=== PATIENT | female | born 1980 | race Caucasian/White ===

== ENCOUNTER 2022-05-24 11:38 | Outpatient (CLI) | payer MEDICARE, MEDICAID, SELFPAY ==
--- NOTE | 2022-05-12 09:36 | PC.NURSE ---
Attempted to contact patient to verify patient had a COVID test and was planning to come in for EGD today at noon. Was unable to reach patient with numbers provided [phone] and . Left message through the [facility] service connected with phone to confirm patient was coming and to ask about COVID test.
--- NOTE | 2022-05-24 12:36 | W.ANESCHARGE ---
Anesthesia Charges Start Date/Time Anesthesia Start Date: 05/24/22 Anesthesia Start Time: 12:16 Stop Date/Time Anesthesia Stop Date: 05/24/22 Anesthesia Stop Time: 12:37 Summary Emergency: No
--- NOTE | 2022-05-24 13:06 | W.ANESCHARGE ---
Anesthesia Charges Start Date/Time Anesthesia Start Date: 05/24/22 Anesthesia Start Time: 12:16 Stop Date/Time Anesthesia Stop Date: 05/24/22 Anesthesia Stop Time: 12:37 Summary Emergency: No
--- OUTSIDE RECORDS SUMMARY | 2022-05-31 21:50 | XMS_ITS | Clinical Summary ---
:1980 Author Organization [facility] Address [address] [place] [address] Care Team Providers Name Role Phone No Ref-Primary, Physician Primary Care Provider [phone] Allergies Active Allergy Reactions Severity Noted Date Comments Fentanyl Hives 05/04/2022 Penicillins 05/04/2022 Medications Medication Sig Dispensed Refills Start Date End Date Status magnesium oxide Take 1 tablet 10 tablet 0 05/04/2022 2 (MAG-OX) 400 MG (400 mg) by tablet mouth 2 times daily for 5 days Encounters Date Type Specialty Care Team Description 05/04/2022 Emergency EMERGENCY MEDICINE Hai Cantu PA- C Dehydration; Hypomagnesemia 05/04/2022 Travel from Last 3 Months Social History Tobacco Use Types Packs/Day Years Used Date Never Assessed Sex Assigned at Date Recorded Not on file COVID-19 Exposure Response Date Recorded In the last 10 days, have you been in contact with No / Unsu re 05/04/2022 4:17 PM CDT someone who was confirmed or suspected to have Coronavirus/COVID-19? Last Filed Vital Signs Vital Sign Reading Time Taken Comments Blood Pressure 103/72 05/04/2022 6:30 PM CDT Pulse 105 05/04/2022 4:22 PM CDT Temperature 36.8 ??C (98.2 ??F) 05/04/2022 4:22 PM CDT Respiratory Rate 14 05/04/2022 4:22 PM CDT Oxygen Saturation 100% 05/04/2022 6:30 PM CDT Inhaled Oxygen Concentration - - Weight 47.6 kg (105 lb) 05/04/2022 4:22 PM CDT Height 165.1 cm (5' 5) 05/04/2022 4:22 PM CDT Body Mass Index 17.47 05/04/2022 4:22 PM CDT Plan of Treatment Health Maintenance Due Date Last Done Comments ADVANCE CARE PLANNING 1980 ANNUAL REVIEW OF HM ORDERS 1982 COVID-19 Vaccine (#1) 1982 HIV SCREENING 1997 HEPATITIS C SCREENING 2000 MEDICARE ANNUAL WELLNESS VISIT 2000 PAP 2003 DTAP/TDAP/TD IMMUNIZATION (1 - 2007 Tdap) PHQ-2 (once per calendar year) 2021 INFLUENZA VACCINE (#1) 2022 HEPATITIS B IMMUNIZATION Aged Out No long er eligible based on patient's age to complete this topic IPV IMMUNIZATION Aged Out No longer eligi ble based on patient's age to complete this topic MENINGITIS IMMUNIZATION Aged Out No longe r eligible based on patient's age to complete this topic Pneumococcal Vaccine: Pediatrics Aged Out No longer eligible based on (0 to 5 Years) and At-Risk patie nt's age to complete this Patients (6 to 64 Years) topic Procedures Procedure Name Priority Date/Time Associated Comments Diagnosis ROUTINE UA WITH STAT 05/04/2022 6:39 PM Result s for this MICROSCOPIC REFLEX TO CDT proced ure are in CULTURE the results section. CT ABDOMEN PELVIS W STAT 05/04/2022 5:41 PM Re sults for this CONTRAST CDT procedure are i n the results section. BLOOD CULTURE STAT 05/04/2022 5:13 PM Results for this CDT procedure are i n the results section. EKG 12-LEAD, TRACING STAT 05/04/2022 5:11 PM R esults for this ONLY CDT procedure are i n the results section. CBC WITH PLATELETS & STAT 05/04/2022 5:03 PM R esults for this DIFFERENTIAL CDT procedure are i n the results section. BLOOD CULTURE STAT 05/04/2022 5:03 PM Results for this CDT procedure are i n the results section. T4 FREE STAT 05/04/2022 5:03 PM Results f or this CDT procedure are i n the results section. CBC WITH PLATELETS AND STAT 05/04/2022 5:03 PM Results for this DIFFERENTIAL CDT procedure are i n the results section. CRP INFLAMMATION STAT 05/04/2022 5:03 PM Resul ts for this CDT procedure are i n the results section. NT PROBNP INPATIENT STAT 05/04/2022 5:03 PM Re sults for this CDT procedure are i n the results section. TSH WITH FREE T4 STAT 05/04/2022 5:03 PM Resul ts for this REFLEX CDT procedure are i n the results section. MAGNESIUM STAT 05/04/2022 5:03 PM Results f or this CDT procedure are i n the results section. TROPONIN I STAT 05/04/2022 5:03 PM Results f or this CDT procedure are i n the results section. LACTIC ACID WHOLE STAT 05/04/2022 5:03 PM Resu lts for this BLOOD CDT procedure are i n the results section. COMPREHENSIVE STAT 05/04/2022 5:03 PM Results for this METABOLIC PANEL CDT procedure ar e in the results section. INR STAT 05/04/2022 5:03 PM Results f or this CDT procedure are i n the results section. D DIMER QUANTITATIVE STAT 05/04/2022 5:03 PM R esults for this CDT procedure are i n the results section. from Last 3 Months Results (ABNORMAL) UA with Microscopic reflex to Culture (05/04/2022 6:39 PM CDT) [facility] gist Method Time Signature Color Urine Yellow Colorless, 05/04/2022 LABORATORY Straw, 6:54 PM CDT Light Yellow, Yellow Appearance Urine Clear Clear 05/04/2022 LABORATOR Y 6:54 PM CDT Glucose Urine Negative Negative 05/04/2022 LABORATORY mg/dL 6:54 PM CDT Bilirubin Urine Negative Negative 05/04/2022 LABORATORY 6:54 PM CDT Ketones Urine Negative Negative 05/04/2022 LABORATORY mg/dL 6:54 PM CDT Specific [place] >1.050 (H) 1.003 - JULES 05/04/2022 LABORATO RY Urine 1.035 6:54 PM CDT Blood Urine Negative Negative 05/04/2022 LABORATORY 6:54 PM CDT pH Urine 7.5 5.0 - 9.0 05/04/2022 LABORATORY 6:54 PM CDT Protein Albumin 20 (A) Negative 05/04/2022 LABORATORY Urine mg/dL 6:54 PM CDT Urobilinogen Normal Normal, 2.0 05/04/2022 LABORATORY Urine mg/dL 6:54 PM CDT Nitrite Urine Negative Negative 05/04/2022 LABORATORY 6:54 PM CDT Leukocyte Negative Negative 05/04/2022 LABORATORY Esterase Urine 6:54 PM CDT Bacteria Urine Few (A) None Seen 05/04/2022 [facility] /HPF 6:54 PM CDT Mucus Urine Present (A) None Seen 05/04/2022 LABORATORY /LPF 6:54 PM CDT RBC Urine 4 (H) <=2 /HPF 05/04/2022 LABORATORY 6:54 PM CDT WBC Urine 2 <=5 /HPF 05/04/2022 [facility] 6:54 PM CDT Squamous 8 (H) <=1 /HPF 05/04/2022 LABORATORY Epithelials 6:54 PM CDT Urine Specimen Anatomical Collection Method Collection Time Receive d Time (Source) Location / / Volume Laterality Urine URINE SPECIMEN Non-blood 05/04/2022 6:39 PM 022 6:42 OBTAINED BY CLEAN Collection / CDT PM CDT CATCH PROCEDURE / Unknown Unknown Narrative LABORATORY - 05/04/2022 6:54 PM CDT Urine Culture not indicated Hai Cantu PA-C LAB - URINE ORDERABLES Performing Organization Address City/State/ZIP Code Phon e Number LABORATORY [facility] [place] [address] [facility] Laboratory [address] Abdomen Pelvis w Contrast (05/04/2022 5:41 PM CDT) Anatomical Region Laterality Modality Abdomen/Pelvis, SUBRAD CT BODY, UMP CT ABDOMEN PELVIS, Computed Tomography RAD CT Specimen (Source) Anatomical Location Collection Method / Collectio n Time Received Time / Laterality Volume Impressions 05/04/2022 5:51 PM CDT IMPRESSION: No acute findings in the abdomen or pelv is. There is a 4 mm nonobstructing calculus in the lower pole of the left kidney and there is a punctate nonobstru cting calculus in the lower pole of the right kidney. KENAN TAPIA MD SYSTEM ID: ??[id number] Narrative 05/04/2022 5:51 PM CDT Exam: CT ABDOMEN PELVIS W CONTRAST Exam reason: nausea and decreased appeti te x 5 days Technique: Using helical CT technique, a xial images of the abdomen and pelvis were obtained with IV contrast. ? ?Coronal and sagittal reconstructions also performed. Meds/Contrast: Isovue 370 55 mL Comparison: None. FINDINGS: ABDOMEN: Liver: No mass or any significant abnorm ality. Gallbladder: No calcified gallstones. Bile Ducts: No biliary ductal dilation. Spleen: ??No splenomegaly or focal lesio n. Pancreas: No mass, ductal dilatation, or inflammatory changes. Kidneys: No solid mass or hydronephrosis . There is a 4 mm nonobstructing calculus in the lower eloina e of the left kidney and a punctate nonobstructing calculus in the lower pole of the right kidney. Adrenals: ??No nodules. Lymph Nodes: No adenopathy. Vascular: No aortic aneurysm. Abdominal Wall: No acute findings. PELVIS: No mass or adenopathy. Bowel/Mesentery/Peritoneum: -No bowel obstruction. -Normal appendix. -No acute inflammatory findings. -No ascites. Visualized portions of the Chest: No ple ural effusion or significant findings. Musculoskeletal: No acute osseous abnorm alities. Procedure Note Kenan Tapia MD - 05/04/2022Formatti ng of this note might be different from the original. Exam: CT ABDOMEN PELVIS W CONTRAST Exam reason: nausea and decreased appeti te x 5 days Technique: Using helical CT technique, a xial images of the abdomen and pelvis were obtained with IV contrast. C oronal and sagittal reconstructions also performed. Meds/Contrast: Isovue 370 55 mL Comparison: None. FINDINGS: ABDOMEN: Liver: No mass or any significant abnorm ality. Gallbladder: No calcified gallstones. Bile Ducts: No biliary ductal dilation. Spleen: No splenomegaly or focal lesion. Pancreas: No mass, ductal dilatation, or inflammatory changes. Kidneys: No solid mass or hydronephrosis . There is a 4 mm nonobstructing calculus in the lower eloina e of the left kidney and a punctate nonobstructing calculus in the lower pole of the right kidney. Adrenals: No nodules. Lymph Nodes: No adenopathy. Vascular: No aortic aneurysm. Abdominal Wall: No acute findings. PELVIS: No mass or adenopathy. Bowel/Mesentery/Peritoneum: -No bowel obstruction. -Normal appendix. -No acute inflammatory findings. -No ascites. Visualized portions of the Chest: No ple ural effusion or significant findings. Musculoskeletal: No acute osseous abnorm alities. IMPRESSION: No acute findings in the abdomen or pelv is. There is a 4 mm nonobstructing calculus in the lower pole of the left kidney and there is a punctate nonobstru cting calculus in the lower pole of the right kidney. KENAN TAPIA MD SYSTEM ID: [id number] Hai A [employer] PA-C IMG CT ORDERABLES Blood Culture Hand, Left (05/04/2022 5:13 PM CDT)Only the most recent of2 resultswithin the time period is included. athologist Signature Culture No Growth 05/09/2022 LABORATORY 5:33 PM CDT Specimen Anatomical Collection Method / Collection Time Recei deon Time (Source) Location / Volume Laterality Blood STRUCTURE OF LEFT Venipuncture / 05/04/2022 5:13 05/04 5:19 HAND / Unknown Unknown PM CDT PM CDT Hai A [employer] PA-C LAB - MICRO GENERAL ORDERABL ES Performing Organization Address City/[facility]/ZIP Code [place] [address] Hospital Laboratory [address] Laboratory EKG 12-lead, tracing only (05/04/2022 5:11 PM CDT) [facility] gist Method Time Signature Systolic Blood mmHg RADIOLOGY Pressure RESULTS Diastolic Blood mmHg RADIOLOGY Pressure RESULTS Ventricular Rate 85 BPM RADIOLOGY RESULTS Atrial Rate 85 BPM RADIOLOGY RESULTS IL Interval 144 ms RADIOLOGY RESULTS QRS Duration 94 ms RADIOLOGY RESULTS QT 344 ms RADIOLOGY RESULTS QTc 409 ms RADIOLOGY RESULTS P [place] 81 degrees RADIOLOGY RESULTS R AXIS 89 degrees RADIOLOGY RESULTS T [place] 81 degrees RADIOLOGY RESULTS Interpretation Sinus rhythm RADIOLOGY ECG Normal ECG RESULTS No previous ECGs available Confirmed by MD JERMAINE, [facility] ([id number]) on 05/05/2022 1:53:24 PM Specimen Anatomical Collection Method Collection Time Receive d Time (Source) Location / / Volume Laterality 05/04/2022 5:11 PM 1:53 CDT PM CDT Hai A [employer] PA-C ECG ORDERABLES Performing Organization Address City/State/ZIP Code Phon e Number RADIOLOGY RESULTS CBC with platelets and differential (05/04/2022 5:03 PM CDT) Analysis Performed At Patho logist Time Signature WBC Count 7.3 4.0 - 11.0 05/04/2022 [facility] LABORATORY 10e3/uL 5:19 PM CDT RBC Count 4.34 3.80 - 05/04/2022 [facility] LAB[facility]ATORY 5.20 5:19 PM CDT 10e6/uL Hemoglobin 13.6 11.7 - 05/04/2022 [facility] 15.7 g/dL 5:19 PM CDT Hematocrit 39.7 35.0 - 05/04/2022 [facility] 47.0 % 5:19 PM CDT MCV 92 78 - 100 05/04/2022 [facility] fL 5:19 PM CDT MCH 31.3 26.5 - 05/04/2022 LABORATORY 33.0 pg 5:19 PM CDT MCHC 34.3 31.5 - 05/04/2022 [facility] 36.5 g/dL 5:19 PM CDT RDW 13.7 10.0 - 05/04/2022 LABORATORY 15.0 % 5:19 PM CDT Platelet Count 164 150 - 450 05/04/2022 [facility] 10e3/uL 5:19 PM CDT % Neutrophils 66 % 05/04/2022 [facility] 5:19 PM CDT % Lymphocytes 28 % 05/04/2022 LABORATORY 5:19 PM CDT % Monocytes 6 % 05/04/2022 LABORATORY 5:19 PM CDT % Eosinophils 0 % 05/04/2022 LABORATORY 5:19 PM CDT % Basophils 0 % 05/04/2022 LABORATORY 5:19 PM CDT % Immature 0 % 05/04/2022 [facility] Granulocytes 5:19 PM CDT NRBCs per 100 WBC 0 <1 /100 05/04/2022 [facility] LABORATO RY 5:19 PM CDT Absolute 4.8 1.6 - 8.3 05/04/2022 [facility]AT[facility] Neutrophils 10e3/uL 5:19 PM CDT Absolute 2.0 0.8 - 5.3 05/04/2022 [facility] LABORATORY Lymphocytes 10e3/uL 5:19 PM CDT Absolute 0.5 0.0 - 1.3 05/04/2022 [facility] LABORATORY Monocytes 10e3/uL 5:19 PM CDT Absolute 0.0 0.0 - 0.7 05/04/2022 [facility] LAB[facility]ATORY Eosinophils 10e3/uL 5:19 PM CDT Absolute 0.0 0.0 - 0.2 05/04/2022 [facility] LABORATORY Basophils 10e3/uL 5:19 PM CDT Absolute Immature 0.0 <=0.4 05/04/2022 [facility] LABORATO RY Granulocytes 10e3/uL 5:19 PM CDT Absolute NRBCs 0.0 10e3/uL 05/04/2022 [facility] LABORATORY 5:19 PM CDT Specimen Anatomical Collection Method / Collection Time Recei deon Time (Source) Location / Volume Laterality Blood STRUCTURE OF LEFT Venipuncture / 05/04/2022 5:03 05/04 5:16 UPPER LIMB / Unknown PM CDT PM CDT Unknown Hai Cantu PA-C LAB - BLOOD ORDERABLES Performing Organization Address City/[facility]/ZIP Code [place] [address] Hospital Laboratory [address] Laboratory (ABNORMAL) TSH Reflex [facility] (05/04/2022 5:03 PM CDT) athologist Signature TSH 0.31 (L) 0.40 - 4.00 05/04/2022 LABORATORY mU/L 6:37 PM CDT Specimen Anatomical Collection Method / Collection Time Recei deon Time (Source) Location / Volume Laterality Blood STRUCTURE OF LEFT Venipuncture / 05/04/2022 5:03 05/04 5:16 UPPER LIMB / Unknown PM CDT PM CDT Unknown Hai Cantu PA-C LAB - BLOOD ORDERABLES Performing Organization Address City/State/ZIP Code [place] [address] Hospital Laboratory [address] Laboratory Troponin I (05/04/2022 5:03 PM CDT) athologist Signature Troponin I <2.4 0.0 - 34.0 05/04/2022 LABORATORY pg/mL 5:48 PM CDT Specimen Anatomical Collection Method / Collection Time Recei deon Time (Source) Location / Volume Laterality Blood STRUCTURE OF LEFT Venipuncture / 05/04/2022 5:03 05/04 5:15 UPPER LIMB / Unknown PM CDT PM CDT Unknown Hai Tova Pepe [place] LAB - BLOOD ORDERABLES Performing Organization Address City/[facility]/ZIP Code [place] [address] Hospital Laboratory [address] Laboratory T4 free (05/04/2022 5:03 PM CDT) athologist Signature Free T4 0.78 0.60 - 1.60 05/04/2022 LABORATORY ng/dL 7:04 PM CDT Specimen Anatomical Collection Method / Collection Time Recei deon Time (Source) Location / Volume Laterality Blood STRUCTURE OF LEFT Venipuncture / 05/04/2022 5:03 05/04 5:16 UPPER LIMB / Unknown PM CDT PM CDT Unknown Hai Tova Pepe [place] LAB - BLOOD ORDERABLES Performing Organization Address City/[facility]/ZIP Code [place] [address] Hospital Laboratory [address] Laboratory INR (05/04/2022 5:03 PM CDT) athologist Signature INR 0.95 0.85 - 1.15 05/04/2022 LABORATORY 5:35 PM CDT Specimen Anatomical Collection Method / Collection Time Recei deon Time (Source) Location / Volume Laterality Blood STRUCTURE OF LEFT Venipuncture / 05/04/2022 5:03 05/04 5:16 UPPER LIMB / Unknown PM CDT PM CDT Unknown Hai Tova Pepe [place] LAB - BLOOD ORDERABLES Performing Organization Address City/[facility]/ZIP Code [place] [address] Hospital Laboratory [address] Laboratory Nt probnp inpatient (BNP) (05/04/2022 5:03 PM CDT) athologist Signature N terminal Pro 11 0 - 100 05/04/2022 LABORATORY BNP Inpatient pg/mL 5:47 PM CDT Comment: Reference range shown and results flagge d as abnormal are suggested inpatient cut points for confirming diagnosis if CHF in an acute setting. Establishing a baseline value for each individual patient is useful for follow-up. An inpatient or e mergency department NT-proPBNP <300 pg/mL effectively rules out acute CHF, with 99% negative predictive value. The outpatient non-acute reference range for ruling out CHF is: 0-125 pg/mL (age 18 to less than 75) 0-450 pg/mL (age 75 yrs and older) Specimen Anatomical Collection Method / Collection Time Recei deon Time (Source) Location / Volume Laterality Blood STRUCTURE OF LEFT Venipuncture / 05/04/2022 5:03 05/04 5:16 UPPER LIMB / Unknown PM CDT PM CDT Unknown Hai Cantu PA-C LAB - BLOOD ORDERABLES Performing Organization Address [facility]/ZIP [facility] [place] [address] [facility] Laboratory [address] Laboratory Magnesium (05/04/2022 5:03 PM CDT) P athologist Signature Magnesium 1.9 1.9 - 2.7 05/04/2022 LABORATORY mg/dL 5:39 PM CDT Specimen Anatomical Collection Method / Collection Time Recei deon Time (Source) Location / Volume Laterality Blood STRUCTURE OF LEFT Venipuncture / 05/04/2022 5:03 05/04 5:16 UPPER LIMB / Unknown PM CDT PM CDT Unknown Hai Cantu PA-C LAB - BLOOD ORDERABLES Performing Organization Address City/[facility]/ZIP [facility] Phon e Number LABORATORY [facility] [place] [address] [facility] Laboratory [address] Laboratory Lactic acid whole blood (05/04/2022 5:03 PM CDT) P athologist Signature Lactic Acid 0.7 0.7 - 2.0 05/04/2022 LABORATORY mmol/L 5:19 PM CDT Specimen Anatomical Collection Method / Collection Time Recei deon Time (Source) Location / Volume Laterality Blood STRUCTURE OF LEFT Venipuncture / 05/04/2022 5:03 05/04 5:16 UPPER LIMB / Unknown PM CDT PM CDT Unknown Hai Cantu PA-C LAB - BLOOD ORDERABLES Performing Organization Address [facility] [place] [address] Hospital Laboratory [facility] [address] Laboratory D dimer quantitative (05/04/2022 5:03 PM CDT) Analysis Performed At Patho logist Time Signature D-Dimer 0.38 0.00 - 05/04/2022 LABORATORY Quantitative 0.50 ug/mL 5:37 PM CDT FEU Specimen Anatomical Collection Method / Collection Time Recei deon Time (Source) Location / Volume Laterality Blood STRUCTURE OF LEFT Venipuncture / 05/04/2022 5:03 05/04 5:16 UPPER LIMB / Unknown PM CDT PM CDT Unknown Narrative LABORATORY - 05/04/2022 5:37 PM CDT This D-dimer assay is intended for use i n conjunction with a clinical pretest probability assessment model to exclude pulmonary embolism (PE) and deep venous thrombosis (DVT) in outpatients suspecte d of PE or DVT. The cut-off value is 0.50 ug/mL FEU. Hai Cantu PA-C LAB - BLOOD ORDERABLES Performing Organization Address [facility] [place] [address] Hospital Laboratory [facility] [address] [facility] [address] Laboratory CRP inflammation (05/04/2022 5:03 PM CDT) Analysis Performed At Patho logist Time Signature CRP Inflammation <1.0 <10.0 mg/L 05/04/2022 LABORATO RY 5:39 PM CDT Specimen Anatomical Collection Method / Collection Time Recei deon Time (Source) Location / Volume Laterality Blood STRUCTURE OF LEFT Venipuncture / 05/04/2022 5:03 05/04 5:16 UPPER LIMB / Unknown PM CDT PM CDT Unknown Hai WEBERC LAB - BLOOD ORDERABLES Performing Organization Address City/[facility]/ZIP Code Phon e Number LABORATORY [facility] [place] [address] Hospital Laboratory [address] Laboratory (ABNORMAL) Comprehensive metabolic panel (05/04/2022 5:03 PM CDT) [facility] Method Time Signature Sodium 139 134 - 144 05/04/2022 LABORATORY mmol/L 5:39 PM CDT Potassium 3.7 3.5 - 5.1 05/04/2022 LABORATORY mmol/L 5:39 PM CDT Chloride 104 98 - 107 05/04/2022 LABORATORY mmol/L 5:39 PM CDT Carbon Dioxide 29 21 - 31 05/04/2022 LABORATORY (CO2) mmol/L 5:39 PM CDT Anion Gap 6 3 - 14 05/04/2022 LABORATORY mmol/L 5:39 PM CDT Urea Nitrogen 15 7 - 25 05/04/2022 LABORATORY mg/dL 5:39 PM CDT Creatinine 0.81 0.60 - 05/04/2022 LABORATORY 1.20 mg/dL 5:39 PM CDT Calcium 9.5 8.6 - 10.3 05/04/2022 LABORATORY mg/dL 5:39 PM CDT Glucose 107 (H) 70 - 105 05/04/2022 LABORATORY mg/dL 5:39 PM CDT Alkaline 64 34 - 104 05/04/2022 LABORATORY Phosphatase U/L 5:39 PM CDT AST 11 (L) 13 - 39 05/04/2022 LABORATORY U/L 5:39 PM CDT ALT 5 (L) 7 - 52 U/L 05/04/2022 LABORATORY 5:39 PM CDT Protein Total 6.4 6.4 - 8.9 05/04/2022 LABORATORY g/dL 5:39 PM CDT Albumin 4.2 3.5 - 5.7 05/04/2022 LABORATORY g/dL 5:39 PM CDT Bilirubin Total 0.4 0.3 - 1.0 05/04/2022 LABORATORY mg/dL 5:39 PM CDT GFR Estimate >90 >60 05/04/2022 LABORATORY mL/min/1.7 5:39 PM CDT 3m2 Comment: Effective October 12, 2021 eGF Rcr in adults is calculated using the 2020 CKD-EPI creatinine equation which includ es age and gender (Lopez et al., NEJM, DOI: 10.1056/OFKQhu2875323) Specimen Anatomical Collection Method / Collection Time Recei deon Time (Source) Location / Volume Laterality Blood STRUCTURE OF LEFT Venipuncture / 05/04/2022 5:03 05/04 5:16 UPPER LIMB / Unknown PM CDT PM CDT Unknown Hai Cantu PA-C LAB - BLOOD ORDERABLES Performing Organization Address City/State/ZIP Code Phon e Number [facility] LABORATORY [facility] [place] [address] Hospital Laboratory [address] Laboratory from Last 3 Months Insurance Payer Benefit Plan / Subscriber ID Effective Dates Phone Addre ss Type Group MEDICARE MEDICARE [id number] 2003-Presen [phone] ATTN CL [employer]IM[employer] Medicare t 0 [address] [facility] [place] [address] [facility] PMAP [id number] 2021-Presen [phone] [address] [place]MO t 0 [place] [address] Care Teams Wedger Machine Relationship Specialty Start Date End Date No Ref-Primary, Physician PCP - General 05/04/22
--- OUTSIDE RECORDS SUMMARY | 2022-05-31 21:50 | XMS_ITS | Encounter Summary ---
:1980 Author Organization [facility] Address [address] [place] [address] Care Team Providers Name Role Phone No Ref-Primary, Physician Primary Care Provider [phone] Encounter Details Date Type Department Care Team Description 05/04/2022 Travel Social History Tobacco Use Types Packs/Day Years Used Date Never Assessed Sex Assigned at Date Recorded Not on file COVID-19 Exposure Response Date Recorded In the last 10 days, have you been in contact with No / Unsu re 05/04/2022 4:17 PM CDT someone who was confirmed or suspected to have Coronavirus/COVID-19? documented as of this encounter Plan of Treatment Not on filedocumented as of this encounter Visit Diagnoses Not on filedocumented in this encounter Care Teams Lease Out Man Relationship Specialty Start Date End Date No Ref-Primary, Physician PCP - General 05/04/22 documented as of this encounter
--- OUTSIDE RECORDS SUMMARY | 2022-05-31 21:51 | XMS_ITS | Encounter Summary ---
:1980 Author Organization [facility] Address [address] [place] [id number] Care Team Providers Name Role Phone Betsy Mcarthur M.D. Primary Care Provider Reason for Referral Outpatient (Routine) - Closed Specialty Diagnoses / Procedures Referred By Contact Refer red To Contact Neurology Cecille Chauhan M.D. [facility] [address] [place] [phone] Referral ID Status Reason Start Date Expiration Date Visits Requ ested Visits Authorized [id number] Closed 04/19/2022 04/19/2023 1 1 Scheduling Instructions Patient needs to see either TIE CARRIER or fellow to get interval history so that Botox can be re-started and re-authorized if needed. Encounter Details Date Type Department Care Team Description 04/18/2022 Clinical Communication Department of Xochitl Rosenthal M.D. [place], [place] [address] [place] [address] [place] [phone] Social History Tobacco Use Types Packs/Day Years Used Date Smoking Tobacco: Every Day Cigarettes 1 0 Smokeless Tobacco: Never Alcohol Use Standard Drinks/Week Comments Yes 6 (1 standard drink = 0.6 oz pure alcoho l) Alcohol Habits Answer Date Recorded How often do you have a drink containing alcohol? Never 05/02/2022 How many drinks containing alcohol do you have on a typical 1 or 2 06/07/2019 day when you are drinking? How often do you have six or more drinks on one occasion? Ne vandana 02/21/2020 Comment: Not asked Social Isolation Answer Date Recorded In a typical week, how many times do you More than three satya es a week 05/02/2022 talk on the phone with family, friends, or neighbors? How often do you get together with friends Once a week 05/02/2022 or relatives? How often do you attend gnosticist or 1 to 4 times per year 04/22 rastafari services? Do you belong to any clubs or No 05/02/2022 organizations such as gnosticist groups, unions, fraternal or athletic groups, or school groups? How often do you attend meetings of the Never 05/02/2022 clubs or organizations you belong to? Are you now , , , 05/02/2022 , never or living with a partner? Physical Activity Answer Date Recorded On average, how many days per week do you engage in moderate to 5 days 05/02/2022 strenuous exercise (like walking fast, running, jogging, dancing, swimming, biking, or other activities that cause a light or heavy sweat)? On average, how many minutes do you engage in exercise at th is 60 min 05/02/2022 level? Stress Answer Date Recorded Do you feel stress - tense, restless, nervous, or anxious, o r Very much 05/02/2022 unable to sleep at night because your mind is troubled all the time - these days? Financial Resource Strain Answer Date Recorded How hard is it for you to pay for the very basics like food, Very hard 05/02/2022 housing, medical care, and heating? Intimate Partner Violence Answer Date Recorded Within the last year, have you been afraid of your partner o r No 05/02/2022 ex-partner? Within the last year, have you been humiliated or emotionall y No 05/02/2022 abused in other ways by your partner or ex-partner? Within the last year, have you been kicked, hit, slapped, or No 05/02/2022 otherwise physically hurt by your partner or ex-partner? Within the last year, have you been raped or forced to have any No 05/02/2022 kind of sexual activity by your partner or ex-partner? Food Insecurity Answer Date Recorded Within the past 12 months, you worried that your food Often true 05/02/2022 would run out before you got money to buy more. Within the past 12 months, the food you bought just Sometime s true 05/02/2022 didn't last and you didn't have money to get more. Transportation Needs Answer Date Recorded In the past 12 months, has lack of transportation kept you f rom Yes 05/02/2022 medical appointments or from getting medications? In the past 12 months, has lack of transportation kept you f rom Yes 05/02/2022 meetings, work, or getting things needed for daily living? Housing Stability Answer Date Recorded In the last 12 months, was there a time when you were not ab le Yes 05/02/2022 to pay the mortgage or rent on time? In the last 12 months, how many places have you lived? 1 05/02/2022 In the last 12 months, was there a time when you did not hav e a Yes 05/02/[address] sleep or slept in a prison (including now)? Education Answer Date Recorded What is the highest level of school you have completed or 12 th grade 05/08/2020 the highest degree you have received? Sex Assigned at Date Recorded Female 02/05/2018 10:11 AM CDT documented as of this encounter Miscellaneous Notes Telephone Encounter - Xochitl Rosenthal M.D. - 04/19/2022 11:26 AM CDT I am not adverse to placing an order, but it since I do not know the patient, I wonder if this should technically be ordered by Dr. Chauhan, who last saw the patient? Could you forward this to her and let her decide? Thank you. documented in this encounter Plan of Treatment Upcoming Encounters Date Type Specialty Care Team Description 08/01/2022 Appointment Neurology Mili Toscano M .D. [address] [place] [address] [phone] (Wo rk) Scheduled Referrals Name Type Priority Associated Diagnoses Order [facility] Neurology office Outpatient Referral Routine Expe cted: visit (clinic) 04/19/2022 (Approximate), Expires: 07/20/2023 documented as of this encounter Visit Diagnoses Not on filedocumented in this encounter Additional Health Concerns Assessment Noted Time PHQ-9 Depression Total Score: 8 05/08/2020 7:30 AM CDT documented as of this encounter Care Teams Welder Apprentice Relationship Specialty Start Date End Date Betsy Mcarthur M.D. PCP - General 12/03/[address] [place] [phone] documented as of this encounter
--- OUTSIDE RECORDS SUMMARY | 2022-05-31 21:51 | XMS_ITS | Encounter Summary ---
:1980 Author Organization [facility] Address [address] [place] [address] Care Team Providers Name Role Phone No Ref-Primary, Physician Primary Care Provider [phone] Reason for Visit Reason Comments Extremity Weakness Encounter Details Date Type Department Care Team Description 05/04/2022 Emergency [facility] and Hai Cantu , Dehydration; Hospital PA-C Hypomagnesemia [address] [place], [place] [address] [place], [place] [phone] (Wo rk) Social History Tobacco Use Types Packs/Day Years Used Date Never Assessed Sex Assigned at Date Recorded Not on file COVID-19 Exposure Response Date Recorded In the last 10 days, have you been in contact with No / Unsu re 05/04/2022 4:17 PM CDT someone who was confirmed or suspected to have Coronavirus/COVID-19? documented as of this encounter Last Filed Vital Signs Vital Sign Reading [...] Mass Index 17.47 05/04/2022 4:22 PM CDT documented in this encounter Discharge Instructions AttachmentsThe following attachments cannot be sent through Care Everywhere. Hypomagnesemia, Discharge Instructions (Maldivian)documented in this encounter Medications at Time of Discharge Medication Sig Dispensed Refills Start Date End Date magnesium oxide (MAG-OX) Take 1 tablet (400 10 tablet 0 05/09/2022 400 MG tablet mg) by mouth 2 times daily for 5 days documented as of this encounter Progress Notes Carline Brush RN - 05/04/2022 6:45 PM CDT Patient declined COVID/Influenza swab at this time. Carline Brush RN on 05/04/2022 at 6:45 PM documented in this encounter ED Notes Carline Brush RN - 05/04/2022 6:28 PM CDT Pt is resting comfortably at this time. Denies any pain. Alana Cline - 05/04/2022 5:24 PM CDT IV Contrast- Discharge Instructions After Your CT Scan The IV contrast you received today will be filtered from your bloodstream by your kidneys during thenext 24 hours and pass from the body in urine. You will not be aware of this process and your urine will not change in color. To help this process you should drink at least 4 additional glasses of water or juice today. This reduces stress on your kidneys. Most contrast reactions are immediate. Should you develop symptoms of concern after discharge, contact the department at the number below. After hours you should contact your personal physician. If youdevelop breathing distress or wheezing, call 911. 1. Has the patient had a previous reaction to IV contrast? no 2. Does the patient have kidney disease? no 3. Is the patient on dialysis? no If YES to any of these questions, exam will be reviewed with a Radiologist before administering contrast. Shadia Fields RN - 05/04/2022 4:26 PM CDT Pt complaining of generalized weakness and abdominal pain for last 5 days. Denies fever. Had COVID in March. Triage Assessment Row Name 05/04/22 1626 Triage Assessment (Adult) Airway WDL WDL Respiratory WDL Respiratory WDL WDL Skin Circulation/Temperature WDL Skin Circulation/Temperature WDL WDL Cardiac WDL Cardiac WDL WDL Peripheral/Neurovascular WDL Peripheral Neurovascular WDL WDL Cognitive/Neuro/Behavioral WDL Cognitive/Neuro/Behavioral WDL WDL Hai Cantu PA-C - 05/04/2022 4:17 PM CDT History Chief Complaint Patient presents with ??? Extremity Weakness HPI Katherine Tiwari is a 42 year old female who is up here on vacation from the [facility]. The patient is hard of hearing but declines the need for an certified court interpreter and states to RN that she can read lips. She has had 5 days of generalized abdominal pain muscle aches and generalized weakness. She reports she had COVID in March. She has had decreased appetite with some nausea. Denies any other issues other than feeling weak and dehydrated. She feels she would benefit from IV fluids. No chest pain or shortness of breath. No lightheadedness or dizziness. No nausea or vomiting. No diarrhea or constipation. Allergies: Allergies Allergen Reactions ??? Fentanyl Hives ??? Penicillins Problem List: There are no problems to display for this patient. Past Medical History: No past medical history on file. Past Surgical History: No past surgical history on file. Family History: No family history on file. Social History: Marital Status: Medications: No current outpatient medications on file. Review of Systems Constitutional: Negative for fever. HENT: Negative for facial swelling and sore throat. Eyes: Negative for pain. Respiratory: Negative for stridor. Cardiovascular: Negative for chest pain. Gastrointestinal: Negative for abdominal pain, nausea and vomiting. Genitourinary: Negative for flank pain. Musculoskeletal: Negative for back pain and neck pain. Skin: Negative for pallor. Neurological: Negative for tremors and seizures. Psychiatric/Behavioral: Negative for agitation. All other systems reviewed and are negative. Physical Exam BP: 116/75 Pulse: 105 Temp: 98.2 ??F (36.8 ??C) Resp: 14 Height: 165.1 cm (5' 5) Weight: 47.6 kg (105 lb) SpO2: 95 % Physical Exam Vitals and nursing note reviewed. Constitutional: General: She is not in acute distress. Appearance: Normal appearance. She is not ill-appearing or toxic-appearing. HENT: Head: Normocephalic. No raccoon eyes, right periorbital erythema or left periorbital erythema. Right Ear: No drainage or tenderness. Left Ear: No drainage or tenderness. Nose: Nose normal. Eyes: General: Lids are normal. Gaze aligned appropriately. No scleral icterus. Extraocular Movements: Extraocular movements intact. Neck: Trachea: No tracheal deviation. Cardiovascular: Rate and Rhythm: Normal rate. Pulmonary: Effort: Pulmonary effort is normal. No respiratory distress. Breath sounds: No stridor. No wheezing. Comments: Lung sounds are clear but decreased throughout. SaO2 is 95% on room air. She does not appear to be in any respiratory distress. No tachypnea. Abdominal: Tenderness: There is no abdominal tenderness. Musculoskeletal: General: No deformity or signs of injury. Normal range of motion. Cervical back: Normal range of motion. No signs of trauma. Skin: General: Skin is warm and dry. Coloration: Skin is not jaundiced or pale. Neurological: General: No focal deficit present. Mental Status: She is alert and oriented to person, place, and time. GCS: GCS eye subscore is 4. GCS verbal subscore is 5. GCS motor subscore is 6. Motor: No tremor or seizure activity. Psychiatric: Attention and Perception: Attention normal. Mood and Affect: Mood normal. ED Course EKG shows normal sinus rhythm with heart rate 85. Results for orders placed or performed during the hospital encounter of 05/04/22 (from the past 24 hour(s)) CBC with platelets differential Narrative The following orders were created for panel order CBC with platelets differential. Procedure Abnormality Status --------- ------ CBC with platelets and d...[[id number]] Final result Please view results for these tests on the individual orders. D dimer quantitative Result Value Ref Range D-Dimer Quantitative 0.38 0.00 - 0.50 ug/mL FEU Narrative This D-dimer assay is intended for use in conjunction with a clinical pretest probability assessment model to exclude pulmonary embolism (PE) and deep venous thrombosis (DVT) in outpatients suspected of PE or DVT. The cut-off value is 0.50 ug/mL FEU. INR Result Value Ref Range INR 0.95 0.85 - 1.15 Comprehensive metabolic panel Result Value Ref Range Sodium 139 134 - 144 mmol/L Potassium 3.7 3.5 - 5.1 mmol/L Chloride 104 98 - 107 mmol/L Carbon Dioxide (CO2) 29 21 - 31 mmol/L Anion Gap 6 3 - 14 mmol/L Urea Nitrogen 15 7 - 25 mg/dL Creatinine 0.81 0.60 - 1.20 mg/dL Calcium 9.5 8.6 - 10.3 mg/dL Glucose 107 (H) 70 - 105 mg/dL Alkaline Phosphatase 64 34 - 104 U/L AST 11 (L) 13 - 39 U/L ALT 5 (L) 7 - 52 U/L Protein Total 6.4 6.4 - 8.9 g/dL Albumin 4.2 3.5 - 5.7 g/dL Bilirubin Total 0.4 0.3 - 1.0 mg/dL GFR Estimate >90 >60 mL/min/1.73m2 Lactic acid whole blood Result Value Ref Range Lactic Acid 0.7 0.7 - 2.0 mmol/L Troponin I Result Value Ref Range Troponin I <2.4 0.0 - 34.0 pg/mL Magnesium Result Value Ref Range Magnesium 1.9 1.9 - 2.7 mg/dL TSH Reflex GH Result Value Ref Range TSH 0.31 (L) 0.40 - 4.00 mU/L Nt probnp inpatient (BNP) Result Value Ref Range N terminal Pro BNP Inpatient 11 0 - 100 pg/mL CRP inflammation Result Value Ref Range CRP Inflammation <1.0 <10.0 mg/L CBC with platelets and differential Result Value Ref Range WBC Count 7.3 4.0 - 11.0 10e3/uL RBC Count 4.34 3.80 - 5.20 10e6/uL Hemoglobin 13.6 11.7 - 15.7 g/dL Hematocrit 39.7 35.0 - 47.0 % MCV 92 78 - 100 fL MCH 31.3 26.5 - 33.0 pg MCHC 34.3 31.5 - 36.5 g/dL RDW 13.7 10.0 - 15.0 % Platelet Count 164 150 - 450 10e3/uL % Neutrophils 66 % % Lymphocytes 28 % % Monocytes 6 % % Eosinophils 0 % % Basophils 0 % % Immature Granulocytes 0 % NRBCs per 100 WBC 0 <1 /100 Absolute Neutrophils 4.8 1.6 - 8.3 10e3/uL Absolute Lymphocytes 2.0 0.8 - 5.3 10e3/uL Absolute Monocytes 0.5 0.0 - 1.3 10e3/uL Absolute Eosinophils 0.0 0.0 - 0.7 10e3/uL Absolute Basophils 0.0 0.0 - 0.2 10e3/uL Absolute Immature Granulocytes 0.0 <=0.4 10e3/uL Absolute NRBCs 0.0 10e3/uL T4 free Result Value Ref Range Free T4 0.78 0.60 - 1.60 ng/dL CT Abdomen Pelvis w Contrast Narrative Exam: CT ABDOMEN PELVIS W CONTRAST Exam reason: nausea and decreased appetite x 5 days Technique: Using helical CT technique, axial images of the abdomen and pelvis were obtained with IV contrast. Coronal and sagittal reconstructions also performed. Meds/Contrast: Isovue 370 55 mL Comparison: None. FINDINGS: ABDOMEN: Liver: No mass or any significant abnormality. Gallbladder: No calcified gallstones. Bile Ducts: No biliary ductal dilation. Spleen: No splenomegaly or focal lesion. Pancreas: No mass, ductal dilatation, or inflammatory changes. Kidneys: No solid mass or hydronephrosis. There is a 4 mm nonobstructing calculus in the lower pole of the left kidney and a punctate nonobstructing calculus in the lower pole of the right kidney. Adrenals: No nodules. Lymph Nodes: No adenopathy. Vascular: No aortic aneurysm. Abdominal Wall: No acute findings. PELVIS: No mass or adenopathy. Bowel/Mesentery/Peritoneum: -No bowel obstruction. -Normal appendix. -No acute inflammatory findings. -No ascites. Visualized portions of the Chest: No pleural effusion or significant findings. Musculoskeletal: No acute osseous abnormalities. Impression IMPRESSION: No acute findings in the abdomen or pelvis. There is a 4 mm nonobstructing calculus in the lower pole of the left kidney and there is a punctate nonobstructing calculus in the lower pole of the right kidney. FOREIGN TAPIA MD SYSTEM ID: [id number] UA with Microscopic reflex to Culture Specimen: Urine, Clean Catch Result Value Ref Range Color Urine Yellow Colorless, Straw, Light Yellow, Yellow Appearance Urine Clear Clear Glucose Urine Negative Negative mg/dL Bilirubin Urine Negative Negative Ketones Urine Negative Negative mg/dL Specific Nikolai Urine >1.050 (H) 1.003 - 1.035 Blood Urine Negative Negative pH Urine 7.5 5.0 - 9.0 Protein Albumin Urine 20 (A) Negative mg/dL Urobilinogen Urine Normal Normal, 2.0 mg/dL Nitrite Urine Negative Negative Leukocyte Esterase Urine Negative Negative Bacteria Urine Few (A) None Seen /HPF Mucus Urine Present (A) None Seen /LPF RBC Urine 4 (H) <=2 /HPF WBC Urine 2 <=5 /HPF Squamous Epithelials Urine 8 (H) <=1 /HPF Narrative Urine Culture not indicated Medications 0.9% sodium chloride BOLUS (0 mLs Intravenous Stopped 05/04/221854) Followed by sodium chloride 0.9% infusion (has no administration in time range) iopamidol (ISOVUE-370) solution 55 mL (55 mLs Intravenous Given 05/04/221735) magnesium oxide (MAG-OX) tablet 800 mg (800 mg Oral Given 05/04/221854) Assessments & Plan (with Medical Decision Making) I have reviewed the nursing notes. I have reviewed the findings, diagnosis, plan and need for follow up with the patient. Discharge Medication List as of 05/04/2022 7:19 PM START taking these medications Details magnesium oxide (MAG-OX) 400 MG tablet Take 1 tablet (400 mg) by mouth 2 times daily for 5 days, Disp-10 tablet, R-0, Local Print Final diagnoses: Dehydration Hypomagnesemia Afebrile. Vital signs stable. Patient reports having a 5-day history of body aches, abdominal pain weakness and fatigue. Recently had COVID in March. Apparent vacation from [place] IV established and the patient was given fluids. My differential diagnosis for fatigue includes but is not limited to anemia, infection, diabetes mellitus, CHF, cancer, alcoholism, hypercalcemia, drugs, chronic fatigue, autoimmune disease, iron deficiency, and mononucleosis. EKG shows normal sinus rhythm with heart rate 85. Troponin is normal. BNP is normal. D-dimer is normal. CRP is normal. TSH is slightly decreased at0.31 but free T4 is normal. CBC shows normal white blood cells no left shift. CMP is unremarkable. Her magnesium returns at the low end of normal at 1.9 and she was just given an oral magnesium oxide tablet. I discussed increasing magnesium through her diet and handout was given. Blood cultures are pending. Her UA shows some protein, and few bacteria but also has squamous cells most likely is a contaminated sample. CT of her abdomen and pelvis with contrast shows no acute findings which is reassuring. She does have bilateral renal stones but these show no signs of obstruction. She reports to the RN that she is feeling much better with the above treatment. She declines the need for her COVID test at this point. She feels ready to return home. She states she has plenty of antiemetics at home. Rx for short course of magnesium oxide. Continue to monitor symptoms return if there is any concerns for further evaluation as needed.I explained my diagnostic considerations and recommendations and the patient voiced an understandingand was in agreement with the treatment plan. All questions were answered to the best of my ability.We discussed potential side effects of any prescribed or recommended therapies, as well as expectations for response to treatments. 05/04/2022 [facility] Hai Cantu PA-C 05/04/222049 documented in this encounter Plan of Treatment Not on filedocumented as of this encounter Procedures Procedure Name Priority Date/Time Associated Comments [...] procedure are i n the results section. INR STAT 05/04/2022 5:03 [...] procedure ar e in the results section. BLOOD CULTURE STAT 05/04/2022 5:03 PM Results for this CDT procedure are i n the results section. documented in this encounter Results (ABNORMAL) UA with Microscopic reflex to Culture (05/04/2022 6:39 PM CDT) [facility] Method Time Signature Color Urine Yellow Colorless, 05/04/2022 LABORATORY Straw, 6:54 PM CDT Light Yellow, Yellow Appearance Urine Clear Clear 05/04/2022 LABORATOR Y 6:54 PM CDT Glucose Urine Negative Negative 05/04/2022 LABORATORY mg/dL 6:54 PM CDT Bilirubin Urine Negative Negative 05/04/2022 LABORATORY 6:54 PM CDT Ketones Urine Negative Negative 05/04/2022 LABORATORY mg/dL 6:54 PM CDT Specific Nikolai >1.050 (H) 1.003 - JULES 05/04/2022 LABORATO [...] Bacteria Urine Few (A) None Seen 05/04/2022 LABORATORY /HPF 6:54 PM CDT Mucus Urine Present (A) None Seen 05/04/2022 LABORATORY /LPF 6:54 PM CDT RBC Urine 4 (H) <=2 /HPF 05/04/2022 LABORATORY 6:54 PM CDT WBC Urine 2 <=5 /HPF 05/04/2022 LABORATORY 6:54 PM CDT Squamous 8 (H) [...] Address City/State/ZIP Code Phon e Number LABORATORY [facility] [place] [address] Hospital Laboratory [address] [...] the lower pole of the right kidney. FOREIGN TAPIA MD SYSTEM ID: ??[id number] Narrative 05/04/2022 [...] No acute osseous abnorm alities. Procedure Note Foreign Tapia MD - 05/04/2022Formatti ng of this [...] the lower pole of the right kidney. FOREIGN TAPIA MD SYSTEM ID: [id number] Hai Cantu PA-C IMG CT ORDERABLES Blood Culture Hand, Left (05/04/2022 5:13 PM CDT) athologist Signature Culture No Growth 05/09/2022 LABORATORY 5:33 PM CDT Specimen Anatomical Collection Method / Collection Time Recei deon Time (Source) Location / Volume Laterality Blood STRUCTURE OF LEFT Venipuncture / 05/04/2022 5:13 05/04 5:19 HAND / Unknown Unknown PM CDT PM CDT Hai Cantu PA-C LAB - MICRO GENERAL ORDERABL ES Performing Organization Address City/State/ZIP Code Phon e Number LABORATORY [facility] [place] [address] Hospital Laboratory [address] Laboratory EKG 12-lead, tracing only (05/04/2022 5:11 PM CDT) [facility] gist Method Time Signature Systolic Blood mmHg RADIOLOGY Pressure RESULTS Diastolic Blood mmHg RADIOLOGY Pressure RESULTS Ventricular Rate 85 BPM RADIOLOGY RESULTS Atrial Rate 85 BPM RADIOLOGY RESULTS NV Interval 144 ms RADIOLOGY RESULTS QRS Duration 94 ms RADIOLOGY RESULTS QT 344 ms RADIOLOGY RESULTS QTc 409 ms RADIOLOGY RESULTS P [place] 81 degrees RADIOLOGY RESULTS R AXIS 89 degrees RADIOLOGY RESULTS T [place] 81 degrees RADIOLOGY RESULTS Interpretation Sinus rhythm RADIOLOGY ECG Normal ECG RESULTS No previous ECGs available Confirmed by MD JERMAINE, SUZANNA ([id number]) on 05/05/2022 1:53:24 PM Specimen Anatomical Collection Method Collection Time Receive d Time (Source) Location / / Volume Laterality 05/04/2022 5:11 PM 1:53 CDT PM CDT Hai Tova Pepe PA-C ECG ORDERABLES Performing Organization Address City/State/ZIP Code Phon e Number RADIOLOGY RESULTS T4 free (05/04/2022 5:03 PM CDT) P athologist Signature Free T4 0.78 0.60 - 1.60 05/04/2022 LABORATORY ng/dL 7:04 PM CDT Specimen Anatomical Collection Method / Collection Time Recei deon Time (Source) Location / Volume Laterality Blood STRUCTURE OF LEFT Venipuncture / 05/04/2022 5:03 05/04 5:16 UPPER LIMB / Unknown PM CDT PM CDT Unknown Hai Tova Pepe COSTA-C LAB - BLOOD ORDERABLES Performing Organization Address City/[facility]/ZIP Code Phon [place] [address] [facility] Laboratory [address] Laboratory CBC with platelets and differential (05/04/2022 5:03 PM CDT) Analysis Performed At Patho logist Time Signature WBC Count 7.3 4.0 - 11.0 05/04/2022 LABORATORY 10e3/uL 5:19 PM CDT RBC Count 4.34 3.80 - 05/04/2022 LABORATORY 5.20 5:19 PM CDT 10e6/uL Hemoglobin 13.6 11.7 - 05/04/2022 LABORATORY 15.7 g/dL 5:19 PM CDT Hematocrit 39.7 35.0 - 05/04/2022 LABORATORY 47.0 % 5:19 PM CDT MCV 92 78 - 100 05/04/2022 LABORATORY fL 5:19 PM CDT MCH 31.3 26.5 - 05/04/2022 LABORATORY 33.0 pg 5:19 PM CDT MCHC 34.3 31.5 - 05/04/2022 LABORATORY 36.5 g/dL 5:19 PM CDT RDW 13.7 10.0 - 05/04/2022 LABORATORY 15.0 % 5:19 PM CDT Platelet Count 164 150 - 450 05/04/2022 [facility] LABORATORY 10e3/uL 5:19 PM CDT % Neutrophils 66 % 05/04/2022 [facility] LABORATORY 5:19 PM CDT % Lymphocytes 28 % 05/04/2022 [facility] LABORATORY 5:19 PM CDT % Monocytes 6 % 05/04/2022 [facility] LABORATORY 5:19 PM CDT % Eosinophils 0 % 05/04/2022 [facility] LABORATORY 5:19 PM CDT % Basophils 0 % 05/04/2022 [facility] LABORATORY 5:19 PM CDT % Immature 0 % 05/04/2022 LABORATORY Granulocytes 5:19 PM CDT NRBCs per 100 WBC 0 <1 /100 05/04/2022 LABORATO RY 5:19 PM CDT Absolute 4.8 1.6 - 8.3 05/04/2022 LABORATORY Neutrophils 10e3/uL 5:19 PM CDT Absolute 2.0 0.8 - 5.3 05/04/2022 LABORATORY Lymphocytes 10e3/uL 5:19 PM CDT Absolute 0.5 0.0 - 1.3 05/04/2022 LABORATORY Monocytes 10e3/uL 5:19 PM CDT Absolute 0.0 0.0 - 0.7 05/04/2022 LABORATORY Eosinophils 10e3/uL 5:19 PM CDT Absolute 0.0 0.0 - 0.2 05/04/2022 LABORATORY Basophils 10e3/uL 5:19 PM CDT Absolute Immature 0.0 <=0.4 05/04/2022 LABORATO RY Granulocytes 10e3/uL 5:19 PM CDT Absolute NRBCs 0.0 10e3/uL 05/04/2022 LABORATORY 5:19 PM CDT Specimen Anatomical Collection Method / Collection Time Recei deon Time (Source) Location / Volume Laterality Blood STRUCTURE OF LEFT Venipuncture / 05/04/2022 5:03 05/04 5:16 UPPER LIMB / Unknown PM CDT PM CDT Unknown Hai Cantu PA-C LAB - BLOOD ORDERABLES Performing Organization Address City/State/ZIP Code Phon e Number LABORATORY [facility] [place] [address] Hospital Laboratory [address] Laboratory Blood Culture Arm, Left (05/04/2022 5:03 PM CDT) P athologist Signature Culture No Growth 05/09/2022 LABORATORY 5:33 PM CDT Specimen Anatomical Collection Method / Collection Time Recei deon Time (Source) Location / Volume Laterality Blood STRUCTURE OF LEFT Venipuncture / 05/04/2022 5:03 05/04 5:19 UPPER LIMB / Unknown PM CDT PM CDT Unknown Hai Cantu PA-C LAB - MICRO GENERAL ORDERABL ES Performing Organization Address City/State/ZIP Code Phon e Number LABORATORY [facility] [place] [address] Hospital Laboratory [address] Laboratory CRP inflammation (05/04/2022 5:03 PM [...] LAB - BLOOD ORDERABLES Performing Organization Address City/[facility]/ZIP Code Phon e Number [place]ORATORY [place] [address] Hospital Laboratory [address] Laboratory Nt probnp inpatient (BNP) (05/04/2022 5:03 PM CDT) P athologist Signature N terminal Pro 11 0 [...] LAB - BLOOD ORDERABLES Performing Organization Address City/[facility]/ZIP Code Phon [place] [address] Hospital Laboratory [address] Laboratory [...] LAB - BLOOD ORDERABLES Performing Organization Address City/[facility]/ZIP Code Phon [place] [address] Hospital Laboratory [address] Laboratory Magnesium (05/04/2022 5:03 PM CDT) athologist Signature Magnesium 1.9 1.9 - 2.7 05/04/2022 LABORATORY mg/dL 5:39 PM CDT Specimen Anatomical Collection Method / Collection Time Recei deon Time (Source) Location / Volume Laterality Blood STRUCTURE OF LEFT Venipuncture / 05/04/2022 5:03 05/04 5:16 UPPER LIMB / Unknown PM CDT PM CDT Unknown Hai Cantu PA-C LAB - BLOOD ORDERABLES Performing Organization Address City/State/ZIP Code Phon e Number [place]ORATORY [place] [address] Hospital Laboratory [address] Laboratory [...] LAB - BLOOD ORDERABLES Performing Organization Address City/[facility]/ZIP [facility] [place]on [place] [address] Hospital Laboratory [facility] [address] Laboratory Lactic acid whole blood (05/04/2022 5:03 PM CDT) athologist Signature Lactic Acid 0.7 0.7 - 2.0 05/04/2022 LABORATORY mmol/L 5:19 PM CDT Specimen Anatomical Collection Method / Collection Time Recei deon Time (Source) Location / Volume Laterality Blood STRUCTURE OF LEFT Venipuncture / 05/04/2022 5:03 05/04 5:16 UPPER LIMB / Unknown PM CDT PM CDT Unknown Hai Cantu PA-C LAB - BLOOD ORDERABLES Performing Organization Address City/[facility]/ZIP [facility] [place] [address] Hospital Laboratory [address] Laboratory (ABNORMAL) Comprehensive metabolic panel (05/04/2022 5:03 PM CDT) [facility] gist Method Time Signature Sodium 139 134 - [...] and gender (Lopez et al., NEJM, DOI: 10.1056/ZLCLhw2424708) Specimen Anatomical Collection Method / Collection Time Recei deon Time (Source) Location / Volume Laterality Blood STRUCTURE OF LEFT Venipuncture / 05/04/2022 5:03 05/04 5:16 UPPER LIMB / Unknown PM CDT PM CDT Unknown Hai Cantu PA-C LAB - BLOOD ORDERABLES Performing Organization Address City/State/ZIP Code [place] [address] Hospital Laboratory [address] Laboratory INR (05/04/2022 5:03 PM CDT) P athologist Signature INR 0.95 0.85 - 1.15 05/04/2022 [facility] LABORATORY 5:35 PM CDT Specimen Anatomical Collection Method / Collection Time Recei deon Time (Source) Location / Volume Laterality Blood STRUCTURE OF LEFT Venipuncture / 05/04/2022 5:03 05/04 5:16 UPPER LIMB / Unknown PM CDT PM CDT Unknown Hai Cantu PA-C LAB - BLOOD ORDERABLES Performing Organization Address City/[facility]/ZIP [facility] [place] [address] Hospital Laboratory [address] Laboratory D dimer quantitative (05/04/2022 [...] LAB - BLOOD ORDERABLES Performing Organization Address [facility] Phon [place] [address] Hospital Laboratory [address] Laboratory documented in this encounter Visit Diagnoses Diagnosis Dehydration Hypomagnesemia Disorders of magnesium metabolism documented in this encounter Administered Medications Inactive Administered Medications - up to 3 most recent administrations Medication Order MAR Action Action Date Dose Rate Site 0.9% sodium chloride BOLUS New Bag 05/04/2022 5:21 PM CDT 1,000 mLs 1000 mL/hr Intravenous, 1,000 mL, ONCE, at 1,000 mL/hr, Administer over 1 Hours, On Mon05/04/22 at 1645, For 1 dose iopamidol (ISOVUE-370) solution 55 mL Given 05/04/2022 5:36 PM CDT 55 mLs 55 mL, Intravenous, ONCE, On Mon05/04/22 at 1710, For 1 dose magnesium oxide (MAG-OX) tablet 800 mg Given 05/04/2022 6:55 PM CDT 800 mg 800 mg, Oral, ONCE, On Mon05/04/22 at 1835, For 1 dose sodium chloride 0.9% infusion at 125 mL/hr, Intravenous, CONTINUOUS, A dminister after the bolus., Starting on Mon05/04/22 at 1745, Until Mon05/04/22 at 2128 documented in this encounter Active and Recently Administered Medications Times are shown in CDT. Scheduled Medication Order 05/02/2022 05/03/2022 05/04/2022 0.9% sodium chloride BOLUS (COMPLETED) 1721 (New Bag - Provider: Shadia Fields, PETER)1855 (Stopped - Provider: Laurence Perla RN) Intravenous, 1,000 mL, ONCE, at 1,000 mL /hr, Administer over 1 Hours, On Mon05/04/22 at 1645, For 1 dose iopamidol (ISOVUE-370) solution 55 mL (COMPLETED) 1736 (Given - Provider: Akil Epps) 55 mL, Intravenous, ONCE, On Mon05/04/22 at 1710, For 1 dose magnesium oxide (MAG-OX) tablet 800 mg (COMPLETED) 1855 (Given - Provider: Carline Brush, RN - Comment: Scanned in room. Did not save) 800 mg, Oral, ONCE, On Mon05/04/22 at 1835, For 1 dose Continuous Medication Order 05/02/2022 05/03/2022 05/04/2022 sodium chloride 0.9% infusion 17 45 (Canceled Entry - Provider: Orders Generic Provider - Comment: Automatically canceled at discontinue of medication order) at 125 mL/hr, Intravenous, CONTINUOUS, A dminister after the bolus., Starting on Mon05/04/22 at 1745, Until 7/13/22 at 2129 documented in this encounter Care Teams Ride Attendant Relationship Specialty Start Date End Date No Ref-Primary, Physician PCP - General 05/04/22 documented as of this encounter
--- OUTSIDE RECORDS SUMMARY | 2022-05-31 21:51 | XMS_ITS | Encounter Summary ---
:1980 Author Organization [facility] Address [address] [place] [address] Care Team Providers Name Role Phone Betsy Mcarthur M.D. Primary Care Provider Encounter Details Date Type Department Care Team Description 05/02/2022 Clinical Communication Department of Neurology Mili Toscano, in [facility] dexter Mccarthy [address] [facility] [address] [place] [phone] Social History Tobacco Use Types Packs/Day Years Used Date Smoking Tobacco: Every Day Cigarettes 1 0 Smokeless Tobacco: Never Alcohol Use Standard Drinks/Week Comments Yes 6 (1 standard drink = 0.6 oz pure alcoho l) Alcohol Habits Answer Date Recorded How often do you have a drink containing alcohol? Never 05/02/2022 How many drinks containing alcohol do you have on a typical or 2 06/07/2019 day when you are [...] or relatives? How often do you attend sikhism or 1 to 4 times per year 04/22 latter-day services? Do you belong to any clubs or No 05/02/2022 organizations such as sikhism groups, unions, fraternal or athletic groups, or [...] place to sleep or slept in a skilled nursing (including now)? Education Answer Date Recorded What is the highest level of school you have completed or 12 th grade 05/08/2020 the highest degree you have received? Sex Assigned at Date Recorded Female 02/05/2018 10:11 AM CDT documented as of this encounter Miscellaneous Notes Telephone Encounter - Kendall Kohler - 05/02/2022 8:02 AM CDT She doesn't need an Auth now that her insurance changed to Medicare as her primary. Openings for Botox are slim at best these days so when she calls we can see what's available as some providers are better than others when it comes to adding on. Thanks. Telephone Encounter - Kendall Kohler - 05/02/2022 7:51 AM CDT I called and left a message for her to call us to get scheduled. I do have your order now. Thanks. documented in this encounter Plan of Treatment Upcoming Encounters Date Type Specialty Care Team Description 08/01/2022 Appointment Neurology Mili Toscano M .D. [address] [place], [place] [phone] (Wo rk) documented as of this encounter Visit Diagnoses Not on filedocumented in this encounter Additional Health Concerns Assessment Noted Time PHQ-9 Depression Total Score: 14 05/02/2022 10:14 AM C DT documented as of this encounter Care Teams Telecommunication Operator Relationship Specialty Start Date End Date Betsy Mcarthur M.D. PCP - General 12/03/[address] [place] [address] [place] [phone] documented as of this encounter
--- OUTSIDE RECORDS SUMMARY | 2022-05-31 21:51 | XMS_ITS | Encounter Summary ---
:1980 Author Organization [facility] Address [address] [place] [address] Care Team Providers Name Role Phone Betsy Mcarthur M.D. Primary Care Provider Reason for Visit Reason Comments Medical Information Encounter Details Date Type Department Care Team Description 01/25/2022 Clinical Department of Jenny Ruelas Communication Otorhinolaryngology in Sharee Keith [place], [place] Au.D. [address] [place] [address] [phone] [place] [address] Social History Tobacco Use Types Packs/Day Years [...] or relatives? How often do you attend evangelical or 1 to 4 times per year 04/22 mandaen services? Do you belong to any clubs or No 05/02/2022 organizations such as evangelical groups, unions, fraternal or athletic groups, or [...] place to sleep or slept in a long-term (including now)? Education Answer Date Recorded What is the highest level of school you have completed or 12 th grade 05/08/2020 the highest degree you have received? Sex Assigned at Date Recorded Female 02/05/2018 10:11 AM CDT documented as of this encounter Miscellaneous Notes Telephone Encounter - Mariangel Stringer - 01/27/2022 11:58 AM CDT LVM stating the audiology order is in, and she can call back to schedule Telephone Encounter - Taran Ceja - 01/25/2022 12:19 PM CDT Reason for Communication: Patient called with telecommunications analyst, would like new molds and hearing aids, she was not sure if she needed to have a hearing test or not. Her last hearing test was about 2 years ago she said, please advise of appt that are needed. Current Can Nursing/Provider leave a detailed message: yes Did the patient refuse triage through Nurse line? (for symptom based concerns): Action Needed: Name of Medication (if relevant): documented in this encounter Plan of Treatment Upcoming Encounters Date Type Specialty Care Team Description 08/01/2022 Appointment Neurology Mili Toscano M .D. [address] [place] [phone] (Wo rk) Scheduled Orders Name Type Priority Associated Diagnoses Order S chedule Audiology evaluation Audiology Routine Hearing Exam Expecte d: 01/27/2022 (Approximate), Expires: 04/28/2023 documented as of this encounter Visit Diagnoses Diagnosis Hearing Exam - Primary documented in this encounter Additional Health Concerns Assessment Noted Time PHQ-9 Depression Total Score: 8 05/08/2020 7:30 AM CDT documented as of this encounter Care Teams Boat Person Relationship Specialty Start Date End Date Betsy Mcarthur M.D. PCP - General 12/03/[address] [place] [phone] documented as of this encounter
--- OUTSIDE RECORDS SUMMARY | 2022-05-31 21:51 | XMS_ITS | Encounter Summary ---
:1980 Author Organization [facility] Address [address] [place] [address] Care Team Providers Name Role Phone Betsy Mcarthur M.D. Primary Care Provider Reason for Referral Outpatient (Routine) - Authorized Specialty Diagnoses / Procedures Referred By Contact Refer red To Contact Neurology Mili Toscano M.D. [facility] [address] [place] [phone] Referral ID Status Reason Start Date Expiration Date Visits V isits Requested Authorized [id number] Authorized 05/02/2022 05/02/2023 1 1 Scheduling Instructions Try to coordinate in person visit with n ew provider (DUDLEY or fellow) when comes for botox. utpatient (Routine) - Pending Review Specialty Diagnoses / Procedures Referred By Contact Refer red To Contact Diagnoses Migraine Headache Chronic Mili Toscano M.D. [facility] Procedures Headache nerve block - Neurology [address] [place] [phone] Referral ID Status Reason Start Date Expiration Date Visits V isits Requested Authorized [id number] Pending 05/02/2022 05/02/2023 1 1 Review Reason for Visit Outpatient (Routine) - Closed Specialty Diagnoses / Procedures Referred By Contact Refer red To Contact Neurology Cecille Chauhan M.D. [facility] [address] [place] [address] [place] [phone] Referral ID Status Reason Start Date Expiration Date Visits Requ ested Visits Authorized [id number] Closed 04/19/2022 04/19/2023 1 1 Encounter Details Date Type Department Care Team Description 05/02/2022 Telemedicine Department of Yarelis Chauhan M.D. 200 [place] [phone] Migraine Headache Chronic (Primary Dx); Neurology in Mili Toscano M.D. 200 [place] [phone] Neuralgia Occipital; [place], [place] Neuralgia 200 [place] [phone] Social History Tobacco Use Types Packs/Day Years [...] or relatives? How often do you attend sikh or 1 to 4 times per year 04/22 hoahaoism services? Do you belong to any clubs or No 05/02/2022 organizations such as sikh groups, unions, fraternal or athletic groups, or [...] place to sleep or slept in a fci (including now)? Education Answer Date Recorded What is the highest level of school you have completed or 12 th grade 05/08/2020 the highest degree you have received? Sex Assigned at Date Recorded Female 02/05/2018 10:11 AM CDT documented as of this encounter Progress Notes Mili Toscano M.D. - 05/02/2022 10:00 AM CDT SUBJECTIVE CHIEF COMPLAINT / REASON FOR VISIT: Ms. Tiwari returns today for subsequent evaluation and assessment of the effectiveness of treatments suggested at her previous visit on 05/08/2020. Since her last visit she has been taking: Naproxen (Naprosyn, Anaprox) at a dose of less than 500 mg; Sertaline (Zoloft) at a dose of 50 to 200 mg; none of the above injectable medications HISTORY OF PRESENT ILLNESS: Over the past 4 weeks, Ms. Tiwari reports having had 20 headache days. Over the past 4 weeks the average severity and disability caused by the patients headaches is 3-severe. Over the past 3 months, she reports experiencing side effects of: Dry Mouth which is mild enough to tolerate if my headaches improve. Ms. Tiwari is a 42 y.o. 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 Previously seen for consultation by my colleagues Dr. Chauhan and Dr. Rodriguez in April 2020 for headache consultation (initially referred by Dr. Ornelas in neurology clinic). She is here today by video visit for follow up. We are assisted by an territory sales representative Benson ID number [id number] who is also present on our zoom call. At the time of that visit, she was reporting headaches since her mid teens that worsened around 2016. She was averaging 1 day per week of headache freedom, 2 days per week severe headache with migrainous features. Headaches descrbied as starting back of head and radiating to front of head to become holocephalic, throbbing in character, 8/10 intensity, asssociated with photophobia, phonophobia, osmophobia, nausea (rare vomiting) and intolerance to activity. Milder headaches are 2-3 days per week, described as being without migrainous features and milder intensity. Headaches were endorsed as accompanying neck pain, neck spasm/stiffness was a primary trigger endorsed, espeically while driving. No exacerbation with coughing, sneezing, lifting, exercise, changes in position, missed meals. S/p hysterectomy without oophorectomy. At the time of last visit: she was taking tylenol 1500mg at onset of headache at least 5 times per week, rizatriptan at least 2 times per week, though is effective if she takes it early. Previous trials of sumatriptan, eletriptan, frovatriptan without success. Previous preventives: propranolol (dizziness), metoprolol, topiramate (kidney stone), depakote (intolerable side effects and poor headache control). Baclofen for neck pain (significant sedation). Currently: Reports almost daily headaches. Once or twice a week will have a day where she doesn't have any headache and feels good. On at least 3 days per week she will have a more severe headache. She notices that when she gets botox injectinos the headaches are tolerable, without botox on board she cannot evenfunction. Headaches are similar to what they were before starting botox. Neck pain has not been bothersome lately, but still having bad headaches. ligth sensitivity, sound sensitivity, smell sensitivity, nausea with vomiting. Typically headaches are lasting 2-3 days, sometimes can go to sleep and it will get better for a while. At least 4 days a week she goes to bed with ice on her head. Estimates roughly 5 days a week ro more where she is taking as needed medication. Usually coughing/sneezing isn't triggering headaches. She did have a sinus surgery in January which helped with sinus infections, but didn't help migraines. Does have headaches that wake her up at night occasionally over the past year, but usually onset during the day. Lost her job due to her migraines being out of control. No unexplained fevers. She has lost about 30 pounds, she thinks related to being sick from migraines(nausea and vomiting), limited motivation to eat; primary care doctor is aware of weight loss, was checked out for this and told everything else was good. She is defintiely taking less in - she loves eating and cooking but hasn't been able to partake in that for a while. Occasional whooshing noise in her ears, will take out her hearing aids - has been there for many years. Vision - got a new prescription about 1 month ago, no vision changes/concerns otherwise. Gets blurriness with headaches - left eye or right eye but usually not both. Lasts for about 15 minutes then the headache starts afterwards.Has to lie down flat completely to allow her to handle it - will do relaxation techniques in combination, does this to prevent from passing out but doesn't have significant relief from the pain (unlessshe takes acute medication, ice packs, sleeps). Current and past abortives at visit 05/08/2020: Current: Rizatriptan 10 mg - gets 10 per month and uses all of them. Has ramped this back up since stopping botox, was able o reduce significantly when on botox. Baclofen - has been taking this for multiple years. Helps her to relax and calm things down. Takes 1-2 per week. 10mg she thinks PRN. Takes for neck pain or headaches - tries to avoid this when she can. Sometimes it can help her sleep off her headaches. Compazine - roughly once per week. Maybe twice per week. Helpful. Makes sleepy, helps sleep it off. Helps with nausea. Butalbital - given to her by her PCP. Got this in January. Used up 40 tablets in about 3 months. Helpful when she takes it, makes her sleepy also. Lorazepam for anxiety as needed. Naproxen - ran out a while back, at least a few months with none, was using for headaches.?? Past: Sumatriptan, eletriptan, frovatriptan-no improvement Flexeril-less helpful for neck pain nurtec - thinks she tried this but wasn't sure. ?? Current and past preventatives: Current: none Will be going back on zoloft soon through PCP for mood. Is doing estradiol patch since hysterectomy. Past: Chiropractic therapy-no improvement Topiramate--d/'c due to kidney stones Depakote- was not effective, bad side effects - anxiety, restlessness Propranolol associated with dizziness Metoprolol-cannot recall trial lexapro - gave worse headaches (used for depression/anxiety) emgality - didn't work at all. No side effects. Only tried 2 months/2 doses - not sure if did loading dose. botox - was very helpful. Nortriptyline 10 mg nightly only for a few days Nerve blocks - some years ago, doesn't recall what happened, not done here per review of procedure notes. No other injectable medications The MIDAS score today which reflects the past three months was . Over the past three months her average subjective pain severity scale was (0 - 10) . The following portions of the patient's history were reviewed and updated as appropriate: allergies,current medications, family history, medical history, social history, surgical history and problem list. Family history: father, sister, and daughter have headaches. ASSESSMENT / PLAN #1 Migraine Headache Chronic Treatment Recommendations over the next few months: For further investigation of Ms. Tiwari's headaches or comorbid disorders I am suggesting additional testing which includes: no testing at this time. We discussed bridging with nerve blocks, to help her jump start reduction of as needed medications as she waits for the botox to take effect. Alternatively, we can hold off on this and consider at a later date when she is in a bad spell or if she has significant botox wearing off. I did discuss with her that this can be scheduled even if insurance isn't approving, so it is important to call her insurance to find out what the coverage would be (can call [employer] first to ask about the codes to then check with her insurance). She will do this prior to getting nerve blocks. Recommended therapies for acute treatment: Discussed the importance of trying ot limit to no more than 9 days per month of any as needed medication usage. naproxen sodium 550mg up to every 12 hours as needed for mild-moderate headache - sent new prescription for this. Rizatriptan 10mg for severe headache. Compazine 10mg as sedating anti-nausea medication for headache rescue. If she has restlessness or agitation with this, could try over the counter benadryl 25- 50mg to help with the side effects. Recommend avoiding butalbital as this is more likely to contribute to rebound/medication overuse andblock benefits of botox - as we discussed all of the as needed medications can do. She is confident she can reduce these pretty promptly once she starts botox, as she did before. She is aware that overuse of these medications can block the benefits of botox. Preventative therapies recommended: Botox injections for chronic migraine Botox following a standard chronic migraine (PREEMPT) protocol, performing one round, every 3 months, for a minimum of 3 rounds. There is a cumulative benefit with each round of Botox. The rounds usually consist of anywhere from 25 to 33 injections with 150-200 units of Botox. Typically, there are no side effects, but rarely a droopy eyelid, sore neck, or neck weakness can occur and these side effects often resolve after several weeks. If these side effects occur, let the proceduralist know and theycan make adjustments to the protocol in order to prevent a recurrence. Future considerations: restarting nortriptyline (might want to avoid depending what she is on for mood). CGRP antibodies (had only 2 month trial of emgality, which may not have been sufficient, or could trial a different one such as ajovy), CGRP abortives (unclear if she ever tried nurtec, consider ubrogepant as abortive if needed). She is not interested in changing her abortive regimen currently, really feels she just needs to get botox back on board. I attempted to answer any questions that she had regarding her headaches and the recommended treatment. Follow up in about 6 months with DUDLEY or headache fellow, she will have to establish with another provider as I will have graduated, can coordinate with one of her botox injection visits to try to limittravel needed. documented in this encounter Plan of Treatment Upcoming Encounters Date Type Specialty Care Team Description 08/01/2022 Appointment Neurology Mili Toscano M .D. [address] [place], [place] [phone] (Wo rk) Scheduled Referrals Name Type Priority Associated Diagnoses Order [facility] Neu[facility] office Outpatient Referral Routine Expe cted: visit (clinic) 11/02/2022 (Approximate), Expires: 08/02/2023 documented as of this encounter Visit Diagnoses Diagnosis Migraine Headache Chronic - Primary Neuralgia Occipital Neuralgia documented in this encounter Additional Health Concerns Assessment Noted Time PHQ-9 Depression Total Score: 14 05/02/2022 10:14 AM C DT documented as of this encounter Care Teams Form Raiser Relationship Specialty Start Date End Date Betsy Mcarthur M.D. PCP - General 12/03/[address] [place] [address] ERASMO Anguiano [phone] documented as of this encounter
--- OUTSIDE RECORDS SUMMARY | 2022-05-31 21:51 | XMS_ITS | Clinical Summary ---
:1980 Author Organization [facility] Address [address] [place] [address] Care Team Providers Name Role Phone Betsy Mcarthur M.D. Primary Care Provider Source Comments Patient records contain information from all sites at [facility]. For routine questions regarding patient records, call [phone] during business hours, M-F 8:00 AM - 5:00 PM Central Time. Record requests for emergency care only can be directed to [phone] at any time.[facility] Allergies Active Allergy Reactions Severity Noted Date Comments Blood-Group Specific Other (see 05/02/2011 Patient has anti-D. Substance comments) Blood product o rders may be delayed. Please draw one red top and two pur ple top tubes for a ll Type and Screen /Type and Crossmatch orders. Fentanyl Other (see 03/16/2010 comments), Hives Nitrofurantoin Nausea And Vomiting 07/17/2008 Nitrofurantoin Other (see 11/07/2013 Monohyd/M-Cryst comments) Penicillin G Rash 07/19/2007 OK on Amoxicill in Benzathin,Procain Penicillins Other (see 11/07/2013 comments) Sumatriptan Headache 04/12/2016 Pt states that the [place] imitrex made he r headache much w orse Medications Medication Sig Dispensed Refills Start End Status Date Date traZODone (DESYREL) 1/2 to one tab 90 tablet 3 01/28/20 Active 50 mg tablet at bedtime if 20 needed for insomnia baclofen (LIORESAL) Take 1 tablet 60 tablet 3 02/21/20 Active 10 mg tablet (10 mg total) 20 by mouth 2 (two) times a day as needed for muscle spasms. ondansetron (ZOFRAN) Take 1 tablet 20 tablet 0 05/08/20 Active 4 mg tablet (4 mg total) by 20 mouth every 8 (eight) hours as needed for nausea or vomiting. estradioL APPLY ONE PATCH 0 11/08/19 Acti ve (VIVELLE-DOT) 0.1 TRANSDERMAL 21 mg/24 hr patch TWICE WEEKLY LORazepam (ATIVAN) Take 0.5 mg by 0 09/28/20 Active 0.5 mg tablet mouth as 16 needed. ivjxzqaq-koyzuuqvp-g Administer 1 5 mL 0 01/06/20 Active examethasone drop into the 21 (MAXITROL) left eye 4 3.5mg/mL-10,000 (four) times a unit/mL-0.1 % day. ophthalmic suspension fluticasone ADMINISTER ONE 16 g 11 03/18/20 Act brittney propionate (FLONASE) SPRAY INTO EACH 21 50 mcg/actuation NOSTRIL DAILY nasal spray naproxen (NAPROSYN) Take one tablet 20 tablet 5 05/03/20 Active 500 mg tablet (500 mg) by 21 mouth at onset of headache, may repeat in 8 hours, no more than 2 per day or 5 per week. rizatriptan (MAXALT) Take 1 tablet 9 tablet 11 05/02/20 Active 10 mg tablet (10 mg total) 22 by mouth every 2 (two) hours as needed for migraine. May repeat in 2 hours if unresolved. Do not exceed 30 mg in 24 hours. prochlorperazine Take 1 tablet 30 tablet 2 05/02/20 Active (COMPAZINE) 10 mg (10 mg total) 22 tablet by mouth every 6 (six) hours as needed for nausea or vomiting (headache rescue). naproxen sodium Take 1 tablet 30 tablet 3 05/02/20 Active (ALEVE/ANAPROX) 550 (550 mg total) 22 mg tablet by mouth 2 (two) times a day as needed for pain or headaches. Try to avoid using as needed medications for headaches more than 9 days per month. albuterol (PROVENTIL Inhale 2 puffs 0 02/29/2004/22 1/2 Discontinued HFA,VENTOLIN HFA) 90 as needed. 16 022 mcg/actuation inhaler fluconazole Take 1 tablet 2 tablet 0 04/03/20 Disc ontinued (DIFLUCAN) 150 mg (150 mg total) 20 022 tabletIndications: by mouth See Vaginosis Bacterial Admin Instructions. Take one tab after completing the antibiotic. May repeat in 3-7 days. nortriptyline 1 cap nightly 105 capsule 0 05/04/20 Discontinued (Pamelor) 10 mg for 1 week. If 20 022 capsule not better, increase every week by 1 cap daily if needed per med sched to maximum 5 caps nightly nortriptyline If max dose 30 capsule 12 05/04/20 Dis continued (Pamelor) 50 mg reached with 10 20 022 capsule mg capsule med schedule, switch to 50 mg caps and take 1 cap nightly tiZANidine Take 1 tablet 30 tablet 0 11/20/19 Disco ntinued (ZANAFLEX) 2 mg (2 mg total) by 21 022 tablet mouth every 6 (six) hours as needed for muscle spasms. meclizine (ANTIVERT) Take 25 mg by 0 11/05/1905/02 Discontinued 25 mg tablet mouth every 8 21 022 (eight) hours as needed. for vertigo rizatriptan (MAXALT) Take 1 tablet 9 tablet 11 02/13/2005/02 Discontinued 10 mg tablet (10 mg total) 21 022 (Re order) by mouth every 2 (two) hours as needed for migraine. May repeat in 2 hours if unresolved. Do not exceed 30 mg in 24 hours. Active Problems Problem Noted Date Migraine Headache 02/05/2018 Anxiety 03/14/2017 Overview: Overview: Stopped depression medication lexapro be cause she felt that it was giving her more headaches. Has been on wellbutrin but had troubles sleeping on it. Has been on Prozac and does not remember having troubles with it. HAs been on zoloft and did not like it b ut does not remember why. 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 05/02/2022 Telemedicine Neurology Gissel, Migraine Headac he Chronic (Primary Dx); Cecille Garcia M.D. Neuralgia Occipital; Mili Toscano Neuralgia M.Westley 05/02/2022 Clinical Child and Mili Toscano Communication Adolescent M.D. Neurology 04/26/2022 Clinical Child and Mili Toscano Communication Adolescent M.D. Neurology 04/26/2022 Orders Only Neurology Mili Toscano Migraine Head ache M.DRohit Chronic (Primar y Dx) 04/18/2022 Clinical Neurology Xochitl Rosenthal Communication Fabio Belle from Last 3 Months Immunizations Name Administration Dates Next Due HepB Pediatric/Adolescent 08/18/1998, 05/22/1998 Influenza (IM) Preservative Free 07/25/2011 Influenza, Unspecified 07/29/2013 MMR 10/23/1995 Td, (Adult) Unspecified 10/23/1994 Tdap 11/02/2012 influenza vaccine quad 01/04/2021 (Deferred: Patient Refused ) (FLUZONE/FLUARIX) (6 months and older)(PF) Social History Tobacco Use Types Packs/Day Years Used Date Smoking Tobacco: Every Day Cigarettes 1 0 Smokeless Tobacco: Never Tobacco Cessation: Ready to Quit: No; Co unseling Given: Yes Alcohol Use Standard Drinks/Week Comments Yes 6 [...] or relatives? How often do you attend pentecostalism or 1 to 4 times per year 04/22 adventism services? Do you belong to any clubs or No 05/02/2022 organizations such as pentecostalism groups, unions, fraternal or athletic groups, or [...] place to sleep or slept in a penitentiary (including now)? Education Answer Date Recorded What is the highest level of school you have completed or 12 th grade 05/08/2020 the highest degree you have received? Sex Assigned at Date Recorded Female 02/05/2018 10:11 AM CDT Last Filed Vital Signs Vital Sign Reading Time Taken Comments Blood Pressure 117/74 01/04/2021 12:56 PM CDT Pulse 85 01/04/2021 12:56 PM CDT Temperature 36.1 ??C (97 ??F) 01/04/2021 12:56 PM CDT Respiratory Rate 16 01/04/2021 12:56 PM CDT Oxygen Saturation 99% 08/28/2019 2:42 PM room air COAT CHECK ATTENDANT Inhaled Oxygen Concentration - - Weight 59.8 kg (131 lb 11.6 01/04/2021 12:56 PM oz) CDT Height 164 cm (5' 4.57) 08/28/2019 2:42 PM without milton es COAT CHECK ATTENDANT Body Mass Index 22.22 08/28/2019 2:42 PM COAT CHECK ATTENDANT Plan of Treatment Upcoming Encounters Date Type Specialty Care Team Description 08/01/2022 Appointment Neurology Mili Toscano M .D. [address] [place], [place] [phone] (Wo rk) Health Maintenance Due Date Last Done Comments HIV Screening 1980 Hepatitis C Screening 1980 Mammogram 1980 COVID-19 Vaccine (#1) 1980 Pneumococcal vaccine (0-64 years) (1 1988 - PCV) Hepatitis B Vaccines (3 of 3 - 3-dose 10/13/1998 08/18/1998 , 05/22/1998 series) Tobacco Cessation counseling 01/04/2022 01/04/2021 Influenza Vaccine (#1) 2022 01/04/2021, 07/29/2013, 07/25/2011 DTaP,Tdap,and Td Vaccines (3 - Td or 11/02/2022 11/02/2012, 10/23/1994 Tdap) Fasting Lipid Panel 04/22/2025 04/22/2020, 06/26/2013 (Performed elsewhere) Depression Screening (Annual PHQ-2) Completed 05/02/2022 Procedures Procedure Name Priority Date/Time Associated Comments Diagnosis CA CHEMODENERV FACIAL Routine 05/06/2022 9:10 AM Migraine Head ache Results for this TRIGEM JEANNE CDT Chronic procedure are i n the results section. from Last 3 Months Results CA CHEMODENERV FACIAL TRIGEM JEANNE (05/06/2022 9:10 AM CDT) Narrative MMODAL - 05/06/2022 9:10 AM CDT Hai Love M.D. ? 05/06/2022 ??9:39 AM Botox for Chronic Migraine Date/Time: 05/06/2022 9:10 AM Performed by: Hai Love M.D. Authorized by: Mili Toscano M.D. Care team members present 1. Juan Jose Gibson M.D. 2. Popeye Rust L.P.N. PROCEDURE DETAILS ?? Pre-procedure pain score: 0/10 Injection of: 100 Units onabotulinumtoxi nA 100 unit 50 Units onabotulinumtoxinA 50 unit Needle gauge: 30 Needle length: 0.5 in Injection site details Flight Manager / Procerus muscle(s): 5 units into the left paper reeler muscle, 5 units into the right paper reeler muscle and 5 units into the procerus muscle ??(15 units total). Superior Frontalis muscle(s): 5 units in to the left superior frontalis muscle and 5 units into the right superi or frontalis muscle ?? (2 injection sites per muscle) (10 units total). Temporalis muscle(s): 12.5 units into th e left temporalis muscle and 12.5 units into the right temporalis muscle ? ? (2 injection sites per muscle) ?? (25 units total). Splenius Capitis muscle(s): 12.5 units i nto the left splenius capitis muscle and 12.5 units into the right spl enius capitis muscle ?? (2 injection sites per muscle) ??(25 units total). Occipitalis muscle(s): 12.5 units into t he left occipitalis muscle and 12.5 units into the right occipitalis mu scle ??(2 injection sites per muscle) ??(25 units total). Trapezius muscle(s): 25 units into the l eft trapezius muscle and 25 units into the right trapezius muscle ??(3 inj ection sites per muscle) ??(50 units total). Total units wasted: 0 Total units injected: 150 CONSENT Consent obtained: written UNIVERSAL PROTOCOL All relevant documentation and testing w ere reviewed and available. All required blood products, implants, devic es and or special equipment were made available as applicable. Pre-proced ure verification was conducted and the correct site was marked if required. A fire risk assessment was done as applicable. The procedural time-out t o verify correct patient, correct side/site, and procedure was conducted p rior to performing the procedure and confirmed in a procedural pause. PRE-PROCEDURE DETAILS ?? Reason for injections: chronic migraine Appropriate hand hygiene, gown, cap, mas k, protective eyewear, sterile gloves, skin preparation, sterile drape, and strict aseptic technique were utilized as applicable for the procedure : yes Site preparation: alcohol Clinical history: Patient was made aware that they may be responsible for any and all costs associated with inject ion of Botulinum Toxin Type A that is not covered by a third constitution party. ?? Prior to treatment with Botox, the frequ ency of headaches was greater than 15 days per month and with significant i mpairment in the quality of life. ?? Please see the initial Botox injection n ote and Headache consultation note regarding specific details of the headac he history prior to the start of treatment. Any other daily migraine prophylactic tr eatments taken over the last 3 months: ??None Headache frequency when Botox is most ef fective (middle month in between rounds). Headache days per month: 2 days Severe headache days per month: 0 days Wearing off phenomenon prior to this rou nd of Botox: yes Duration: 2 weeks Patient finds Botox treatment helpful an d wants to repeat the treatment? yes Patient had migraine headache frequency reduction by at least 7 days per month compared to pretreatment level, or migraine headache duration reduction of at least 100 hours per july h compared to pretreatment level? yes POST-PROCEDURE DETAILS ?? Procedure completed successfully: yes ?? Complications: no apparent complications PLAN: The patient has had good response for tr eatment of their chronic migraine with onabotulinumtoxin A injections at 1 50 units every 12 weeks in that the patient had migraine headache freque ncy reduction by at least 7 days per month compared to pretreatment level , or migraine headache duration reduction of at least 100 hours per july h compared to pretreatment level. ?? Therefore, I have encouraged the patient to schedule their next round of injections 150 units in 12 weeks. ATTESTATION STATEMENT A resident or fellow participated in the procedure, and the senior recruitment consultant was present for the entire procedure. Mili Toscano M.D. NEUROLOGY ORDERABLES Performing Organization Address City/State/ZIP Code Phon e Number MMODAL MMODAL NA from Last 3 Months Insurance Payer Benefit Plan Subscriber ID Effective Phone Address Typ e / Group Dates MEDICARE MEDICARE A [id number] 2003-Prese [address] [place] [address] [facility] [id number] 2022-Prese [phone] [address] Medicaid HMO nt 25 [place] [address] Care Teams Manager Line Relationship Specialty Start Date End Date Ayuob, Mysoon M, M.D. PCP - General 12/03/[address] [place] [address] [place] [id number]
--- OUTSIDE RECORDS SUMMARY | 2022-05-31 21:51 | XMS_ITS | Encounter Summary ---
:1980 Author Organization [facility] Address [address] [place] [address] Care Team Providers Name Role Phone Betsy Mcarthur M.D. Primary Care Provider Encounter Details Date Type Department Care Team Description 04/26/2022 Clinical Communication Department of Neurology Mili Toscano, in [facility] dexter Mccarthy [address] [facility] [address] [place] [phone] Social History Tobacco Use Types Packs/Day Years [...] or relatives? How often do you attend taoist or 1 to 4 times per year 04/22 yazidism services? Do you belong to any clubs or No 05/02/2022 organizations such as taoist groups, unions, fraternal or athletic groups, or [...] place to sleep or slept in a snf (including now)? Education Answer Date Recorded What is the highest level of school you have completed or 12 th grade 05/08/2020 the highest degree you have received? Sex Assigned at Date Recorded Female 02/05/2018 10:11 AM CDT documented as of this encounter Miscellaneous Notes Telephone Encounter - Kendall Kohler - 04/26/2022 12:57 PM CDT I don't see it. Did you forget to sign it? Telephone Encounter - Kendall Kohler - 04/26/2022 12:52 PM CDT You can put an order in now and I can schedule her after your appt with her. Please do it quickly soI can get her on 05/02 as there is an open slot at 3pm but could be taken at any time. documented in this encounter Plan of Treatment Upcoming Encounters Date Type Specialty Care Team Description 08/01/2022 Appointment Neurology Mili Toscano M .D. [address] [place], [place] [phone] (Wo rk) documented as of this encounter Visit Diagnoses Not on filedocumented in this encounter Additional Health Concerns Assessment Noted Time PHQ-9 Depression Total Score: 8 05/08/2020 7:30 AM CDT documented as of this encounter Care Teams Inspector Agricultural Commodities Relationship Specialty Start Date End Date Betsy Mcarthur M.D. PCP - General 12/03/[address] [place] [address], [place] [id number] documented as of this encounter
--- OUTSIDE RECORDS SUMMARY | 2022-05-31 21:51 | XMS_ITS | Encounter Summary ---
:1980 Author Organization [facility] Address [address] [place] [address] Care Team Providers Name Role Phone Betsy Mcarthur M.D. Primary Care Provider Reason for Referral Outpatient (Routine) - Authorized Specialty Diagnoses / Procedures Referred By Contact Refer red To Contact Diagnoses Migraine Headache Chronic Eric Toledo M.D. [facility] Procedures Botox for Chronic Migraine [address] [place] [address] Referral ID Status Reason Start Date Expiration Date Visits V isits Requested Authorized [id number] Authorized 04/29/2022 04/29/2023 12 12 Encounter Details Date Type Department Care Team Description 04/26/2022 Orders Only Department of Neurology Eric Toledo Fl jasmine Headache in [facility] dexter Mccarthy Chronic (Primary Dx) [address] [facility] [address] [place] [phone] Social History Tobacco Use Types Packs/Day Years [...] 1 to 4 times per year 04/22 baptism services? Do you belong to any clubs [...] place to sleep or slept in a alf (including now)? Education Answer Date Recorded What is the highest level of school you have completed or 12 th grade 05/08/2020 the highest degree you have received? Sex Assigned at Date Recorded Female 02/05/2018 10:11 AM CDT documented as of this encounter Miscellaneous Notes Addendum Note - Eric Toledo M.D. - 04/26/2022 11:59 AM CDT Addended by: ERIC TOLEDO on: 04/29/2022 04:56 PM Modules accepted: Orders documented in this encounter Plan of Treatment Upcoming Encounters Date Type Specialty Care Team Description 08/01/2022 Appointment Neurology Eric Toledo M .D. [address] [place] [phone] (Wo rk) Scheduled Orders Name Type Priority Associated Diagnoses Order S chedule Botox for Chronic Procedures Routine Migraine Headache 12 we eks for 12 Migraine Chronic Occurrences sta rting 04/29/2022 unti l 07/30/2023, 1 c ompleted documented as of this encounter Results VT CHEMODENERV FACIAL TRIGEM JEANNE (05/06/2022 9:10 AM CDT) Narrative MMODAL - 05/06/2022 9:10 AM CDT Hai Love M.D. ? 05/06/2022 ??9:39 AM Botox for Chronic Migraine Date/Time: 05/06/2022 9:10 AM Performed by: Hai Love M.D. Authorized by: Eric Toledo M.D. Care team members present 1. Juan Jose Gibson M.D. 2. Popeye Rust L.P.N. PROCEDURE DETAILS ?? Pre-procedure pain score: 0/10 Injection of: 100 Units onabotulinumtoxi nA 100 unit 50 Units onabotulinumtoxinA 50 unit Needle gauge: 30 Needle length: 0.5 in Injection site details Carpet Loom Fixer / Procerus muscle(s): 5 units into the left delivery specialist muscle, 5 units into the right delivery specialist muscle and 5 units into the procerus [...] that is not covered by a third libertarian. ?? Prior to treatment with Botox, the [...] participated in the procedure, and the senior application security consultant was present for the entire procedure. Eric Toledo M.D. NEUROLOGY ORDERABLES Performing Organization Address City/State/ZIP Code Phon e Number MMODAL MMODAL NA documented in this encounter Visit Diagnoses Diagnosis Migraine Headache Chronic - Primary Migraine Headache Chronic documented in this encounter Additional Health Concerns Assessment Noted Time PHQ-9 Depression Total Score: 8 05/08/2020 7:30 AM CDT documented as of this encounter Care Teams Diamond Sizer And Grader Relationship Specialty Start Date End Date Betsy Mcarthur M.D. PCP - General 12/03/[address] [place] [address] [place] [address] documented as of this encounter
--- OUTSIDE RECORDS SUMMARY | 2022-05-31 21:51 | XMS_ITS | Encounter Summary ---
:1980 Author Organization [facility] Address [address] [place] [address] Care Team Providers Name Role Phone Betsy Mcarthur M.D. Primary Care Provider Reason for Referral Outpatient (Routine) - Authorized Specialty Diagnoses / Procedures Referred By Contact Refer red To Contact Diagnoses Migraine Headache Chronic Mili Toscano M.D. [facility] Procedures Botox for Chronic Migraine 200 [place] [phone] Referral ID Status Reason Start Date Expiration Date Visits V isits Requested Authorized [id number] Authorized 04/29/2022 04/29/2023 12 12 Reason for Visit Outpatient (Routine) - Authorized Specialty Diagnoses / Procedures Referred By Contact Refer red To Contact Diagnoses Migraine Headache Chronic Mili Toscano M.D. [facility] Procedures Botox for Chronic Migraine [address] [place] [phone] Referral ID Status Reason Start Date Expiration Date Visits V isits Requested Authorized [id number] Authorized 04/29/2022 04/29/2023 12 12 Encounter Details Date Type Department Care Team Description 05/06/2022 Hospital Encounter Department of Mili Toscano M.D. [address] [place] [address] Migraine Headache Neurology in Hai Love M.D. [address] [place] [address] [place], [place] 200 [place] [phone] Social History Tobacco Use Types Packs/Day Years [...] or relatives? How often do you attend yazidi or 1 to 4 times per year 04/22 baptism services? Do you belong to any clubs or No 05/02/2022 organizations such as yazidi groups, unions, fraternal or athletic groups, or [...] minutes do you engage in exercise at is 60 min 05/02/2022 level? Stress Answer [...] AM CDT documented as of this encounter Medications at Time of Discharge Medication Sig Dispensed Refills Start Date End Date estradioL (VIVELLE-DOT) APPLY ONE PATCH 0 021 0.1 mg/24 hr patch TRANSDERMAL TWICE WEEKLY fluticasone propionate ADMINISTER ONE SPRAY 16 g 11 (FLONASE) 50 mcg/actuation INTO EACH NOSTRIL nasal spray DAILY LORazepam (ATIVAN) 0.5 mg Take 0.5 mg by mouth 0 09/28/2016 tablet as needed. naproxen (NAPROSYN) 500 mg Take one tablet (500 20 tablet 5 05/03/2021 tablet mg) by mouth at onset of headache, may repeat in 8 hours, no more than 2 per day or 5 per week. naproxen sodium Take 1 tablet (550 mg 30 tablet 3 2 (ALEVE/ANAPROX) 550 mg total) by mouth 2 tablet (two) times a day as needed for pain or headaches. Try to avoid using as needed medications for headaches more than 9 days per month. [id number] Administer 1 drop 5 mL 0 hasone (MAXITROL) into the left eye 4 3.5mg/mL-10,000 (four) times a day. unit/mL-0.1 % ophthalmic suspension ondansetron (ZOFRAN) 4 mg Take 1 tablet (4 mg 20 tablet 0 0 05/08/2020 tablet total) by mouth every 8 (eight) hours as needed for nausea or vomiting. prochlorperazine Take 1 tablet (10 mg 30 tablet 2 2 (COMPAZINE) 10 mg tablet total) by mouth every 6 (six) hours as needed for nausea or vomiting (headache rescue). rizatriptan (MAXALT) 10 mg Take 1 tablet (10 mg 9 tablet 11 05/02/2022 tablet total) by mouth every 2 (two) hours as needed for migraine. May repeat in 2 hours if unresolved. Do not exceed 30 mg in 24 hours. traZODone (DESYREL) 50 mg 1/2 to one tab at 90 tablet 3 04/2020 tablet bedtime if needed for insomnia documented as of this encounter Procedure Notes Hai Love M.D. - 05/06/2022 9:15 AM CDTAssociated Order(s): Botox for Chronic Migraine Pre-Procedure Diagnose(s): Migraine Headache Chronic Post-Procedure Diagnose(s): Migraine Headache Chronic Botox for Chronic Migraine Date/Time: 05/06/2022 9:10 AM Performed by: Hai Love M.D. Authorized by: Mili Toscano M.D. Care team members present 1. Juan Jose Gisbon M.D. 2. Popeye Rust L.P.N. PROCEDURE DETAILS Pre-procedure pain score: 0/10 Injection of: 100 Units onabotulinumtoxinA 100 unit 50 Units onabotulinumtoxinA 50 unit Needle gauge: 30 Needle length: 0.5 in Injection site details Control Valve Mechanic / Procerus muscle(s): 5 units into the left oyster culturist muscle, 5 units into the right oyster culturist muscle and 5 units into the procerus muscle (15 units total). Superior Frontalis muscle(s): 5 units into the left superior frontalis muscle and 5 units into the right superior frontalis muscle (2 injection sites per muscle) (10 units total). Temporalis muscle(s): 12.5 units into the left temporalis muscle and 12.5 units into the right temporalis muscle (2 injection sites per muscle) (25 units total). Splenius Capitis muscle(s): 12.5 units into the left splenius capitis muscle and 12.5 units into theright splenius capitis muscle (2 injection sites per muscle) (25 units total). Occipitalis muscle(s): 12.5 units into the left occipitalis muscle and 12.5 units into the right occipitalis muscle (2 injection sites per muscle) (25 units total). Trapezius muscle(s): 25 units into the left trapezius muscle and 25 units into the right trapezius muscle (3 injection sites per muscle) (50 units total). Total units wasted: 0 Total units injected: 150 CONSENT Consent obtained: written UNIVERSAL PROTOCOL All relevant documentation and testing were reviewed and available. All required blood products, implants, devices and or special equipment were made available as applicable. Pre-procedure verificationwas conducted and the correct site was marked if required. A fire risk assessment was done as applicable. The procedural time-out to verify correct patient, correct side/site, and procedure was conducted prior to performing the procedure and confirmed in a procedural pause. PRE-PROCEDURE DETAILS Reason for injections: chronic migraine Appropriate hand hygiene, gown, cap, mask, protective eyewear, sterile gloves, skin preparation, sterile drape, and strict aseptic technique were utilized as applicable for the procedure: yes Site preparation: alcohol Clinical history: Patient was made aware that they may be responsible for any and all costs associated with injection of Botulinum Toxin Type A that is not covered by a third democrat. Prior to treatment with Botox, the frequency of headaches was greater than 15 days per month and with significant impairment in the quality of life. Please see the initial Botox injection note and Headache consultation note regarding specific details of the headache history prior to the start of treatment. Any other daily migraine prophylactic treatments taken over the last 3 months: None Headache frequency when Botox is most effective (middle month in between rounds). Headache days per month: 2 days Severe headache days per month: 0 days Wearing off phenomenon prior to this round of Botox: yes Duration: 2 weeks Patient finds Botox treatment helpful and wants to repeat the treatment? yes Patient had migraine headache frequency reduction by at least 7 days per month compared to pretreatment level, or migraine headache duration reduction of at least 100 hours per month compared to pretreatment level? yes POST-PROCEDURE DETAILS Procedure completed successfully: yes Complications: no apparent complications PLAN: The patient has had good response for treatment of their chronic migraine with onabotulinumtoxin A injections at 150 units every 12 weeks in that the patient had migraine headache frequency reduction by at least 7 days per month compared to pretreatment level, or migraine headache duration reduction of at least 100 hours per month compared to pretreatment level. Therefore, I have encouraged the patient to schedule their next round of injections 150 units in 12 weeks. ATTESTATION STATEMENT A resident or fellow participated in the procedure, and the otm consultant was present for the entire procedure. documented in this encounter Plan of Treatment Upcoming Encounters Date Type Specialty Care Team Description 08/01/2022 Appointment Neurology Mili Toscano M .D. [address] [place] [phone] (Wo rk) documented as of this encounter Procedures Procedure Name Priority Date/Time Associated Comments Diagnosis NM CHEMODENERV FACIAL Routine 05/06/2022 9:10 AM Migraine Head ache Results for this TRIGEM JEANNE CDT Chronic procedure are i n the results section. documented in this encounter Results NM CHEMODENERV FACIAL TRIGEM JEANNE (05/06/2022 9:10 AM [...] Needle length: 0.5 in Injection site details Control Valve Mechanic / Procerus muscle(s): 5 units into the left oyster culturist muscle, 5 units into the right oyster culturist muscle and 5 units into the procerus [...] that is not covered by a third democrat. ?? Prior to treatment with Botox, the [...] fellow participated in the procedure, and the otm consultant was present for the entire procedure. Mili Toscano M.D. NEUROLOGY ORDERABLES Performing Organization Address City/State/ZIP Code Phon e Number MMODAL MMODAL NA documented in this encounter Visit Diagnoses Diagnosis Migraine Headache Chronic documented in this encounter Administered Medications Inactive Administered Medications - up to 3 most recent administrations Medication Order MAR Action Action Date Dose Rate Site onabotulinumtoxinA injection 100 Given 05/06/2022 9:10 AM 100 Un its Units (BOTOX) CDT 100 Units, injection, One-Time Injection, Starting on Mon05/06/22 at 0910, For 1 dose onabotulinumtoxinA injection 50 Units Given 05/06/2022 9:10 AM C DT 50 Units (BOTOX COSMETIC) 50 Units, injection, One-Time Injection, Starting on Mon05/06/22 at 0910, For 1 dose documented in this encounter Additional Health Concerns Assessment Noted Time PHQ-9 Depression Total Score: 14 05/02/2022 10:14 AM C DT documented as of this encounter Care Teams District Court Justice Relationship Specialty Start Date End Date Betsy Mcarthur M.D. PCP - General 12/03/[address] [place] [address] [place] [address] documented as of this encounter
--- OUTSIDE RECORDS SUMMARY | 2022-05-31 21:52 | XMS_ITS | Encounter Summary ---
:1980 Author Organization [facility] Address [address] [place] [address] Care Team Providers Name Role Phone Betsy Mcarthur M.D. Primary Care Provider Encounter Details Date Type Department Care Team Description 05/28/2021 Clinical Communication Department of Urology Katalina Mendez in [place], [place], [place], [place] [address] [phone] Social History Tobacco Use Types Packs/Day Years [...] or relatives? How often do you attend mandaen or 1 to 4 times per year 04/22 yarsanism services? Do you belong to any clubs or No 05/02/2022 organizations such as mandaen groups, unions, fraternal or athletic groups, or [...] place to sleep or slept in a correction (including now)? Education Answer Date Recorded What is the highest level of school you have completed or 12 th grade 05/08/2020 the highest degree you have received? Sex Assigned at Date Recorded Female 02/05/2018 10:11 AM CDT documented as of this encounter Miscellaneous Notes Telephone Encounter - Nicol Garcia R.N. - 05/28/2021 1:29 PM CDT Patient notified of response message. Verbalized understanding. Telephone Encounter - Charisse Mendez APRN, C.N.P. - 05/28/2021 12:05 PM CDT Before we see her to have discussed treatment for stones, we need to know that she actually has kidney stones that are passing. The way that we know this is she should be seen in either urgent care or emergency department, they would test her urine and she needs a CT scan. After these results are available and we know that this is a stone that would need surgical management, we will see her in clinicat that time. Telephone Encounter - Nicol Garcia R.N. - 05/28/2021 11:41 AM CDT Patient stating that she has had diarrhea,nausea, right sided lower abdominal pain, hematuria and flank pain since Monday. Last Uro visit was 02/05/18 for stones. Please advise. Telephone Encounter - Susi Thibodeaux Omayra - 05/28/2021 10:51 AM CDT Reason for Communication: Patient is calling in and stated that she thinks that she may have kidney stones, since Monday. Patient is stating that she also has blood in her urine. Please advise. Current Can Nursing/Provider leave a detailed message?: no Did the patient refuse triage through Nurse line? (for symptom based concerns): na Action Needed: Please advise. Name of Medication (if relevant): na Please send all scheduling replies to scheduling pool. documented in this encounter Plan of Treatment Upcoming Encounters Date Type Specialty Care Team Description 08/01/2022 Appointment Neurology Mili Toscano M .D. [address] [place], [place] [phone] (Wo rk) documented as of this encounter Visit Diagnoses Not on filedocumented in this encounter Additional Health Concerns Assessment Noted Time PHQ-9 Depression Total Score: 8 05/08/2020 7:30 AM CDT documented as of this encounter Care Teams Fuel System Maintenance Worker Relationship Specialty Start Date End Date Betsy Mcarthur M.D. PCP - General 12/03/[address] [place] [phone] documented as of this encounter
--- OUTSIDE RECORDS SUMMARY | 2022-05-31 21:52 | XMS_ITS | Encounter Summary ---
:1980 Author Organization [facility] Address [address] [place] [address] Care Team Providers Name Role Phone Winter Singleton M.D. Primary Care Provider Reason for Visit Reason Onset Date Comments Outpatient COVID-19 Testing 09/22/2020 Encounter Details Date Type Department Care Team Description 09/22/2020 External Outreach Department of Froilan Gamble Infect ion [facility] Internal Medicine in J, D.O. Respiratory (Primary [place], [place] [address] Dx) [address] [place] [phone] Social History Tobacco Use Types Packs/Day Years [...] place to sleep or slept in a chcf (including now)? Education Answer Date Recorded What is the highest level of school you have completed or 12 th grade 05/08/2020 the highest degree you have received? Sex Assigned at Date Recorded Female 02/05/2018 10:11 AM CDT documented as of this encounter Progress Notes Shyla Whitley, L.P.N. - 09/22/2020 10:02 AM CST Encounter created for the drive-through COVID-19 testing. O MAKER documented in this encounter Plan of Treatment Upcoming Encounters Date Type Specialty Care Team Description 08/01/2022 Appointment Neurology Mili Toscano M .D. [address] [place] [phone] (Wo rk) documented as of this encounter Procedures Procedure Name Priority Date/Time Associated Diagnosis Comme nts SARS CORONAVIRUS-2 Routine 09/22/2020 12:46 PM Infection Upper Results for this RNA, V PIANO MAKER Respiratory procedure are i n the results section. documented in this encounter Results SARS Coronavirus-2 RNA, V Symptomatic (09/22/2020 12:46 PM PIANO MAKER) [facility] Method Time Signature SARS-CoV-2 Swab, 09/23/2020 MKTO Specimen Nasopharynx 3:41 AM PIANO MAKER Source SARS CoV-2 Undetected Undetected 09/23/2020 MKTO RNA, TMA 3:41 AM PIANO MAKER Comment: SARS-CoV-2 RNA absent. This result does not rule out COVID-19 in the patient, as the sensitivity of the test depends o n the timing of the specimen collection and the quality of the specim en. Result should be correlated with patient's history and clinical presentat ion. ----ADDITIONAL INFORMATION---- This test is performed using the Aptima SARS-CoV-2 assay ([employer] which has received Emergency Use Authori zation (EUA) by the U.S. Food and Drug Administration. Fact sheets for this Emergency Use Autho rization (EUA) assay can be found at the following links: For Healthcare Providers: https://www.Drug Response Dx a.gov/media/769440/download For Patients: https://www.fda.gov/media/ 289865/download Specimen Anatomical Collection Method Collection Time Receive d Time (Source) Location / / Volume Laterality Varies 09/22/2020 12:46 09/22/2020 8:26 (Nasopharynx) PM PIANO MAKER PM PIANO MAKER Froilan Gamble D.O. LAB MICROBIOLOGY - GENERAL O RDERABLES Performing Organization Address City/State/[facility] Phon e Number [facility]- [address] [place] [phone] [place] [address] [place] [address] System in [address] documented in this encounter Visit Diagnoses Diagnosis Infection Upper Respiratory - Primary documented in this encounter Additional Health Concerns Infection Onset Date Last Indicated Resolved Time COVID19 Pending 09/22/2020 09/22/2020 09/23/2020 3:41 AM PIANO MAKER Assessment Noted Time PHQ-9 Depression Total Score: 8 05/08/2020 7:30 AM CDT documented as of this encounter Care Teams Air Traffic Control Manager Relationship Specialty Start Date End Date Winter Singleton M.D. PCP - General Family Medicine 01/04/18 12/02/[address] [phone] documented as of this encounter
--- OUTSIDE RECORDS SUMMARY | 2022-05-31 21:52 | XMS_ITS | Encounter Summary ---
:1980 Author Organization [facility] Address [address] [place] [address] Care Team Providers Name Role Phone Betsy Mcarthur M.D. Primary Care Provider Encounter Details Date Type Department Care Team Description 12/30/2020 Admin Visit Department of Family Medicine, [address] [phone] [facility] [phone] Social History Tobacco Use Types Packs/Day Years [...] or relatives? How often do you attend amish or 1 to 4 times per year 04/22 evangelical services? Do you belong to any clubs or No 05/02/2022 organizations such as amish groups, unions, fraternal or athletic groups, or [...] place to sleep or slept in a residential (including now)? Education Answer Date Recorded What is the highest level of school you have completed or 12 th grade 05/08/2020 the highest degree you have received? Sex Assigned at Date Recorded Female 02/05/2018 10:11 AM CDT documented as of this encounter Plan of Treatment Upcoming Encounters Date Type Specialty Care Team Description 08/01/2022 Appointment Neurology Mili Toscano M .D. [address] [place], [place] [phone] (Wo rk) documented as of this encounter Visit Diagnoses Not on filedocumented in this encounter Additional Health Concerns Infection Onset Date Last Indicated Resolved Time COVID19 Pending 12/30/2020 12/30/2020 12/31/2020 12:45 AM ONCOLOGY PHYSICIAN ASSISTANT Assessment Noted Time PHQ-9 Depression Total Score: 8 05/08/2020 7:30 AM CDT documented as of this encounter Care Teams Water Ski Assembler Relationship Specialty Start Date End Date Betsy Mcarthur M.D. PCP - General 12/03/[address] [place] [phone] documented as of this encounter
--- OUTSIDE RECORDS SUMMARY | 2022-05-31 21:52 | XMS_ITS | Encounter Summary ---
:1980 Author Organization [facility] Address [address] [place] [address] Care Team Providers Name Role Phone Betsy Mcarthur M.D. Primary Care Provider Reason for Visit Reason Comments COVID Nurse Line Encounter Details Date Type Department Care Team Description 12/30/2020 Clinical Communication [facility], COV ID Nurse Line Count Includes [facility] Internal Tiana Luque R.N. [place], [place] [address] [place] [address] Social History Tobacco Use Types Packs/Day Years [...] or relatives? How often do you attend pentecostal or 1 to 4 times per year 04/22 jain services? Do you belong to any clubs or No 05/02/2022 organizations such as pentecostal groups, unions, fraternal or athletic groups, or [...] place to sleep or slept in a group home (including now)? Education Answer Date Recorded What is the highest level of school you have completed or 12 th grade 05/08/2020 the highest degree you have received? Sex Assigned at Date Recorded Female 02/05/2018 10:11 AM CDT documented as of this encounter Miscellaneous Notes Telephone Encounter - Tiana Mary R.N. - 12/30/2020 12:10 PM [place] COVID-19 Nurse Line Screening ASSESSMENT Region Select appropriate region: : [place] Age Pathway Select approprite pathway: : Adult Have you had close contact* with a person who has a LABORATORY CONFIRMED case of COVID-19 in the past 14 days?: No (Continue Screening) In the last 48 hours, have you had a fever* OR symptoms that are unrelated to a preexisting illness?: New sore throat, New nausea, New vomiting, New chills, New headache, New change or loss of taste sensation Have you received a COVID-19 vaccine in the last 72 hours? : No vaccine received (Continue Screening) Do you have any of the following urgent symptoms?: No urgent symptoms noted (Continue Screening) Have you tested positive for COVID-19 in the last 45 days?: No (Continue Screening) Are ALL the following criteria met: age between 18 to 75 yrs, main symptom is a sore throat with duration of 24 hrs to 7 days, onset of sore throat not associated with new upper respiratory symptoms*? : No, COVID testing is recommended (End Screening) Symptom Onset Date of symptom onset: 12/27/20 Testing Recommendation Endpoint Is testing recommended? : Recommended to test PLAN Endpoint recommendation: Screening positive, testing indicated, advised to be swabbed for COVID-19 Only , sent to [place] located at [address] [place] [address] The entrance is on the north side of the building. You must call [phone] during the hours of 7am to 6 pm (M-F) or 9 am to 4 pm (Sat and Sun) for an appointment time. You can also schedule via your Patient Online Services account. Testing hours are 9 am to 5 pm (M-F) and 9 am to 1 pm (Sat and Sun).When you arrive at the testing site: Remain in your vehicle and check-in by calling the number listed on the signage at the testing site or provided to you at the time you schedule your testing appointment. and Please avoid using public transportation per CDC recommendation. If you do not have personal transportation please self- quarantine until a personal transportation option is available. Care Points: -Wash hands frequently with soap and water for at least 20 seconds -If soap and water are not available, use a hand mechanical applications engineer -Avoid touching your eyes, nose and mouth. -Clean and disinfect high-touch surfaces routinely. -Wear a mask over your nose and mouth. A cloth face cover is not a substitute for social distancing -Continue to keep about 6 feet between yourself and others. -Avoid public areas and public transportation. -Find new ways to connect with family and friends, get support and share feelings. -Seek emergent care if any of the following occur Trouble breathing Bluish lips or face Persistent pain or pressure in the chest New confusion or inability to rouse. -Notify your regular care provider of any new or worsening symptoms. Symptomatic Carepoints: Separate yourself from others and stay in a specific sick room if able. Avoid sharing personal or household items. Rest. Hydrate. Take Acetaminophen/Ibuprofen as needed to control fever and muscles aches. Use over the counter medications as needed for other symptoms. Education: Patient/caregiver able to teach back Patient agreeable to plan of care: Yes The following references were used: [facility] novel coronavirus (COVID- 19) resources CDC web site https://www.cdc.gov/coronavirus/2019-ncov/summary.html Nursing judgement ROUTEMAN documented in this encounter Plan of Treatment Upcoming Encounters Date Type Specialty Care Team Description 08/01/2022 Appointment Neurology Mili Toscano M .D. [address] [place] [address] [place] [phone] (Wo rk) documented as of this encounter Visit Diagnoses Not on filedocumented in this encounter Additional Health Concerns Assessment Noted Time PHQ-9 Depression Total Score: 8 05/08/2020 7:30 AM CDT documented as of this encounter Care Teams Home Based Assistant Relationship Specialty Start Date End Date Betsy Mcarthur M.D. PCP - General 12/03/[address] [place] [phone] documented as of this encounter
--- OUTSIDE RECORDS SUMMARY | 2022-05-31 21:52 | XMS_ITS | Encounter Summary ---
:1980 Author Organization [facility] Address [address] [place] [address] Care Team Providers Name Role Phone Betsy Mcarthur M.D. Primary Care Provider Reason for Visit Reason Comments Other Had permanent eyeliner put o n Monday. Left eye puffy and red. Appointment Request (Routine) - Closed Specialty Diagnoses / Procedures Referred By Contact Refer red To Contact Family Medicine Referral ID Status Reason Start Date Expiration Date Visits Requ ested Visits Authorized [id number] Closed 01/04/2021 01/04/2022 1 1 Encounter Details Date Type Department Care Team Description 01/04/2021 Office Visit Department of Family Kika Ahumada Kerati tis Superficial Medicine, [facility] MEÑO, C.N.P. Left (Primary Dx) Clinic, in [address] [address] [place], [place] [phone] (Work) [phone] Social History Tobacco Use Types Packs/Day Years [...] or relatives? How often do you attend advent or 1 to 4 times per year 04/22 presybeterian services? Do you belong to any clubs or No 05/02/2022 organizations such as advent groups, unions, fraCogo or athletic groups, or school groups? How [...] AM CDT documented as of this encounter Last Filed Vital Signs Vital Sign Reading Time Taken Comments Blood Pressure 117/74 01/04/2021 12:56 PM CDT Pulse 85 01/04/2021 12:56 PM CDT Temperature 36.1 ??C (97 ??F) 01/04/2021 12:56 PM CDT Respiratory Rate 16 01/04/2021 12:56 PM CDT Oxygen Saturation - - Inhaled Oxygen Concentration - - Weight 59.8 kg (131 lb 11.6 oz) 01/04/2021 12:56 PM CDT Height - - Body Mass Index 22.22 08/28/2019 2:42 PM RIVET TOSSER documented in this encounter Patient Instructions Patient InstructionsKika hAumada, CYBER SYSTEMS ENGINEER, C.N.P. - 01/04/2021 1:00 PM CDT Contact your health care provider if you: ?? Have trouble seeing or are in pain. ?? Become very sensitive to light. ?? Find you have a lot of yellow or green mucus for more than three days and it???s getting worse. ?? Have had symptoms for a week or more and are getting worse. ?? Have other symptoms of an infection, such as fever or achiness. Have a history of eye trauma, eyesurgery, such as corneal transplant, or retained stitches from a recent surgery. ?? Have another medical condition that causes your immune system to be weak. ?? documented in this encounter Progress Notes Kika Ahumada APRN, C.N.P. - 01/04/2021 1:00 PM CDT CHIEF COMPLAINT Left eye complaint HISTORY OF PRESENT ILLNESS Katherine Tiwari 40 year old female presents with 3 day(s) of symptoms involving left eye due to receiving permanent eye liner on top and bottom eyelids. History provided by patient; she declines the use of in Ipad for ASL. She has had prior eye symptoms in the past and treated in 2019. Symptoms include redness, eye irritation, eye pain, excessive tearing, purulent drainage present only upon waking. Patient is not a contact lens wearer. History of trauma: no History of foreign body: no Recent URI symptoms: no History of atopic symptoms: no Home therapy attempted: OTC drops EXAM General: Alert, oriented, no acute distress Left eye exam: mattering present, excessive tearing and red sclerae. Minor lower eyelid swelling. PERRLA. Right eye exam: Negative. PERRLA. Right ear: TM without erythema, no bulging, light reflex present. Canal without erythema, swelling, or drainage present Left ear: TM without erythema, no bulging, light reflex present. Canal without erythema, swelling, or drainage present Heart: Regular rate and rhythm. Lungs: Respirations not labored, symmetric expansion. Clear to auscultation, no wheezes, rhonchi, orrales Skin: [place], warm, dry. IMPRESSION/REPORT/PLAN #1 Keratitis --reviewed etiology and symptomatic measures at home to help with symptoms. --prescribed Ciloxan and PredForte 4x/day for 7 days to be used daily. Waiting 5 minutes in between drops. --follow up immediately with an eye doctor if having significant eye pain, vision changes, significant sensitivity to light, or red and hot swelling around the eye. Plan was discussed with patient. No questions or concerns at this time. Patient was in agreement with plan. Follow-up as needed for ongoing problems. Kika Ahumada APRN, C.N.PRohit documented in this encounter Plan of Treatment Upcoming Encounters Date Type Specialty Care Team Description 08/01/2022 Appointment Neurology Mili Toscano M .D. [address] [place], [place] [phone] (Wo rk) documented as of this encounter Visit Diagnoses Diagnosis Keratitis Superficial Left - Primary documented in this encounter Additional Health Concerns Assessment Noted Time PHQ-9 Depression Total Score: 8 05/08/2020 7:30 AM CDT documented as of this encounter Care Teams Soft Sugar Supervisor Relationship Specialty Start Date End Date Betsy Mcarthur M.D. PCP - General 12/03/[address] [place] [phone] documented as of this encounter
--- OUTSIDE RECORDS SUMMARY | 2022-05-31 21:52 | XMS_ITS | Encounter Summary ---
:1980 Author Organization [facility] Address [address] [place] [address] Care Team Providers Name Role Phone Betsy Mcarthur M.D. Primary Care Provider Encounter Details Date Type Department Care Team Description 02/09/2021 Orders Only [facility] Sa stephanie Villalpando M.D. [address] [place], [place] [phone] (Wo rk) Social History Tobacco Use Types [...] 1 to 4 times per year 04/22 taoism services? Do you belong to any clubs [...] Neurology Mili Toscano M .D. [address] [place], [place] [phone] (Wo rk) documented as of this encounter Visit Diagnoses Not on filedocumented in this encounter Additional Health Concerns Assessment Noted Time PHQ-9 Depression Total Score: 8 05/08/2020 7:30 AM CDT documented as of this encounter Care Teams Cafeteria Counter Attendant Relationship Specialty Start Date End Date Betsy Mcarthur M.D. PCP - General 12/03/[address] [place] [phone] documented as of this encounter
--- OUTSIDE RECORDS SUMMARY | 2022-05-31 21:52 | XMS_ITS | Encounter Summary ---
:1980 Author Organization [facility] Address [address] [place] [address] Care Team Providers Name Role Phone Winter Singleton M.D. Primary Care Provider [phone] Reason for Referral MRI/CAT/PET Scan (Routine) - Closed Specialty Diagnoses / Procedures Referred By Contact Refer red To Contact Radiology Diagnoses Occlusion And Stenosis Left Carotid Artery Headache Unspecified Enoch Rodriguez M.D., M.P.H. [facility] Procedures MR Neck Angiogram without [place] [address] Referral ID Status Reason Start Date Expiration Date Visits Requ ested Visits Authorized [id number] Closed 11/24/2020 11/24/2021 1 1 M PRESS OPERATOR Reason for Visit MRI/CAT/PET Scan (Routine) - Closed Specialty Diagnoses / Procedures Referred By Contact Refer red To Contact Radiology Diagnoses Occlusion And Stenosis Left Carotid Artery Headache Unspecified Enoch Rodriguez M.D., M.P.H. [facility] Procedures MR Neck Angiogram without [place] [address] Referral ID Status Reason Start Date Expiration Date Visits Requ ested Visits Authorized [id number] Closed 11/24/2020 11/24/2021 1 1 Encounter Details Date Type Department Care Team Description 11/30/2020 Hospital Encounter Department of Enoch Rodriguez, Occlusi on And Stenosis Left Carotid Artery ; Radiology, Lele Mccarthy, M.P.H. Headache Unspecified; [place], in [place], [address] Occlusion And Stenosis Left Carotid Leyla [place], [place] [address] [address] [place], [place] [phone] (Work) [phone] Social History Tobacco Use Types Packs/Day Years [...] or relatives? How often do you attend jain or 1 to 4 times per year 04/22 scientologist services? Do you belong to any clubs or No 05/02/2022 organizations such as jain groups, unions, fraternal or athletic groups, or [...] place to sleep or slept in a longterm (including now)? Education Answer Date Recorded What is the highest level of school you have completed or 12 th grade 05/08/2020 the highest degree you have received? Sex Assigned at Date Recorded Female 02/05/2018 10:11 AM CDT documented as of this encounter Medications at Time of Discharge Medication Sig Dispensed Refills Start Date End Date baclofen (LIORESAL) 10 mg Take 1 tablet (10 60 tablet 3 10/2019 tablet mg total) by mouth 2 (two) times a day as needed for muscle spasms. estradioL (VIVELLE-DOT) APPLY ONE PATCH 0 021 0.1 mg/24 hr patch TRANSDERMAL TWICE WEEKLY LORazepam (ATIVAN) 0.5 mg Take 0.5 mg by 0 2015 tablet mouth as needed. ondansetron (ZOFRAN) 4 mg Take 1 tablet (4 20 tablet 0 04/22 tablet mg total) by mouth every 8 (eight) hours as needed for nausea or vomiting. traZODone (DESYREL) 50 mg 1/2 to one tab at 90 tablet 3 04/2020 tablet bedtime if needed for insomnia cetirizine (ZyrTEC) 10 mg Take 1 tablet (10 90 tablet 3 03/04/2021 tablet mg total) by mouth daily as needed for allergies. albuterol (PROVENTIL Inhale 2 puffs as 0 02/29/20 16 05/02/2022 HFA,VENTOLIN HFA) 90 needed. mcg/actuation inhaler fluconazole (DIFLUCAN) Take 1 tablet (150 2 tablet 0 04/0305/02/2022 150 mg tabletIndications: mg total) by mouth Vaginosis Bacterial See Admin Instructions. Take one tab after completing the antibiotic. May repeat in 3-7 days. fluticasone propionate Administer 1 spray 16 g 11 03/0403/18/2021 (FLONASE) 50 into each nostril mcg/actuation nasal spray daily. meclizine (ANTIVERT) 25 Take 25 mg by 0 1 05/02/2022 mg tablet mouth every 8 (eight) hours as needed. for vertigo methylPREDNISolone Take as directed 21 tablet 0 11/20/2020 01/04/2021 (MEDROL DOSEPAK) 4 mg on package. tablet naproxen (NAPROSYN) 500 Take one tablet 20 tablet 5 021 05/03/2021 mg tablet (500 mg) by mouth at onset of headache, may repeat in 8 hours, no more than 2 per day or 5 per week. nortriptyline (Pamelor) 1 cap nightly for 105 capsule 0 04/2205/02/2022 10 mg capsule 1 week. If not better, increase every week by 1 cap daily if needed per med sched to maximum 5 caps nightly nortriptyline (Pamelor) If max dose 30 capsule 12 05/04/2020 05/02/2022 50 mg capsule reached with 10 mg capsule med schedule, switch to 50 mg caps and take 1 cap nightly ondansetron ODT Place 4 mg under 0 11/17/2020 (ZOFRAN-ODT) 4 mg the tongue. disintegrating tablet rizatriptan (MAXALT) 10 Take 1 tablet (10 9 tablet 11 01/2702/12/2021 mg tablet mg total) by mouth every 2 (two) hours as needed for migraine. May repeat in 2 hours if unresolved. Do not exceed 30 mg in 24 hours. tiZANidine (ZANAFLEX) 2 Take 1 tablet (2 30 tablet 0 202005/02/2022 mg tablet mg total) by mouth every 6 (six) hours as needed for muscle spasms. documented as of this encounter Plan of Treatment Upcoming Encounters Date Type Specialty Care Team Description 08/01/2022 Appointment Neurology Mili Toscano M .D. [address] [place], [place] [phone] (Wo rk) documented as of this encounter Procedures Procedure Name Priority Date/Time Associated Comments Diagnosis MR NECK ANGIOGRAM RAD - Routine 11/30/2020 12:05 Occlusion And Resu lts for this WITHOUT AND WITH (most inpatients PM STEAM PRESS OPERATOR Stenosis Left proced ure are in IV CONTRAST and all Carotid Artery the results outpatients) Headache section. Unspecified documented in this encounter Results MR Neck Angiogram without and with IV Contrast (11/30/2020 12:05 PM STEAM PRESS OPERATOR) Anatomical Region Laterality Modality Neck, Neuroradiology RST LOS, Neuroradiology ARZ LOS, N/A Magnetic Resonance Neuroradiology FLA LOS Specimen (Source) Anatomical Collection Method Collection Time Re ceived Time Location / / Volume Laterality 11/30/2020 12:52 PM STEAM PRESS OPERATOR Impressions 11/30/2020 1:11 PM STEAM PRESS OPERATOR Normal MRA of the neck. No evidence for dissection. Narrative 11/30/2020 1:11 PM STEAM PRESS OPERATOR EXAM: MR NECK ANGIOGRAM WITHOUT AND WITH IV CONTRAST COMPARISON: None available FINDINGS: No hemodynamically significant stenosis of the bilateral common, external, or internal carotid arteries. Codominance o f the vertebral arteries. No stenosis of the bilateral vertebral arteries. No pedrito dence for dissection. Normal branching pattern to the great vessels as they polo se from the aortic arch. Procedure Note Artemio Bello M.D. - 11/30/2020Fo rmatting of this note might be different from the original. EXAM: MR NECK ANGIOGRAM WITHOUT AND WITH IV CONTRAST COMPARISON: None available FINDINGS: No hemodynamically significant stenosis of the bilateral common, external, or internal carotid arteries. Codominance o f the vertebral arteries. No stenosis of the bilateral vertebral arteries. No pedrito dence for dissection. Normal branching pattern to the great vessels as they polo se from the aortic arch. IMPRESSION: Normal MRA of the neck. No evidence for dissection. Enoch Rodriguez M.D., M.P.H. IMG MRI PROCEDURES documented in this encounter Visit Diagnoses Diagnosis Occlusion And Stenosis Left Carotid Leyla ry Headache Unspecified documented in this encounter Administered Medications Inactive Administered Medications - up to 3 most recent administrations Medication Order MAR Action Action Date Dose Rate Site gadobutrol injection 0.01-30 mL Given 11/30/2020 12:02 PM STEAM PRESS OPERATOR 6 mL (GADAVIST) 0.01-30 mL, intravenous, Once in imaging, contrast, Starting on Mon11/30/20 at 1107, For 1 dose, Imaging Protocol Orders, Dose per Radiant Medication Guidelines sodium chloride (PF) 0.9 % injection 1-1 00 mL Given 11/30/2020 12:02 PM STEAM PRESS OPERATOR 20 mL 1-100 mL, intravenous, Once, On Mon11/30/20 at 1115, For 1 dose, Imaging Protocol Orders documented in this encounter Additional Health Concerns Assessment Noted Time PHQ-9 Depression Total Score: 8 05/08/2020 7:30 AM CDT documented as of this encounter Care Teams Business Partner Relationship Specialty Start Date End Date Winter Singleton M.D. PCP - General Family Medicine 01/04/18 12/02/[address] [phone] documented as of this encounter
--- OUTSIDE RECORDS SUMMARY | 2022-05-31 21:52 | XMS_ITS | Encounter Summary ---
:1980 Author Organization [facility] Address [address] [place] [address] Care Team Providers Name Role Phone Betsy Mcarthur M.D. Primary Care Provider Reason for Visit Reason Comments COVID Inquiry Encounter Details Date Type Department Care Team Description 07/06/2021 Clinical Communication Department of Patrica Stallworth COVID Inquiry MedicineBryce M.D. [facility], in [address] [address] [place], [place] [phone] (Work) [phone] Social History Tobacco Use Types Packs/Day Years [...] or relatives? How often do you attend congregational or 1 to 4 times per year 04/22 catholic services? Do you belong to any clubs or No 05/02/2022 organizations such as congregational groups, unions, fraternal or athletic groups, or [...] this encounter Miscellaneous Notes Telephone Encounter - Nazanin Baez - 07/06/2021 11:40 AM CDT What is the purpose of the call?: Symptomatic (Calling PCP Office) Calling [place] [facility] What region is the patient calling from? : [place] Have you tested positive for COVID-19 in the last 20 days? : No In the past 14 days are any of the following symptoms new to you and not related to an existing health condition?: Fever*, New cough, New sore throat, New myalgias (muscle aches), New headache Because of symptoms, transfer patient to: : [place] COVID Nurse Line (End Screening) Symptom Onset Date of symptom onset: 07/01/21 Testing Recommendation Endpoint Is testing recommended? : Transferred to nursing call line Plan: Endpoint recommendation: Transferred to Nursing/COVID Line/Care Team *Reminder if sending patient for testing in [facility] or [facility], route encounter to the correct testing pool. documented in this encounter Plan of Treatment Upcoming Encounters Date Type Specialty Care Team Description 08/01/2022 Appointment Neurology Mili Toscano M .D. [address] [place] [phone] (Wo rk) documented as of this encounter Visit Diagnoses Not on filedocumented in this encounter Additional Health Concerns Assessment Noted Time PHQ-9 Depression Total Score: 8 05/08/2020 7:30 AM CDT documented as of this encounter Care Teams Surfboard Designer Relationship Specialty Start Date End Date Betsy Mcarthur M.D. PCP - General 12/03/[address] [place] [phone] documented as of this encounter
--- OUTSIDE RECORDS SUMMARY | 2022-05-31 21:52 | XMS_ITS | Encounter Summary ---
:1980 Author Organization [facility] Address [address] [place] [address] Care Team Providers Name Role Phone Betsy Mcarthur M.D. Primary Care Provider Reason for Visit Reason Onset Date Comments Outpatient COVID-19 Testing 03/07/2021 Encounter Details Date Type Department Care Team Description 03/07/2021 External Outreach Department of [facility] Froilan Gamble Contact With And Medicine, [facility] Sarita Butts (Suspected) Exposure Building, in [address] COVID-19 (Primary [place], [place] Dx) [address] [facility] [address] [place], [place] [phone] (Work) [phone] Social History Tobacco Use Types Packs/Day Years [...] or relatives? How often do you attend latter day or 1 to 4 times per year 04/22 bahai services? Do you belong to any clubs or No 05/02/2022 organizations such as latter day groups, unions, fraternal or athletic groups, or [...] place to sleep or slept in a long term (including now)? Education Answer Date Recorded What is the highest level of school you have completed or 12 th grade 05/08/2020 the highest degree you have received? Sex Assigned at Date Recorded Female 02/05/2018 10:11 AM CDT documented as of this encounter Progress Notes Kaylee Parsons R.N., CHRN - 03/07/2021 7:43 AM CDT Encounter created for infectious disease screening. documented in this encounter Miscellaneous Notes Addendum Note - Kaylee Parsons R.N., CHRN - 03/07/2021 7:43 AM CDT Addended by: KAYLEE PARSONS on: 03/07/2021 12:04 PM Modules accepted: Orders documented in this encounter Plan of Treatment Upcoming Encounters Date Type Specialty Care Team Description 08/01/2022 Appointment Neurology Mili Toscano M .D. [address] [place], [place] [phone] (Wo rk) documented as of this encounter Visit Diagnoses Diagnosis Contact With And (Suspected) Exposure To COVID-19 - Primary documented in this encounter Additional Health Concerns Infection Onset Date Last Indicated Resolved Time COVID19 Pending 03/07/2021 03/07/2021 03/07/2021 12:04 PM CDT Assessment Noted Time PHQ-9 Depression Total Score: 8 05/08/2020 7:30 AM CDT documented as of this encounter Care Teams Elementary Vocal Music Teacher Relationship Specialty Start Date End Date Betsy Mcarthur M.D. PCP - General 12/03/[address] [place], [place] [address]ERASMO Perrin [phone] documented as of this encounter
--- OUTSIDE RECORDS SUMMARY | 2022-05-31 21:52 | XMS_ITS | Encounter Summary ---
:1980 Author Organization [facility] Address [address] [place] [address] Care Team Providers Name Role Phone Winter Singleton M.D. Primary Care Provider [phone] Reason for Referral MRI/CAT/PET Scan (Routine) - Closed Specialty Diagnoses / Procedures Referred By Contact Refer red To Contact Radiology Diagnoses Occlusion And Stenosis Left Carotid Artery Headache Unspecified Enoch Recinos M.D., M.P.H. [facility] Procedures MR Neck Angiogram without and with IV Contrast [address] [place] [address] Referral ID Status Reason Start Date Expiration Date Visits Requ ested Visits Authorized [id number] Closed 11/24/2020 11/24/2021 1 1 STOCK NUTRITIONIST Encounter Details Date Type Department Care Team Description 11/20/2020 Documentation Department of Neurology in Enoch Recinos M.D., [place], [place] M.P.H. [address] [facility] [address] [place] [phone] [place], [place] 759225 Social History Tobacco Use Types Packs/Day Years [...] or relatives? How often do you attend catholic or 1 to 4 times per year 04/22 tenriism services? Do you belong to any clubs or No 05/02/2022 organizations such as catholic groups, unions, fraternal or athletic groups, or [...] documented as of this encounter Progress Notes Enoch Recinos M.D., M.P.H. - 11/20/2020 5:18 PM CST Patient has severe neck pain and headache. Reports 2 lumps in her neck one each side. Perhaps chiropractor visit made her pain worse. Says perhaps she has droopy left eyelid, but very minimally. Although highly unlikely will pursue MRA of the neck to r/o dissection as a cause of her pain. STOCK NUTRITIONIST documented in this encounter Miscellaneous Notes Addendum Note - Enoch Recinos M.D., M.P.H. - 11/20/2020 5:18 PM LIVESTOCK NUTRITIONIST Addended by: ENOCH RECINOS on: 11/24/2020 11:08 AM Modules accepted: Orders STOCK NUTRITIONIST documented in this encounter Plan of Treatment Upcoming Encounters Date Type Specialty Care Team Description 08/01/2022 Appointment Neurology Mili Toscano M .D. [address] [place] [phone] (Wo rk) documented as of this encounter Results MR Neck Angiogram without and with IV Contrast (11/30/2020 12:05 PM LIVESTOCK NUTRITIONIST) Anatomical Region Laterality Modality Neck, Neuroradiology RST LOS, Neuroradiology ARZ LOS, N/A Magnetic Resonance Neuroradiology FLA LOS Specimen (Source) Anatomical Collection Method Collection Time Re ceived Time Location / / Volume Laterality 11/30/2020 12:52 PM LIVESTOCK NUTRITIONIST Impressions 11/30/2020 1:11 PM LIVESTOCK NUTRITIONIST Normal MRA of the neck. No evidence for dissection. Narrative 11/30/2020 1:11 PM LIVESTOCK NUTRITIONIST EXAM: MR NECK ANGIOGRAM WITHOUT AND WITH [...] the neck. No evidence for dissection. Enoch Recinos M.D., M.P.H. IMG MRI PROCEDURES documented in this encounter Visit Diagnoses Diagnosis Headache Unspecified Occlusion And Stenosis Left Carotid Leyla ry Occlusion And Stenosis Left Carotid Leyla ry Headache Unspecified documented in this encounter Additional Health Concerns Assessment Noted Time PHQ-9 Depression Total Score: 8 05/08/2020 7:30 AM CDT documented as of this encounter Care Teams Glaucoma Specialist Relationship Specialty Start Date End Date Winter Singleton M.D. PCP - General Family Medicine 01/04/18 12/02/[address] [phone] documented as of this encounter
--- OUTSIDE RECORDS SUMMARY | 2022-05-31 21:52 | XMS_ITS | Encounter Summary ---
:1980 Author Organization [facility] Address [address] [place] [address] Care Team Providers Name Role Phone Betsy Mcarthur M.D. Primary Care Provider Reason for Referral Outpatient (Routine) - Closed Specialty Diagnoses / Procedures Referred By Contact Refer red To Contact Diagnoses Migraine Headache Cecille Chauhan M.D. [facility] Procedures Botox for Chronic Migraine [address] [place] [address] Referral ID Status Reason Start Date Expiration Date Visits Requ ested Visits Authorized [id number] Closed 05/08/2020 05/08/2021 1 1 Reason for Visit Outpatient (Routine) - Closed Specialty Diagnoses / Procedures Referred By Contact Refer red To Contact Diagnoses Migraine Headache Cecille Chauhan M.D. [facility] Procedures Botox for Chronic Migraine [address] [place] [address] Referral ID Status Reason Start Date Expiration Date Visits Requ ested Visits Authorized [id number] Closed 05/08/2020 05/08/2021 1 1 Encounter Details Date Type Department Care Team Description 04/07/2021 Hospital Encounter Department of Aleida Chauhan M.D. [address] [place] [phone] Migraine Headache Neurology in Ramiro Burden M.D. [address] [place] [address] [place], [place] 200 [place] [phone] Social History Tobacco Use Types Packs/Day Years [...] or relatives? How often do you attend shinto or 1 to 4 times per year 04/22 pentecostal services? Do you belong to any clubs or No 05/02/2022 organizations such as shinto groups, unions, fraternal or athletic groups, or [...] place to sleep or slept in a retirement (including now)? Education Answer Date Recorded What [...] ONE SPRAY 16 g 11 (FLONASE) 50 INTO EACH NOSTRIL mcg/actuation nasal DAILY spray LORazepam (ATIVAN) 0.5 Take 0.5 mg by mouth 0 04/2016 mg tablet as needed. smsuetza-vnrdsduut-qjna Administer 1 drop 5 mL 0 01/05 methasone (MAXITROL) into the left eye 4 3.5mg/mL-10,000 (four) times a day. unit/mL-0.1 % ophthalmic suspension ondansetron (ZOFRAN) 4 Take 1 tablet (4 mg 20 tablet 0 04/22 mg tablet total) by mouth every 8 (eight) hours as needed for nausea or vomiting. traZODone (DESYREL) 50 1/2 to one tab at 90 tablet 3 2019 mg tablet bedtime if needed for insomnia albuterol (PROVENTIL Inhale 2 puffs as 0 02/29/20 16 05/02/2022 HFA,VENTOLIN HFA) 90 needed. mcg/actuation inhaler fluconazole (DIFLUCAN) Take 1 tablet (150 2 tablet 0 04/0305/02/2022 150 mg mg total) by mouth tabletIndications: See Admin Vaginosis Bacterial Instructions. Take one tab after completing the antibiotic. May repeat in 3-7 days. meclizine (ANTIVERT) 25 Take 25 mg by mouth 0 05/02/2022 mg tablet every 8 (eight) hours as needed. for vertigo naproxen (NAPROSYN) 500 Take one tablet (500 20 tablet 5 05/03/2021 mg tablet mg) by mouth at onset of headache, may repeat in 8 hours, no more than 2 per day or 5 per week. nortriptyline (Pamelor) 1 cap nightly for 1 105 capsule 0 05/02/2022 10 mg capsule week. If not better, increase every week by 1 cap daily if needed per med sched to maximum 5 caps nightly nortriptyline (Pamelor) If max dose reached 30 capsule 12 05/02/2022 50 mg capsule with 10 mg capsule med schedule, switch to 50 mg caps and take 1 cap nightly rizatriptan (MAXALT) 10 Take 1 tablet (10 mg 9 tablet 11 05/02/2022 mg tablet total) by mouth every 2 (two) hours as needed for migraine. May repeat in 2 hours if unresolved. Do not exceed 30 mg in 24 hours. tiZANidine (ZANAFLEX) 2 Take 1 tablet (2 mg 30 tablet 0 05/02/2022 mg tablet total) by mouth every 6 (six) hours as needed for muscle spasms. documented as of this encounter Procedure Notes Ramiro Burden M.D. - 04/07/2021 2:00 PM CDTAssociated Order(s): Botox for Chronic Migraine Pre-Procedure Diagnose(s): Migraine Headache Post-Procedure Diagnose(s): Migraine Headache Botox for Chronic Migraine Date/Time: 04/07/2021 1:56 PM Performed by: Ramiro Burden M.D. Authorized by: Cecille Chauhan M.D. PROCEDURE DETAILS Pre-procedure pain score: 4/10 Injection of: 100 Units onabotulinumtoxinA 100 unit 50 Units onabotulinumtoxinA 50 unit Needle gauge: 30 Needle length: 0.5 in Injection site details [employer] / Procerus muscle(s): 5 units into the left drawing tracer muscle, 5 units into the right drawing tracer muscle and 5 units into the procerus [...] was done as applicable. The procedural time-out was conducted prior to performing the procedure [...] that is not covered by a third alliance party. Prior to treatment with Botox, the frequency of headaches was greater than 15 days per month and with significant impairment in the quality of life. Please see the initial Botox injection note and Headache consultation note regarding specific details of the headache history prior to the start of treatment. Any other daily migraine prophylactic treatments taken over the last 3 months: Nortriptyline Headache frequency when Botox is most effective (middle month in between rounds). Headache days per month: 5 days Severe headache days per month: 0 days Wearing off phenomenon prior to this round of Botox: yes Duration: 2 weeks POST-PROCEDURE DETAILS: Procedure completed successfully: yes Complications: no apparent complications COMMENTS Procedure done by Dr. Xochitl Rosenthal, I was present during the procedure. documented in this encounter Plan of Treatment Upcoming Encounters Date Type Specialty Care Team Description 08/01/2022 Appointment Neurology Mili Toscano M .D. [address] [place] [phone] (Wo rk) documented as of this encounter Procedures Procedure Name Priority Date/Time Associated Comments Diagnosis HI CHEMODENERV FACIAL Routine 04/07/2021 1:56 PM Migraine Head ache Results for this TRIGEM JEANNE CDT procedure are i n the results section. documented in this encounter Results HI CHEMODENERV FACIAL TRIGEM JEANNE (04/07/2021 1:56 PM CDT) Narrative MMODAL - 04/07/2021 1:56 PM CDT Ramiro Burden M.D. ? 04/07/2021 ??2:19 PM Botox for Chronic Migraine Date/Time: 04/07/2021 1:56 PM Performed by: Ramiro Burden M.D. Authorized by: Cecille Chauhan M.D. PROCEDURE DETAILS ?? Pre-procedure pain score: 4/10 Injection of: 100 Units onabotulinumtoxi nA 100 unit 50 Units onabotulinumtoxinA 50 unit Needle gauge: 30 Needle length: 0.5 in Injection site details [employer] / Procerus muscle(s): 5 units into the left drawing tracer muscle, 5 units into the right drawing tracer muscle and 5 units into the procerus [...] was done as applicable. The procedural time-out w as conducted prior to performing the procedure and confirmed in a procedu ral pause. PRE-PROCEDURE DETAILS ?? Reason for injections: [...] that is not covered by a third alliance party. ?? Prior to treatment with Botox, [...] eatments taken over the last 3 months: ??Nortriptyline Headache frequency when Botox is most ef fective (middle month in between rounds). Headache days per month: 5 days Severe headache days per month: 0 days Wearing off phenomenon prior to this rou nd of Botox: yes Duration: 2 weeks POST-PROCEDURE DETAILS: Procedure completed successfully: yes Complications: no apparent complications COMMENTS Procedure done by Dr. Xochitl Rosenthal, I was present during the procedure. Cecille Chauhan M.D. NEUROLOGY ORDERABLES Performing Organization Address City/State/ZIP Code Phon e Number MMODAL MMODAL NA documented in this encounter Visit Diagnoses Diagnosis Migraine Headache documented in this encounter Administered Medications Inactive Administered Medications - up to 3 most recent administrations Medication Order MAR Action Action Date Dose Rate Site onabotulinumtoxinA injection 100 Given 04/07/2021 1:56 PM 100 Un its Units (BOTOX) CDT 100 Units, injection, One-Time Injection, Starting on Mon04/07/21 at 1356, For 1 dose onabotulinumtoxinA injection 50 Units Given 04/07/2021 1:56 PM C DT 50 Units (BOTOX COSMETIC) 50 Units, injection, One-Time Injection, Starting on 6/16/21 at 1356, For 1 dose documented in this encounter Additional Health Concerns Assessment Noted Time PHQ-9 Depression Total Score: 8 05/08/2020 7:30 AM CDT documented as of this encounter Care Teams Handle Assembler Relationship Specialty Start Date End Date Betsy Mcarthur M.D. PCP - General 12/03/[address] [place] [address] [place]AS[place] Wu [phone] documented as of this encounter
--- OUTSIDE RECORDS SUMMARY | 2022-05-31 21:52 | XMS_ITS | Encounter Summary ---
:1980 Author Organization [facility] Address [address] [place] [address] Care Team Providers Name Role Phone Betsy Mcarthur M.D. Primary Care Provider Reason for Referral Outpatient (Routine) - Closed Specialty Diagnoses / Procedures Referred By Contact Refer red To Contact Diagnoses Migraine Headache Cecille Chauhan M.D. [facility] Procedures Botox for Chronic Migraine [address] [place] [address] Referral ID Status Reason Start Date Expiration Date Visits Requ ested Visits Authorized [id number] Closed 05/08/2020 05/08/2021 1 1 Reason for Visit Outpatient (Routine) - Closed Specialty Diagnoses / Procedures Referred By Contact Refer red To Contact Diagnoses Migraine Headache Cecille Chauhan M.D. [facility] Procedures Botox for Chronic Migraine [address] [place] [address] Referral ID Status Reason Start Date Expiration Date Visits Requ ested Visits Authorized [id number] Closed 05/08/2020 05/08/2021 1 1 Encounter Details Date Type Department Care Team Description 01/13/2021 Hospital Encounter Department of Aleida Chauhan M.D. [address] [place] [phone] Migraine Headache Neurology in Hai Love M.D. [address] [place] [address] [place], [place] 200 [place] [phone] Social History Tobacco Use Types Packs/Day Years [...] or relatives? How often do you attend roman catholic or 1 to 4 times per year 04/22 anglican services? Do you belong to any clubs or No 05/02/2022 organizations such as roman catholic groups, unions, fraternal or athletic groups, [...] Start Date End Date baclofen (LIORESAL) 10 Take 1 tablet (10 mg 60 tablet 3 10/2019 mg tablet total) by mouth 2 (two) times a day as needed for muscle spasms. estradioL (VIVELLE-DOT) APPLY ONE PATCH 0 021 0.1 mg/24 hr patch TRANSDERMAL TWICE WEEKLY LORazepam (ATIVAN) 0.5 Take 0.5 mg by mouth 0 04/2016 mg tablet as needed. uzuldvjh-uuncjjtvh-core Administer 1 drop 5 mL 0 01/05 [...] mg tablet bedtime if needed for insomnia cetirizine (ZyrTEC) 10 Take 1 tablet (10 mg 90 tablet 3 03/04/2021 mg tablet total) by mouth daily as needed for [...] (FLONASE) 50 into each nostril mcg/actuation nasal daily. spray meclizine (ANTIVERT) 25 Take 25 mg by [...] 1 tablet (10 mg 9 tablet 11 02/12/2021 mg tablet total) by mouth every 2 [...] encounter Procedure Notes Hai Love M.D. - 01/13/2021 3:00 PM CDTAssociated Order(s): Botox for Chronic Migraine Pre-Procedure Diagnose(s): Migraine Headache Post-Procedure Diagnose(s): Migraine Headache Chronic Botox for Chronic Migraine Date/Time: 01/13/2021 2:50 PM Performed by: Hai Love M.D. Authorized by: Cecille Chauhan M.D. Care team members present 1. Sobeida Ornelas M.D. 2. Popeye Rust L.PRohitNRohit PROCEDURE DETAILS Pre-procedure pain score: 0/10 Injection of: 100 Units onabotulinumtoxinA 100 unit 50 Units onabotulinumtoxinA 50 unit Needle gauge: 30 Needle length: 0.5 in Injection site details [employer] Floor[employer] / Procerus muscle(s): 5 units into the left test department helper muscle, 5 units into the right test department helper muscle and 5 units into the procerus [...] is not covered by a third libertarian. Prior to treatment with Botox, the frequency [...] in between rounds). Headache days per month: 3 days Severe headache days per month: 0 days Wearing off phenomenon prior to this round of Botox: yes Duration: 2 weeks POST-PROCEDURE DETAILS: Procedure completed successfully: yes Complications: no apparent complications COMMENTS automotive parts interpreter was present during the procedure. ATTESTATION STATEMENT A resident or fellow participated in the procedure, and the provider relations consultant was present for the entire procedure. documented in this encounter Plan of Treatment Upcoming Encounters Date Type Specialty Care Team Description 08/01/2022 Appointment Neurology Mili Toscano M .D. [address] [place], [place] [phone] (Wo rk) documented as of this encounter Procedures Procedure Name Priority Date/Time Associated Comments Diagnosis MI CHEMODENERV FACIAL Routine 01/13/2021 3:00 PM Migraine Head ache Results for this TRIGEM JEANNE CDT Chronic procedure are i n the results section. documented in this encounter Results MI CHEMODENERV FACIAL TRIGEM JEANNE (01/13/2021 3:00 PM CDT) Narrative MMODAL - 01/13/2021 3:00 PM CDT Hai Love M.D. ? 01/13/2021 ??3:07 PM Botox for Chronic Migraine Date/Time: 01/13/2021 2:50 PM Performed by: Hai Love M.D. Authorized by: Cecille Chauhan M.D. Care team members present 1. Sobeida Ornelas M.D. 2. Popeye Rust L.P.N. PROCEDURE DETAILS ?? Pre-procedure pain score: 0/10 Injection of: 100 Units onabotulinumtoxi nA 100 unit 50 Units onabotulinumtoxinA 50 unit Needle gauge: 30 Needle length: 0.5 in Injection site details [employer] Floorperson / Procerus muscle(s): 5 units into the left test department helper muscle, 5 units into the right test department helper muscle and 5 units into the procerus [...] in between rounds). Headache days per month: 3 days Severe headache days per month: 0 days Wearing off phenomenon prior to this rou nd of Botox: yes Duration: 2 weeks POST-PROCEDURE DETAILS: Procedure completed successfully: yes Complications: no apparent complications COMMENTS automotive parts interpreter was p resent during the procedure. ATTESTATION STATEMENT A resident or fellow participated in the procedure, and the provider relations consultant was present for the entire procedure. Cecille Chauhan M.D. NEUROLOGY ORDERABLES Performing Organization Address City/State/ZIP Code Phon e Number MMODAL MMODAL NA documented in this encounter Visit Diagnoses Diagnosis Migraine Headache Chronic documented in this encounter Administered Medications Inactive Administered Medications - up to 3 most recent administrations Medication Order MAR Action Action Date Dose Rate Site onabotulinumtoxinA injection 100 Given 01/13/2021 2:50 PM 100 Un its Units (BOTOX) CDT 100 Units, injection, One-Time Injection, Starting on Mon01/13/21 at 1450, For 1 dose onabotulinumtoxinA injection 50 Units Given 01/13/2021 2:50 PM C DT 50 Units (BOTOX COSMETIC) 50 Units, injection, One-Time Injection, Starting on Mon01/13/21 at 1450, For 1 dose documented in this encounter Additional Health Concerns Assessment Noted Time PHQ-9 Depression Total Score: 8 05/08/2020 7:30 AM CDT documented as of this encounter Care Teams Court Operations Clerk Relationship Specialty Start Date End Date Betsy Mcarthur M.D. PCP - General 12/03/[address] [place] [address] [place] [address] documented as of this encounter
--- OUTSIDE RECORDS SUMMARY | 2022-05-31 21:52 | XMS_ITS | Encounter Summary ---
:1980 Author Organization [facility] Address [address] [place] [address] Care Team Providers Name Role Phone Betsy Mcarthur M.D. Primary Care Provider Encounter Details Date Type Department Care Team Description 07/08/2021 Admin Visit Department of Family Medicine, [address] [address] [facility] [phone] Social History Tobacco Use Types Packs/Day Years [...] or relatives? How often do you attend confucianist or 1 to 4 times per year 04/22 nondenominational services? Do you belong to any clubs or No 05/02/2022 organizations such as confucianist groups, unions, fraternal or athletic groups, or [...] place to sleep or slept in a mcfp (including now)? Education Answer Date Recorded What is the highest level of school you have completed or 12 th grade 05/08/2020 the highest degree you have received? Sex Assigned at Date Recorded Female 02/05/2018 10:11 AM CDT documented as of this encounter Plan of Treatment Upcoming Encounters Date Type Specialty Care Team Description 08/01/2022 Appointment Neurology Mili Toscano M .D. [address] [place], [place] [phone] (Wo rk) documented as of this encounter Visit Diagnoses Not on filedocumented in this encounter Additional Health Concerns Infection Onset Date Last Indicated Resolved Time COVID19 Pending 07/07/2021 07/08/2021 07/09/2021 2:36 AM CDT Assessment Noted Time PHQ-9 Depression Total Score: 8 05/08/2020 7:30 AM CDT documented as of this encounter Care Teams Transportation Engineer Relationship Specialty Start Date End Date Betsy Mcarthur M.D. PCP - General 12/03/[address] [place] [phone] documented as of this encounter
--- OUTSIDE RECORDS SUMMARY | 2022-05-31 21:52 | XMS_ITS | Encounter Summary ---
:1980 Author Organization [facility] Address [address] [place] [address] Care Team Providers Name Role Phone Betsy Mcarthur M.D. Primary Care Provider Reason for Visit Reason Comments Botox Appt - resched Encounter Details Date Type Department Care Team Description 09/24/2021 Clinical Department of Xochitl Rosenthal Appt - Communication Neurology in Fabio Belle resched [place], [facility] [address] [place], [place] [address] [place] [address] [place], [place] [phone] (Work) [phone] Social History Tobacco Use Types Packs/Day Years [...] or relatives? How often do you attend synagogue or 1 to 4 times per year 04/22 worship services? Do you belong to any clubs or No 05/02/2022 organizations such as synagogue groups, unions, fraternal or athletic groups, or [...] place to sleep or slept in a nursing home (including now)? Education Answer Date Recorded What is the highest level of school you have completed or 12 th grade 05/08/2020 the highest degree you have received? Sex Assigned at Date Recorded Female 02/05/2018 10:11 AM CDT documented as of this encounter Plan of Treatment Upcoming Encounters Date Type Specialty Care Team Description 08/01/2022 Appointment Neurology Mili Toscano M .D. [address] [place], [place] [phone] (Wo rk) documented as of this encounter Visit Diagnoses Not on filedocumented in this encounter Additional Health Concerns Assessment Noted Time PHQ-9 Depression Total Score: 8 05/08/2020 7:30 AM CDT documented as of this encounter Care Teams Flat Drier Relationship Specialty Start Date End Date Betsy Mcarthur M.D. PCP - General 12/03/[address] [place] [phone] documented as of this encounter
--- OUTSIDE RECORDS SUMMARY | 2022-05-31 21:52 | XMS_ITS | Encounter Summary ---
:1980 Author Organization [facility] Address [address] [place] [address] Care Team Providers Name Role Phone Betsy Mcarthur M.D. Primary Care Provider Reason for Visit Reason Comments Med Refill Encounter Details Date Type Department Care Team Description 05/03/2021 Refill Department of Neurology in Cecille Patterson M.D. Med Refill [place], [place] [address] [facility] [address] [place] [address] [place] [phone] [phone] Social History Tobacco Use Types Packs/Day Years [...] place to sleep or slept in a fpc (including now)? Education Answer Date Recorded What is the highest level of school you have completed or 12 th grade 05/08/2020 the highest degree you have received? Sex Assigned at Date Recorded Female 02/05/2018 10:11 AM CDT documented as of this encounter Plan of Treatment Upcoming Encounters Date Type Specialty Care Team Description 08/01/2022 Appointment Neurology Mili Toscano M .D. [address] [place], [place] [phone] (Wo rk) documented as of this encounter Visit Diagnoses Not on filedocumented in this encounter Additional Health Concerns Assessment Noted Time PHQ-9 Depression Total Score: 8 05/08/2020 7:30 AM CDT documented as of this encounter Care Teams Rn Urgent Care Relationship Specialty Start Date End Date Betsy Mcarthur M.D. PCP - General 12/03/[address] [place] [phone] documented as of this encounter
--- OUTSIDE RECORDS SUMMARY | 2022-05-31 21:52 | XMS_ITS | Encounter Summary ---
:1980 Author Organization [facility] Address [address] [place] [address] Care Team Providers Name Role Phone Winter Singleton M.D. Primary Care Provider [phone] Reason for Visit Reason Comments Botulinum Toxin Injection Encounter Details Date Type Department Care Team Description 11/25/2020 Clinical Communication Department of Enoch Rodriguez, Bot ulinum Toxin Neurology in M.[facility], M.P.[facility]. Injection [address] [facility] [address] [place], [place] [phone] (Work) [phone] Social History Tobacco Use Types Packs/Day Years [...] or relatives? How often do you attend restorationist or 1 to 4 times per year 04/22 adventism services? Do you belong to any clubs or No 05/02/2022 organizations such as restorationist groups, unions, fraternal or athletic groups, or [...] Neurology Mili Toscano M .D. [address] [place], [place] [phone] (Wo rk) documented as of this encounter Visit Diagnoses Not on filedocumented in this encounter Additional Health Concerns Assessment Noted Time PHQ-9 Depression Total Score: 8 05/08/2020 7:30 AM CDT documented as of this encounter Care Teams Carrier Driver Relationship Specialty Start Date End Date Winter Singleton M.D. PCP - General Family Medicine 01/04/18 12/02/20 [address], [place] [address] documented as of this encounter
--- OUTSIDE RECORDS SUMMARY | 2022-05-31 21:52 | XMS_ITS | Encounter Summary ---
:1980 Author Organization [facility] Address [address] [place] [address] Care Team Providers Name Role Phone Betsy Mcarthur M.D. Primary Care Provider Encounter Details Date Type Department Care Team Description 05/28/2021 Clinical Communication Department of Urology Katalina Mendez in [place], [place], [place], R.N. [place] [address] [place] [phone] Social History Tobacco Use Types Packs/Day Years [...] or relatives? How often do you attend voodoo or 1 to 4 times per year 04/22 mu-ism services? Do you belong to any clubs or No 05/02/2022 organizations such as voodoo groups, unions, fraternal or athletic groups, or [...] place to sleep or slept in a custodial (including now)? Education Answer Date Recorded What is the highest level of school you have completed or 12 th grade 05/08/2020 the highest degree you have received? Sex Assigned at Date Recorded Female 02/05/2018 10:11 AM CDT documented as of this encounter Plan of Treatment Upcoming Encounters Date Type Specialty Care Team Description 08/01/2022 Appointment Neurology Mili Toscano M .D. [address] [place], [place] [phone] (Wo rk) documented as of this encounter Visit Diagnoses Not on filedocumented in this encounter Additional Health Concerns Assessment Noted Time PHQ-9 Depression Total Score: 8 05/08/2020 7:30 AM CDT documented as of this encounter Care Teams Physics Department Chair Relationship Specialty Start Date End Date Betsy Mcarthur M.D. PCP - General 12/03/[address] [place] [phone] documented as of this encounter
--- OUTSIDE RECORDS SUMMARY | 2022-05-31 21:52 | XMS_ITS | Encounter Summary ---
:1980 Author Organization [facility] Address [address] [place] [address] Care Team Providers Name Role Phone Winter Singleton M.D. Primary Care Provider Encounter Details Date Type Department Care Team Description 09/22/2020 Admin Visit Department of Family Medicine, [address] [address] [facility] [phone] Social History Tobacco Use Types Packs/Day Years [...] or relatives? How often do you attend baptism or 1 to 4 times per year 04/22 adventist services? Do you belong to any clubs or No 05/02/2022 organizations such as baptism groups, unions, fraternal or athletic groups, or [...] place to sleep or slept in a intermediate (including now)? Education Answer Date Recorded What is the highest level of school you have completed or 12 th grade 05/08/2020 the highest degree you have received? Sex Assigned at Date Recorded Female 02/05/2018 10:11 AM CDT documented as of this encounter Plan of Treatment Upcoming Encounters Date Type Specialty Care Team Description 08/01/2022 Appointment Neurology Mili Toscano M .D. [address] [place], [place] [phone] (Wo rk) documented as of this encounter Visit Diagnoses Not on filedocumented in this encounter Additional Health Concerns Infection Onset Date Last Indicated Resolved Time COVID19 Pending 09/22/2020 09/22/2020 09/23/2020 3:41 AM BONE TENDER Assessment Noted Time PHQ-9 Depression Total Score: 8 05/08/2020 7:30 AM CDT documented as of this encounter Care Teams Adult Parole Officer Relationship Specialty Start Date End Date Winter Singleton M.D. PCP - General Family Medicine 01/04/18 12/02/[address] [place] [address] documented as of this encounter
--- OUTSIDE RECORDS SUMMARY | 2022-05-31 21:52 | XMS_ITS | Encounter Summary ---
:1980 Author Organization [facility] Address [address] [place] [address] Care Team Providers Name Role Phone Betsy Mcarthur M.D. Primary Care Provider Reason for Visit Reason Comments COVID Nurse Line Encounter Details Date Type Department Care Team Description 07/06/2021 Nurse Triage Department of Opal Weber C OVID Nurse Line Medicine, [facility] [place] [address] [place] [phone] Social History Tobacco Use Types Packs/Day Years [...] or relatives? How often do you attend presybeterian or 1 to 4 times per year 04/22 jehovah's witness services? Do you belong to any clubs or No 05/02/2022 organizations such as presybeterian groups, unions, fraternal or athletic groups, or [...] this encounter Miscellaneous Notes Telephone Encounter - Opal Carroll R.N. - 07/06/2021 11:49 AM CDT COVID-19 Nurse Line Screening ASSESSMENT Region Select appropriate region: : [place] Age Pathway Select approprite pathway: : Adult Have you had close contact* with a person who has a LABORATORY CONFIRMED case of COVID-19 in the past 14 days?: No (Continue Screening) In the last 48 hours, have you had a fever* OR symptoms that are unrelated to a preexisting illness?: New headache, New sore throat, New cough Have you received a COVID-19 vaccine in [...] : Recommended to test PLAN Endpoint recommendation: Symptomatic testing indicated, advised to be swabbed for COVID-19 Only , sent to [facility] located at [address] [place] [address] ([facility]). An appointment is required for testing, please call [phone] Monday-Monday 7am to 6pm and Monday & Monday 9am to 4pm to schedule an appointment. Testing hours are 8am - 4:30pm daily. You can also schedule via your Patient Online Services account. and Please avoid using public transportation per CDC recommendation. If you donot have personal transportation please self-quarantine until a personal transportation option is available. Standard Care Points -Get a COVID -19 vaccine as soon as you can if not fully vaccinated. -Wash hands frequently with soap and water, use hand butter melter if soap and water aren't available. -Wear a mask over your nose and mouth to help protect yourself and others if not fully vaccinated and having no symptoms -Stay 6 feet between yourself and others who don't live with you. -Avoid crowds and poorly ventilated indoor spaces. -Seek emergent care if any of the following occur Trouble breathing Bluish lips or face Persistent pain or pressure in the chest New confusion or inability to rouse. -Notify your regular care provider of any new or worsening symptoms. Symptomatic Carepoints: Stay home and separate yourself from others and stay in a specific sick room if able. Avoid sharing personal or household items. Rest. Hydrate. Take Acetaminophen/Ibuprofen asneeded to control fever and muscles aches. Use over the counter medications as needed for other symptoms. Gargle with 8 ounces of warm salt water several times a day for throat discomfort (1/4 tsp regular salt to 8 ounces or 1 cup warm water). Do not swallow the salt water. Throat lozenges will help keep the throat lubricated. Hard candy, lollipops, and throat lozenges are equally effective. Use a humidifier. If you have received a negative COVID-19 test result and continue to have new or worsening symptoms after 72 hours please call the COVID Nurse Line to assess if you need repeat testing or reach out to your Primary Care Provider for guidance. Education: Patient/caregiver able to teach back Patient agreeable to plan of care: Yes The following references were used: [facility] novel coronavirus (COVID- 19) resources CDC web site https://www.cdc.gov/coronavirus/2019-ncov/your-health/index.html Nursing judgement documented in this encounter Plan of Treatment Upcoming Encounters Date Type Specialty Care Team Description 08/01/2022 Appointment Neurology Mili Toscano M .D. [address] [place], [place] [phone] (Wo rk) documented as of this encounter Visit Diagnoses Not on filedocumented in this encounter Additional Health Concerns Assessment Noted Time PHQ-9 Depression Total Score: 8 05/08/2020 7:30 AM CDT documented as of this encounter Care Teams Ornamental Painter Relationship Specialty Start Date End Date Betsy Mcarthur M.D. PCP - General 12/03/[address] [place] [phone] documented as of this encounter
--- OUTSIDE RECORDS SUMMARY | 2022-05-31 21:52 | XMS_ITS | Encounter Summary ---
:1980 Author Organization [facility] Address [address] [place] [address] Care Team Providers Name Role Phone Winter Singleton M.D. Primary Care Provider Encounter Details Date Type Department Care Team Description 11/04/2020 Clinical Communication Department of Family Callie Johnson [facility], [place], Clinic, in Fabio Wu [place] [address] [facility] [phone] Social History Tobacco Use Types Packs/Day Years [...] or relatives? How often do you attend quaker or 1 to 4 times per year 04/22 presybeterian services? Do you belong to any clubs or No 05/02/2022 organizations such as quaker groups, unions, fraternal or athletic groups, or [...] Neurology Mili Toscano M .D. [address] [place], [place] [phone] (Wo rk) documented as of this encounter Visit Diagnoses Not on filedocumented in this encounter Additional Health Concerns Assessment Noted Time PHQ-9 Depression Total Score: 8 05/08/2020 7:30 AM CDT documented as of this encounter Care Teams Molding Cutter Relationship Specialty Start Date End Date Winter Singleton M.D. PCP - General Family Medicine 01/04/18 12/02/[address] [phone] documented as of this encounter
--- OUTSIDE RECORDS SUMMARY | 2022-05-31 21:52 | XMS_ITS | Encounter Summary ---
:1980 Author Organization [facility] Address [address] [place] [address] Care Team Providers Name Role Phone Betsy Mcarthur M.D. Primary Care Provider Reason for Visit Reason Onset Date Comments Testing For Upper Respiratory Virus Symptoms 12/30/2020 Encounter Details Date Type Department Care Team Description 12/30/2020 External Outreach Department of [facility] Froilan Gamble Contact With And Medicine, [facility] Sarita Butts (Suspected) Exposure Building, in [address] [facility] (Primary [place], [place] Dx) [address] [facility] [address] [place], [place] [phone] [address] (Work) [phone] Social History Tobacco Use Types Packs/Day Years [...] or relatives? How often do you attend jewish or 1 to 4 times per year 04/22 muslim services? Do you belong to any clubs or No 05/02/2022 organizations such as jewish groups, unions, fraternal or athletic groups, or [...] place to sleep or slept in a jail (including now)? Education Answer Date Recorded What is the highest level of school you have completed or 12 th grade 05/08/2020 the highest degree you have received? Sex Assigned at Date Recorded Female 02/05/2018 10:11 AM CDT documented as of this encounter Progress Notes Sudhakar Ludwig R.N. - 12/30/2020 12:37 PM CST Encounter created for symptomatic infectious disease screening with possible COVID, Influenza, RSV, and/or Group A Strep testing. UNTING CONSULTANT documented in this encounter Plan of Treatment Upcoming Encounters Date Type Specialty Care Team Description 08/01/2022 Appointment Neurology Mili Toscano M .D. [address] [place] [phone] (Wo rk) documented as of this encounter Procedures Procedure Name Priority Date/Time Associated Diagnosis Comme nts SARS CORONAVIRUS-2 Routine 12/30/2020 1:43 PM Contact With And Results for this RNA, V ACCOUNTING CONSULTANT (Suspected) Exposure procedu re are in To COVID-19 the results section. documented in this encounter Results SARS Coronavirus-2 RNA, V Symptomatic (12/30/2020 1:43 PM ACCOUNTING CONSULTANT) [facility] Method Time Signature SARS-CoV-2 Swab, 12/31/2020 MKTO Specimen Nasopharynx 12:45 AM Source ACCOUNTING CONSULTANT SARS CoV-2 Undetected Undetected 12/31/2020 MKTO RNA, TMA 12:45 AM ACCOUNTING CONSULTANT Comment: SARS-CoV-2 RNA absent. This result does not rule out COVID-19 in the patient, as the sensitivity of the test depends o n the timing of the specimen collection and the quality of the specim en. Result should be correlated with patient's history and clinical presentat ion. ----ADDITIONAL INFORMATION---- This molecular amplification test was pe rformed using the Aptima SARS-CoV-2 assay ([employer] on the CenTraks tem under emergency use authorization (EUA) by the U.S. Food and Drug Administ ration. Fact sheets for this EUA assay can be fo und at the following links: For Healthcare Providers: https://www.CatchTheEye a.gov/media/413545/download For Patients: https://www.fda.gov/media/ 357930/download Specimen Anatomical Collection Method Collection Time Receive d Time (Source) Location / / Volume Laterality Varies 12/30/2020 1:43 PM 8:08 (Nasopharynx) ACCOUNTING CONSULTANT PM ACCOUNTING CONSULTANT Froilan Gamble D.O. LAB MICROBIOLOGY - GENERAL O MARIO Performing Organization Address City/[facility] Code Phon e Number [facility]- [address] [place] [address] [place] [address] System [address] documented in this encounter Visit Diagnoses Diagnosis Contact With And (Suspected) Exposure To COVID-19 - Primary documented in this encounter Additional Health Concerns Infection Onset Date Last Indicated Resolved Time COVID19 Pending 12/30/2020 12/30/2020 12/31/2020 12:45 AM ACCOUNTING CONSULTANT Assessment Noted Time PHQ-9 Depression Total Score: 8 05/08/2020 7:30 AM CDT documented as of this encounter Care Teams Switch Repairer Relationship Specialty Start Date End Date Betsy Mcarthur M.D. PCP - General 12/03/20 [facility] [place] [phone] documented as of this encounter
--- OUTSIDE RECORDS SUMMARY | 2022-05-31 21:52 | XMS_ITS | Encounter Summary ---
:1980 Author Organization [facility] Address [address] [place] [address] Care Team Providers Name Role Phone Winter Singleton M.D. Primary Care Provider Reason for Referral Outpatient (Routine) - Closed Specialty Diagnoses / Procedures Referred By Contact Refer red To Contact Diagnoses Migraine Headache Cecille Chauhan M.D. [facility] Procedures Botox for Chronic Migraine [address] [place] [phone] Referral ID Status Reason Start Date Expiration Date Visits Requ ested Visits Authorized [id number] Closed 05/08/2020 05/08/2021 1 1 ORMAN Reason for Visit Outpatient (Routine) - Closed Specialty Diagnoses / Procedures Referred By Contact Refer red To Contact Diagnoses Migraine Headache Cecille Chauhan M.D. [facility] Procedures Botox for Chronic Migraine [address] [place] [address] Referral ID Status Reason Start Date Expiration Date Visits Requ ested Visits Authorized [id number] Closed 05/08/2020 05/08/2021 1 1 Encounter Details Date Type Department Care Team Description 11/02/2020 Hospital Encounter Department of Aleida Chauhan M.D. [address] [place] [phone] Migraine Headache Neurology in Hai Love M.D. 200 [place] [address] [place], [place] 200 [place] [phone] Social History Tobacco Use Types Packs/Day Years [...] 1 to 4 times per year 04/22 christian services? Do you belong to any clubs [...] a day as needed for muscle spasms. LORazepam (ATIVAN) 0.5 Take 0.5 mg by mouth 0 04/2016 mg tablet as needed. ondansetron (ZOFRAN) 4 Take 1 tablet (4 [...] into each nostril mcg/actuation nasal daily. spray nortriptyline (Pamelor) 1 cap nightly for 1 [...] not exceed 30 mg in 24 hours. documented as of this encounter Procedure Notes Hai Love M.D. - 11/02/2020 9:00 AM CSTAssociated Order(s): Botox for Chronic Migraine Pre-Procedure Diagnose(s): Migraine Headache Post-Procedure Diagnose(s): Migraine Headache Botox for Chronic Migraine Date/Time: 11/02/2020 8:45 AM Performed by: Hai Love M.D. Authorized by: Cecille Chauhan M.D. Care team members present 1. Lois Ballard L.PClifton PROCEDURE DETAILS MODIFIED PROTOCOL Pre-procedure pain score: 0/10 Injection of: 100 Units onabotulinumtoxinA 100 unit 50 Units onabotulinumtoxinA (cosmetic) 50 unit Needle gauge: 30 Needle length: 0.5 in Injection site details Fundraiser / Procerus muscle(s): 5 units into the left supervising law enforcement analyst muscle, 5 units into the right supervising law enforcement analyst muscle and 5 units into the procerus [...] 2 days Severe headache days per month: 1 days Wearing off phenomenon prior to this round of Botox: yes Duration: 2 weeks POST-PROCEDURE DETAILS: Procedure completed successfully: yes Complications: no apparent complications COMMENTS Fundraiser and procerus muscles move slightly superiorly to avoid eyebrow droop. ORMAN documented in this encounter Plan of Treatment Upcoming Encounters Date Type Specialty Care Team Description 08/01/2022 Appointment Neurology Mili Toscano M .D. [address] [place], [place] [phone] (Wo rk) documented as of this encounter Procedures Procedure Name Priority Date/Time Associated Comments Diagnosis [place] CHEMODENERV FACIAL Routine 11/02/2020 9:00 AM Migraine Head ache Results for this TRIGEM JEANNE ANCHORMAN procedure are i n the results section. documented in this encounter Results [place] CHEMODENERV FACIAL TRIGEM JEANNE (11/02/2020 9:00 AM ANCHORMAN) Narrative MMODAL - 11/02/2020 9:00 AM ANCHORMAN Hai Love M.D. ? 11/02/2020 ??8:55 AM Botox for Chronic Migraine Date/Time: 11/02/2020 8:45 AM Performed by: Hai Love M.D. Authorized by: Cecille Chauhan M.D. Care team members present 1. Lois Ballard L.P.N. PROCEDURE DETAILS ?? MODIFIED PROTOCOL Pre-procedure pain score: 0/10 Injection of: 100 Units onabotulinumtoxi nA 100 unit 50 Units onabotulinumtoxinA (cosmetic) 50 unit Needle gauge: 30 Needle length: 0.5 in Injection site details Fundraiser / Procerus muscle(s): 5 units into the left supervising law enforcement analyst muscle, 5 units into the right supervising law enforcement analyst muscle and 5 units into the procerus [...] 2 days Severe headache days per month: 1 days Wearing off phenomenon prior to this rou nd of Botox: yes Duration: 2 weeks POST-PROCEDURE DETAILS: Procedure completed successfully: yes Complications: no apparent complications COMMENTS Fundraiser and procerus muscles move sli ghtly superiorly to avoid eyebrow droop. Cecille Chauhan M.D. NEUROLOGY ORDERABLES Performing Organization Address City/State/ZIP Code Phon e Number MMODAL MMODAL NA documented in this encounter Visit Diagnoses Diagnosis Migraine Headache documented in this encounter Administered Medications Inactive Administered Medications - up to 3 most recent administrations Medication Order MAR Action Action Date Dose Rate Site onabotulinumtoxinA (cosmetic) Given 11/02/2020 8:45 AM 50 Units injection 50 Units (BOTOX ANCHORMAN COSMETIC) 50 Units, injection, One-Time Injection, Starting on Mon11/02/20 at 0845, For 1 dose onabotulinumtoxinA injection 100 Units Given 11/02/2020 8:45 AM ANCHORMAN 100 Units (BOTOX) 100 Units, injection, One-Time Injection, Starting on Mon11/02/20 at 0845, For 1 dose documented in this encounter Additional Health Concerns Assessment Noted Time PHQ-9 Depression Total Score: 8 05/08/2020 7:30 AM CDT documented as of this encounter Care Teams Rail Operator Relationship Specialty Start Date End Date Winter Singleton M.D. PCP - General Family Medicine 01/04/18 12/02/[address] [phone] documented as of this encounter
--- OUTSIDE RECORDS SUMMARY | 2022-05-31 21:52 | XMS_ITS | Encounter Summary ---
:1980 Author Organization [facility] Address [address] [place] [address] Care Team Providers Name Role Phone Betsy Mcarthur M.D. Primary Care Provider Reason for Visit Reason Comments Med Refill Encounter Details Date Type Department Care Team Description 03/16/2021 Refill Department of Family Medicine, Callie Kaplan Med Refill [facility], in Winter Wu M.D. [place] [address] [address] [place] [address] [phone] Social History Tobacco Use Types Packs/Day Years [...] or relatives? How often do you attend hoahaoism or 1 to 4 times per year 04/22 confucianism services? Do you belong to any clubs or No 05/02/2022 organizations such as hoahaoism groups, unions, fraternal or athletic groups, or [...] Neurology Mili Toscano M .D. [address] [place], [place] [phone] (Wo rk) documented as of this encounter Visit Diagnoses Not on filedocumented in this encounter Additional Health Concerns Assessment Noted Time PHQ-9 Depression Total Score: 8 05/08/2020 7:30 AM CDT documented as of this encounter Care Teams Personal Lines Advisor Relationship Specialty Start Date End Date Betsy Mcarthur M.D. PCP - General 12/03/[address] [place] [phone] documented as of this encounter
--- OUTSIDE RECORDS SUMMARY | 2022-05-31 21:52 | XMS_ITS | Encounter Summary ---
:1980 Author Organization [facility] Address [address] [place] [address] Care Team Providers Name Role Phone Betsy Mcarthur M.D. Primary Care Provider Encounter Details Date Type Department Care Team Description 02/12/2021 Clinical Communication Department of Neurology Enoch Rodriguez, in [facility] dexter Mccarthy, M.P.H. [address] [place] [address] [place] [phone] Social History Tobacco Use Types Packs/Day Years [...] 1 to 4 times per year 04/22 yarsani services? Do you belong to any clubs [...] Neurology Mili Toscano M .D. [address] [place], [place] [phone] (Wo rk) documented as of this encounter Visit Diagnoses Not on filedocumented in this encounter Additional Health Concerns Assessment Noted Time PHQ-9 Depression Total Score: 8 05/08/2020 7:30 AM CDT documented as of this encounter Care Teams Reference Investigator Relationship Specialty Start Date End Date Betsy Mcrathur M.D. PCP - General 12/03/[address] [place] [phone] documented as of this encounter
--- OUTSIDE RECORDS SUMMARY | 2022-05-31 21:52 | XMS_ITS | Encounter Summary ---
:1980 Author Organization [facility] Address [address] [place] [address] Care Team Providers Name Role Phone Winter Singleton M.D. Primary Care Provider [phone] Reason for Visit Reason Comments SOBIA/Gissel Encounter Details Date Type Department Care Team Description 10/06/2020 Clinical Communication Department of CHAYITO Chauhan/Gissel Neurology in Cecille Garcia M.D. [place], [place] [address] [facility] [address] [place] [address] [phone] Social History Tobacco Use Types Packs/Day Years [...] place to sleep or slept in a usp (including now)? Education Answer Date Recorded What is the highest level of school you have completed or 12 th grade 05/08/2020 the highest degree you have received? Sex Assigned at Date Recorded Female 02/05/2018 10:11 AM CDT documented as of this encounter Plan of Treatment Upcoming Encounters Date Type Specialty Care Team Description 08/01/2022 Appointment Neurology Mili Toscano M .D. [address] [place], [place] [phone] (Wo rk) documented as of this encounter Visit Diagnoses Not on filedocumented in this encounter Additional Health Concerns Assessment Noted Time PHQ-9 Depression Total Score: 8 05/08/2020 7:30 AM CDT documented as of this encounter Care Teams Cigarette Examiner Relationship Specialty Start Date End Date Winter Singleton M.D. PCP - General Family Medicine 01/04/18 12/02/20 [address], [place] [address] documented as of this encounter
--- OUTSIDE RECORDS SUMMARY | 2022-05-31 21:52 | XMS_ITS | Encounter Summary ---
:1980 Author Organization [facility] Address [address] [place] [address] Care Team Providers Name Role Phone Betsy Mcarthur M.D. Primary Care Provider Reason for Visit Reason Onset Date Comments Testing For Upper Respiratory Virus Symptoms 07/07/2021 Encounter Details Date Type Department Care Team Description 07/07/2021 External Outreach Department of [facility] Froilan Gamble Contact With And Medicine, [facility] Sarita Butts (Suspected) Exposure Building, in [address] [facility] (Primary [place], [place] Dx) [address] [facility] [address] [place], [place] [phone] [address] (Work) [phone] Social History Tobacco Use Types Packs/Day Years [...] 1 to 4 times per year 04/22 restorationist services? Do you belong to any clubs [...] place to sleep or slept in a detention (including now)? Education Answer Date Recorded What is the highest level of school you have completed or 12 th grade 05/08/2020 the highest degree you have received? Sex Assigned at Date Recorded Female 02/05/2018 10:11 AM CDT documented as of this encounter Progress Notes April Hernandez R.N. - 07/07/2021 3:52 PM CDT Encounter created for symptomatic infectious disease screening with possible COVID, Influenza, RSV, and/or Group A Strep testing. documented in this encounter Plan of Treatment Upcoming Encounters Date Type Specialty Care Team Description 08/01/2022 Appointment Neurology Mlii Toscano M .D. [address] [place] [phone] (Wo rk) documented as of this encounter Procedures Procedure Name Priority Date/Time Associated Diagnosis Comme nts SARS CORONAVIRUS-2 Routine 07/08/2021 10:11 AM Contact With An d Results for this RNA, V CDT (Suspected) Exposure procedu re are in To COVID-19 the results section. documented in this encounter Results SARS Coronavirus-2 RNA, V Symptomatic (07/08/2021 10:11 AM CDT) [facility] Method Time Signature SARS-CoV-2 Swab, 07/09/2021 MKTO Specimen Nasopharynx 2:35 AM CDT Source SARS CoV-2 Undetected Undetected 07/09/2021 MKTO RNA, TMA 2:35 AM CDT Comment: SARS-CoV-2 RNA absent. This result does not rule out COVID-19 in the patient, as the sensitivity of the test depends o n the timing of the specimen collection and the quality of the specim en. Result should be correlated with patient's history and clinical presentat ion. ----ADDITIONAL INFORMATION---- This molecular amplification test was pe rformed using the Aptima SARS-CoV-2 assay ([employer] on the [place] tem under emergency use authorization (EUA) by the U.S. Food and Drug Administ ration. Fact sheets for this EUA assay can be fo und at the following links: For Healthcare Providers: https://www.[employer] a.gov/media/105158/download For Patients: https://www.fda.gov/media/ 853148/download Specimen Anatomical Collection Method Collection Time Receive d Time (Source) Location / / Volume Laterality Varies 07/08/2021 10:11 07/08/2021 2:52 (Nasopharynx) AM CDT PM CDT Froilan Gamble D.O. LAB MICROBIOLOGY - GENERAL O MARIO Performing Organization Address City/State/ZIP Code Phon e Number [facility]- [address] [place] [phone] [place] [address] [place] [address] System [address] documented in this encounter Visit Diagnoses Diagnosis Contact With And (Suspected) Exposure To COVID-19 - Primary documented in this encounter Additional Health Concerns Infection Onset Date Last Indicated Resolved Time COVID19 Pending 07/07/2021 07/08/2021 07/09/2021 2:36 AM CDT Assessment Noted Time PHQ-9 Depression Total Score: 8 05/08/2020 7:30 AM CDT documented as of this encounter Care Teams Instructor Nurse Relationship Specialty Start Date End Date Betsy Mcarthur M.D. PCP - General 12/03/[address] [place] [address] [place] [address] documented as of this encounter
--- OUTSIDE RECORDS SUMMARY | 2022-05-31 21:52 | XMS_ITS | Encounter Summary ---
:1980 Author Organization [facility] Address [address] [place] [address] Care Team Providers Name Role Phone Betsy Mcarthur M.D. Primary Care Provider Encounter Details Date Type Department Care Team Description 01/05/2021 Orders Only Department of Ophthalmology Abran Sims Jr., in [place] M[place]D. [address] [place] [address] [address] [place], [place] [phone] (Wo rk) Social History Tobacco Use Types [...] 1 to 4 times per year 04/22 holiness services? Do you belong to any clubs [...] Neurology Mili Toscano M .D. [address] [place], [place] [phone] (Wo rk) documented as of this encounter Visit Diagnoses Not on filedocumented in this encounter Additional Health Concerns Assessment Noted Time PHQ-9 Depression Total Score: 8 05/08/2020 7:30 AM CDT documented as of this encounter Care Teams Game Programmer Relationship Specialty Start Date End Date Betsy Mcarthur M.D. PCP - General 12/03/[address] [place] [phone] documented as of this encounter
--- OUTSIDE RECORDS SUMMARY | 2022-05-31 21:53 | XMS_ITS | Encounter Summary ---
:1980 Author Organization [facility] Address [address] [place] [address] Care Team Providers Name Role Phone Winter Singleton M.D. Primary Care Provider Encounter Details Date Type Department Care Team Description 06/30/2020 Clinical Communication Department of [facility], in Fabio Wu [place] [address] [place] [phone] Social History Tobacco Use Types Packs/Day Years [...] or relatives? How often do you attend worship or 1 to 4 times per year 04/22 jew services? Do you belong to any clubs or No 05/02/2022 organizations such as worship groups, unions, fraternal or athletic groups, or [...] Neurology Mili Toscano M .D. [address] [place], [place] [phone] (Wo rk) documented as of this encounter Visit Diagnoses Not on filedocumented in this encounter Additional Health Concerns Assessment Noted Time PHQ-9 Depression Total Score: 8 05/08/2020 7:30 AM CDT documented as of this encounter Care Teams Gun Profiler Relationship Specialty Start Date End Date Winter Singleton M.D. PCP - General Family Medicine 01/04/18 12/02/[address] [phone] documented as of this encounter
--- OUTSIDE RECORDS SUMMARY | 2022-05-31 21:53 | XMS_ITS | Encounter Summary ---
:1980 Author Organization [facility] Address [address] [place] [address] Care Team Providers Name Role Phone Winter Singleton M.D. Primary Care Provider Encounter Details Date Type Department Care Team Description 07/10/2020 Nurse Triage Department of [facility] Natalie Daniels, Medicine, [facility], R.N. in [place], [place] [address] [place] [address] Social History Tobacco Use Types Packs/Day Years [...] or relatives? How often do you attend taoism or 1 to 4 times per year 04/22 zoroastrian services? Do you belong to any clubs or No 05/02/2022 organizations such as taoism groups, unions, fraternal or athletic groups, or [...] Mili Toscano M .D. [address] [place], [place] [phone] (Wo rk) documented as of this encounter Visit Diagnoses Not on filedocumented in this encounter Additional Health Concerns Assessment Noted Time PHQ-9 Depression Total Score: 8 05/08/2020 7:30 AM CDT documented as of this encounter Care Teams Rn Telemetry Relationship Specialty Start Date End Date Winter Singleton M.D. PCP - General Family Medicine 01/04/18 12/02/20 [address], [place] [phone] documented as of this encounter
--- OUTSIDE RECORDS SUMMARY | 2022-05-31 21:53 | XMS_ITS | Encounter Summary ---
:1980 Author Organization [facility] Address [address] [place] [address] Care Team Providers Name Role Phone Winter Singleton M.D. Primary Care Provider Encounter Details Date Type Department Care Team Description 06/25/2020 Clinical Department of [facility], Communication Otorhinolaryngology in [place], [place] Au.D. [address] [place] [address] [place] [address] [phone] Social History Tobacco Use Types Packs/Day Years [...] or relatives? How often do you attend christian or 1 to 4 times per year 04/22 spiritism services? Do you belong to any clubs or No 05/02/2022 organizations such as christian groups, unions, fraternal or athletic groups, or [...] this encounter Miscellaneous Notes Telephone Encounter - Artemio Stacy - 07/01/2020 4:36 PM CDT I left the pt a second VM with the earlier date/time selected. I also sent her a message through herpatient portal requesting a reply if there was any confusion or further changes needed. Thank you. Telephone Encounter - Izabella Feliciano, L.P.N. - 06/30/2020 2:36 PM CDT This was sent to ENT nurse by mistake I think. Could you guys help to see if there is any possibility of being seen sooner? Looks Like there has been some communication already. Telephone Encounter - Dania Scott - 06/30/2020 2:10 PM CDT Pt called via relay phone call- she would like to be seen sooner. Please call back or msg on portal. Telephone Encounter - Artemio Stacy - 06/26/2020 2:32 PM CDT I left a VM for the pt to call back for addt options. Morning is open in Dr. Veliz's schedule for Jul 10. (schedule still being finalized as provider was initially going to be in [place] but will now have [facility] template for that day) So may transfer back to Reese Butts or 2hanna team upon callback. Or pt may split appts, but will need hour long appt for exam + half hour consult for hearing aid part ofappointment. (new orders can be made without referrals, as pt already has combined request from primary care) Thank you. Telephone Encounter - Milana Acevedo - 06/25/2020 11:38 AM CDT Patient is very unhappy that her next appointment to tack picker her hearing aids is not until 07/22. This PSR explained to patient that the order states she needs 90 minutes for a hearing aid fitting and audiology exam per Dr Veliz. Patient would like to know if she can split the appointments to pick uphearing aids and come back for audiology exam? Please advise, patient used service to make call today. documented in this encounter Plan of Treatment Upcoming Encounters Date Type Specialty Care Team Description 08/01/2022 Appointment Neurology Mili Toscano M .D. [address] [place], [place] [phone] (Wo rk) documented as of this encounter Visit Diagnoses Not on filedocumented in this encounter Additional Health Concerns Assessment Noted Time PHQ-9 Depression Total Score: 8 05/08/2020 7:30 AM CDT documented as of this encounter Care Teams Medical Assembly Relationship Specialty Start Date End Date Winter Singleton M.D. PCP - General Family Medicine 01/04/18 12/02/20 [address], [place] [address] documented as of this encounter
--- OUTSIDE RECORDS SUMMARY | 2022-05-31 21:53 | XMS_ITS | Encounter Summary ---
:1980 Author Organization [facility] Address [address] [place] [address] Care Team Providers Name Role Phone Winter Singleton M.D. Primary Care Provider [phone] Encounter Details Date Type Department Care Team Description 06/16/2020 Orders Only Department of [facility] Hearing Otorhinolaryngology in Natalie Keith [place], [place] Au.D. Bilateral (Primary [address] Dx) [place] [address] [phone] [place] [address] Social History Tobacco Use Types Packs/Day Years [...] or relatives? How often do you attend mormon or 1 to 4 times per year 04/22 samaritan services? Do you belong to any clubs or No 05/02/2022 organizations such as mormon groups, unions, fraternal or athletic groups, or [...] Neurology Mili Toscano M .D. [address] [place], [place] [phone] (Wo rk) documented as of this encounter Visit Diagnoses Diagnosis Loss Hearing Sensorineural Bilateral - P rimary documented in this encounter Additional Health Concerns Assessment Noted Time PHQ-9 Depression Total Score: 8 05/08/2020 7:30 AM CDT documented as of this encounter Care Teams Margarine Churn Operator Relationship Specialty Start Date End Date Winter Singleton M.D. PCP - General Family Medicine 01/04/18 12/02/20 [address] [place] [phone] documented as of this encounter
--- OUTSIDE RECORDS SUMMARY | 2022-05-31 21:53 | XMS_ITS | Encounter Summary ---
:1980 Author Organization [facility] Address [address] [place] [address] Care Team Providers Name Role Phone Winter Singleton M.D. Primary Care Provider Encounter Details Date Type Department Care Team Description 04/22/2020 Hospital Encounter Department of Rusty russell Lipid Laboratory Medicine in [place] richey [place], [place] M.D. [address] [place] [phone] Social History Tobacco Use Types Packs/Day Years [...] What is the highest level of school Associate degree: lisandra russell, 06/07/2019 you have completed or the highest technical, or vocational p jared degree you have received? Sex Assigned at [...] mouth 0 04/2016 mg tablet as needed. traZODone (DESYREL) 50 1/2 to one tab at 90 tablet 3 2019 mg tablet bedtime if needed for insomnia cetirizine (ZyrTEC) 10 Take 1 tablet (10 mg 90 tablet 3 03/04/2021 mg tablet total) by mouth daily as needed for allergies. albuterol (PROVENTIL Inhale 2 puffs as 0 02/29/20 16 05/02/2022 HFA,VENTOLIN HFA) 90 needed. mcg/actuation inhaler fluconazole (DIFLUCAN) Take 1 tablet (150 mg 2 tablet 0 05/02/2022 150 mg total) by mouth See tabletIndications: Admin Instructions. Vaginosis Bacterial Take one tab after completing the antibiotic. May repeat in 3-7 days. fluticasone propionate Administer 1 spray 16 g 11 03/0403/18/2021 (FLONASE) 50 into each nostril mcg/actuation nasal daily. spray rizatriptan (MAXALT) 10 Take 1 tablet (10 mg 9 tablet 11 02/12/2021 mg tablet total) by mouth every 2 (two) hours as needed for migraine. May repeat in 2 hours if unresolved. Do not exceed 30 mg in 24 hours. documented as of this encounter Plan of Treatment Upcoming Encounters Date Type Specialty Care Team Description 08/01/2022 Appointment Neurology Mili Toscano M .D. [address] [place], [place] [phone] (Wo rk) documented as of this encounter Procedures Procedure Name Priority Date/Time Associated Diagnosis Comme nts LIPID PANEL, S Routine 04/22/2020 2:22 PM Screening Lipid Resu lts for this CDT procedure are i n the results section . documented in this encounter Results Lipid Panel (04/22/2020 2:22 PM CDT) P athologist Signature Cholesterol, 160 mg/dL 04/22/2020 [facility] Total 5:05 PM CDT Comment: ----REFERENCE VALUE---- Desirable: < 200 Borderline high: 200 - 239 High: > or = 240 Triglycerides 67 mg/dL 04/22/2020 5:05 PM CDT OWA T Comment: ----REFERENCE VALUE---- Normal: <150 Borderline high: 150-199 High: 200-499 Very high: > or =500 Cholesterol, HDL 56 >=50 mg/dL 04/22/2020 5:05 PM CDT [facility] Calculated LDL 91 mg/dL 04/22/2020 5:05 PM CDT [facility] AT Comment: ----REFERENCE VALUE---- Desirable: <100 Above Desirable: 100-129 Borderline high: 130-159 High: 160-189 Very high: > or =190 Cholesterol, Non-HDL, Calculated 104 mg/dL 020 5:05 PM CDT [facility] Comment: ----REFERENCE VALUE---- Desirable: <130 Above Desirable: 130-159 Borderline high: 160-189 High: 190-219 Very high: > or =220 Specimen Anatomical Collection Method Collection Time Receive d Time (Source) Location / / Volume Laterality Blood (Blood, 04/22/2020 2:22 PM 04/22/20 20 3:45 Venous) CDT PM CDT Winter Singleton M.D. LAB BLOOD ADD-ON Performing Organization Address City/State/ZIP Code Phon e Number [facility] [address] [place] [address] [place] [address] System in [place] [address] documented in this encounter Visit Diagnoses Diagnosis Screening Lipid documented in this encounter Additional Health Concerns Assessment Noted Time PHQ-9 Depression Total Score: 19 07/06/2018 10:33 AM C DT documented as of this encounter Care Teams Monkey Trainer Relationship Specialty Start Date End Date Winter Singleton M.D. PCP - General Family Medicine 01/04/18 12/02/[address] [place] [address] documented as of this encounter
--- OUTSIDE RECORDS SUMMARY | 2022-05-31 21:53 | XMS_ITS | Encounter Summary ---
:1980 Author Organization [facility] Address [address] [place] [address] Care Team Providers Name Role Phone Winter Singleton M.D. Primary Care Provider [phone] Reason for Visit Outpatient (Routine) - Closed Specialty Diagnoses / Procedures Referred By Contact Refer red To Contact Otorhinolaryngology Xochitl Veliz [facility] Au.D. [address] [place] [address] Referral ID Status Reason Start Date Expiration Date Visits Requ ested Visits Authorized [id number] Closed 04/01/2020 04/01/2021 1 1 Encounter Details Date Type Department Care Team Description 04/13/2020 Diagnostic Department of [facility], Loss Hearing Otorhinolaryngology in Natalie [place], [place] Au.D Bilateral (Primary [address] [facility] Dx) [place] [address] [place] [address] [phone] Social History Tobacco Use Types Packs/Day Years [...] 1 to 4 times per year 04/22 voodoo services? Do you belong to any clubs [...] or the highest technical, or vocational p Neighborhoodsram degree you have received? Sex Assigned at Date Recorded Female 02/05/2018 10:11 AM CDT documented as of this encounter Procedure Notes Xochitl Veliz Au.D. - 04/13/2020 2:06 PM CDT SUBJECTIVE CHIEF COMPLAINT / REASON FOR VISIT Hearing loss HISTORY OF PRESENT COMPLAINT Katherine Tiwari is a 39 y.o. female who was seen today for an audiologic evaluation. 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 She wears hearing aids, and reports that she is profoundly hearing impaired without them. Her is culturally Deaf, and she has two children who are also culturally Deaf, and one child who has normal hearing. The family are bilingual at home and use ASL and spoken language. Ms. Tiwari communicates by speaking and reading lips. Her hearing aids are 8-10 yearsold and beyond repair. She is interested in learning more about a cochlear implant. The otologic symptom(s) that she reports experiencing recently include hearing loss. She denies any tinnitus, otalgia, aural fullness, otorrhea, hyperacusis, dizziness or imbalance. Her otologic risk factors include childhood ear infections and a family history of hearing loss in her children. She does not have a history of noise exposure, ototoxic medications, radiation of the head/neck, significant head injury, recent ear infections or otologic surgery. OBJECTIVE See Audiological Evaluation Form ASSESSMENT/PLAN Right ear: An otoscopic examination was performed prior to testing and showed a clear canal. Audiologic testingwas performed using insert earphones. Responses were obtained with good reliability and showed a severe sensorineural hearing loss at 125 Hz dropping to profound levels from 250-3000 Hz, with no measurable hearing within equipment intensity limits above 3 kHz. Word recognition was unable to be tested due to the severity of the hearing loss. Tympanometry was performed and showed a type A tympanogram with normal ear canal volume. This is consistent with an intact and appropriately mobile tympanic membrane with normal middle ear pressure. Left ear: An otoscopic examination was performed prior to testing and showed a clear canal. Audiologic testingwas performed using insert earphones. Responses were obtained with good reliability and showed a severe sensorineural hearing loss at 125 Hz dropping to profound levels from 250-4000 Hz, with no measurable hearing above 4 kHz. Tympanometry was performed and showed a type A tympanogram with normal ear canal volume. This is consistent with an intact and appropriately mobile tympanic membrane with normal middle ear pressure. IMPRESSION The results suggested a profound left corner audiogram. A copy of the test results was provided. Since Ms. Tiwari was without sound in her right ear, and had ordered new earmolds recently, I fit her with a set of loaner hearing aids. She was loaned a set of Phonak Ledy V90 UP hearing aids serial numbers [id number], and [id number] with size 675 batteries. The hearing aids were attached to her old earmolds, and programmed for her hearing loss, adjusted for sound comfort and quality, and calibrated against feedback. She reported that speech sounded clearer. I showed her how to operate the volume controls and demonstrated the various hearing aid signals such as low battery warnings and volume adjustments. Katherine was certified online for a Captioned Phone. CARE PLAN 1. Return once we've received the new earmolds for fitting and real ear verification measures 2. Two month trial with loaner hearing aids and new earmolds prior to candidacy evaluation documented in this encounter Plan of Treatment Upcoming Encounters Date Type Specialty Care Team Description 08/01/2022 Appointment Neurology Mili Toscano M .D. [address] [place], [place] [phone] (Wo rk) documented as of this encounter Visit Diagnoses Diagnosis Loss Hearing Sensorineural Bilateral - P rimary documented in this encounter Additional Health Concerns Assessment Noted Time PHQ-9 Depression Total Score: 19 07/06/2018 10:33 AM C DT documented as of this encounter Care Teams Election Clerk Relationship Specialty Start Date End Date Winter Singleton M.D. PCP - General Family Medicine 01/04/18 12/02/20 [address], [place] [address] documented as of this encounter
--- OUTSIDE RECORDS SUMMARY | 2022-05-31 21:53 | XMS_ITS | Encounter Summary ---
:1980 Author Organization [facility] Address [address] [place] [address] Care Team Providers Name Role Phone Winter Singleton M.D. Primary Care Provider Encounter Details Date Type Department Care Team Description 05/19/2020 Orders Only Department of Summer Ruel[facility] Hearing Otorhinolaryngology in Natalie Keith [place], [place] Au.D. Bilateral (Primary [address] [facility] [address] Dx) [place] [address] [address] [phone] [place] [address] Social History Tobacco Use Types Packs/Day [...] Neurology Mili Toscano M .D. [address] [place], [place] [phone] (Wo rk) Scheduled Orders Name Type Priority Associated Diagnoses Order S chedule Hearing aid fitting Audiology Routine Loss Hearing Sensorin eural Expected: Bilateral 05/19/2020, Exp ires: 08/17/2020 documented as of this encounter Visit Diagnoses Diagnosis Loss Hearing Sensorineural Bilateral - P rimary documented in this encounter Additional Health Concerns Assessment Noted Time PHQ-9 Depression Total Score: 8 05/08/2020 7:30 AM CDT documented as of this encounter Care Teams Casino Cage Cashier Relationship Specialty Start Date End Date Winter Singleton M.D. PCP - General Family Medicine 01/04/18 12/02/20 [address] [place] [address] documented as of this encounter
--- OUTSIDE RECORDS SUMMARY | 2022-05-31 21:53 | XMS_ITS | Encounter Summary ---
:1980 Author Organization [facility] Address [address] [place] [address] Care Team Providers Name Role Phone Winter Singleton M.D. Primary Care Provider Reason for Referral Outpatient (Routine) - Closed Specialty Diagnoses / Procedures Referred By Contact Refer red To Contact Diagnoses Migraine Headache Cecille Chauhan M.D. [facility] Procedures Botox for Chronic Migraine [address] [place] [address] Referral ID Status Reason Start Date Expiration Date Visits Requ ested Visits Authorized [id number] Closed 05/08/2020 05/08/2021 1 1 Reason for Visit Outpatient (Routine) - Closed Specialty Diagnoses / Procedures Referred By Contact Refer red To Contact Diagnoses Migraine Headache Cecille Chauhan M.D. [facility] Procedures Botox for Chronic Migraine [address] [place] [address] Referral ID Status Reason Start Date Expiration Date Visits Requ ested Visits Authorized [id number] Closed 05/08/2020 05/08/2021 1 1 Encounter Details Date Type Department Care Team Description 07/30/2020 Hospital Encounter Department of Aleida Chauhan M.D. [address] [place] [phone] Migraine Headache Neurology in Damion Roca M.D. [address] [place] [address] [place], [place] [address] [place] [address] Social History Tobacco Use Types Packs/Day Years [...] or relatives? How often do you attend gnosticism or 1 to 4 times per year 04/22 advent services? Do you belong to any clubs or No 05/02/2022 organizations such as gnosticism groups, unions, fraternal or athletic groups, or [...] documented as of this encounter Procedure Notes Damion Roca M.D. - 07/30/2020 9:15 AM CDTAssociated Order(s): Botox for Chronic Migraine Pre-Procedure Diagnose(s): Migraine Headache Post-Procedure Diagnose(s): Migraine Headache Botox for Chronic Migraine Date/Time: 07/30/2020 9:14 AM Performed by: Damion Roca M.D. Authorized by: Cecille Chauhan M.D. PROCEDURE DETAILS Pre-procedure pain score: 4/10 Injection of: 100 Units onabotulinumtoxinA 100 unit 50 Units onabotulinumtoxinA (cosmetic) 50 unit Needle gauge: 30 Needle length: 0.5 in Injection site details Transport Technician / Procerus muscle(s): 5 units into the left cattle broker muscle, 5 units into the right cattle broker muscle and 5 units into the procerus [...] to this round of Botox: yes Duration: 1 weeks POST-PROCEDURE DETAILS: Procedure completed successfully: yes Complications: no apparent complications documented in this encounter Miscellaneous Notes Addendum Note - Damion Roca M.D. - 07/30/2020 9:15 AM CDT Encounter addended by: Damion Roca M.D. on: 08/03/2020 10:51 AM Actions taken: One-Step Medication filed, Diagnosis association updated, Clinical Note Signed documented in this encounter Plan of Treatment Upcoming Encounters Date Type Specialty Care Team Description 08/01/2022 Appointment Neurology Mili Toscano M .D. [address] [place] [phone] (Wo rk) documented as of this encounter Procedures Procedure Name Priority Date/Time Associated Comments Diagnosis AL CHEMODENERV FACIAL Routine 07/30/2020 9:15 AM Migraine Head ache Results for this TRIGEM JEANNE CDT procedure are i n the results section. documented in this encounter Results AL CHEMODENERV FACIAL TRIGEM JEANNE (07/30/2020 9:15 AM CDT) Narrative MMODAL - 07/30/2020 9:15 AM CDT Damion Roca M.D. ? 08/03/2020 10:51 AM Botox for Chronic Migraine Date/Time: 07/30/2020 9:14 AM Performed by: Damion Roca M.D. Authorized by: Cecille Chauhan M.D. PROCEDURE DETAILS ?? Pre-procedure pain score: 4/10 Injection of: 100 Units onabotulinumtoxi nA 100 unit 50 Units onabotulinumtoxinA (cosmetic) 50 unit Needle gauge: 30 Needle length: 0.5 in Injection site details Transport Technician / Procerus muscle(s): 5 units into the left cattle broker muscle, 5 units into the right cattle broker muscle and 5 units into the procerus [...] this rou nd of Botox: yes Duration: 1 weeks POST-PROCEDURE DETAILS: Procedure completed successfully: yes Complications: no apparent complications Cecille Chauhan M.D. NEUROLOGY ORDERABLES Performing Organization Address City/State/ZIP Code Phon e Number MMODAL MMODAL NA documented in this encounter Visit Diagnoses Diagnosis Migraine Headache documented in this encounter Administered Medications Inactive Administered Medications - up to 3 most recent administrations Medication Order MAR Action Action Date Dose Rate Site onabotulinumtoxinA (cosmetic) Given 07/30/2020 9:14 AM 50 Units injection 50 Units (BOTOX CDT COSMETIC) 50 Units, injection, One-Time Injection, Starting on Kelly 07/30/20 at 0914, For 1 dose onabotulinumtoxinA injection 100 Units Given 07/30/2020 9:14 AM CDT 100 Units (BOTOX) 100 Units, injection, One-Time Injection, Starting on Kelly 07/30/20 at 0914, For 1 dose documented in this encounter Additional Health Concerns Assessment Noted Time PHQ-9 Depression Total Score: 8 05/08/2020 7:30 AM CDT documented as of this encounter Care Teams Set Key Driver Relationship Specialty Start Date End Date Winter Singleton M.D. PCP - General Family Medicine 01/04/18 12/02/[address] [phone] documented as of this encounter
--- OUTSIDE RECORDS SUMMARY | 2022-05-31 21:53 | XMS_ITS | Encounter Summary ---
:1980 Author Organization [facility] Address [address] [place] [address] Care Team Providers Name Role Phone Winter Singleton M.D. Primary Care Provider Encounter Details Date Type Department Care Team Description 07/10/2020 Diagnostic Department of Ke[place], Loss Hearing Otorhinolaryngology in Natalie Collins [place], [place] Au.D. Bilateral [address] [place] [address] [place], [place] [phone] Social History Tobacco Use Types Packs/Day [...] place to sleep or slept in a halfway (including now)? Education Answer Date Recorded What is the highest level of school you have completed or 12 th grade 05/08/2020 the highest degree you have received? Sex Assigned at Date Recorded Female 02/05/2018 10:11 AM CDT documented as of this encounter Consult Notes Xochitl Veliz Au.D. - 07/10/2020 9:30 AM CDT CHIEF COMPLAINT/REASON FOR VISIT Profound hearing loss HISTORY Katherine Tiwari comes in today for fitting of new earmolds. She is currently using a loaner set of power hearing aids with old earmolds. She is undergoing a cochlear implant candidacy evaluation, and comes to the appointment wearing her old Oticon Perseo hearing aid in the left ear, and the new loaner hearing aid in her right ear. She states that soft sounds through the left hearing aid are giving her a headache. EVALUATION A listening check was performed and both hearing instruments appear to be in good working order and free of distortion. The new earmolds were coupled to the hearing instruments and were a good physicalfit when placed in the ears. This was confirmed by patient report. The hearing instruments were set to match real- ear NAL-NL2 targets. Probe microphone measures indicated a good match to target gain for soft, medium, and loud speech stimuli. I also measured the Oticon hearing aid and compared to targets, found that soft gain was not audible. I encouraged her to resume wearing the left hearing aid that was loaned to her from us and she agreed. We talked today about the cochlear implant process and next steps. I provided her with a checklist of upcoming appointments. 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 I encouraged her to file for FMLA from her work, and to follow up with us for a candidacy evaluation in the sound canotr when she is ready and able to proceed. RECOMMENDATIONS Follow up with cochlear implant evaluation in Audiology when she is ready to proceed documented in this encounter Plan of Treatment Upcoming Encounters Date Type Specialty Care Team Description 08/01/2022 Appointment Neurology Mili Toscano M .D. [address] [place], [place] [phone] (Wo rk) documented as of this encounter Visit Diagnoses Diagnosis Loss Hearing Sensorineural Bilateral documented in this encounter Additional Health Concerns Assessment Noted Time PHQ-9 Depression Total Score: 8 05/08/2020 7:30 AM CDT documented as of this encounter Care Teams Cloth Opener Hand Relationship Specialty Start Date End Date Winter Singleton M.D. PCP - General Family Medicine 01/04/18 12/02/20 [address], [place] [phone] documented as of this encounter
--- OUTSIDE RECORDS SUMMARY | 2022-05-31 21:53 | XMS_ITS | Encounter Summary ---
:1980 Author Organization [facility] Address [address] [place] [address] Care Team Providers Name Role Phone Winter Singleton M.D. Primary Care Provider Encounter Details Date Type Department Care Team Description 04/21/2020 Clinical Communication Department of [facility], Crispin Plaza, Medicine, [place] MEÑO, C.N.P., Clinic, in [place], D.N.P. [place] [address] [place] [phone] Social History Tobacco Use Types Packs/Day [...] 1 to 4 times per year 04/22 orthodox services? Do you belong to any clubs [...] this encounter Miscellaneous Notes Telephone Encounter - Yanira Camejo C.M.A. - 04/21/2020 2:17 PM CDT Sent portal message. Telephone Encounter - Aury Carey - 04/21/2020 11:26 AM CDT Reason for Communication: patient is wondering why she has a urine test ordered. She scheduled this for May 08. She saw Tina Suarez on April 03 when this was. Current Can Nursing/Provider leave a detailed message: Did the patient refuse triage through Nurse line? (for symptom based concerns): Action Needed: patient would like a portal message send explaining why Tina ordered a urine test. Name of Medication (if relevant): documented in this encounter Plan of Treatment Upcoming Encounters Date Type Specialty Care Team Description 08/01/2022 Appointment Neurology Mili Toscano M .D. [address] [place] [phone] (Wo rk) documented as of this encounter Visit Diagnoses Not on filedocumented in this encounter Additional Health Concerns Assessment Noted Time PHQ-9 Depression Total Score: 19 07/06/2018 10:33 AM C DT documented as of this encounter Care Teams Automatic Die Cutting Machine Operator Relationship Specialty Start Date End Date Winter Singleton M.D. PCP - General Family Medicine 01/04/18 12/02/[address] [phone] documented as of this encounter
--- OUTSIDE RECORDS SUMMARY | 2022-05-31 21:53 | XMS_ITS | Encounter Summary ---
:1980 Author Organization [facility] Address [address] [place] [address] Care Team Providers Name Role Phone Winter Singleton M.D. Primary Care Provider [phone] Encounter Details Date Type Department Care Team Description 04/22/2020 Hospital Encounter Department of Daniela, Tina Plaza, Radha ia; Laboratory Medicine STONE POLISHER HAND, C.N.P., Abnorma l Urinalysis in [place] Wu.N.Inder [place] [address] [phone] Social History Tobacco Use Types Packs/Day Years [...] or relatives? How often do you attend yazdanism or 1 to 4 times per year 04/22 roman catholic services? Do you belong to any clubs or No 05/02/2022 organizations such as yazdanism groups, unions, fraternal or athletic groups, or [...] Mili Toscano M .D. [address] [place], [place] [phone] (Wo rk) documented as of this encounter Procedures Procedure Name Priority Date/Time Associated Comments Diagnosis BACTERIAL CULTURE, Routine 04/22/2020 2:25 PM Dysuria Res ults for this AEROBIC + SUSC, URINE CDT proced ure are in the results section. URINALYSIS WITH Routine 04/22/2020 2:25 PM Abnormal Urinalysis Results for this MICROSCOPIC CDT procedure are i n the results section. documented in this encounter Results (ABNORMAL) Urinalysis with Microscopic: Urine, Clean Catch (04/22/2020 2:25 PM CDT) P athologist Signature Source Midstream 04/22/2020 FB60 4:26 PM CDT Clarity Clear Clear 04/22/2020 FB60 4:27 PM CDT Color Yellow 04/22/2020 FB60 4:27 PM CDT Comment: ----REFERENCE VALUE---- Colorless Yellow Kaylee Blood Trace (A) Negative 04/22/2020 4:27 PM CDT FB60 Nitrite Negative Negative 04/22/2020 4:27 PM CDT FB60 Leukocyte Esterase Negative Negative 04/22/2020 4:27 PM CD T FB60 Protein Negative mg/dL 04/22/2020 4:27 PM CDT FB60 Comment: ----REFERENCE VALUE---- Negative Trace Glucose Negative Negative mg/dL 04/22/2020 4:27 PM CDT FB 60 Ketones, QI(U) Negative Negative mg/dL 04/22/2020 4:27 PM C DT FB60 Bilirubin Negative Negative 04/22/2020 4:27 PM CDT FB60 pH 8.5 (A) 5.0 - 8.0 04/22/2020 4:27 PM CDT FB60 Specific Snowflake 1.015 1.001 - 1.035 04/22/2020 4:27 PM CDT FB60 Urobilinogen 0.2 0.2 - 1.0 mg/dL 04/22/2020 4:27 PM CD T FB60 White Blood Cells Occ-3 /hpf 04/22/2020 4:27 PM CDT FB60 Comment: ----REFERENCE VALUE---- Males: 0-3 Females: 0-10 Unknown: 0-10 Red Blood Cells Occ-2 0 - 2 /hpf 04/22/2020 4:27 PM CDT FB60 Squamous Cells Occ-3 /hpf 04/22/2020 4:27 PM CDT FB 60 Specimen Anatomical Collection Method Collection Time Receive d Time (Source) Location / / Volume Laterality Urine (Urine, 04/22/2020 2:25 PM 04/22/20 20 2:25 Clean Catch) CDT PM CDT Corwin White APRNN.PRohit, D.N.P. LAB URINE ORDERABLE S Performing Organization Address City/State/[facility] Phon e Number [address] [place] [address] [facility] FB[facility] [place] [address] System [address] (ABNORMAL) Bacterial Culture, Aerobic + Susc, Urine (04/22/2020 2:25 PM CDT) Analysis Performed At Patho logist Time Signature Urine Culture Mixed 2020 MKTO tiera. (A) 4:22 PM CDT Specimen Anatomical Collection Method Collection Time Receive d Time (Source) Location / / Volume Laterality Urine (Urine, 04/22/2020 2:25 PM 04/22/20 20 7:06 Midstream) CDT PM CDT Comment: Specimen Source Site: Urine Luigi White APRN.N.P., D.N.P. LAB MICROBIOLOGY - GENERAL ORDERABLES Performing Organization Address City/[facility] Phon e Number [facility] [address] [place] [address] [facility] [place] [address] documented in this encounter Visit Diagnoses Diagnosis Dysuria Abnormal Urinalysis documented in this encounter Additional Health Concerns Assessment Noted Time PHQ-9 Depression Total Score: 19 07/06/2018 10:33 AM C DT documented as of this encounter Care Teams World Language Teacher Relationship Specialty Start Date End Date Winter Singleton M.D. PCP - General Family Medicine 01/04/18 12/02/[address] [phone] documented as of this encounter
--- OUTSIDE RECORDS SUMMARY | 2022-05-31 21:53 | XMS_ITS | Encounter Summary ---
:1980 Author Organization [facility] Address [address] [place] [address] Care Team Providers Name Role Phone Winter Singleton M.D. Primary Care Provider Reason for Visit Reason Onset Date Comments Outpatient COVID-19 Testing 2020 Encounter Details Date Type Department Care Team Description 2020 External Outreach Department of Froilan Gamble Infect ion [facility] Internal Medicine in J, D.O. Respiratory ([place], [place] [address] Dx) [address] [place] [phone] Social History Tobacco Use Types Packs/Day [...] 1 to 4 times per year 04/22 moravian services? Do you belong to any clubs [...] place to sleep or slept in a senior care (including now)? Education Answer Date Recorded What is the highest level of school Associate degree: lisandra russell, 06/07/2019 you have completed or the highest technical, or vocational p jared degree you have received? Sex Assigned at Date Recorded Female 02/05/2018 10:11 AM CDT documented as of this encounter Progress Notes Aury Shin RRohitN. - 2020 2:45 PM CDT Encounter created for the drive-through COVID-19 testing. documented in this encounter Plan of Treatment Upcoming Encounters Date Type Specialty Care Team Description 08/01/2022 Appointment Neurology Mili Toscano M .D. [address] [place] [phone] (Wo rk) documented as of this encounter Procedures Procedure Name Priority Date/Time Associated Comments Diagnosis SARS CORONAVIRUS 2 Routine 04/25/2020 2:09 AM Res ults for this PCR DETECT, V CDT procedure are in the results section. documented in this encounter Results SARS Coronavirus 2 RNA Detection (04/25/2020 2:09 AM CDT) [facility] Method Time Signature SARS-CoV-2 Nasopharynx 04/25/2020 SDS Specimen 6:17 AM CDT Source SARS-CoV-2 Undetected Undetected 04/25/2020 [facility] by PCR 6:17 AM CDT Comment: SARS-CoV-2 RNA absent. This result does not rule out COVID-19 in the patient, as the sensitivity of the test depends o n the timing of the specimen collection and the quality of the specim en. Result should be correlated with patient's history and clinical presentat ion. ----ADDITIONAL INFORMATION---- This test using the sheela SARS-CoV-2 ass ay ([employer] performed on the sheela 24Symbols0 System has r eceived Emergency Use Authorization (EUA) by the U.S. Food and Drug Administ ration, and is modified from the tool worker's instructions with a bridg ing study. Performance characteristics were verified by [facility] in a manner consistent with CLIA requirements. Fact sheets for this Emergency Use Autho rization (EUA) assay can be found at the following links: For Healthcare Providers: https://www.LifeShield a.gov/media/490181/download For Patients: https://www.fda.gov/media/ 189714/download Specimen Anatomical Collection Method Collection Time Receive d Time (Source) Location / / Volume Laterality Varies 04/25/2020 2:09 AM 0 2:09 CDT AM CDT Froilan Gamble D.O. LAB MICROBIOLOGY - GENERAL O MARIO Performing Organization Address City/State/ZIP Code Phon e Number [facility] [address] [place], [place] [address] SUPPORT [facility] [place] [address] Laboratory Medicine and Pathology [address] [place] documented in this encounter Visit Diagnoses Diagnosis Infection Upper Respiratory - Primary documented in this encounter Additional Health Concerns Infection Onset Date Last Indicated Resolved Time COVID19 Pending 2020 04/25/2020 2020 10:32 PM CDT Assessment Noted Time PHQ-9 Depression Total Score: 19 07/06/2018 10:33 AM C DT documented as of this encounter Care Teams Gripper Installer Relationship Specialty Start Date End Date Winter Singleton M.D. PCP - General Family Medicine 01/04/18 12/02/[address] [phone] (work) documented as of this encounter
--- OUTSIDE RECORDS SUMMARY | 2022-05-31 21:53 | XMS_ITS | Encounter Summary ---
:1980 Author Organization [facility] Address [address] [place] [address] Care Team Providers Name Role Phone Winter Singleton M.D. Primary Care Provider Reason for Visit Reason Comments Migraine Encounter Details Date Type Department Care Team Description 04/07/2020 Clinical Communication Department of [facility] Dung Person, Migraine Medicine, [place] MEÑO CRohitNZackery [facility], [facility] [address] [place], [place] [address] [address] [place], [place] [phone] (Work) [phone] Social History Tobacco Use Types Packs/Day Years [...] or relatives? How often do you attend restorationism or 1 to 4 times per year 04/22 gnosticist services? Do you belong to any clubs or No 05/02/2022 organizations such as restorationism groups, unions, fraternal or athletic groups, or [...] this encounter Miscellaneous Notes Telephone Encounter - Bessy Neal - 04/07/2020 8:41 AM CDT Thank you for your order.? We have made our final attempt to contact this patient so that we may obtain information for registration and scheduling purposes. This order has been closed, but may be reopened within 3 months of the order date. If the patient isinterested in scheduling an appointment, please have the patient contact us at [phone]. Sincerely, [facility] Online Services for Referring Physicians Appointment Office documented in this encounter Plan of Treatment Upcoming Encounters Date Type Specialty Care Team Description 08/01/2022 Appointment Neurology Mili Toscano M .D. [address] [place] [phone] (Wo rk) documented as of this encounter Visit Diagnoses Not on filedocumented in this encounter Additional Health Concerns Infection Onset Date Last Indicated Resolved Time COVID19 Pending 2020 04/25/2020 2020 10:32 PM CDT COVID19 Pending 2020 04/25/2020 04/25/2020 6:18 AM CDT Assessment Noted Time PHQ-9 Depression Total Score: 19 07/06/2018 10:33 AM C DT documented as of this encounter Care Teams Training Intern Relationship Specialty Start Date End Date Winter Singleton M.D. PCP - General Family Medicine 01/04/18 12/02/[address] [phone] documented as of this encounter
--- OUTSIDE RECORDS SUMMARY | 2022-05-31 21:53 | XMS_ITS | Encounter Summary ---
:1980 Author Organization [facility] Address [address] [place] [address] Care Team Providers Name Role Phone Winter Singleton M.D. Primary Care Provider [phone] Reason for Referral Outpatient (Routine) - Closed Specialty Diagnoses / Procedures Referred By Contact Refer red To Contact Diagnoses Migraine Headache Cecille Chauhan M.D. [facility] Procedures Botox for Chronic Migraine [address] [place] [address] Referral ID Status Reason Start Date Expiration Date Visits Requ ested Visits Authorized [id number] Closed 05/08/2020 05/08/2021 1 1 Reason for Visit Outpatient (Routine) - Closed Specialty Diagnoses / Procedures Referred By Contact Refer red To Contact Diagnoses Migraine Headache Cecille Chauhan M.D. [facility] Procedures Botox for Chronic Migraine [address] [place] [address] Referral ID Status Reason Start Date Expiration Date Visits Requ ested Visits Authorized [id number] Closed 05/08/2020 05/08/2021 1 1 Encounter Details Date Type Department Care Team Description 05/18/2020 Hospital Encounter Department of Aleida Chauhan M.D. [address] [place] [phone] Migraine Headache Neurology in Oscar Musa M.D. [address] [place] [address] [place], [place] [address] [place] [phone] Social History Tobacco Use Types Packs/Day Years [...] or relatives? How often do you attend mu-ism or 1 to 4 times per year 04/22 gnosticist services? Do you belong to any clubs or No 05/02/2022 organizations such as mu-ism groups, unions, fraternal or athletic groups, or [...] place to sleep or slept in a mcc (including now)? Education Answer Date Recorded What [...] documented as of this encounter Procedure Notes Oscar Musa M.D. - 05/18/2020 2:00 PM CDTAssociated Order(s): Botox for Chronic Migraine Pre-Procedure Diagnose(s): Migraine Headache Post-Procedure Diagnose(s): Migraine Headache Botox for Chronic Migraine Date/Time: 05/18/2020 1:55 PM Performed by: Oscar Musa M.D. Authorized by: Cecille Chauhan M.D. PROCEDURE DETAILS Pre-procedure pain score: 3/10 Injection of: 100 Units onabotulinumtoxinA 100 unit 50 Units onabotulinumtoxinA (cosmetic) 50 unit Needle gauge: 30 Needle length: 0.5 in Injection site details Services Tech / Procerus muscle(s): 5 units into the left transportation inspector muscle, 5 units into the right transportation inspector muscle and 5 units into the procerus [...] that is not covered by a third republican. Prior preventative medication trials: topiramate, valproic acid (Depakote), propranolol and metoprolol Headache frequency Headache days per month: 20 days Severe headache days per month: 10 days POST-PROCEDURE DETAILS: Procedure completed successfully: yes Complications: no apparent complications documented in this encounter Plan of Treatment Upcoming Encounters Date Type Specialty Care Team Description 08/01/2022 Appointment Neurology Mili Toscano M .D. [address] [place] [phone] (Wo rk) documented as of this encounter Procedures Procedure Name Priority Date/Time Associated Comments Diagnosis OR CHEMODENERV FACIAL Routine 05/18/2020 2:00 PM Migraine Head ache Results for this TRIGEM JEANNE CDT procedure are i n the results section. documented in this encounter Results OR CHEMODENERV FACIAL TRIGEM JEANNE (05/18/2020 2:00 PM CDT) Narrative MMODAL - 05/18/2020 2:00 PM CDT Oscar Musa M.D. ? 05/18/2020 ??2:16 PM Botox for Chronic Migraine Date/Time: 05/18/2020 1:55 PM Performed by: Oscar Musa M.D. Authorized by: Cecille Chauhan M.D. PROCEDURE DETAILS ?? Pre-procedure pain score: 3/10 Injection of: 100 Units onabotulinumtoxi nA 100 unit 50 Units onabotulinumtoxinA (cosmetic) 50 unit Needle gauge: 30 Needle length: 0.5 in Injection site details Services Tech / Procerus muscle(s): 5 units into the left transportation inspector muscle, 5 units into the right transportation inspector muscle and 5 units into the procerus [...] that is not covered by a third republican. ?? Prior preventative medication trials: to piramate, valproic acid (Depakote), propranolol and metoprolol Headache frequency Headache days per month: 20 days Severe headache days per month: 10 days POST-PROCEDURE DETAILS: Procedure completed successfully: yes Complications: no apparent complications Cecille Chauhan M.D. NEUROLOGY ORDERABLES Performing Organization Address City/State/ZIP Code Phon e Number MMODAL MMODAL NA documented in this encounter Visit Diagnoses Diagnosis Migraine Headache documented in this encounter Administered Medications Inactive Administered Medications - up to 3 most recent administrations Medication Order MAR Action Action Date Dose Rate Site onabotulinumtoxinA (cosmetic) Given 05/18/2020 1:55 PM 50 Units injection 50 Units (BOTOX CDT COSMETIC) 50 Units, injection, One-Time Injection, Starting on Mon05/18/20 at 1355, For 1 dose onabotulinumtoxinA injection 100 Units Given 05/18/2020 1:55 PM CDT 100 Units (BOTOX) 100 Units, injection, One-Time Injection, Starting on Mon05/18/20 at 1355, For 1 dose documented in this encounter Additional Health Concerns Assessment Noted Time PHQ-9 Depression Total Score: 8 05/08/2020 7:30 AM CDT documented as of this encounter Care Teams Conveyor Attendant Relationship Specialty Start Date End Date Winter Singleton M.D. PCP - General Family Medicine 01/04/18 12/02/[address] [place] [phone] documented as of this encounter
--- OUTSIDE RECORDS SUMMARY | 2022-05-31 21:53 | XMS_ITS | Encounter Summary ---
:1980 Author Organization [facility] Address [address] [place] [id number] Care Team Providers Name Role Phone Winter Singleton M.D. Primary Care Provider [phone] Encounter Details Date Type Department Care Team Description 04/07/2020 Clinical Communication Department of Neurology Mela Ornelas, in [facility] dexter Mccarthy [address] [place] [address] Social History Tobacco Use Types Packs/Day Years [...] or relatives? How often do you attend caodaism or 1 to 4 times per year 04/22 confucianism services? Do you belong to any clubs or No 05/02/2022 organizations such as caodaism groups, unions, fraternal or athletic groups, or [...] this encounter Miscellaneous Notes Telephone Encounter - Tucker Madsen - 04/07/2020 10:26 AM CDT (Note for [facility] locations only: If the patient states they are asking for testing because attended a protest, jurado, community cleanup or other mass gathering in the last 7 days and is asking for testing, complete the below questions and transfer to the COVID Nurse Line). In the past 30 days have you had a swab for COVID that tested positive? no Route reply to: k Scheduling Contact Number: [phone] documented in this encounter Plan of Treatment Upcoming Encounters Date Type Specialty Care Team Description 08/01/2022 Appointment Neurology Mili Toscano M .D. [address] [place], [place] [phone] (Wo rk) documented as of this encounter Visit Diagnoses Not on filedocumented in this encounter Additional Health Concerns Assessment Noted Time PHQ-9 Depression Total Score: 19 07/06/2018 10:33 AM C DT documented as of this encounter Care Teams Animal Park Code Enforcement Officer Relationship Specialty Start Date End Date Winter Singleton M.D. PCP - General Family Medicine 01/04/18 12/02/20 [address] [place] [phone] documented as of this encounter
--- OUTSIDE RECORDS SUMMARY | 2022-05-31 21:53 | XMS_ITS | Encounter Summary ---
:1980 Author Organization [facility] Address [address] [place] [address] Care Team Providers Name Role Phone Winter Singleton M.D. Primary Care Provider Reason for Visit Reason Comments Migraine Headache - [facility] Encounter Details Date Type Department Care Team Description 04/03/2020 Clinical Communication Department of Marlee Person Headache - Family Medicine, L, TECHNICAL STAFF ENGINEER, C.N.P. [facility], [address] in [facility] [phone] [address] [phone] [place], [place] (Work) [phone] Social History Tobacco Use Types Packs/Day [...] 1 to 4 times per year 04/22 buddhism services? Do you belong to any clubs [...] Notes Telephone Encounter - Bessy Neal - 04/03/2020 4:32 PM CDT Thank you for your order. We have left a telephone message for this patient to return a call so that we may gather additional information for registration and scheduling. We will attempt to contact the patient again in 2 business days. If someone should contact you about the message, please direct that person to call us at . If you have questions, please call us at [phone] or [phone]. Sincerely, [facility] Online Services for Referring Physicians Appointment Office documented in this encounter Plan of Treatment Upcoming Encounters Date Type Specialty Care Team Description 08/01/2022 Appointment Neurology Mili Toscano M .D. [address] [place], [place] [phone] (Wo rk) documented as of this encounter Visit Diagnoses Not on filedocumented in this encounter Additional Health Concerns Infection Onset Date Last Indicated Resolved Time COVID19 Pending 2020 04/25/2020 2020 10:32 PM CDT COVID19 Pending 2020 04/25/2020 04/25/2020 6:18 AM CDT Assessment Noted Time PHQ-9 Depression Total Score: 07/06/2018 10:33 AM C DT documented as of this encounter Care Teams Rfp Writer Relationship Specialty Start Date End Date Winter Singleton M.D. PCP - General Family Medicine 01/04/18 12/02/[address] [phone] documented as of this encounter
--- OUTSIDE RECORDS SUMMARY | 2022-05-31 21:53 | XMS_ITS | Encounter Summary ---
:1980 Author Organization [facility] Address [address] [place] [id number] Care Team Providers Name Role Phone Winter Singleton M.D. Primary Care Provider Reason for Referral Outpatient (Routine) - Closed Specialty Diagnoses / Procedures Referred By Contact Refer red To Contact Diagnoses Migraine Headache Cecille Chauhan M.D. [facility] Procedures Botox for Chronic Migraine [address] [place] [phone] Referral ID Status Reason Start Date Expiration Date Visits Requ ested Visits Authorized [id number] Closed 05/08/2020 05/08/2021 1 1 Reason for Visit Outpatient (Routine) - Closed Specialty Diagnoses / Procedures Referred By Contact Refer red To Contact Neurology Diagnoses Migraine Headache Sobeida Ornelas M.D. [facility] [address] [place] [address] Referral ID Status Reason Start Date Expiration Date Visits Requ ested Visits Authorized [id number] Closed 05/04/2020 05/04/2021 1 1 Encounter Details Date Type Department Care Team Description 05/08/2020 Comprehensive Visit Department of Summer Chauhan Bilateral (Primary Dx); Neurology in Cecille Garcia M.D. Migraine Headache [place], [address] [place], [place] [address] [address] [place], [place] [phone] (Work) [phone] Social History Tobacco Use Types Packs/Day Years [...] or relatives? How often do you attend jainism or 1 to 4 times per year 04/22 hinduism services? Do you belong to any clubs or No 05/02/2022 organizations such as jainism groups, unions, fraternal or athletic groups, or [...] documented as of this encounter Consult Notes Cecille Chauhan M.D. - 05/08/2020 8:00 AM CDT SUBJECTIVE CHIEF COMPLAINT / REASON FOR VISIT Katherine Tiwari presents today for evaluation of headaches. Referred by Sobeida Ornelas M.D. history was taken with the help of an historic interpreter ASSISTED BY: Dr. Enoch Rodriguez HISTORY OF PRESENT ILLNESS Katherine Tiwari is a very pleasant 40 y.o. 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 Hysterectomy with ovarian preservation, 2013. The patient began having headaches in her mid teens with more severe headaches in the past 2-3 years, especially in the past few months. Current headache frequency and description: Some type of headache about 5 days per week with more severe headaches about 2 days per week. A typical severe headache is holocephalic throbbing with photophobia, phonophobia (has to take hearing aides out), osmophobia, nausea, and worsening with exertion. She has blurred vision off and on the day before, typically one eye at at time for seconds. She has chronic neck pain with spasms partially responsive to baclofen. Current and past abortives: Current: Tylenol at the onset of headaches at least 5 days per week Rizatriptan 10 mg at least twice weekly-abort her headache if she ???catches it in time?? (runs outin 3 weeks or so) Baclofen for neck pain-associated with sedation every other day Zofran dissolvable tabs-helps nausea but the patient does not like the dissolving tablet Past: Sumatriptan, eletriptan, frovatriptan-no improvement Flexeril-less helpful for neck pain Current and past preventatives: Current: Nortriptyline 10 mg nightly started a few days ago Past: Chiropractic therapy-no improvement Topiramate--d/'c due to kidney stones Depakote-cannot recall trial Propranolol associated with dizziness Metoprolol-cannot recall trial PAST MEDICAL/SURGICAL HISTORY Past Medical History: Diagnosis Date ??? Abuse Tobacco Smoking ??? Anxiety 03/14/2017 Overview: Stopped depression medication lexapro because she felt that it was giving her more headaches. Has been on wellbutrin but had troubles sleeping on it. Has been on Prozac and does not rememberhaving troubles with it. HAs been on zoloft and did not like it but does not remember why. ??? Cancer Cervix In Situ (Severe Dysplasia) 03/29/2012 Overview: Would like her to get 2 more paps due to history of HGSIL Sarah Bhardwaj, RAN 09/22/201512:07 PM ??? Dysmenorrhea history of ??? Endometriosis Pelvic Peritoneum 12/27/2013 ??? Insomnia ??? Leiomyoma (Fibroid) Uterus 02/24/2015 ??? Loss Hearing Sensorineural Bilateral ??? Meningitis (HCC) ??? Menorrhagia history of ??? Migraine Headache ??? Neoplasia Cervical Squamous High Grade Intraepithelial 12/27/2013 ??? Nephritis 1988 ??? Regular astigmatism 12/20/2012 Past Surgical History: Procedure Laterality Date ??? AUGMENTATION MAMMOPLASTY Bilateral 2007 ??? BILATERAL TUBAL LIGATION Bilateral 01/15/2014 ??? DIAGNOSTIC LAPAROSCOPY 2009 ??? DIAGNOSTIC LAPAROSCOPY 2004 ??? DIAGNOSTIC LAPAROSCOPY 2003 ??? DIAGNOSTIC LAPAROSCOPY 1998 ??? LAPAROSCOPIC HYSTERECTOMY 02/26/2015 ??? LAPAROSCOPIC SALPINGECTOMY Bilateral 02/26/2015 ??? LEEP PROCEDURE - LOOP ELECTRO EXCISION PROCEDURE 07/23/2012 ??? TONSILLECTOMY AND ADENOIDECTOMY 1992 SOCIAL HISTORY Patient lives with her and 4 children, ages 6, 8, 11 and 17. She is a smoker and has been unsuccessful at multiple efforts at cessation. She has intermittent insomnia (mild in the past, worse in the last month). Caffeine-no coffee; drinks 3 Mt. Dew daily. FAMILY HISTORY Father, sister, daughter (17 yrs old) have headaches REVIEW OF SYSTEMS The patient's history was reviewed including allergies, current medications, review of systems, family history, medical and surgical history, social history, and problem list. CURRENT MEDICATIONS Current Outpatient Medications: ??? albuterol (PROVENTIL HFA,VENTOLIN HFA) 90 mcg/actuation inhaler, Inhale 2 puffs as needed. , Disp: , Rfl: ??? baclofen (LIORESAL) 10 mg tablet, Take 1 tablet (10 mg total) by mouth 2 (two) times a day as needed for muscle spasms., Disp: 60 tablet, Rfl: 3 ??? cetirizine (ZyrTEC) 10 mg tablet, Take 1 tablet (10 mg total) by mouth daily as needed for allergies., Disp: 90 tablet, Rfl: 3 ??? fluconazole (DIFLUCAN) 150 mg tablet, Take 1 tablet (150 mg total) by mouth See Admin Instructions. Take one tab after completing the antibiotic. May repeat in 3-7 days., Disp: 2 tablet, Rfl: 0 ??? fluticasone propionate (FLONASE) 50 mcg/actuation nasal spray, Administer 1 spray into each nostril daily., Disp: 16 g, Rfl: 11 ??? nortriptyline (Pamelor) 10 mg capsule, 1 cap nightly for 1 week. If not better, increase every week by 1 cap daily if needed per med sched to maximum 5 caps nightly, Disp: 105 capsule, Rfl: 0 ??? nortriptyline (Pamelor) 50 mg capsule, If max dose reached with 10 mg capsule med schedule, switch to 50 mg caps and take 1 cap nightly, Disp: 30 capsule, Rfl: 12 ??? rizatriptan (MAXALT) 10 mg tablet, Take 1 tablet (10 mg total) by mouth every 2 (two) hours as needed for migraine. May repeat in 2 hours if unresolved. Do not exceed 30 mg in 24 hours., Disp: 9 tablet, Rfl: 11 ??? traZODone (DESYREL) 50 mg tablet, 1/2 to one tab at bedtime if needed for insomnia, Disp: 90 tablet, Rfl: 3 ALLERGIES Allergies Allergen Reactions ??? Blood-Group Specific Substance Other (see comments) Patient has anti-D. Blood product orders may be delayed. Please draw one red top and two purple toptubes for all Type and Screen/Type and Crossmatch orders. ??? Fentanyl Other (see comments) and Hives ??? Nitrofurantoin Nausea And Vomiting ??? Nitrofurantoin Monohyd/M-Cryst Other (see comments) ??? Penicillin G Benzathin,Procain Rash OK on Amoxicillin ??? Penicillins Other (see comments) ??? Sumatriptan Headache Pt states that the SC imitrex made her headache much worse ASSESSMENT/PLAN 1. Chronic migraine in the setting of frequent analgesic use 2. Chronic sensorineural hearing loss following childhood meningitis I agree with the referring physician that it will be critical for the patient to reduce her acetaminophen and rizatriptan use. It is unlikely for her to experience full benefit from any preventative therapy will she is using frequent pain medicines. We have recommended that she reduce all as-needed pain medicines to no more than 9 days per month to avoid exacerbating her headaches interfering with preventative therapy. She can try either acetaminophen or naproxen sodium combined with rizatriptan at the onset of a moderate to severe headache. We have recommended that she cut down on her Mountain Dewto no more than 1-2 daily. For her nausea, she is interested in trying a non dissolvable form of Zofran and we gave her a prescription for this. We have also prescribed Compazine as a rescue medicine (we stressed this is associated with drowsiness and that she should not drive afterward). The patient is quite interested in trying Botox injections, as 1 of her friends had a positive reaction with this. We will order Botox and Dr. Rodriguez will plan on seeing her back with her 2nd round of Botox. If this is not effective, we may consider re-adding nortriptyline. For now, she will discontinue nortriptyline so that we are not doing more than one treatment at a time. CGRP abs and CGRP blocking abortivescould be considered in the future. PATIENT EDUCATION Ready to learn, no apparent learning barriers were identified; learning preferences include listening. Explained diagnosis and treatment plan; patient expressed understanding of the content. Total time spent with the patient was 60 minutes, with greater than 50% of that time spent counseling and coordination of care. Answers for HPI/ROS submitted by the patient on 05/08/2020 Fatigue: Yes Weight gain of more than 10 pounds: Yes Visual problems: Yes No ENT issues: Yes No heart issues: Yes No respiratory issues: Yes No GI issues: Yes Muscle pain/stiffness: Yes Pain or stiffness in the joints: Yes No skin issues: Yes Headache: Yes Light-headedness: Yes No mental health issues: Yes No blood/lymph issues: Yes No urinary/reproductive issues: Yes Do you live in [facility]?: no How tall are you without shoes? (Indicate feet and inches): 5 How much do you weigh without shoes? (Indicate in pounds/ounces): 127 What is your highest level of education completed?: some college or 2-year degree Select appropriate sex:: female Which hand do you write with?: right An aura consists of symptoms that may include a change in vision, tingling and numbness in the face or hand on one side, or difficulty in comprehending words BEFORE the headache becomes severe. Which statement best describes your headaches?: some of my headaches are with aura, some are without aura Do you experience a visual disturbance or aura prior to the onset of your headaches?: Yes Do you feel numbness and/or tingling on one side of your body just before or during a usual headache?: No Do you ever mix up words or have a lot of difficulty expressing your thoughts at the start of a headache, before the headache is severe?: Yes Do you experience weakness on one side of your body prior to the onset of your headaches?: No How many headaches have you had in your lifetime?: greater than 100 Headaches can start on one or both sides of the head. How do your headaches tend to start?: sometimes on one side, sometimes on both sides Headaches can affect different areas of your head. Where do your headaches tend to start?: on the top of the head How would you describe your headaches?: pressure-like with throbbing Is your headache ever accompanied with any of the following? : nausea, vomiting, sensitivity to light, sensitivity to sound, sensitivity to smells Do you ever experience vertigo (dizziness or dizzy spells) with your headaches?: experiences vertigo Do you ever experience vertigo (dizziness or dizzy spells) with your headaches?: Yes At times during my headaches and on the same side as the head pain, I experience: : a droopy eye, a blocked or stuffy nose, a sense of restlessness or agitation, eyelid swelling, tearing in an eye Once my headaches are already present, are they worsened by any of the following?: exertion, like going up or down stairs or doing housework, exposure to cold temperatures, routine mental activity (e.g. concentrating, reading) Do any of the following triggers bring on a headache?: eating certain foods, too little sleep, missing a meal, changes in the weather/barometric pressure, flickering or glaring lights, strong smells, alcohol, stress, fatigue, medications, sex/orgasm, physical exertion, loud sounds Eating - Chocolate: yes Eating - Cheese: yes Eating - [place] fruit: no Eating - Bananas: no Eating - Monosodium Glutamate (MSG): yes Drinking - Red Wine: yes Drinking - Other Alcohol: yes How many caffeinated beverages do you typically drink per day? : less than 3 How long do your headaches last if you do not take any medications? Enter a number.: 2 Select the unit. : hour(s) How long do your most severe headaches last if you do not take any medications? Enter number: 4 Select unit: day(s) Over the past 4 weeks, how many days have you had a headache? Enter a number. (Using a range of 0 to28 - the number cannot be greater than 28): 15 How old were you when you first started having any type of headache?: 16 Regarding the headaches that brought you here today, approximately how long ago did your typical headaches begin? Enter number: 20 Select unit.: year(s) How would you rate the severity and disability that your average headache caused you?: severe headache, normal activity NOT possible If you did not take any medication, how would you rate the pain intensity of your average headache from 0 (meaning No Pain) to 10 (meaning Worst Pain Imaginable)?: 9 How long does the visual disturbance or aura last?: 3 hours or more Is there anything you do that brings on those symptoms?: Don't know Did the beginning of your aura symptoms start around the same time you had your first period?: No How long does the mixing up of words or difficulty expressing your thoughts last?: 5 to 60 minutes Is there anything you do that brings on the mixing up of words or difficulty expressing your thoughts?: No Before a headache attack starts, do you recall feeling?: feeling worse physically or mentally than circumstances would dictate, increased neck pain or stiffness, excessive yawning Did the beginning of your headaches start around the same time you had your first period? (for female patients): Don't know If you have ever had menstrual periods, were your headaches more severe or do they occur more frequently around your menstrual flow?: Don't know If you have ever been , during the , were your headaches overall?: unchanged Have you ever used hormonal medications (including oral contraceptives and hormone replacement therapies)?: Yes Do you have constant headaches on a daily basis?: Yes Have you ever had headaches for more than 15 days per month?: Yes The headaches that you have experienced more than 15 days per month are best described as: Don't know Have you used an acute pain medication (medicine that you take as needed for pain or headache) for 10 or more days a month?: Yes While you were on hormonal medications, did your headaches change?: No, my headaches were unchanged At what age did you have headaches for more than 15 days per month?: 32 What is the longest duration that you have had headaches?: 4 Select Units: day(s) What is the longest time you have used an acute pain medication for headache for 10 or more days a month?: greater than 3 months Acetaminophen (Tylenol): Yes Sumatriptan (Imitrex): Yes Rizatriptan (Maxalt): Yes Frovatriptan (Frova): Yes Ketorolac (Toradol): Yes Did you take acetaminophen (Tylenol) for headaches or other reasons?: Headaches only Are you currently taking, within the last 4 weeks, acetaminophen (Tylenol)?: Yes On average, what treatment dosage of acetaminophen (Tylenol) do you take per day?: 500 to 4000 mg How often did you take acetaminophenin (Tylenol) for headaches or other reasons?: 3 to 6 days per week Did you take sumatriptan (Imitrex) for headaches or other reasons?: Headaches only Are you currently taking, within the last 4 weeks, sumatriptan (Imitrex)?: No On average, what treatment dosage of sumatriptan (Imitrex) do you take per day?: Less than 100 mg How often did you take sumatriptan (Imitrex)?: Less often than monthly Did you take rizatriptan (Maxalt) for headaches or other reasons?: Headaches only Are you currently taking, within the last 4 weeks, rizatriptan (Maxalt)?: Yes On average, what treatment dosage of rizatriptan (Maxalt) do you take per day?: 10 to 30 mg How often did you take rizatriptan (Maxalt)?: 3 to 6 days per week Did you take frovatriptan (Frova) for headaches or other reasons?: Headaches only Are you currently taking, within the last 4 weeks, frovatriptan (Frova)?: No On average, what treatment dosage of frovatriptan (Frova) do you take per day?: Less than 2 mg How often did you take frovatriptan (Frova)?: Less often than monthly Did you take ketorolac (Toradol) for headaches or other pain?: Headaches only Are you currently taking, within the last 4 weeks, ketorolac (Toradol)?: No On average, what treatment dosage of ketorolac (Toradol) do you take per day?: Less than 30 mg How often did you take ketorolac (Toradol)?: 1 to 3 days per month Magnesium: Yes None: Yes Are you currently taking, within the last 4 weeks, magnesium?: No What is the maximum treatment dosage of propranolol (Inderal) taken per day?: Less than 400 mg How long did you take propranolol (Inderal)?: 1 - 2 Months Did you think magnesium improved your headaches?: No Did you tolerate magnesium?: No Have you successfully used other methods/treatments other than medications to treat your headaches?:No As a child, did you ever have:: Stomach aches, Headaches MRI brain scan?: Yes CT brain scan?: Yes X-ray of the head or neck?: Yes What were the results of your most recent MRI brain scan?: Normal What were the results of your most recent CT brain scan?: Normal What were the results of your most recent x-ray of the head or neck?: Normal Do you have a family history of headaches?: Yes Indicate the relationship the relationship of any family member(s) who have/had recurrent headaches.: Father, Brother(s), Paternal grandmother, Daughter(s) Enoch Rodriguez M.D., M.P.H. - 05/08/2020 8:00 AM CDT SUBJECTIVE CHIEF COMPLAINT / REASON FOR VISIT A 40 yo F with headache HPI A 40 yo F with headache and history of childhood bilateral sensorineural hearing loss due to meningitis (ASL preferred, diplomatic interpreter/translator needed), anxiety, tobacco use, here for hx of headache, since mid teens (around 20 years ago), got worse 3 years ago, no special event happened at that time that might have exacerbated her condition. On average 1 day per week is headache free. 2 days per week has severe headache holocephalic starting from back of the head radiation bilaterally toward the frontal head, throbbing 8/10 in severity with migrainous features of photophobia phonphobia osmophobia nausea and intolerance to activity(rarely vomiting). Takes rizatriptan for this type of headache (2-3 times per week), with good relief most of the times. Another type of her headache is described as milder, with none of the abovementioned migrainous features, on average 2 -3 days per week, she takes tylenol 1500 mg sometimes with baclofen and occasionally with diphenhydramine for this type of headache. On averagetakes baclofen 3 times per week. Her headaches are almost always accompanied by neck pain. She identifies neck spasms/stiffness as a primary trigger, especially while driving. No exacerbation with coughing, sneezing, lifting, exercise, changes in position, or missed meals. She had a hysterectomy and does not menstruate, but no oophorectomy. She has sought ER care for 10/10 intensity migraines severaltimes during past year and has some relief with IVF and migraine cocktails. She uses rizatriptan 10 mg at least twice/week and runs out of her 9 tablet supply each month. Rizatriptan has worked very well for her and aborts her headache if she is able to take it in time. She previously tried sumatriptan, eletriptan, and frovatriptan without success. She is not currently takinga migraine preventive, but previously failed propranolol ( caused dizziness), metoprolol, topiramate(caused kidney sone), and Depakote due to intolerable side effects and poor headache control. She cannot recall the dosages or further details of these medication trials. She lives with her and has 4 young children at home. Her older daughter recently started having migraine. She began smoking at age 17, coincidentally when migraines began, and has been unsuccessful in her quitting attempts. These have included medications, patches, gum, and acupuncture. She isagreeable to cessation counseling. She struggles with insomnia occasionally and is not a big caffeine or alcohol drinker. REVIEW OF SYSTEMS Constitutional: Positive for fatigue and weight gain of more than 10 pounds. Eyes: Positive for visual problems. Musculoskeletal: Positive for arthralgias, pain or stiffness in the joints and muscle pain/stiffness. Neurological: Positive for light-headedness and headaches. The following systems were negative: Skin, ENT, CV, Respiratory, GI, , Hematologic, Psych CURRENT MEDICATIONS Current Outpatient Medications: ??? albuterol (PROVENTIL HFA,VENTOLIN HFA) 90 mcg/actuation inhaler, Inhale 2 puffs as needed. , Disp: , Rfl: ??? baclofen (LIORESAL) 10 mg tablet, Take 1 tablet (10 mg total) by mouth 2 (two) times a day as needed for muscle spasms., Disp: 60 tablet, Rfl: 3 ??? cetirizine (ZyrTEC) 10 mg tablet, Take 1 tablet (10 mg total) by mouth daily as needed for allergies., Disp: 90 tablet, Rfl: 3 ??? fluconazole (DIFLUCAN) 150 mg tablet, Take 1 tablet (150 mg total) by mouth See Admin Instructions. Take one tab after completing the antibiotic. May repeat in 3-7 days., Disp: 2 tablet, Rfl: 0 ??? fluticasone propionate (FLONASE) 50 mcg/actuation nasal spray, Administer 1 spray into each nostril daily., Disp: 16 g, Rfl: 11 ??? nortriptyline (Pamelor) 10 mg capsule, 1 cap nightly for 1 week. If not better, increase every week by 1 cap daily if needed per med sched to maximum 5 caps nightly, Disp: 105 capsule, Rfl: 0 ??? nortriptyline (Pamelor) 50 mg capsule, If max dose reached with 10 mg capsule med schedule, switch to 50 mg caps and take 1 cap nightly, Disp: 30 capsule, Rfl: 12 ??? rizatriptan (MAXALT) 10 mg tablet, Take 1 tablet (10 mg total) by mouth every 2 (two) hours as needed for migraine. May repeat in 2 hours if unresolved. Do not exceed 30 mg in 24 hours., Disp: 9 tablet, Rfl: 11 ??? traZODone (DESYREL) 50 mg tablet, 1/2 to one tab at bedtime if needed for insomnia, Disp: 90 tablet, Rfl: 3 ?? ALLERGIES Allergies Allergen Reactions ??? Blood-Group Specific Substance Other (see comments) ? Patient has anti-D. Blood product orders may be delayed. Please draw one red top and two purple top tubes for all Type and Screen/Type and Crossmatch orders. ??? Fentanyl Other (see comments) and Hives ??? Nitrofurantoin Nausea And Vomiting ??? Nitrofurantoin Monohyd/M-Cryst Other (see comments) ??? Penicillin G Benzathin,Procain Rash ? OK on Amoxicillin ??? Penicillins Other (see comments) ??? Sumatriptan Headache ? Pt states that the [place] imitrex made her headache much worse OBJECTIVE Physical Exam: Mental status: Alert and oriented X3, attention and speech via diplomatic interpreter/translator normal Cranial nerves: PERRLA, EOMI, visual field intact, sensation intact, no dysarthria, face symmetric, tongue midline, impaired hearing Strength: 5/5 proximally and distally in upper and lower extremities Sensation: intact to fine touch, cold, vibration and proprioception Coordination: finger to nose and heel to [place] intact Reflexes: 2+ biceps triceps knees and ankles b/l ASSESSMENT / PLAN ?? A 40 yo F with headache and history of childhood bilateral sensorineural hearing loss due to meningitis (ASL preferred, diplomatic interpreter/translator needed), anxiety, tobacco use, here for hx of headache, since mid teens (around 20 years ago), got worse 3 years ago. On average 1 day per week is headache free, 2 days per week has severe headache with migrainous features and 2-3 days per week has mild headache with no migrainous features. She uses rizatriptan 10 mg at least twice/week and runs out of her 9 tablet supply each month. - Chronic migraine in the setting of frequent analgesic use She frequently is using abortive medx which may exacerbate her headache, recommended to avoid takingabortive medx more than 9 days per month. Also instructed to cut down on her Mountain Dew to no morethan 1-2 daily. For her nausea, non dissolvable form of Zofran and Compazine were prescribed. Side ef fects were discussed. Interested to have Botox, will see her back in the clinic with the 2nd round of her botox. For now, she will discontinue nortriptyline . ? PATIENT EDUCATION Ready to learn, no apparent learning barriers were identified; learning preferences include listening. Explained diagnosis and treatment plan; patient expressed understanding of the content. documented in this encounter Miscellaneous Notes Addendum Note - Enoch Rodriguez M.D., M.P.H. - 05/08/2020 8:00 AM CDT Addended by: ENOCH RODRIGUEZ on: 07/28/2020 02:42 PM Modules accepted: Orders documented in this encounter Plan of Treatment Upcoming Encounters Date Type Specialty Care Team Description 08/01/2022 Appointment Neurology Mili Toscano M .D. [address] [place], [place] [phone] (Wo rk) Scheduled Orders Name Type Priority Associated Diagnoses Order S chedule Botox for Chronic Procedures Routine Migraine Headache - Litzy ry 12 weeks for 12 Migraine Occurrences sta rting 05/08/2020 unti l 05/08/2023, 5 c ompleted documented as of this encounter Results [place] CHEMODENERV FACIAL TRIGEM JEANNE (04/07/2021 1:56 PM [...] Needle length: 0.5 in Injection site details Furnace Mason / Procerus muscle(s): 5 units into the left director internal communications muscle, 5 units into the right director internal communications muscle and 5 units into the procerus [...] that is not covered by a third green party. ?? Prior to treatment with Botox, [...] Code Phon e Number MMODAL MMODAL NA [place] CHEMODENERV FACIAL TRIGEM JEANNE (01/13/2021 3:00 PM [...] Needle length: 0.5 in Injection site details Furnace Mason / Procerus muscle(s): 5 units into the left director internal communications muscle, 5 units into the right director internal communications muscle and 5 units into the procerus [...] that is not covered by a third green party. ?? Prior to treatment with Botox, [...] successfully: yes Complications: no apparent complications COMMENTS historic interpreter was p resent during the procedure. ATTESTATION STATEMENT A resident or fellow participated in the procedure, and the outplacement consultant was present for the entire procedure. Cecille Chauhan M.D. NEUROLOGY ORDERABLES Performing Organization Address City/State/ZIP Code Phon e Number MMODAL MMODAL NA [place] CHEMODENERV FACIAL TRIGEM JEANNE (11/02/2020 9:00 AM HOT MILL OBSERVER) Narrative MMODAL - 11/02/2020 9:00 AM HOT MILL OBSERVER Hai Love M.D. ? 11/02/2020 ??8:55 AM [...] Needle length: 0.5 in Injection site details Furnace Mason / Procerus muscle(s): 5 units into the left director internal communications muscle, 5 units into the right director internal communications muscle and 5 units into the procerus [...] that is not covered by a third green party. ?? Prior to treatment with Botox, [...] successfully: yes Complications: no apparent complications COMMENTS Furnace Mason and procerus muscles move sli ghtly superiorly to avoid eyebrow droop. Cecille Chauhan M.D. NEUROLOGY ORDERABLES Performing Organization Address City/State/ZIP Code Phon e Number MMODAL MMODAL NA [place] CHEMODENERV FACIAL TRIGEM JEANNE (07/30/2020 9:15 AM [...] Needle length: 0.5 in Injection site details Furnace Mason / Procerus muscle(s): 5 units into the left director internal communications muscle, 5 units into the right director internal communications muscle and 5 units into the procerus [...] that is not covered by a third green party. ?? Prior to treatment with Botox, [...] Code Phon e Number MMODAL MMODAL NA [place] CHEMODENERV FACIAL TRIGEM JEANNE (05/18/2020 2:00 PM [...] Needle length: 0.5 in Injection site details Furnace Mason / Procerus muscle(s): 5 units into the left director internal communications muscle, 5 units into the right director internal communications muscle and 5 units into the procerus [...] that is not covered by a third green party. ?? Prior preventative medication trials: to piramate, valproic acid (Depakote), propranolol and metoprolol Headache frequency Headache days per month: 20 days Severe headache days per month: 10 days POST-PROCEDURE DETAILS: Procedure completed successfully: yes Complications: no apparent complications Cecille Chauhan M.D. NEUROLOGY ORDERABLES Performing Organization Address City/State/ZIP Code Phon e Number MMODAL MMODAL NA documented in this encounter Visit Diagnoses Diagnosis Loss Hearing Bilateral - Primary Migraine Headache Migraine Headache Migraine Headache Migraine Headache Migraine Headache Chronic Migraine Headache documented in this encounter Additional Health Concerns Assessment Noted Time PHQ-9 Depression Total Score: 8 05/08/2020 7:30 AM CDT documented as of this encounter Care Teams Security Project Manager Relationship Specialty Start Date End Date Winter Singleton M.D. PCP - General Family Medicine 01/04/18 12/02/[address] [phone] documented as of this encounter
--- OUTSIDE RECORDS SUMMARY | 2022-05-31 21:53 | XMS_ITS | Encounter Summary ---
:1980 Author Organization [facility] Address [address] [place] [address] Care Team Providers Name Role Phone Winter Singleton M.D. Primary Care Provider Reason for Referral Outpatient (Routine) - Closed Specialty Diagnoses / Procedures Referred By Contact Refer red To Contact Neurology Diagnoses Migraine Headache Sobeida Ornelas M.D. [facility] [address] [place] [address] Referral ID Status Reason Start Date Expiration Date Visits Requ ested Visits Authorized [id number] Closed 05/04/2020 05/04/2021 1 1 Reason for Visit Outpatient (Routine) - Closed Specialty Diagnoses / Procedures Referred By Contact Refer red To Contact Neurology Diagnoses Migraine Headache [facility] [address] [place] [address] Referral ID Status Reason Start Date Expiration Date Visits V isits Requested Authorized [id number] Closed Specialty 04/03/2020 04/03/2021 1 1 Services Required Encounter Details Date Type Department Care Team Description 05/04/2020 Comprehensive Visit Department of Sobeida Ornelas Migrai ne Headache Neurology in [place], [place] [address] [place] [phone] Social History Tobacco Use Types Packs/Day Years [...] or the highest technical, or vocational p cristopherram degree you have received? Sex Assigned at Date Recorded Female 02/05/2018 10:11 AM CDT documented as of this encounter Consult Notes Moisés Stanford M.D. - 05/04/2020 2:30 PM CDT Supervisory note: I have reviewed with Dr. Ornelas her comprehensive assessment and plan and agree with what is outlined on neuro record dated 05/04/2020. Katherine Tiwari is a 40 y.o. female who presents for evaluation ofmigraine. She is overusing her Triptan and acetaminophen and smoking. Examination: The neurologic examination is normal. Assessment and Plan: #1 Migraine and medication overuse headache I would review with her the lifestyle changes that can reduce the frequency and severity of her headache including discontinuing smoking, avoiding overuse of short-acting analgesics etc Botox is certainly reasonable treatment but I would suspect heard sure insert may per for treatment with another prophylactic before proceeding with Botox. Sobeida Ornelas M.D. - 05/04/2020 2:30 PM CDT REFERRAL Marlee Person, MEÑO, C.N.P. [address] [place] [phone] CHIEF COMPLAINT / REASON FOR VISIT Chronic migraine SUBJECTIVE HISTORY OF PRESENT ILLNESS Katherine Tiwari is a 40 y.o. 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 Migraines with visual aura beg an in high school at age 17 and have been particularly intense in the last 3 months, though characteristic features remain identical. She describes bifrontal 8/10 throbbing headaches that radiate to the back of her head and down her neck with significant neck spasms. Migraines are associated with nausea, vomiting, photo-, and phonophobia without autonomic features. She has about 3 headache days/week with each headache lasting 1-3 days on average. They also wake her up at night. She identifies neck spasms/stiffness as a primary trigger, especially while driving. No exacerbation with coughing, sneezing, lifting, exercise, changes in position, or missed meals. She had a hysterectomy and does not menst ruate. She has sought ER care for 10/10 intensity migraines several times in the last few months andhas some relief with IVF and migraine cocktails. Her last MRI brain was in 2014 and unremarkable. Currently, she takes Tylenol 500 mg x3 (1500 total) at the start of a headache at least 5 times a week. She uses rizatriptan 10 mg at least twice/week and runs out of her 9 tablet supply each month. Rizatriptan has worked very well for her and aborts her headache if she is able to take it in time. Shepreviously tried sumatriptan, eletriptan, and frovatriptan without success. She is not currently taking a migraine preventive, but previously failed propranolol, metoprolol, topiramate, and Depakote due to intolerable side effects and poor headache control. She cannot recall the dosages or further details of these medication trials. She was prescribed baclofen by her PCP for neck spasms 2 months ago and takes this a couple times/week. She has relief in neck pain but suffers with sedation. She has also tried a chiropractor without benefit. She lives with her and has 3 young children at home. She began smoking at age 17, coincidentally when migraines began, and has been unsuccessful in her quitting attempts. These have included medications, patches, gum, and acupuncture. She is agreeable to cessation counseling. She struggles with insomnia occasionally and is not a big caffeine or alcohol drinker. REVIEW OF SYSTEMS - All other systems reviewed and negative. CURRENT MEDICATIONS Current Outpatient Medications on File Prior to Visit Medication Sig Dispense Refill ??? albuterol (PROVENTIL HFA,VENTOLIN HFA) 90 mcg/actuation inhaler Inhale 2 puffs as needed. ??? baclofen (LIORESAL) 10 mg tablet Take 1 tablet (10 mg total) by mouth 2 (two) times a day as needed for muscle spasms. 60 tablet 3 ??? cetirizine (ZyrTEC) 10 mg tablet Take 1 tablet (10 mg total) by mouth daily as needed for allergies. 90 tablet 3 ??? fluconazole (DIFLUCAN) 150 mg tablet Take 1 tablet (150 mg total) by mouth See Admin Instructions. Take one tab after completing the antibiotic. May repeat in 3-7 days. 2 tablet 0 ??? fluticasone propionate (FLONASE) 50 mcg/actuation nasal spray Administer 1 spray into each nostril daily. 16 g 11 ??? rizatriptan (MAXALT) 10 mg tablet Take 1 tablet (10 mg total) by mouth every 2 (two) hours as needed for migraine. May repeat in 2 hours if unresolved. Do not exceed 30 mg in 24 hours. 9 tablet 11 ??? traZODone (DESYREL) 50 mg tablet 1/2 to one tab at bedtime if needed for insomnia 90 tablet 3 No current facility-administered medications on file prior to visit. 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 Cranial Nerves - PERRLA, EOMI, VF intact. Normal fundus bilaterally. Bilateral hearing aids. Moves facial muscles symmetrically. Tongue midline. Motor - Normal strength throughout. Normal tone and bulk. Reflexes - Normal throughout including flexor plantar response. Sensory - Normal pinprick, vibration, and proprioception throughout. Gait - Normal base, toes, heels, tandem, arm swing. -Romberg. Cerebellar - Intact FNF, HTS, and ALMA ROSA bilaterally. ASSESSMENT / PLAN #1 Migraine Headache Overall, Mrs. Tiwari is a 40-year-old female who presents with a 23 year history of chronic migraine with aura that is worsening in severity and frequency. I suspect that her migraines are cervicogenic in etiology and exacerbated significantly by medication overuse, tobacco use, and poor sleep. For modifiable lifestyle factors, we discussed at length the benefit of smoking cessation and she will work with her PCP to accomplish this. We also discussed the importance of good sleep hygiene and exercise. From a medication standpoint, she significantly overuses Tylenol and rizatriptan. We discussed appropriate use of these medications and using Aleve as a bridging agent as needed as she decreases use. She is also amenable to weaning off of baclofen as this is causing considerable sedation. She has alrea dy failed 4 migraine preventives (propranolol, metoprolol, topiramate, and Depakote). I think she would be a great candidate for Botox injections, particularly given the cervicogenic nature of her headaches and medication overuse. She is agreeable to trying this. In the interim until her headache appointment, she is interested in trying nortriptyline to help with migraine and also sleep. She is awarethat she will not appreciate any benefit until she stops overusing Tylenol and rizatriptan. Recommendations: - Discontinue smoking, ensure quality sleep and exercise - Stop use of Tylenol, can use Aleve twice daily as a bridge if needed - Wean off of baclofen, stopping cold-turkey can cause seizures - Start nortriptyline 10 mg at bed time, increase by 10 mg weekly, goal dose of 50-100 mg at bed time - Headache consult for consideration of Botox Sobeida Ornelas M.D. documented in this encounter Plan of Treatment Upcoming Encounters Date Type Specialty Care Team Description 08/01/2022 Appointment Neurology Mili Toscano M .D. [address] [place], [place] [phone] (Wo rk) Scheduled Referrals Name Type Priority Associated Diagnoses [facility] - Outpatient Referral Routine Migraine Headache Exp ected: Headache consult 05/04/2020 (clinic) (Approximate), Expires: 05/04/2023 documented as of this encounter Visit Diagnoses Diagnosis Migraine Headache documented in this encounter Additional Health Concerns Assessment Noted Time PHQ-9 Depression Total Score: 19 07/06/2018 10:33 AM C DT documented as of this encounter Care Teams Java Swing Developer Relationship Specialty Start Date End Date Winter Singleton M.D. PCP - General Family Medicine 01/04/18 12/02/20 [address], [place] [address] documented as of this encounter
--- OUTSIDE RECORDS SUMMARY | 2022-05-31 21:53 | XMS_ITS | Encounter Summary ---
:1980 Author Organization [facility] Address [address] [place] [address] Care Team Providers Name Role Phone Winter Singleton M.D. Primary Care Provider Encounter Details Date Type Department Care Team Description 04/08/2020 Orders Only RST PCP HLTH MNT Beckie Singleton Screening Lipid M.D. [address], [place] [phone] (Wo rk) Social History Tobacco Use Types [...] or relatives? How often do you attend sabianist or 1 to 4 times per year 04/22 catholic services? Do you belong to any clubs or No 05/02/2022 organizations such as sabianist groups, unions, fraternal or athletic groups, or [...] Appointment Neurology Mili Toscano M .D. [address] [place] [phone] (Wo rk) documented as of this encounter Results Lipid Panel (04/22/2020 2:22 PM CDT) athologist Signature Cholesterol, 160 mg/dL 04/22/2020 OWAT [...] Laterality Blood (Blood, 04/22/2020 2:22 PM 04/22/20 3:45 Venous) CDT PM CDT Winter Singleton M.D. LAB BLOOD ADD-ON Performing Organization Address City/State/ZIP Code Phon e Number [facility]- [address] [place] [address] [place] [address] System in [place] [address] [facility] documented in this encounter Visit Diagnoses Diagnosis Screening Lipid documented in this encounter Additional Health Concerns Assessment Noted Time PHQ-9 Depression Total Score: 19 07/06/2018 10:33 AM C DT documented as of this encounter Care Teams Condominium Property Manager Relationship Specialty Start Date End Date Winter Singleton M.D. PCP - General Family Medicine 01/04/18 12/02/[address] [place] [address] documented as of this encounter
--- OUTSIDE RECORDS SUMMARY | 2022-05-31 21:53 | XMS_ITS | Encounter Summary ---
:1980 Author Organization [facility] Address [address] [place] [address] Care Team Providers Name Role Phone Winter Singleton M.D. Primary Care Provider Reason for Referral Outpatient (Routine) - Closed Specialty Diagnoses / Procedures Referred By Contact Refer red To Contact Neurology Diagnoses Migraine Headache [facility] [address] [place] [address] Referral ID Status Reason Start Date Expiration Date Visits V isits Requested Authorized [id number] Closed Specialty 04/03/2020 04/03/2021 1 1 Services Required Reason for Visit Reason Comments Referrals Encounter Details Date Type Department Care Team Description 04/02/2020 Clinical Communication Department of Dung Moran, Referrals Medicine, [place] MEÑO, C.N.P. [facility], in [place], [address] [place], [place] [address] [address] [place], [place] [phone] [address] (Work) [phone] Social History Tobacco Use Types Packs/Day Years [...] or relatives? How often do you attend yarsanism or 1 to 4 times per year 04/22 sabianist services? Do you belong to any clubs or No 05/02/2022 organizations such as yarsanism groups, unions, fraternal or athletic groups, or [...] or the highest technical, or vocational p [facility] degree you have received? Sex Assigned at Date Recorded Female 02/05/2018 10:11 AM CDT documented as of this encounter Miscellaneous Notes Telephone Encounter - Marla Perezbarbara Dasilva - 04/02/2020 1:58 PM CDT Reason for Communication: Patient calling using relay services, asking for a phone number to schedule from a referral to see Neurology for concerns of migraine headache/Botox injections. Learning Design Specialist has informed patient that no order has been placed in chart for scheduling at this time and has informed patient that Doctor Steff Ramirez is not accepting new Botox patients at this time, so referral would needto be placed for [facility] or [facility]. Patient stating she would please like to be seen for this at [facility] and keno writer / runner has given patient phone number for [facility] Neurology scheduling, per her request. Patient also stating she is please needing a referral to be placed for her to have a hearing test inaudiology. Patient currently scheduled to see Doctor Keren 04-16-2020. Patient PCP is Doctor Winter Singleton and keno writer / runner has informed patient that Doctor Max isno longer seeing patients. Patient asking that this request for referrals please be left for Suzan Current Can Nursing/Provider leave a detailed message: Did the patient refuse triage through Nurse line? (for symptom based concerns): No. NL does not apply Action Needed: Please place referrals and contact patient once placed. Patient asking if she would be able to see referrals on the online patient portal and keno writer / runner has informed patient that she is unsure of that answer Name of Medication (if relevant): documented in this encounter Plan of Treatment Upcoming Encounters Date Type Specialty Care Team Description 08/01/2022 Appointment Neurology Mili Toscano M .D. [address] [place], [place] [phone] (Wo rk) Scheduled Orders Name Type Priority Associated Diagnoses Order S chedule Audiology evaluation Audiology Routine Loss Hearing Expecte d: 04/03/2020 Sensorineural Bilateral (Lady roximate), Expires: 2022 Scheduled Referrals Name Type Priority Associated Diagnoses Order S chedule Neurology - General Outpatient Referral Routine Migraine Heada jason Expected: consult (clinic) 04/03/2020 (Approximate), Expires: 04/03/2023 documented as of this encounter Visit Diagnoses Diagnosis Loss Hearing Sensorineural Bilateral - P rimary Migraine Headache documented in this encounter Additional Health Concerns Assessment Noted Time PHQ-9 Depression Total Score: 19 07/06/2018 10:33 AM C DT documented as of this encounter Care Teams Tube Balancer Relationship Specialty Start Date End Date Winter Singleton M.D. PCP - General Family Medicine 01/04/18 12/02/20 [address] [place] [address] documented as of this encounter
--- OUTSIDE RECORDS SUMMARY | 2022-05-31 21:53 | XMS_ITS | Encounter Summary ---
:1980 Author Organization [facility] Address [address] [place] [address] Care Team Providers Name Role Phone Winter Singleton M.D. Primary Care Provider Reason for Visit Reason Comments COVID Nurse Line Triage Encounter Details Date Type Department Care Team Description 04/01/2020 Nurse Triage Department of [facility] Candy Ivan Nurse Line; Medicine, [place] [facility], in [place], [address] [place] [address] [address] [facility] [address] [place] [address] Social History Tobacco Use Types Packs/Day [...] 1 to 4 times per year 04/22 congregational services? Do you belong to any clubs [...] or the highest technical, or vocational p GlucoSentientram degree you have received? Sex Assigned at Date Recorded Female 02/05/2018 10:11 AM CDT documented as of this encounter Miscellaneous Notes Telephone Encounter - Candy Ivan R.N. - 04/01/2020 1:45 PM CDT COVID-19 Nurse Line Screening ASSESSMENT COVID 19 Screening Have you had close contact with a person who has a LABORATORY CONFIRMED case of COVID-19?: No - Continue screening. In the last 48 hours have you had any of the following symptoms?: No - Complete screening. Consider alternative diagnosis. We are not currently testing or isolating patients or visitors who have no symptoms and no close contact. documented in this encounter Plan of Treatment Upcoming Encounters Date Type Specialty Care Team Description 08/01/2022 Appointment Neurology Mili Toscano M .D. [address] [place], [place] [phone] (Wo rk) documented as of this encounter Visit Diagnoses Not on filedocumented in this encounter Additional Health Concerns Assessment Noted Time PHQ-9 Depression Total Score: 19 07/06/2018 10:33 AM C DT documented as of this encounter Care Teams Underground Bolting Machine Operator Relationship Specialty Start Date End Date Winter Singleton M.D. PCP - General Family Medicine 01/04/18 12/02/[address] [phone] documented as of this encounter
--- OUTSIDE RECORDS SUMMARY | 2022-05-31 21:53 | XMS_ITS | Encounter Summary ---
:1980 Author Organization [facility] Address [address] [place] [address] Care Team Providers Name Role Phone Winter Singleton M.D. Primary Care Provider Reason for Visit Reason Comments ALPA Nurse Line Encounter Details Date Type Department Care Team Description 2020 Clinical Communication Division of Margoth Guzman Nurse Line [facility] Internal A, R.N. [facility] [address] [facility] in [place], [place] [address] [address] [facility] [phone] [place], [place] (Work) [phone] Social History Tobacco Use Types Packs/Day Years [...] or relatives? How often do you attend cheondoism or 1 to 4 times per year 04/22 mormonism services? Do you belong to any clubs or No 05/02/2022 organizations such as cheondoism groups, unions, fraternal or athletic groups, or [...] this encounter Miscellaneous Notes Telephone Encounter - Margoth Guzman R.N. - 2020 2:27 PM CDT COVID-19 Nurse Line Screening ASSESSMENT COVID 19 Screening Have you had close contact with a person who has a LABORATORY CONFIRMED case of COVID-19?: No - Continue screening. In the last 48 hours have you had any of the following symptoms?: New sore throat, New myalgias (muscle aches), New headache, New diarrhea, Fever Do you have any urgent symptoms?: None- Patient meets criteria for testing. PLAN Endpoint recommendation: Screening positive, testing indicated, advised to be swabbed for COVID-19, sent to [facility] located [address] [facility] Take [address] to back of the clinic; cannot access from main parking lot. Testing hours are daily 10 am to 6 pm. When you arrive stay in your car and someone will direct you. Care Points provided: STANDARD PRECAUTIONS FOR ALL PATIENTS: Wash hands often with soap and water for at least 20 seconds, especially after blowing your nose, coughing, sneezing, or having been in a public place. If soap and water aren't available, use a hand physician asst that contains at least 60% alcohol. Avoid close contact with anyone who may be exhibiting respiratory symptoms such as coughing and sneezing. Clean and disinfect frequently touched surfaces daily. Cover your mouth and nose with a cloth face cover when around others or in public. The cloth face cover is not a substitute for social distancing. Continue to keep about 6 feet between yourself and others. Monitor for symptoms. Do not takeyour temperature within 30 minutes of exercise. If your test or screen is negative and new symptoms develop please contact your care provider to determine if re- testing is necessary. Educational Resource: https://www.cdc.gov/coronavirus/2019-ncov/mghwggi-wawzqee-eqjw/index.html RECOMMENDATIONS TESTING CRITERIA IS MET: Stay home except to get medical care. Avoid public areasand public transportation. Separate yourself from other people and stay in a specific sick room ifpossible. Wear a cloth face covering, over your nose and mouth if you must be around other people even at home). Contact employer/occupational health department to notify them that they are being tested. Seek emergent care if any of the following occur: 1) Trouble breathing, 2) Bluish lips or face, 3)Persistent pain or pressure in the chest, 4) Newly confused or unable to stay alert and awake. Notify appropriate care provider if any new or worsening symptoms. If your test is negative and new symptoms develop please contact your care provider to determine if re-testing is necessary. Education Resources: https://www.cdc.gov/coronavirus/2019-ncov/kt-cib-trb-sick/atmdh-rboo-jdic.html SELF CARE FOR ALL PATIENTS: Make time to unwind. Try to do some other activities you enjoy. Connect with others. Be creative in keeping connected with loved ones, especially those at high risk. Try healthy coping strategies such as meditation, relaxation, exercise, healthy eating habits, and avoid alcohol and drugs. Education: patient/caregiver Patient/caregiver able to teach back Patient agreeable to plan of care: Yes The following references were used: [facility] novel coronavirus (COVID- 19) resources CDC web site https://www.cdc.gov/coronavirus/2019-ncov/summary.html documented in this encounter Plan of Treatment Upcoming Encounters Date Type Specialty Care Team Description 08/01/2022 Appointment Neurology Mili Toscano M .D. [address] [place], [place] [phone] (Wo rk) documented as of this encounter Visit Diagnoses Not on filedocumented in this encounter Additional Health Concerns Assessment Noted Time PHQ-9 Depression Total Score: 19 07/06/2018 10:33 AM C DT documented as of this encounter Care Teams Wound Specialist Relationship Specialty Start Date End Date Winter Singleton M.D. PCP - General Family Medicine 01/04/18 12/02/20 [address] [place] [address] documented as of this encounter
--- OUTSIDE RECORDS SUMMARY | 2022-05-31 21:53 | XMS_ITS | Encounter Summary ---
:1980 Author Organization [facility] Address [address] [place] [address] Care Team Providers Name Role Phone Winter Singleton M.D. Primary Care Provider [phone] Reason for Visit Reason Comments Vaginal Discharge Appointment Request (Routine) - Closed Specialty Diagnoses / Procedures Referred By Contact Refer red To Contact Family Medicine Referral ID Status Reason Start Date Expiration Date Visits Requ ested Visits Authorized [id number] Closed 04/01/2020 04/01/2021 1 1 Encounter Details Date Type Department Care Team Description 04/03/2020 Office Visit Department of Family Tina Suarez S, Vagi nosis Bacterial (Primary Dx); Medicine, [place] MEÑO, C.N.P., Dysuria; Clinic, in [facility] D.N.P. Abuse Tobacco Smoking; [place] [address] Counseling Smoking Cessation; [address], [place] Migraine Headache; [place] [address] Abnormal Urinalysis [phone] Social History Tobacco Use Types Packs/Day Years Used Date Smoking Tobacco: Every Day Cigarettes 1 0 Smokeless Tobacco: Never Tobacco Cessation: Ready to Quit: No; Co unseling Given: No Alcohol Use Standard Drinks/Week Comments Yes 6 [...] or relatives? How often do you attend mandaeism or 1 to 4 times per year 04/22 mandaeism services? Do you belong to any clubs or No 05/02/2022 organizations such as mandaeism groups, unions, fraternal or athletic groups, or [...] or the highest technical, or vocational p [employer] degree you have received? 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 - 04/03/2020 1:30 PM CDT Bacterial vaginosis (BV) is a vaginal inflammation characterized by a shift in vaginal bacteria awayfrom Lactobacillus species toward more diverse bacterial species. Changes in vaginal condition including pH can result in overgrowth of Gardnerella, leading to symptoms of abnormal discharge and odor. We discussed some of the behavioral practices that increase the risk of BV including douching, overlyaggressive hygiene, use of various vaginal products (even if they claim to be natural or pH balanced), and vaginal intercourse. Recurrence of bacterial vaginosis is when there are at least 3 confirmed recurrent infections by laboratory testing in a 12 month period. Standard treatment for bacterial vaginosis includes a one-week course of oral metronidazole therapy, or alternatively oral clindamycin therapy. Metrogel as another option. With recurrent BV infection, twice weekly suppressive therapy with Metrogel can be considered, or in cases of suspected resistance, alternative regimens using a boric acid vaginal suppository for 1 month and/or the use of tinidazole can be considered. There is some evidence that use of estrogencontaining contraceptive methods may improve the vaginal environment, therefore decreasing risk of recurrence. Condom use and avoidance of douching have also been shown to potentially decrease recurrence, as would abstinence. There is some limited data that use of probiotics may also be of benefit. documented in this encounter H&P Notes Tina Suarez APRN, C.N.P., D.N.P. - 04/03/2020 1:30 PM CDT PIETRO Murphy is a 39 y.o. female who presents for evaluation of Vaginal Discharge. AYAAN Murphy with PMH significant for migraine, anxiety, and tobacco use is here today for evaluation of ongoing vaginal symptoms. For almost two years now, she's had recurrent yeast infection. She asked her primary for prescription when has symptoms. Most recent concern started in February. She was treated with Zpack for sinus issues,had yeast like symptoms, so was and prescribed Diflucan. Symptoms resolved, but return shortly after. She's treated herself with OTC med with no improvement. Reports symptoms of bad odor, burn, itch, and thick white discharge. No fever, chills, frequency or urgency. No respiratory/GI/cardiac symptoms. Recent Travel or Exposure: None reported. REVIEW OF SYSTEMS: REVIEW OF SYSTEMS ROS negative unless otherwise indicated in HPI. History Review The patient's allergies, current medications, problem list and medical history portions of the patient's history were reviewed and updated as appropriate. OBJECTIVE Vitals: 04/03/20 1328 BP: 112/60 Patient Position: Sitting Pulse: 82 Resp: 16 Weight: 58.3 kg PHYSICAL EXAMINATION Physical Exam GENERAL: Patient is in no distress. Patient is cooperative. NECK: Nontender. No nodes, no thyromegaly. HEART: Regular rate and rhythm. No murmurs, gallops or rubs noted. LUNGS: Clear to auscultation bilaterally. No accessory muscles of respiration noted. ABDOMEN: Normal bowel sounds. PELVIS: Normal external genitalia. Mild thick white discharge at the introitus. Anus appears normal. MUSCULOSKELETAL: Normal gait. EXTREMITIES: No neurovascular compromise. No cyanosis, clubbing or edema. MENTAL HEALTH: Alert and oriented. Speech is clear and coherent. Thought process and affect are appropriate. ASSESSMENT / PLAN #1 Vaginosis Bacterial Antibiotic as below. Diflucan ordered prophylactically as patient reports yeast infection post antibiotic treatment. Follow up if symptoms ongoing. - Vaginitis Panel; Future; Expected date: 04/03/2020 - Vaginitis Panel - metroNIDAZOLE (FLAGYL) 500 mg tablet; Take 1 tablet (500 mg total) by mouth 2 (two) times a day for 7 days., Starting Mon04/03/2020, Until Mon04/10/2020, Normal - fluconazole (DIFLUCAN) 150 mg tablet; Take 1 tablet (150 mg total) by mouth See Admin Instructions. Take one tab after completing the antibiotic. May repeat in 3-7 days., Starting Mon04/03/2020, Normal #2 Dysuria UA with trace blood, ketone an mild RBCs. Repeat recommended after resolution of above symptoms. - Bacterial Culture, Aerobic + Susc, Urine; Future; Expected date: 04/03/2020 - Urinalysis with Microscopic: Urine, Clean Catch; Future; Expected date: 04/03/2020 - Urinalysis with Microscopic: Urine, Clean Catch #3 Abuse Tobacco Smoking Comments: Started at the age of 18 or 19 years of age. Smokes about 1 pack daily. Tried the patch, and Chantixbut not effective. #4 Counseling Smoking Cessation Resources discussed. States that her wants her to quit. Tried Bupropion in the past, but stopped because she did not want to take medication daily. States she will follow up when ready. #5 Migraine Headache Discussed follow up for prophylactic medication discussion if having frequent migraines monthly. Comments: Has 1-2 episodes a week. #6 Abnormal Urinalysis - Urinalysis with Microscopic: Urine, Clean Catch; Future; Expected date: 05/03/2020 Ready to learn. Explained diagnosis and treatment plan; patient expressed understanding of the content. 30 minutes spent total appt time, greater than 50% of this time spent in counseling and education An staff interpreter was present for the entirety of the visit. Patient Instructions Bacterial vaginosis (BV) is a vaginal inflammation characterized by a shift in vaginal bacteria awayfrom Lactobacillus species toward more diverse bacterial species. Changes in vaginal condition including pH can result in overgrowth of Gardnerella, leading to symptoms of abnormal discharge and odor. We discussed some of the behavioral practices that increase the risk of BV including douching, overlyaggressive hygiene, use of various vaginal products (even if they claim to be natural or pH balanced), and vaginal intercourse. Recurrence of bacterial vaginosis is when there are at least 3 confirmed recurrent infections by laboratory testing in a 12 month period. Standard treatment for bacterial vaginosis includes a one-week course of oral metronidazole therapy, or alternatively oral clindamycin therapy. Metrogel as another option. With recurrent BV infection, twice weekly suppressive therapy with Metrogel can be considered, or in cases of suspected resistance, alternative regimens using a boric acid vaginal suppository for 1 month and/or the use of tinidazole can be considered. There is some evidence that use of estrogencontaining contraceptive methods may improve the vaginal environment, therefore decreasing risk of recurrence. Condom use and avoidance of douching have also been shown to potentially decrease recurrence, as would abstinence. There is some limited data that use of probiotics may also be of benefit. documented in this encounter Plan of Treatment Upcoming Encounters Date Type Specialty Care Team Description 08/01/2022 Appointment Neurology Mili Toscano M .D. [address] [place] [phone] (Wo rk) documented as of this encounter Procedures Procedure Name Priority Date/Time Associated Comments Diagnosis VAGINITIS PANEL Routine 04/03/2020 2:48 PM Vaginosis Bacterial Results for this CDT procedure are i n the results section. URINALYSIS WITH Routine 04/03/2020 2:48 PM Dysuria Result s for this MICROSCOPIC CDT procedure are i [...] 8.0 04/22/2020 4:27 PM CDT FB60 Specific [place] 1.015 1.001 - 1.035 04/22/2020 4:27 PM [...] 20 2:25 Clean Catch) CDT PM CDT Luigi White APRN.N.P., D.N.P. LAB URINE ORDERABLE S Performing Organization Address City/[facility]/ZIP [facility] Phon e Number [facility]- [facility] [address] [facility] [address] [place] [address] [address] (ABNORMAL) Bacterial Culture, Aerobic + Susc, Urine (04/22/2020 2:25 PM CDT) Analysis Performed At Patho logist Time Signature Urine Culture Mixed 2020 MK tiera. (A) 4:22 PM CDT Specimen Anatomical Collection Method Collection Time Receive d Time (Source) Location / / Volume Laterality Urine (Urine, 04/22/2020 2:25 PM 04/22/20 20 7:06 Midstream) CDT PM CDT Comment: Specimen Source Site: Urine Luigi White APRN.N.P., D.N.P. LAB MICROBIOLOGY - GENERAL ORDERABLES Performing Organization Address City/[facility] Phon e Number [facility]- [address] [place] [id number] [place] [address] System in [address] (ABNORMAL) Vaginitis Panel (04/03/2020 2:48 PM CDT) Patholo gist Method Time Signature Polly Negative Negative 04/03/2020 [place] species, DNA 4:21 PM CDT Gardnerella Positive (A) Negative 04/03/2020 [place] vaginalis, DNA 4:21 PM CDT Trichomonas Negative Negative 04/03/2020 [place] vaginalis, DNA 4:21 PM CDT Specimen Anatomical Collection Method Collection Time Receive d Time (Source) Location / / Volume Laterality Swab (Vagina) 04/03/2020 2:48 PM 04/03/20 20 2:54 CDT PM CDT Tina S Daniela WILDER C.N.P., Golden.NRohitP. LAB MICROBIOLOGY - GENERAL ORDERABLES Performing Organization Address City/State/ZIP Code Phon e Number [facility]- [address] [place] [address] [facility] [place] [facility] [place] [address] System in [place] [address] (ABNORMAL) Urinalysis with Microscopic: Urine, Clean Catch (04/03/2020 2:48 PM CDT) P athologist Signature Source Midstream 04/03/2020 OW[place] 3:01 PM CDT Clarity Clear Clear 04/03/2020 [place] 3:01 PM CDT Color Yellow 04/03/2020 [place] 3:01 PM CDT Comment: ----REFERENCE VALUE---- Colorless Yellow Kaylee Blood Trace (A) Negative 04/03/2020 3:01 PM CDT OW[facility] Nitrite Negative Negative 04/03/2020 3:01 PM CDT [facility] Leukocyte Esterase Negative Negative 04/03/2020 3:01 PM CD T OW[place] Protein Negative mg/dL 04/03/2020 3:01 PM CDT OW[facility] Comment: ----REFERENCE VALUE---- Negative Trace Glucose Negative Negative mg/dL 04/03/2020 3:01 PM CDT OW AT Ketone Trace (A) Negative mg/dL 04/03/2020 3:01 PM CDT OW AT Bilirubin Negative Negative 04/03/2020 3:01 PM CDT [facility] pH 5.5 5.0 - 8.0 04/03/2020 3:01 PM CDT [place] Specific [place] >1.035 1.001 - 1.035 04/03/2020 3:01 PM CDT OW[place] Urobilinogen 1.0 0.2 - 1.0 04/03/2020 3:01 PM CDT OW[place] White Blood Cells Occ-3 /hpf 04/03/2020 3:01 PM CDT OW[facility] Comment: ----REFERENCE VALUE---- Males: 0-3 Females: 0-10 Unknown: 0-10 Red Blood Cells 3-10 (A) 0 - 2 /hpf 04/03/2020 3:01 PM CDT OW[facility] Dysmorphic Red Blood Cells <=25 <=25 % 04/03/2020 3: 01 PM CDT [facility] Hyaline Casts 1-3 /lpf 04/03/2020 3:01 PM CDT [place] T Squamous Cells Occ-3 /hpf 04/03/2020 3:01 PM CDT OW AT Specimen Anatomical Collection Method Collection Time Receive d Time (Source) Location / / Volume Laterality Urine (Urine, 04/03/2020 2:48 PM 04/03/20 20 2:54 Clean Catch) CDT PM CDT Luigi White APRN.N.P., D.N.P. LAB URINE ORDERABLE S Performing Organization Address City/State/ZIP Code Phon e Number [facility]- [address] [place] [address] [place] [address] System in [place] [address] [facility] documented in this encounter Visit Diagnoses Diagnosis Vaginosis Bacterial - Primary Dysuria Abuse Tobacco Smoking Counseling Smoking Cessation Migraine Headache Abnormal Urinalysis documented in this encounter Additional Health Concerns Assessment Noted Time PHQ-9 Depression Total Score: 19 07/06/2018 10:33 AM C DT documented as of this encounter Care Teams Deputy United [place] Marshal Relationship Specialty Start Date End Date Winter Singleton M.D. PCP - General Family Medicine 01/04/18 12/02/[address] [place] [address] documented as of this encounter
--- OUTSIDE RECORDS SUMMARY | 2022-05-31 21:53 | XMS_ITS | Encounter Summary ---
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 Volume Laterality Urine (Urine, 07/10/2020 1:09 PM 07/10/20 20 1:15 Clean Catch) CDT PM CDT Beatriz Chatman LAB URINE ORDERABLES Performing Organization Address City/[facility]/ZIP Code Phon e Number [place] [address] [place] [address] [facility] [place] [address] System in [address] documented in this encounter Visit Diagnoses Diagnosis Frequency Urinary - Primary Pain Low Back Unspecified documented in this encounter Additional Health Concerns Assessment Noted Time PHQ-9 Depression Total Score: 8 05/08/2020 7:30 AM CDT documented as of this encounter Care Teams Brush Washer Relationship Specialty Start Date End Date Winter Singleton M.D. PCP - General Family Medicine 01/04/18 12/02/[address] [address] documented as of this encounter
--- OUTSIDE RECORDS SUMMARY | 2022-05-31 21:54 | XMS_ITS | Encounter Summary ---
:1980 Author Organization [facility] Address [address] [place] [address] Care Team Providers Name Role Phone Winter Singleton M.D. Primary Care Provider Encounter Details Date Type Department Care Team Description 10/22/2018 Clinical Communication Department of Meme Gaxiola, Medicine, [facility], [facility], [address] [place], [place] [address] [address] [place], [place] [phone] [address] (Work) [phone] Social History Tobacco Use Types Packs/Day Years Used Date Smoking Tobacco: Every Day Cigarettes 1 Smokeless Tobacco: Never Alcohol Use Standard Drinks/Week [...] or relatives? How often do you attend anabaptist or 1 to 4 times per year 04/22 yazidi services? Do you belong to any clubs or No 05/02/2022 organizations such as anabaptist groups, unions, fraternal or athletic groups, or [...] or slept in a fci (including now)? Sex Assigned at Date Recorded Female 02/05/2018 10:11 AM CDT documented as of this encounter Miscellaneous Notes Telephone Encounter - Arielle Lackey L.PRohitN. - 10/22/2018 3:55 PM CST Attempted to reach patient to notify her of her results from [facility] appt. Left her a message that there are 2 scripts that were sent to her pharmacy [facility] [employer] [employer] documented in this encounter Plan of Treatment Upcoming Encounters Date Type Specialty Care Team Description 08/01/2022 Appointment Neurology Mili Toscano M .D. [address] [place], [place] [phone] (Wo rk) documented as of this encounter Visit Diagnoses Not on filedocumented in this encounter Additional Health Concerns Assessment Noted Time PHQ-9 Depression Total Score: 19 07/06/2018 10:33 AM C DT documented as of this encounter Care Teams Proposal Consultant Relationship Specialty Start Date End Date Winter Singleton M.D. PCP - General Family Medicine 01/04/18 12/02/[address] [place] [address] documented as of this encounter
--- OUTSIDE RECORDS SUMMARY | 2022-05-31 21:54 | XMS_ITS | Encounter Summary ---
:1980 Author Organization [facility] Address [address] [place] [address] Care Team Providers Name Role Phone Winter Singleton M.D. Primary Care Provider Reason for Visit Reason Comments Migraine patient states her migraine headaches are becoming more frequent Appointment Request (Routine) - Closed Specialty Diagnoses / Procedures Referred By Contact Refer red To Contact Family Medicine Referral ID Status Reason Start Date Expiration Date Visits Requ ested Visits Authorized [id number] Closed 05/20/2019 05/19/2020 1 1 Encounter Details Date Type Department Care Team Description 06/07/2019 Office Visit Department of Family Rusty matos Headache Medicine, Winter Elizabeth, (Primary Dx) Clinic, in [place] [address] [facility] [place] [address] [phone] Social History Tobacco Use Types Packs/Day Years [...] 1 to 4 times per year 04/22 alevism services? Do you belong to any clubs or No 05/02/2022 organizations such as caodaism groups, unions, [facility] or athletic groups, or school groups? How [...] Sign Reading Time Taken Comments Blood Pressure 100/58 06/07/2019 12:04 PM CDT Pulse 68 06/07/2019 12:04 PM CDT Temperature 37.1 ??C (98.8 ??F) 06/07/2019 12:04 PM CDT Respiratory Rate 18 06/07/2019 12:04 PM CDT Oxygen Saturation - - Inhaled Oxygen Concentration - - Weight 54.4 kg (119 lb 14.9 oz) 06/07/2019 12:04 PM CDT Height 164 cm (5' 4.57) 06/07/2019 12:04 PM CDT Body Mass Index 20.23 06/07/2019 12:04 PM CDT documented in this encounter Progress Notes Winter Singleton M.D. - 06/07/2019 11:30 AM CDT SUBJECTIVE Chief Complaint Patient presents with ??? Migraine patient states her migraine headaches are becoming more frequent HISTORY OF PRESENT ILLNESS Katherine Tiwari is a 39 y.o. female who presents to the clinic today for discussion about her migraine headaches. She has had migraine headaches for the past several years. She is currently getting headache about every couple of days, twice per week. She does not know of any particular trigger. In the past, they may have been triggered by menstrual cycles but it does not seem to be recently. She hasbeen on various prevent her medications in the past including Toprol XL which made her feel terrible. She has been on several different antidepressants which have not been particularly helpful. She is currently not on a prophylactic agent. She uses Triptan medications to abort headaches. They are usually helpful. Occasionally she needs to go to the emergency room. She will usually have benefit from amigraine cocktail of diphenhydramine, Ketoralac, metoclopramide. She has occasionally been given Haldol and or Valium. She usually gets good relief at the emergency room. The patient denies any additional questions or concerns at this time. REVIEW OF SYSTEMS Please see HPI for pertinent positives, otherwise rest of ROS negative. CURRENT MEDICATIONS Current Outpatient Medications Medication Sig Dispense Refill ??? albuterol (PROVENTIL HFA,VENTOLIN HFA) 90 mcg/actuation inhaler Inhale 2 puffs. ??? cyclobenzaprine (FLEXERIL) 10 mg tablet TAKE ONE TABLET BY MOUTH THREE TIMES A DAY NEEDED FORMUSCLE SPASMS 90 tablet 0 ??? rizatriptan (MAXALT) 10 mg tablet Take 1 tablet (10 mg total) by mouth every 2 (two) hours as needed for migraine. May repeat in 2 hours if unresolved. Do not exceed 30 mg in 24 hours. 9 tablet 11 ??? traZODone (DESYREL) 50 mg tablet 50 mg take 1/2 to 1 tab at bedtime as needed for sleep ??? buPROPion XL (WELLBUTRIN XL) 300 mg 24 hr tablet Take 1 tablet (300 mg total) by mouth every morning. 90 tablet 3 ??? propranolol (INDERAL) 20 mg tablet Take 1 tablet (20 mg total) by mouth 2 (two) times a day. 60 tablet 1 No current facility-administered medications for this visit. ALLERGIES / CONTRAINDICATIONS Allergies Allergen Reactions ??? Blood-Group Specific Substance [...] SC imitrex made her headache much worse MEDICAL HISTORY Past Medical History: Diagnosis Date ??? Abnormal Pap Smear Personal History ??? Abuse Tobacco Smoking ??? Anxiety Generalized Disorder ??? Dysmenorrhea history of ??? Insomnia ??? Loss Hearing Sensorineural Bilateral ??? Meningitis (HCC) ??? Menorrhagia history of ??? Migraine Headache ??? Nephritis 1988 SURGICAL HISTORY Past Surgical History: Procedure Laterality Date ??? AUGMENTATION MAMMOPLASTY Bilateral 2007 ??? BILATERAL TUBAL LIGATION 01/15/2014 ??? EXCISION OF LESION OF OVARY N/A x 4 in 04/1999, 04/2004, 04/2005 and 04/2010 ??? LEEP PROCEDURE - LOOP ELECTRO EXCISION PROCEDURE 07/2012 ??? TONSILLECTOMY AND ADENOIDECTOMY N/A 1992 ??? TOTAL ABDOMINAL HYSTERECTOMY W/ BILATERAL SALPINGOOPHORECTOMY 02/2015 ??? VAGINAL DELIVERY N/A x 4 in 03/2009, 12/2002, 11/2011 and 08/2013 PREVENTIVE SERVICES: SOCIAL HISTORY Social History Tobacco Use ??? Smoking status: Current Every Day Smoker Packs/day: 1.00 Types: Cigarettes ??? Smokeless tobacco: Never Used Substance Use Topics ??? Alcohol use: Yes Alcohol/week: 6.0 standard drinks Types: 1 Glasses of wine, 5 Shots of liquor per week Frequency: Monthly or less Drinks per session: 1 or 2 ??? Drug use: No OBJECTIVE VITAL SIGNS BP 100/58 Pulse 68 Temp 37.1 ??C (Temporal) Resp 18 Ht 164 cm Wt 54.4 kg BMI 20.23 kg/m?? PHYSICAL EXAMINATION General: Patient is alert and oriented times three, in no acute distress, good hygiene and is dressed appropriately. HEENT: She is wearing hearing aids. ASSESSMENT / PLAN #1 Migraine Headache Other orders - propranolol (INDERAL) 20 mg tablet; Take 1 tablet (20 mg total) by mouth 2 (two) times a day., Starting Mon06/07/2019, Until 07/07/2019, Normal It is worthwhile trying a different beta-gabriela. We to use low-dose propranolol. She will take 20 mg twice daily for the next month and let me know how this is working for her. Continue with the rizatriptan to abort migraine. We also discussed the importance of regular sleep, good hydration, not skipping meals. Follow up PLAN: The patient will contact the clinic with any new or worsening symptoms. documented in this encounter Plan of Treatment Upcoming Encounters Date Type Specialty Care Team Description 08/01/2022 Appointment Neurology Mili Toscano M .D. [address] [place], [place] [phone] (Wo rk) documented as of this encounter Visit Diagnoses Diagnosis Migraine Headache - Primary documented in this encounter Additional Health Concerns Assessment Noted Time PHQ-9 Depression Total Score: 19 07/06/2018 10:33 AM C DT documented as of this encounter Care Teams Keno Attendant Relationship Specialty Start Date End Date Winter Singleton M.D. PCP - General Family Medicine 01/04/18 12/02/[address] [address] documented as of this encounter
--- OUTSIDE RECORDS SUMMARY | 2022-05-31 21:54 | XMS_ITS | Encounter Summary ---
:1980 Author Organization [facility] Address [address] [place] [address] Care Team Providers Name Role Phone Winter Singleton M.D. Primary Care Provider Encounter Details Date Type Department Care Team Description 02/06/2020 Clinical Communication Department of Kashmir Hayden, [facility], [facility], [address] [facility] [address] [place], [place] [phone] [address] (Work) [phone] Social History Tobacco Use Types Packs/Day Years [...] 1 to 4 times per year 04/22 islam services? Do you belong to any clubs [...] to sleep or slept in a senior living (including now)? Education Answer Date Recorded What [...] Neurology Mili Toscano M .D. [address] [place], [place] [phone] (Wo rk) documented as of this encounter Visit Diagnoses Not on filedocumented in this encounter Additional Health Concerns Assessment Noted Time PHQ-9 Depression Total Score: 19 07/06/2018 10:33 AM C DT documented as of this encounter Care Teams Backer Up Relationship Specialty Start Date End Date Winter Singleton M.D. PCP - General Family Medicine 01/04/18 12/02/20 [address], [place] [phone] documented as of this encounter
--- OUTSIDE RECORDS SUMMARY | 2022-05-31 21:54 | XMS_ITS | Encounter Summary ---
:1980 Author Organization [facility] Address [address] [place] [address] Care Team Providers Name Role Phone Winter Singleton M.D. Primary Care Provider [phone] Reason for Visit Reason Comments Ovarian Cyst Appointment Request (Routine) - Closed Specialty Diagnoses / Procedures Referred By Contact Refer red To Contact Obstetrics and Gynecology Referral ID Status Reason Start Date Expiration Date Visits Requ ested Visits Authorized [id number] Closed 07/09/2019 07/08/2020 1 1 Encounter Details Date Type Department Care Team Description 07/11/2019 Office Visit Department of Kaveh Bedolla Follicular C yst Of Obstetrics and M.D. Right Ovary ( Primary Gynecology in [place]) [address] [phone] Social History Tobacco Use Types Packs/Day Years [...] 1 to 4 times per year 04/22 latter day services? Do you belong to any clubs [...] Sign Reading Time Taken Comments Blood Pressure 106/76 07/11/2019 1:11 PM CDT Pulse 86 07/11/2019 1:11 PM CDT Temperature - - Respiratory Rate 16 07/11/2019 1:11 PM CDT Oxygen Saturation - - Inhaled Oxygen Concentration - - Weight 53.3 kg (117 lb 8.1 oz) 07/11/2019 1:11 PM CDT Height 167.6 cm (5' 5.98) 07/11/2019 1:11 PM CDT Body Mass Index 18.98 07/11/2019 1:11 PM CDT documented in this encounter Consult Notes Kvaeh Bedolla M.D. - 07/11/2019 1:45 PM CDT PROFESSIONAL EMPLOYER CONSULTANT CONSULT NOTE CHIEF COMPLAINT / REASON FOR VISIT Patient presents for Gynecology consultation at the request of her primary provider, Dr. Winter Ledesma, for ovarian cyst and pelvic pain. HISTORY OF PRESENT ILLNESS Katherine Tiwari is a 39 y.o. with No LMP recorded. Patient has had a hysterectomy. who presents for Gynecology consultation for ovarian cyst and pelvic pain. The patient has a history of laparoscopic hysterectomy and bilateral salpingectomy, migraine headaches, anxiety, insomnia, hearing loss, tobacco abuse, and chronic low back pain. The patient was seen in the emergency room on 07/08/2019 with right lower quadrant pain and found to have an ovarian cyst. Her symptoms improved with pain medication and she was discharged home. She had a several day history of worsening right lower quadrant pain with mild nausea but no vomiting. Her pain has now improved with Tramadol but she has ran out ofthe Tramadol prescription and she is requesting a refill. Her pain is now 2/10 but she reports increased pain at night. No nausea or vomiting. No difficulty urinating, dysuria, hematuria, or flank pain. No sharp pain. No change in bowel habits, constipation, or diarrhea. No vaginal itching, irritation, or discharge. SUBJECTIVE Allergies Allergen Reactions ??? Blood-Group Specific Substance [...] SC imitrex made her headache much worse Current Outpatient Medications: ??? albuterol (PROVENTIL HFA,VENTOLIN HFA) 90 mcg/actuation inhaler, Inhale 2 puffs., Disp: , Rfl: ??? buPROPion XL (WELLBUTRIN XL) 300 mg 24 hr tablet, Take 1 tablet (300 mg total) by mouth every morning., Disp: 90 tablet, Rfl: 3 ??? cyclobenzaprine (FLEXERIL) 10 mg tablet, TAKE ONE TABLET BY MOUTH THREE TIMES A DAY NEEDED FOR MUSCLE SPASMS, Disp: 90 tablet, Rfl: 0 ??? propranolol (INDERAL) 20 mg tablet, Take 1 tablet (20 mg total) by mouth 2 (two) times a day., Disp: 60 tablet, Rfl: 1 ??? rizatriptan (MAXALT) 10 mg tablet, Take 1 tablet (10 mg total) by mouth every 2 (two) hours as needed for migraine. May repeat in 2 hours if unresolved. Do not exceed 30 mg in 24 hours., Disp: 9 tablet, Rfl: 11 ??? traMADol (ULTRAM) 50 mg tablet, Take 1 tablet (50 mg total) by mouth every 6 (six) hours as needed for pain Indications: Acute Pain., Disp: 12 tablet, Rfl: 0 ??? traZODone (DESYREL) 50 mg tablet, 50 mg take 1/2 to 1 tab at bedtime as needed for sleep, Disp: , Rfl: REVIEW OF SYSTEMS As per HPI otherwise negative. Past Medical History: Diagnosis Date ??? Abnormal Pap Smear Personal History ??? Abuse Tobacco Smoking ??? Anxiety Generalized Disorder ??? Dysmenorrhea history of ??? Insomnia ??? Loss Hearing Sensorineural Bilateral ??? Meningitis (HCC) ??? Menorrhagia history of ??? Migraine Headache ??? Nephritis 1988 Past Surgical History: Procedure Laterality Date ??? AUGMENTATION MAMMOPLASTY Bilateral 2007 ??? BILATERAL TUBAL LIGATION Bilateral 01/15/2014 ??? DIAGNOSTIC LAPAROSCOPY 2009 ??? DIAGNOSTIC LAPAROSCOPY 2004 ??? DIAGNOSTIC LAPAROSCOPY 2003 ??? DIAGNOSTIC LAPAROSCOPY 1998 ??? LAPAROSCOPIC HYSTERECTOMY 02/26/2015 ??? LAPAROSCOPIC SALPINGECTOMY Bilateral 02/26/2015 ??? LEEP PROCEDURE - LOOP ELECTRO EXCISION PROCEDURE 07/23/2012 ??? TONSILLECTOMY AND ADENOIDECTOMY 1992 OB History Para Term AB Living 7 4 4 3 4 SAB TAB Ectopic Molar Multiple Live Births 2 1 4 # Outcome Date GA Lbr Beau/2nd Weight Sex Delivery Anes PTL Lv 7 Term 09/04/13 39w0d 2.92 kg F Vag-Spont DAHLIA 6 Term 11/25/11 38w3d 3.6 kg M Vag-Spont DAHLIA 5 SAB 02/03/11 6w0d SAB SA 4 Term 04/14/09 37w0d 3.09 kg M Vag-Spont DAHLIA 3 SAB 03/20/08 7w0d SAB SA 2 Term 12/30/02 39w0d F Vag-Spont DAHLIA 1 TAB 07/23/99 12w0d TAB TA Social History Socioeconomic History ??? Marital status: Spouse name: Not on file ??? Number of children: 4 ??? Years of education: Not on file ??? Highest education level: Associate degree: occupational, technical, or vocational program Occupational History ??? Not on file Social Needs ??? Financial resource strain: Not hard at all ??? Food insecurity: Worry: Not on file Inability: Not on file ??? Transportation needs: Medical: No Non-medical: No Tobacco Use ??? Smoking status: Current Every Day Smoker Packs/day: 1.00 Types: Cigarettes ??? Smokeless tobacco: Never Used Substance and Sexual Activity ??? Alcohol use: Yes Alcohol/week: 6.0 standard drinks Types: 1 Glasses of wine, 5 Shots of liquor per week Frequency: Monthly or less Drinks per session: 1 or 2 ??? Drug use: No ??? Sexual activity: Yes control/protection: Surgical Lifestyle ??? Physical activity: Days per week: 7 days Minutes per session: 20 min ??? Stress: Not on file Relationships ??? Social connections: Talks on phone: Not on file Gets together: Once a week Attends latter day service: Never Active member of club or organization: No Attends meetings of clubs or organizations: Never Relationship status: Not on file ??? Intimate partner violence: Fear of current or ex partner: Not on file Emotionally abused: No Physically abused: No Forced sexual activity: No Other Topics Concern ??? Not on file Social History Narrative ??? Not on file No family history on file. OBJECTIVE BP 106/76 (BP Location: Right arm, Patient Position: Sitting, Cuff Size: Regular) Pulse 86 Resp 16 Ht 167.6 cm Wt 53.3 kg BMI 18.98 kg/m?? General: Well-developed, well-nourished female in no apparent distress. Neurological: Alert and oriented x3. Lungs: Clear to auscultation bilaterally with good inspiratory effort. No wheezing rhonchi or rales noted. Breathing nonlabored. Heart: Regular rate and rhythm without murmur. No JVD. No peripheral vascular disease. Abdomen: Soft, nontender, nondistended, positive bowel sounds. No organomegaly. No rebound, no guarding. Well-healed surgical incisions. Pelvic exam: Normal external female genitalia without lesions or abnormalities. Normal pubic hair distribution. Urethral meatus normal in appearance and without masses. Normal Bartholin, Urethral and [place]'s glands. Vaginal mucosa is pink and moist with a small amount of physiologic discharge. No vaginal lesions. Well healed vaginal cuff. Cervix and uterus are absent. The bladder and urethra are nontender to palpation. Mild tenderness to palpation right adnexa, no left adnexa tenderness. No adnexal masses bilaterally. Rectal exam: Declined. Extremities: No clubbing cyanosis or edema. Nontender bilaterally. Spine: No costovertebral angle tenderness bilaterally. Boat Carpenter: Grace Alcala PATIENT SERVICE SPECIALIST DIAGNOSTICS 07/08/2019 WBC 4.9, hemoglobin 12.5, hematocrit 37.7, platelets 149, ALT 16, AST 23, lipase 9.3, test negative 07/08/2019 CT abdomen pelvis: 1. Collapsing cyst or follicle in the right ovary measuring up to 1.6 cm. 2. No evidence for appendicitis. 3. Surgically absent uterus. 4. 4 mm stable nonobstructing lower pole left renal stone. 07/08/2019 Pelvic ultrasound: The uterus is surgically absent. The right ovary measures 4.3 x 2.9 x 2.2 cm and the left ovary measures 2.7 x 2.4 x 1.7 cm. Both ovaries contain small follicles. The largest follicle on the left measures 1.7 x 1.7 x 1.2 cm. The largest simple cyst on the right measures up to 2 cm. Within the right ovary there is a well-circumscribed mixed echogenic lesion, partly hypoechoic and partly containing some echogenic debris. The appearance is most compatible with a hemorrhagic or proteinaceous cyst/small endometrioma. This measures 2.4 x 1.5 x 1.4 cm and was identified on today`s CT. Blood flow is documented in the ovaries both arterial and venous. No torsion. IMPRESSION: 1. Hemorrhagic cyst or endometrioma right ovary measuring up to 2.4 cm. 2. Small follicles are identified within both ovaries. Dominant follicular cyst within each ovary. 3. No torsion. 4. Minimal free fluid in the cul-de-sac/right adnexa. ASSESSMENT / PLAN Katherine Tiawri is a 39 y.o. female who presents in consultation for ovarian cyst and pelvic pain. 1 Right ovarian hemorrhagic cyst 2 Pelvic pain - I reviewed the patient's symptoms and physical findings. She has a benign abdomen exam. On pelvic exam she has tenderness to the right adnexa. Her cervix and uterus are absent. Her ultrasound shows a2.4 x 1.5 cm hemorrhagic right ovarian cyst. Her labs are normal. - I discussed hemorrhagic cyst with the patient. - I discussed management options with the patient. I recommend conservative observation and allowingher ovary time to heal. I recommend a repeat pelvic ultrasound in 8 weeks. I discussed the option ofdiagnostic laparoscopy but do not recommend this at this time has her symptoms have improved and shehas a benign abdominal exam. - The patient requests a refill of her Tramadol prescription. I gave the patient a prescription for Tramadol 12 pills with no refills. I discussed use of Tramadol with the patient. I expect that she will only need this for the next few days. - Pain precautions are reviewed the patient. - Emergency room precautions reviewed the patient. - I recommend the patient return to clinic for evaluation if her symptoms do not improve or if they worsen. - All of the patient's questions were answered. - The patient agrees with this course of action. - Problem list reviewed and updated. - Follow up in 8 weeks. - 30 minute visit with greater than 50% spent in counseling. Kaveh Bedolla MD Fire Truck Driver - Obstetrics and Gynecology [facility] documented in this encounter Plan of Treatment Upcoming Encounters Date Type Specialty Care Team Description 08/01/2022 Appointment Neurology Mili Toscano M .D. [address] [place], [place] [phone] (Wo rk) documented as of this encounter Visit Diagnoses Diagnosis Follicular Cyst Of Right Ovary - Primary documented in this encounter Additional Health Concerns Assessment Noted Time PHQ-9 Depression Total Score: 19 07/06/2018 10:33 AM C DT documented as of this encounter Care Teams Claim Attorney Relationship Specialty Start Date End Date Winter Singleton M.D. PCP - General Family Medicine 01/04/18 12/02/20 [address] [address] documented as of this encounter
--- OUTSIDE RECORDS SUMMARY | 2022-05-31 21:54 | XMS_ITS | Encounter Summary ---
:1980 Author Organization [facility] Address [address] [place] [address] Care Team Providers Name Role Phone Winter Singleton M.D. Primary Care Provider Encounter Details Date Type Department Care Team Description 10/17/2018 Orders Only Department of [facility] Kushal , [facility]ter [address] [phone] (Wo rk) Social History Tobacco Use Types [...] 1 to 4 times per year 04/22 baptist services? Do you belong to any clubs [...] Neurology Mili Toscano M .D. [address] [place], [place] [phone] (Wo rk) documented as of this encounter Visit Diagnoses Not on filedocumented in this encounter Additional Health Concerns Assessment Noted Time PHQ-9 Depression Total Score: 19 07/06/2018 10:33 AM C DT documented as of this encounter Care Teams Pick Out Hand Relationship Specialty Start Date End Date Winetr Singleton M.D. PCP - General Family Medicine 01/04/18 12/02/20 [address] [place] [phone] documented as of this encounter
--- OUTSIDE RECORDS SUMMARY | 2022-05-31 21:54 | XMS_ITS | Encounter Summary ---
:1980 Author Organization [facility] Address [address] [place] [address] Care Team Providers Name Role Phone Winter Singleton M.D. Primary Care Provider [phone] Reason for Referral Outpatient (Routine) - Closed Specialty Diagnoses / Procedures Referred By Contact Refer red To Contact Otorhinolaryngology Xochitl Veliz [facility] [place] [address] Referral ID Status Reason Start Date Expiration Date Visits Requ ested Visits Authorized [id number] Closed 04/01/2020 04/01/2021 1 1 Scheduling Instructions Appt with valerie Prescott Reason: CI consult Encounter Details Date Type Department Care Team Description 04/01/2020 Diagnostic Department of Summer Veliz [facility] Otorhinolaryngology in Natalie Collins [place], [place] AuLucrecia Bilateral (Primary [address] [facility]) [place] [address] [place] [address] [phone] Social History Tobacco Use Types Packs/Day [...] or the highest technical, or vocational p rogram degree you have received? Sex Assigned at Date Recorded Female 02/05/2018 10:11 AM CDT documented as of this encounter Progress Notes Xochitl Veliz Au.D. - 04/01/2020 11:30 AM CDT CHIEF COMPLAINT / REASON FOR VISIT Hearing Loss HISTORY OF PRESENT COMPLAINT Katherine Tiwari is a 39 y.o. female who was seen today for a hearing aid check. Katherine reports thatedouard obtained her hearing aids at an [facility] in [place] years ago. She reports that her right hearing aid is no longer functional. She pointed out that the earhook was loose and that the hearing aid had dropped to the floor, and she wonders if this is what caused the issue. Additionally she would like new earmolds, as her current earmolds are several years old. Make and Model: Oticon Sumo [id number] (BTE) hearing instrument Battery Size: 675 Repair Warranty Expiration Date: Loss and Damage Warranty Expiration Date: ASSESSMENT/PLAN The hearing aid was cleaned and dehumidified. A listening check showed internal distortion and no microphone pick-up. As the hearing aid is obsolete, and beyond repair, I returned it to her. I advised her to seek a referral for a hearing test, as she notes it's been several years since her last hearing test and she is concerned her hearing loss may have progressed. We talked about cochlear implants, as she is interested in learning more, but fearful that a cochlear implant would trigger her migraines. Impressions were taken for earmolds without incident. Otoscopy was performed before and after the procedure and was unremarkable. Katherine chose teal colored full shell earmolds in otoblast material from[employer]. CARE PLAN 1. Return for hearing test, earmold fitting, and fitting of loaner hearing instruments while we determine candidacy for a cochlear implant. The clinic will contact Katherine once we've received the order for the hearing test, and the earmolds from the infrastructure solutions architect. She is aware of the charges. 2. Contact the clinic with questions or concerns. documented in this encounter Plan of Treatment Upcoming Encounters Date Type Specialty Care Team Description 08/01/2022 Appointment Neurology Mili Toscano M .D. [address] [place], [place] [phone] (Wo rk) Scheduled Referrals Name Type Priority Associated Order Schedule Diagnoses Otorhinolaryngology office Outpatient Routine E xpected: visit (clinic) Referral 04/01/2020 (Approximate), Expires: 04/01/2023 documented as of this encounter Visit Diagnoses Diagnosis Loss Hearing Sensorineural Bilateral - P rimary documented in this encounter Additional Health Concerns Assessment Noted Time PHQ-9 Depression Total Score: 19 07/06/2018 10:33 AM C DT documented as of this encounter Care Teams Corn Lab Technician Relationship Specialty Start Date End Date Fruehbrodt-Glenzinski, Winter, M.D. PCP - General Family Medicine 01/04/18 12/02/[address] [address] documented as of this encounter
--- OUTSIDE RECORDS SUMMARY | 2022-05-31 21:54 | XMS_ITS | Encounter Summary ---
:1980 Author Organization [facility] Address [address] [place] [address] Care Team Providers Name Role Phone Winter Singleton M.D. Primary Care Provider [phone] Reason for Visit Reason Comments Med Refill Encounter Details Date Type Department Care Team Description 11/12/2018 Refill Department of Family Medicine, Heber Brody Refasa [facility], in Winter Wu M.D. [place] [address] [place] [phone] [place] [address] [phone] Social History Tobacco Use Types Packs/Day Years [...] or slept in a alf (including now)? Sex Assigned at Date Recorded Female 02/05/2018 10:11 AM CDT documented as of this encounter Plan of Treatment Upcoming Encounters Date Type Specialty Care Team Description 08/01/2022 Appointment Neurology Mili Toscano M .D. [address] [place], [place] [phone] (Wo rk) documented as of this encounter Visit Diagnoses Not on filedocumented in this encounter Additional Health Concerns Assessment Noted Time PHQ-9 Depression Total Score: 19 07/06/2018 10:33 AM C DT documented as of this encounter Care Teams Ball Mill Operator Relationship Specialty Start Date End Date Winter Singleton M.D. PCP - General Family Medicine 01/04/18 12/02/20 [address] [place] [address] documented as of this encounter
--- OUTSIDE RECORDS SUMMARY | 2022-05-31 21:54 | XMS_ITS | Encounter Summary ---
:1980 Author Organization [facility] Address [address] [place] [address] Care Team Providers Name Role Phone Winter Singleton M.D. Primary Care Provider [phone] Reason for Visit Reason Comments Med Refill Encounter Details Date Type Department Care Team Description 04/24/2019 Refill Department of Family Medicine, Heber Brody Refasa [facility], in Winter Wu M.D. [place] [address] [place] [address] [place] [address] [phone] Social History Tobacco Use Types Packs/Day Years [...] or relatives? How often do you attend temple or 1 to 4 times per year 04/22 sabianist services? Do you belong to any clubs or No 05/02/2022 organizations such as temple groups, unions, fraternal or athletic groups, or [...] place to sleep or slept in a half-way (including now)? Sex Assigned at Date Recorded Female 02/05/2018 10:11 AM CDT documented as of this encounter Plan of Treatment Upcoming Encounters Date Type Specialty Care Team Description 08/01/2022 Appointment Neurology Mili Toscano M .D. [address] [place], [place] [phone] (Wo rk) documented as of this encounter Visit Diagnoses Not on filedocumented in this encounter Additional Health Concerns Assessment Noted Time PHQ-9 Depression Total Score: 19 07/06/2018 10:33 AM C DT documented as of this encounter Care Teams Collection Correspondent Relationship Specialty Start Date End Date Winter Singleton M.D. PCP - General Family Medicine 01/04/18 12/02/[address] [place] [address] documented as of this encounter
--- OUTSIDE RECORDS SUMMARY | 2022-05-31 21:54 | XMS_ITS | Encounter Summary ---
:1980 Author Organization [facility] Address [address] [place] [address] Care Team Providers Name Role Phone Winter Singleton M.D. Primary Care Provider Reason for Visit Reason Comments Sore Throat sore throat with all over ge neral achyness x 3 weeks Appointment Request (Routine) - Closed Specialty Diagnoses / Procedures Referred By Contact Refer red To Contact Family Medicine Referral ID Status Reason Start Date Expiration Date Visits Requ ested Visits Authorized [id number] Closed 08/26/2019 08/25/2020 1 Encounter Details Date Type Department Care Team Description 08/28/2019 Office Visit Department of Family Miladis pacheco Streptococcus Medicine, Winter Sparks, (Primar y Dx) Clinic, in Fabio Wu [place] [id number] [place] [phone] Social History Tobacco Use Types Packs/Day Years [...] or relatives? How often do you attend tenriism or 1 to 4 times per year 04/22 advent services? Do you belong to any clubs or No 05/02/2022 organizations such as tenriism groups, unions, fraIncellDx or athletic groups, or school groups? How [...] Sign Reading Time Taken Comments Blood Pressure 120/70 08/28/2019 2:42 PM PLUMBER APPRENTICE Pulse 96 08/28/2019 2:42 PM PLUMBER APPRENTICE Temperature 36.4 ??C (97.5 ??F) 08/28/2019 2:42 PM PLUMBER APPRENTICE Respiratory Rate 20 08/28/2019 2:42 PM PLUMBER APPRENTICE Oxygen Saturation 99% 08/28/2019 2:42 PM room air PLUMBER APPRENTICE Inhaled Oxygen Concentration - - Weight 53.9 kg (118 lb 15 oz) 08/28/2019 2:42 PM PLUMBER APPRENTICE Height 164 cm (5' 4.57) 08/28/2019 2:42 PM without milton es PLUMBER APPRENTICE Body Mass Index 20.06 08/28/2019 2:42 PM PLUMBER APPRENTICE documented in this encounter Progress Notes Winter Singleton M.D. - 08/28/2019 2:30 PM CST SUBJECTIVE CHIEF COMPLAINT / REASON FOR VISIT Katherine Tiwari is a 39 y.o. female who presents for evaluation of Sore Throat (sore throat with all over general achyness x 3 weeks). HISTORY OF PRESENT ILLNESS Patient presents with above symptoms. Her daughter was diagnosed with strep throat earlier this week. She feels feverish and achy with sore throat. OBJECTIVE BP 120/70 Pulse 96 Temp 36.4 ??C (Temporal) Resp 20 Ht 164 cm Comment: without shoes Wt 53.9 kg SpO2 99% Comment: room air BMI 20.06 kg/m?? PHYSICAL EXAM GENERAL: Patient is alert and oriented, well groomed and appropriately dressed. HEENT: TMS are both normal. Nasal mucosa is normal without congestion or discharge. Posterior Oropharynx is slightly erythematous without exudate. NECK: Without adenopathy. HEART: Regular rate and rhythm without murmur. LUNGS: Clear without wheeze crackle or rhonchus. EXTREMITIES: Normal without edema. SKIN: No rashes or unusual lesions on exposed skin. ASSESSMENT / PLAN #1 Exposure Streptococcus She is symptomatic. We elect not to test but to simply treat with azithromycin. Other symptomatic measures. Follow up with no improvement or with worsening symptoms. BER APPRENTICE documented in this encounter Plan of Treatment Upcoming Encounters Date Type Specialty Care Team Description 08/01/2022 Appointment Neurology Mili Toscano M .D. [address] [place], [place] [phone] (Wo rk) documented as of this encounter Visit Diagnoses Diagnosis Exposure Streptococcus - Primary documented in this encounter Additional Health Concerns Assessment Noted Time PHQ-9 Depression Total Score: 19 07/06/2018 10:33 AM C DT documented as of this encounter Care Teams Waste Cotton Cleaner Relationship Specialty Start Date End Date Winter Singleton M.D. PCP - General Family Medicine 01/04/18 12/02/20 [address], [place] [address] documented as of this encounter
--- OUTSIDE RECORDS SUMMARY | 2022-05-31 21:54 | XMS_ITS | Encounter Summary ---
:1980 Author Organization [facility] Address [address] [place] [address] Care Team Providers Name Role Phone Winter Singleton M.D. Primary Care Provider [phone] Encounter Details Date Type Department Care Team Description 08/06/2019 Nurse Triage Department of [facility] Chucky Crooks i, R.N. Medicine, [facility] [place], [place] [address] [place] [address] [place] [address] [phone] Social History Tobacco Use Types Packs/Day Years [...] or relatives? How often do you attend spiritism or 1 to 4 times per year 04/22 anabaptism services? Do you belong to any clubs or No 05/02/2022 organizations such as spiritism groups, unions, fraternal or athletic groups, or [...] this encounter Miscellaneous Notes Telephone Encounter - Winter Grimaldo R.N. - 08/06/2019 9:28 PM CDT Return phone call from patient. Instructions from Dr. Iraheta read to patient and verbalized back via hearing impaired relay. No further questions. Telephone Encounter - Sonia Leung R.N. - 08/06/2019 9:13 PM CDT 2nd attempt at callback, generic message left to call the nurse line. Telephone Encounter - Roberta Brown M.D. - 08/06/2019 8:08 PM CDT Note reviewed; I see that Dr. Iraheta has responded. For future reference: Due to the large number of messages in our communications, it would be helpful to joaquina these high priority as we often do not see them right away. Telephone Encounter - Sonia Leung R.N. - 08/06/2019 7:08 PM CDT Attempted callback, generic message left to call the nurse line. Telephone Encounter - Rey Iraheta M.D. - 08/06/2019 6:17 PM CDT Nasal congestion and sinus congestion is usually due to viral illness and not amenable to antibiotictherapy. Recommend to try skzr-rqr-kcgxfom oxymetazoline/Afrin 12 hour decongestant nose spray 2 sprays each nostril twice daily for up to 5 days. This is also available as Equate 12 hour decongestant spray at [facility]. It is quite economical. For pain due to sinus congestion qame-eft-zqyldlb ibuprofen 200 mg 2 tablets 4 times daily for up to3 days I usually helpful. Telephone Encounter - Kaylan Barlow R.N. - 08/06/2019 6:05 PM CDT Courtesy page sent. Telephone Encounter - Kaylan Barlow R.N. - 08/06/2019 6:[address] Iraheta please advise, was not addressed by provider who was certified lactation counselor until 1700. documented in this encounter Plan of Treatment Upcoming Encounters Date Type Specialty Care Team Description 08/01/2022 Appointment Neurology Mili Toscano M .D. [address] [place], [place] [phone] (Wo rk) documented as of this encounter Visit Diagnoses Not on filedocumented in this encounter Additional Health Concerns Assessment Noted Time PHQ-9 Depression Total Score: 19 07/06/2018 10:33 AM C DT documented as of this encounter Care Teams Commodities Requirements Analyst Relationship Specialty Start Date End Date Winter Singleton M.D. PCP - General Family Medicine 01/04/18 12/02/[address] [address] documented as of this encounter
--- OUTSIDE RECORDS SUMMARY | 2022-05-31 21:54 | XMS_ITS | Encounter Summary ---
:1980 Author Organization [facility] Address [address] [place] [address] Care Team Providers Name Role Phone Winter Singleton M.D. Primary Care Provider [phone] Encounter Details Date Type Department Care Team Description 10/22/2018 Orders Only [facility] dexter [address] [phone] (Wo rk) Social History Tobacco Use Types [...] or relatives? How often do you attend hinduism or 1 to 4 times per year 04/22 scientology services? Do you belong to any clubs or No 05/02/2022 organizations such as hinduism groups, unions, fraternal or athletic groups, or [...] or slept in a usp (including now)? Sex Assigned at Date Recorded Female 02/05/2018 10:11 AM CDT documented as of this encounter Plan of Treatment Upcoming Encounters Date Type Specialty Care Team Description 08/01/2022 Appointment Neurology Mili Toscano M .D. [address] [place], [place] [phone] (Wo rk) documented as of this encounter Visit Diagnoses Not on filedocumented in this encounter Additional Health Concerns Assessment Noted Time PHQ-9 Depression Total Score: 19 07/06/2018 10:33 AM C DT documented as of this encounter Care Teams Senior Administrative Support Relationship Specialty Start Date End Date Winter Singleton M.D. PCP - General Family Medicine 01/04/18 12/02/20 [address] [place] [phone] documented as of this encounter
--- OUTSIDE RECORDS SUMMARY | 2022-05-31 21:54 | XMS_ITS | Encounter Summary ---
:1980 Author Organization [facility] Address [address] [place] [address] Care Team Providers Name Role Phone Winter Singleton M.D. Primary Care Provider [phone] Encounter Details Date Type Department Care Team Description 04/24/2019 Orders Only [facility] Odette conde, Screening Lipid Fabio Max [address] [place], [place] [address] (Wo rk) Social History [...] or relatives? How often do you attend samaritan or 1 to 4 times per year 04/22 pentecostal services? Do you belong to any clubs or No 05/02/2022 organizations such as samaritan groups, unions, fraternal or athletic groups, or [...] or slept in a jail (including now)? Sex Assigned at Date Recorded Female 02/05/2018 10:11 AM CDT documented as of this encounter Plan of Treatment Upcoming Encounters Date Type Specialty Care Team Description 08/01/2022 Appointment Neurology Mili Toscano M .D. [address] [place], [place] [phone] (Wo rk) documented as of this encounter Visit Diagnoses Diagnosis Screening Lipid documented in this encounter Additional Health Concerns Assessment Noted Time PHQ-9 Depression Total Score: 19 07/06/2018 10:33 AM C DT documented as of this encounter Care Teams Director Of Labor Relations Relationship Specialty Start Date End Date Winter Singleton M.D. PCP - General Family Medicine 01/04/18 12/02/20 [address] [address] documented as of this encounter
--- OUTSIDE RECORDS SUMMARY | 2022-05-31 21:54 | XMS_ITS | Encounter Summary ---
:1980 Author Organization [facility] Address [address] [place] [address] Care Team Providers Name Role Phone Winter Singleton M.D. Primary Care Provider Encounter Details Date Type Department Care Team Description 02/03/2020 Clinical Communication [facility], in Fabio Wu [place] [address] [place] [phone] Social History Tobacco Use Types Packs/Day Years [...] or relatives? How often do you attend islam or 1 to 4 times per year 04/22 jain services? Do you belong to any clubs or No 05/02/2022 organizations such as islam groups, unions, fraternal or athletic groups, or [...] Neurology Mili Toscano M .D. [address] [place], [place] [phone] (Wo rk) documented as of this encounter Visit Diagnoses Not on filedocumented in this encounter Additional Health Concerns Assessment Noted Time PHQ-9 Depression Total Score: 19 07/06/2018 10:33 AM C DT documented as of this encounter Care Teams Gum Mixer Relationship Specialty Start Date End Date Winter Singleton M.D. PCP - General Family Medicine 01/04/18 12/02/20 [address] [place] [phone] documented as of this encounter
--- OUTSIDE RECORDS SUMMARY | 2022-05-31 21:54 | XMS_ITS | Encounter Summary ---
:1980 Author Organization [facility] Address [address] [place] [address] Care Team Providers Name Role Phone Winter Singleton M.D. Primary Care Provider [phone] Encounter Details Date Type Department Care Team Description 01/20/2020 Orders Only Department of Obstetrics and Hailey Esquivel, Gynecology in Fabio Wu [place] [address] [phone] (Wo rk) Social History Tobacco Use Types [...] 1 to 4 times per year 04/22 confucianist services? Do you belong to any clubs [...] place to sleep or slept in a care home (including now)? Education Answer Date Recorded [...] Neurology Mili Toscano M .D. [address] [place], [place] [phone] (Wo rk) documented as of this encounter Visit Diagnoses Not on filedocumented in this encounter Additional Health Concerns Assessment Noted Time PHQ-9 Depression Total Score: 19 07/06/2018 10:33 AM C DT documented as of this encounter Care Teams Job Boss Relationship Specialty Start Date End Date Winter Singleton M.D. PCP - General Family Medicine 01/04/18 12/02/20 [address], [place] [phone] documented as of this encounter
--- OUTSIDE RECORDS SUMMARY | 2022-05-31 21:54 | XMS_ITS | Encounter Summary ---
:1980 Author Organization [facility] Address [address] [place] [address] Care Team Providers Name Role Phone Winter Singleton M.D. Primary Care Provider [phone] Reason for Visit Reason Comments Follow-up med review, needing somethin g for a yeast infection after finishing an antibiotic. Patient was rece ntly in ER with migraines, patient is asking for baclofen because it help s better than muscle relaxers. Appointment Request (Routine) - Closed Specialty Diagnoses / Procedures Referred By Contact Refer red To Contact Family Medicine Referral ID Status Reason Start Date Expiration Date Visits Requ ested Visits Authorized [id number] Closed 02/21/2020 02/20/2021 1 1 Encounter Details Date Type Department Care Team Description 02/21/2020 Telemedicine Department of [facility] Marlee Person Mi graine Headache (Primary Dx); Medicine, [place] MEÑO, C.N.P. Spasm Muscle; Clinic, in [place], [address] Vaginitis Polly; [place], [place] Loss Hearing Sensorineural B ilateral [address] [address] [place], [place] [phone] [address] (Work) [phone] Social History Tobacco Use Types Packs/Day Years [...] or relatives? How often do you attend mosque or 1 to 4 times per year 04/22 evangelical services? Do you belong to any clubs or No 05/02/2022 organizations such as mosque groups, unions, fraAxcient or athletic groups, or school groups? How [...] documented as of this encounter Progress Notes Marlee Person, MEÑO, C.N.P. - 02/21/2020 3:30 PM CDT SUBJECTIVE CHIEF COMPLAINT / REASON FOR VISIT Migraines with muscle spasms/yeast infection HISTORY OF PRESENT ILLNESS Katherine Tiwari is a pleasant 39 y.o. female who presents to the clinic via real-time video visit today for concerns of a yeast infection and would like to switch her previous muscle relaxant utilizedfor migraines to what she was prescribed in the ER recently. Katherine was just seen in mid January and given a Z- [place] by her PCP. She states that several days after onset of medication she developed itchingand discharge in the vagina. She states that it is very common for her to get yeast infections afterantibiotic therapy and this presents the same. She also states that she was in the ER on 02/05/2020 for an intractable migraine. She states she gets migraines roughly 3 times a week. She currently utilizes a Triptan as well as propranolol which have not helped much. Accompanying her migraine headaches she gets severe muscle spasms in her upper back and neck. She was given baclofen in the ER and states this has helped significantly more than the Flexeril she has tried previously. She is wondering if she can switch to this to be utilized as needed. She states she has seen neurology previously but would like to reestablish with them as frequency of headaches are so significant. I do not see any recent imaging in her chart. There are no further concerns at this time. REVIEW OF SYSTEMS ENT: Positive for sinus congestion. Musculoskeletal: Positive for muscle pain/stiffness. Neurological: Positive for headaches. The following systems were negative: Constitutional, Skin, Eyes, CV, Respiratory, GI, , Hematologic, Psych CURRENT MEDICATIONS Current Outpatient Medications Medication Sig Dispense Refill ??? albuterol (PROVENTIL HFA,VENTOLIN HFA) 90 mcg/actuation inhaler Inhale 2 puffs. ??? rizatriptan (MAXALT) 10 mg tablet Take 1 tablet (10 mg total) by mouth every 2 (two) hours as needed for migraine. May repeat in 2 hours if unresolved. Do not exceed 30 mg in 24 hours. 9 tablet 11 ??? traMADoL (ULTRAM) 50 mg tablet Take 1 tablet (50 mg total) by mouth every 6 (six) hours as needed for pain Indications: acute pain. 12 tablet 0 ??? traZODone (DESYREL) 50 mg tablet 1/2 to one tab at bedtime if needed for insomnia 90 tablet 3 ??? baclofen (LIORESAL) 10 mg tablet Take 1 tablet (10 mg total) by mouth 2 (two) times a day as needed for muscle spasms. 60 tablet 3 ??? buPROPion XL (WELLBUTRIN XL) 300 mg 24 hr tablet Take 1 tablet (300 mg total) by mouth every morning. 90 tablet 3 ??? fluconazole (DIFLUCAN) 150 mg tablet Take 1 tablet (150 mg total) by mouth See Admin Instructions for 1 dose. Take one tab now. Repeat in 3 days if symptoms persist. 1 tablet 1 ??? propranolol (INDERAL) 20 mg tablet Take [...] SC imitrex made her headache much worse Patient Active Problem List Diagnosis ??? Anxiety ??? Endometriosis Pelvic Peritoneum ??? Insomnia ??? Migraine Headache ??? Regular astigmatism ??? Loss Hearing Sensorineural Bilateral ??? Abuse Tobacco Smoking OBJECTIVE VITAL SIGNS There were no vitals taken for this visit. PHYSICAL EXAMINATION General: Alert and oriented. Capable of full communication without difficulty. DIAGNOSTICS None at this time ASSESSMENT / PLAN Diagnosis Plan 1. Migraine Headache Neurology - Headache consult (clinic) 2. Spasm Muscle 3. Vaginitis Polyl 4. Loss Hearing Sensorineural Bilateral Neurology - Headache consult (clinic) PLAN: I have a consult placed for Neurology, a [id number] visit which I feel is most appropriate given her preferred language due to your sensorineural hearing loss. In addition I have prescribed baclofen p.r.n. for muscle spasms to be utilized when she has migraines. For yeast infection, will prescribe Diflucan with an option for a 2nd dose at least 72 hours later if symptoms persist. If symptoms persist beyond 2 doses patient should follow-up with the clinic. Patient was understanding of and agreeable to the plan of care. Marlee Person APRN-FAN MAIL EDITOR Consult conducted via real-time audio/video technology by Marlee Person APRN, C.N.P. in [facility] to the patient in home. This Video Visit was performed during the - emergency, when many states had issued [id number] orders. I personally spent a total of 23 minutes in hlx-dtuu-[id number]-face time performing a review of the record and/or discussion with the patient/caregiver as described above. documented in this encounter Plan of Treatment Upcoming Encounters Date Type Specialty Care Team Description 08/01/2022 Appointment Neurology Mili Toscano M .D. 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 PCP - General Family Medicine 01/04/18 12/02/20 [address] [place] [address] documented as of this encounter
--- OUTSIDE RECORDS SUMMARY | 2022-05-31 21:54 | XMS_ITS | Encounter Summary ---
:1980 Author Organization [facility] Address [address] [place] [id number] Care Team Providers Name Role Phone Winter Singleton M.D. Primary Care Provider [phone] Reason for Visit Reason Comments Med Refill Encounter Details Date Type Department Care Team Description 03/04/2020 Refill Department of Family Medicine, [facility], in Winter Wu M.D. [place] [address] [place] [phone] [place] [address] [phone] Social History Tobacco Use Types Packs/Day Years [...] 1 to 4 times per year 04/22 hindu services? Do you belong to any clubs [...] this encounter Miscellaneous Notes Telephone Encounter - Natali Rene LRohitP.N. - 03/04/2020 11:30 AM CDT Unfortunately since they are not on her med list I'm not familiar with pending it..... Telephone Encounter - Xochitl Landry - 03/04/2020 11:23 AM CDT Nurse review: Unable to forward request to provider; Requested meds are not seen on the active med list Primary Provider: Winter Singleton M.D. Name of medication: Fluticasone propionate nasal spray Strength: 50 mcg Frequency: inhale 1 spray into both nostrils once daily Quantity: 16 Refills: Last Refill: 02/06/2020 Name of medication: Cetirizine tab Strength: 10 mg Frequency: take one tablet by mouth every day Quantity: 30 Last Refill: 02/06/2020 Pharmacy: [facility] documented in this encounter Plan of Treatment Upcoming Encounters Date Type Specialty Care Team Description 08/01/2022 Appointment Neurology Mili Toscano M .D. [address] [place], [place] [phone] (Wo rk) documented as of this encounter Visit Diagnoses Not on filedocumented in this encounter Additional Health Concerns Assessment Noted Time PHQ-9 Depression Total Score: 19 07/06/2018 10:33 AM C DT documented as of this encounter Care Teams Canteen Attendant Relationship Specialty Start Date End Date Winter Singleton M.D. PCP - General Family Medicine 01/04/18 12/02/20 [address] [place] [address] documented as of this encounter
--- OUTSIDE RECORDS SUMMARY | 2022-05-31 21:54 | XMS_ITS | Encounter Summary ---
:1980 Author Organization [facility] Address [address] [place] [id number] Care Team Providers Name Role Phone Winter Singleton M.D. Primary Care Provider [phone] Reason for Visit Reason Comments kidney stone Appointment Request (Routine) - Closed Specialty Diagnoses / Procedures Referred By Contact Refer red To Contact Family Medicine Referral ID Status Reason Start Date Expiration Date Visits Requ ested Visits Authorized [id number] Closed 02/24/2020 02/23/2021 1 1 Encounter Details Date Type Department Care Team Description 02/24/2020 Office Visit Department of Family [facility] (Primary Medicine, [place] [facility] Clinic, in [place], [address], [place] [address] [address] [place], [place] [phone] (Work) [phone] Social History Tobacco Use Types Packs/Day Years Used Date Smoking Tobacco: Every Day Cigarettes 1 0 Smokeless Tobacco: Never Tobacco Cessation: Ready to Quit: Yes; C ounseling Given: No Alcohol Use Standard Drinks/Week Comments [...] or relatives? How often do you attend jehovah's witness or 1 to 4 times per year 04/22 orthodoxy services? Do you belong to any clubs or No 05/02/2022 organizations such as jehovah's witness groups, unions, fraEstadeboda or athletic groups, or school groups? How [...] place to sleep or slept in a fdc (including now)? Education Answer Date Recorded What is the highest level of school Associate degree: lisandra russell, 06/07/2019 you have completed or the highest technical, or vocational p cristopherram degree you have received? Sex Assigned at Date Recorded Female 02/05/2018 10:11 AM CDT documented as of this encounter Last Filed Vital Signs Vital Sign Reading Time Taken Comments Blood Pressure 115/63 02/24/2020 3:51 PM CDT Pulse 78 02/24/2020 3:51 PM CDT Temperature 36.7 ??C (98.1 ??F) 02/24/2020 3:51 PM CDT Respiratory Rate 16 02/24/2020 3:51 PM CDT Oxygen Saturation - - Inhaled Oxygen Concentration - - Weight 58.1 kg (128 lb 1.4 oz) 02/24/2020 3:51 PM CDT Height - - Body Mass Index 21.6 08/28/2019 2:42 PM ORDER ENTRY REPRESENTATIVE documented in this encounter Patient Instructions Patient InstructionsCahya Wong, APPRENTICE PHOTOGRAPHER, C.N.P. - 02/24/2020 4:00 PM CDT Images from the original note were not included. Patient Education Nutrition Guidelines for Preventing Kidney Stones Introduction Follow the guidelines in this information, and you may lower your risk of forming kidney stones. A sensible and balanced diet with plenty of fluids helps prevent kidney stones. The recommendations are most appropriate for calcium oxalate stones, the most common type. People who have other health problems or who form different kinds of kidney stones may have to follow other guidelines. If you have questions about this information, talk to a registered dietitian or another health care provider. Tips To lower your risk of forming kidney stones, use these guidelines. ?? Increase fluids. Drink 8 to 10 ounces of fluid each hour you are awake. ?? Increase fiber. Eating more fiber helps improve the amount of calcium and oxalate your body absorbs. ?? Get the right amount of calcium. Ask your health care provider how much calcium per day is right for you. ?? Limit high-oxalate foods. If you have calcium oxalate stones, limit your daily oxalate intake. Avoid the high-oxalate foods listed in this information. ?? Limit sodium. Do not add salt to foods. In general, choose fresh, unprocessed foods or packaged foods that have less than 200 mg of sodium per serving. ?? Limit meat in your diet. Ask your health care provider how much meat is right for you. ?? Watch your sugar intake. Limit added sugar, including high fructose corn syrup. This has been linked to the development of kidney stones. ?? Take vitamins carefully. Do not take vitamin supplements that contain more than 100 percent of the daily value (%DV) for vitamin C, vitamin D or calcium. ?? Stay at a healthy weight. Being overweight may increase your risk of forming kidney stones. Increase Your Fluids Drink more water to lower your risk for kidney stones. This is the most important thing you can do to prevent kidney stones. To make sure you take in enough fluid, your goal should be to drink 8 to 10 ounces of liquid each hour you are awake. Drink more when you exercise, when the weather is hot, or when you are ill. The easiest way to know whether you drink enough fluids is to look at your urine. It should be almost clear. You should produce at least 2 quarts of urine every day. To make sure that you are getting enough fluids, your health care provider may ask you to measure your urine output for a day. When you drink more water, you???ll need to visit the bathroom more often. This may seem like a bother. If you have a profession that makes it hard to take frequent bathroom breaks, try to drink more fluid the rest of the day to make up for the time you are at work. Remember, though, that if you are dehydrated for part of the day, your risk for forming kidney stones goes up. Focus on the fact that ifyou drink more water, you are less likely to get kidney stones. Do the best you can to work in more water during the day. Tips for increasing fluids ?? Start slowly. If you drink 1 or 2 glasses of water every day now, add a third glass tomorrow. Setgoals to increase your water intake each week until you arrive at your goal. ?? Get a water bottle. Keep it handy and refill it often. ?? Use straws. ?? Use a smaller water bottle so that it???s easier to empty it. You can fill it up when you use thebathroom. ?? Add rhett, limes or other fruit to your water. If you add lemon or [place], you can raise your citrate level. This helps to prevent stones. ?? Freeze grapes or lemon, [place] or orange peels. Add them to your water instead of ice cubes. ?? It???s best to drink water, but you can add flavors to your water. Or you can drink other things such as lemonade or flavored cole without added sugar. ?? If you have a smart phone, get an jackie to help you track how much water you drink. ?? Eat fruits and vegetables that have a high amount of water such as watermelon, cucumbers and strawberries. Be careful. Avoid fruits and vegetables that have a high amount of oxalate. Get the Right Amount of Calcium Enough calcium in your diet may help prevent the growth of some kidney stones. It may also help prevent bone mineral loss, also called osteoporosis. For the best kidney stone prevention, your calcium should come from food and not from calcium pills. It is OK for most people to consume a moderate amount of calcium, which is 1,000 to 1,200 mg a day. Ask your health care provider what amount of calcium is right for you. Check the ???Nutrition Facts?? on food labels to see how much calcium the foods you eat contain so you can eat the amount your health care provider recommends. See the sample menu for an example of a diet that includes 1,200 mg of calcium in a day. The following are good sources of calcium. The amount of calcium (in milligrams) is listed for each. ?? 1 cup milk (300 mg) ?? ? cup milk, nonfat, dry powder (280 mg) ?? 6 ounces yogurt, plain, low-fat (310 mg) ?? 6 ounces yogurt, with fruit, low-fat (225 mg) ? cup pudding made with milk (150 mg) ? cup ice cream, low-fat (120 mg) ? cup nonfat ice cream (90 mg) ? cup nonfat or low-fat frozen yogurt (100 mg) ?? 1 ounce cheese -- Serbian, cheddar, mozzarella (range from 180 to 270 mg) Limit High-Oxalate Foods Oxalate is found in certain foods. When large amounts of oxalate are present in your urine, the oxalate can combine with calcium to form stones. If you limit oxalate-rich foods, you may keep large amounts of oxalate from entering your urine. Unfortunately, oxalate content is not listed on food labels.The highest amounts of oxalate are found in certain fruits, vegetables and other plant foods. Meats,eggs, dairy products, white rice and pasta are generally low in oxalate. In general, to lower your risk for kidney stones, limit the total amount of oxalate in your diet. Certain people who have recurrent calcium oxalate stones or fat malabsorption may need to restrict dietary oxalate more than others. Ask your health care provider how much you need to limit foods that contain oxalate. Your health care provider may recommend that you meet with a dietitian to evaluate yourdiet. Eating food with calcium at the same time you eat foods that contain oxalate can help lower oxalate absorption. Follow your health care provider???s instructions about how much calcium to eat. Use the following information to help you avoid or limit foods that contain oxalate. Avoid the following foods because they are high in oxalate: Beans ?? Emmet beans, dried or boiled Fruit ?? Pomegranate ?? Rhubarb, raw, canned or cooked (any method) ?? Star fruit or carambola, raw Grains ?? Whole or multigrains with more than 3 grams of fiber per serving ?? Breakfast cereal ? All-bran or other high-bran cereals ? Shredded wheat cereals ? Special-K??? Protein Plus ?? Cereal or protein bars that contain nuts or nut butters ?? Flour from: ? Amaranth ? Barley ? Buckwheat ? Millet ? Teff, ivory or brown ?? Quinoa, cooked ?? Spinach-based pastas Nuts ?? Almonds ?? [place] meal ?? [place] nuts, roasted or raw ?? Cashews, roasted or raw ?? Hazelnuts or filberts, roasted or raw ?? Isabella nuts, roasted or raw ?? Peanuts, roasted or raw (chopped) Seeds ?? Narciso seeds ?? Milk thistle, seeds ?? Sesame seeds, whole, dried ?? Tahini Soy ?? Soy milk, all flavors ?? Soy ice cream, chocolate ?? Soynuts, roasted soy beans, chopped Vegetables ?? Beets, pickled, sliced ?? Cata[place]ba or prickly pear (nopal), boiled ?? Okra, cooked ?? Potatoes, russet or white, baked or boiled, with or without the skin ?? Purslane leaves ?? Mandan, boiled ?? Spinach, cooked or raw ?? Sweet potatoes, orange or purple, baked, boiled or canned ?? Serbian chard, red or green, raw or cooked ?? Yams, baked Chocolate, cocoa and carob ?? Carob chips ?? Goodells powder, dark chocolate ?? Goodells powder, Estonian process with alkali ?? Dark almond chocolate ?? Dark chocolate cocoa mix ?? Semisweet chocolate chips Beverages ?? Dark chocolate mocha latte ?? Tea Limit Your Sodium, Meat, Sugar Sodium A diet high in sodium can contribute to an increase in the calcium in your urine. Limiting your sodium intake may help prevent kidney stones. Limit your sodium intake to 2,000 mg or less per day. Foods high in sodium content include table salt, cured meats, luncheon meats, salted snack foods, canned or prepackaged soups, some seasoning mixes and condiments. One teaspoon of table salt contains 2,325 mg of sodium, so do not add salt to foods. Choose packagedfoods that have less than 200 mg of sodium in a serving. Look at the ???Nutrition Facts?? on the food label to find the amount of sodium. Eat meat in moderation Too much meat, chicken or fish in your diet may lead to more calcium and less citrate in your urine.Too much protein can also lower the urine pH. This can increase the likelihood of kidney stone formation. The maximum amount of animal protein that should be eaten each day to help prevent kidney stones varies based on each person???s individual health status. Ask your health care provider how much animal protein per day is right for you. Watch your sugar intake Research shows that added sugar, especially high fructose corn syrup, increases the risk for developing kidney stones. Avoid foods and beverages that have high fructose corn syrup on the ingredients list. Take Vitamins and Herbal Supplements Carefully Do not take vitamin supplements that contain more than 100 percent of the daily value for vitamin C,vitamin D or calcium. You see the daily value amount shown as DV with a percentage sign in front of it, %DV. Check the supplement???s label for this information. It may be fine to take one multivitamin with most nutrients present at 100 percent of the daily value. However, talk to your health care provider before you take any dietary or herbal supplements. Calcium is important in your diet, but it should come from food and beverages and not from pills. However, if you do take vitamin supplements that contain calcium, take them with a meal. Some research suggests that taking a vitamin supplement that contains calcium without food may actually increase the risk for stone formation. It is fine to use herbs in cooking. Do not take herbs in pill form. Concentrated sources of some herbs may contribute to stone formation. Sample Menu The following sample menu shows one way to work these recommendations into your daily meals and snacks. This menu provides 2,000 calories, 2,000 mg of sodium, about 1,200 mg of calcium. Breakfast 1 cup Cheerios??? 1 cup skim milk 2 slices whole wheat bread 2 teaspoons margarine ?? cup orange juice Lunch 3 ounces sliced chicken 2 teaspoons mayonnaise 2 slices whole wheat bread 1 cup lettuce salad (without high-oxalate vegetables) 2 tablespoons salad dressing 6 ounces yogurt (without high-oxalate fruits) 1 cup grapes Afternoon snack 3 johnny cracker squares 1 cup water Dinner 3 ounces roasted pork 1 white dinner roll 1 cup rice 2 teaspoons margarine ?? cup corn 1 fresh peach 1 cup skim milk Evening snack 3 cups popcorn, oil popped, no salt added 1 cup Crystal Light??? lemonade Remember: To get enough fluids, drink 8 to 10 ounces of liquid each hour you are awake. Food Safety Practice the following food safety guidelines to protect against food-borne illnesses. These are general guidelines for everyone. They are not just for people with kidney stones. ?? Before you prepare or eat food, wash your hands thoroughly with soap and water. Dry your hands with a clean towel. If soap and water are not available and your hands are not visibly dirty, you can use a waterless, alcohol-based manager oncology to clean your hands. ?? Keep your food preparation area clean. Wash surfaces with hot, soapy water. Rinse surfaces well to remove soap residue. ?? Rinse and scrub fresh fruits and vegetables under running water before you cut or eat them. ?? Keep raw meat, poultry, fish and eggs away from duode-ac-fjv foods when you shop and during meal preparation. Use separate cutting boards, utensils and platters. ?? Thaw meat in the refrigerator. Store thawing meat below other foods so drips from the meat do notcontaminate other food. ?? Do not leave hot or cold foods at room temperature for more than two hours. Keep hot foods hot and cold foods cold. ?? Cook your food long enough and at a high enough temperature to kill harmful bacteria. Use a food thermometer to ensure food safety. Push the end of the food thermometer into the thickest part of thefood. Make sure the temperature reaches the levels listed before you stop cooking the food. Food Temperature food should reach Ground meats 160 degrees Fahrenheit Fish 145 degrees Fahrenheit Solid cuts of beef, pork, garcia (roasts, steaks) Minimum 145 degrees Fahrenheit Poultry, casseroles, leftovers and stuffing 165 degrees Fahrenheit Eggs Cook eggs until the yolk and white are firm, not runny. Do not use recipes in which eggs remainraw or only partly cooked. Following these nutrition guidelines may help you lower your risk to form more kidney stones. Once you use these guidelines for a time, you will be able to make them a natural part of your eating habits. If you have questions about this information, talk with your dietitian. This material is for your education and information only. This content does not replace medical advice, diagnosis or treatment. New medical research may change this information. If you have questions about a medical condition, always talk with your health care provider. ? 2017 [facility] Medical Education and Research ([facility]). All rights reserved. [id number] documented in this encounter Progress Notes Chaya Wong APRN C.N.P. - 02/24/2020 4:00 PM CDT SUBJECTIVE CHIEF COMPLAINT: Chief Complaint Patient presents with ??? kidney stone HISTORY OF PRESENT ILLNESS: Katherine is being seen with assistance of scenic designer on the iPad. She states she has had right flank pain for the past 3 days. It feels just like the last time she had a kidney stone. She denies blood in the urine. No difficulty urinating. No fever. REVIEW OF SYSTEMS: ENT: Positive for sinus congestion. Musculoskeletal: Positive for muscle pain/stiffness. Neurological: Positive for headaches. The following systems were negative: Constitutional, Skin, Eyes, CV, Respiratory, GI, , Hematologic, Psych The following portions of the patient's history were reviewed and updated as appropriate: allergies,current medications, family history, medical history, social history, surgical history and problem list. ALLERGIES: Allergies Allergen Reactions ??? Blood-Group Specific Substance [...] SC imitrex made her headache much worse MEDICATIONS: Current Outpatient Medications: ??? albuterol (PROVENTIL HFA,VENTOLIN HFA) 90 mcg/actuation inhaler, Inhale 2 puffs., Disp: , Rfl: ??? baclofen (LIORESAL) 10 mg tablet, Take 1 tablet (10 mg total) by mouth 2 (two) times a day as needed for muscle spasms., Disp: 60 tablet, Rfl: 3 ??? fluconazole (DIFLUCAN) 150 mg tablet, Take 1 tablet (150 mg total) by mouth See Admin Instructions for 1 dose. Take one tab now. Repeat in 3 days if symptoms persist., Disp: 1 tablet, Rfl: 1 ??? rizatriptan (MAXALT) 10 mg tablet, Take 1 tablet (10 mg total) by mouth every 2 (two) hours as needed for migraine. May repeat in 2 hours if unresolved. Do not exceed 30 mg in 24 hours., Disp: 9 tablet, Rfl: 11 ??? traMADoL (ULTRAM) 50 mg tablet, Take 1 tablet (50 mg total) by mouth every 6 (six) hours as needed for pain Indications: acute pain., Disp: 12 tablet, Rfl: 0 ??? traZODone (DESYREL) 50 mg tablet, 1/2 to one tab at bedtime if needed for insomnia, Disp: 90 tablet, Rfl: 3 ??? buPROPion XL (WELLBUTRIN XL) 300 mg 24 hr tablet, Take 1 tablet (300 mg total) by mouth every morning., Disp: 90 tablet, Rfl: 3 ??? propranolol (INDERAL) 20 mg tablet, Take 1 tablet (20 mg total) by mouth 2 (two) times a day., Disp: 60 tablet, Rfl: 1 OBJECTIVE LABS and DIAGNOSTICS: X-ray abdomen is pending. VITAL SIGNS: Temperature: [36.7 ??C] 36.7 ??C Resp Rate: [16] 16 Blood Pressure: (115)/(63) 115/63 Pulse Rate: [78] 78 PHYSICAL EXAM: General: In general, the patient is pleasant and appears stated age. Skin: Without lesion. Eyes: PERRLA. EOMI intact. Fundi sharp discs. Conjunctiva and lids normal. ENT: Tympanic membranes clear bilaterally. Nasal mucosa without erythema or congestion. Mouth without erythema or exudate. Lymph Nodes: Neck supple without adenopathy, no thyromegaly. Carotid pulses are equal bilaterally. Peripheral Vessels: Femoral, dorsal, pedal and posterior tibial pulses are equal. Heart: Regular rate and rhythm without murmur. Lungs: Clear to auscultation, good inspiratory effort. Abdomen: Soft, nontender, no palpable mass, no hepatosplenomegaly. Right CVA tenderness. Extremities: Warm, dry, no cyanosis or peripheral edema. Mental Status: Alert and oriented times three. Neurologic: Deep tendon reflexes are +2 and symmetrical. ASSESSMENT /PLAN: #1 [facility] X-ray abdomen is pending. I will contact her with results and discuss next steps. Encourage fluids. Ibuprofen 200 mg, 3 tabs, 2-3 times daily with food for 7 days. HEALTH MAINTENANCE: Up-to-date. documented in this encounter Plan of Treatment Upcoming Encounters Date Type Specialty Care Team Description 08/01/2022 Appointment Neurology Mili Toscano M .D. [address] [place], [place] [phone] (Wo rk) documented as of this encounter Visit Diagnoses Diagnosis Stone Kidney - Primary documented in this encounter Additional Health Concerns Assessment Noted Time PHQ-9 Depression Total Score: 19 07/06/2018 10:33 AM C DT documented as of this encounter Care Teams Mental Hygiene Consultant Relationship Specialty Start Date End Date Winter Singleton M.D. PCP - General Family Medicine 01/04/18 12/02/20 [address] [place] [address] documented as of this encounter
--- OUTSIDE RECORDS SUMMARY | 2022-05-31 21:54 | XMS_ITS | Encounter Summary ---
:1980 Author Organization [facility] Address [address] [place] [address] Care Team Providers Name Role Phone Winter Singleton M.D. Primary Care Provider Reason for Visit Reason Comments Follow-up was in the ED on the an d given and antibiotic for her eye Vaginitis/Bacterial Vaginosis Started on the Appointment Request (Routine) - Closed Specialty Diagnoses / Procedures Referred By Contact Refer red To Contact Family Medicine Referral ID Status Reason Start Date Expiration Date Visits Requ ested Visits Authorized [id number] Closed 10/22/2018 10/22/2019 1 1 Encounter Details Date Type Department Care Team Description 10/22/2018 Office Visit Department of Family Rusty khan (Primary Dx); Medicine, Winter Elizabeth, Allergic Dermatitis Left Upper Eyelid Clinic, in [place] [address] [place] [phone] Social History Tobacco Use Types Packs/Day Years [...] 05/02/2022 organizations such as worship groups, unions, fraSendmybag or athletic groups, or school groups? How [...] slept in a group home (including now)? Sex Assigned at Date Recorded Female 02/05/2018 10:11 AM CDT documented as of this encounter Last Filed Vital Signs Vital Sign Reading Time Taken Comments Blood Pressure 102/60 10/22/2018 11:57 AM PRESCRIPTION CLERK Pulse 78 10/22/2018 11:57 AM PRESCRIPTION CLERK Temperature 36.7 ??C (98.1 ??F) 10/22/2018 11:57 AM PRESCRIPTION CLERK Respiratory Rate 16 10/22/2018 11:57 AM PRESCRIPTION CLERK Oxygen Saturation - - Inhaled Oxygen Concentration - - Weight 56.7 kg (124 lb 14.3 oz) 10/22/2018 11:57 AM PRESCRIPTION CLERK Height 163 cm (5' 4.17) 10/22/2018 11:57 AM PRESCRIPTION CLERK Body Mass Index 21.32 10/22/2018 11:57 AM PRESCRIPTION CLERK documented in this encounter Patient Instructions Patient InstructionsWinter Singleton M.D. - 10/22/2018 12:00 PM PRESCRIPTION CLERK Use the Patanol eye drops 1 drop twice daily and update me on Monday. Be seen sooner if the eye problems gets bad. CRIPTION CLERK documented in this encounter Progress Notes Winter Singleton M.D. - 10/22/2018 12:00 PM CST CHIEF COMPLAINT/ REASON FOR VISIT Follow up eye infection. HISTORY OF PRESENT ILLNESS Katherine Tiwari is a 38 y.o. female who presents to the clinic today for follow up eye infection. She went into emergency room for eye redness, initially on the left eye and swelling and she was diagnosed with periorbital cellulitis on 10/13 and was placed on Keflex 500 mg four times a day for 6 days. She was also placed on erythromycin ophthalmic ointment 0.5% six times a day for 7 days. She had sig nificant pain and itching with it. She states that she did start taking Benadryl at night to help with her headaches. She wear mascara, but has not been using this recently. She otherwise does not use other products on her face. She Katherine also developed a yeast infection with the antibiotics. She has significant pain and feels like there are cuts down there. The patient denies any additional questions or concerns at this time. SYSTEMS REVIEW Please see HPI for pertinent positives, otherwise rest of ROS negative. MEDICATIONS Current Outpatient Prescriptions Medication Sig Dispense Refill ??? rizatriptan (MAXALT) 10 mg tablet Take 1 tablet (10 mg total) by mouth every 2 (two) hours as needed for migraine. May repeat in 2 hours if unresolved. Do not exceed 30 mg in 24 hours. 9 tablet 11 ??? buPROPion XL (WELLBUTRIN XL) 300 mg 24 hr tablet Take 1 tablet (300 mg total) by mouth every morning. 30 tablet 3 ??? cyclobenzaprine (FLEXERIL) 10 mg tablet No current facility-administered medications for this visit. ALLERGIES Allergies Allergen Reactions ??? Blood-Group Specific [...] SC imitrex made her headache much worse PAST MEDICAL / SURGICAL HISTORY Past Medical History: Diagnosis Date ??? [...] in 03/2009, 12/2002, 11/2011 and 08/2013 PREVENTIVE SERVICES Social History Substance Use Topics ??? Smoking status: Current Every Day Smoker Packs/day: 1.00 Types: Cigarettes ??? Smokeless tobacco: Never Used ??? Alcohol use 3.6 oz/week 1 Glasses of wine, 5 Shots of liquor per week VITAL SIGNS Vitals: 10/22/18 1157 BP: 102/60 Patient Position: Sitting Pulse: 78 Temp: 36.7 ??C Resp: 16 Height: 163 cm Weight: 56.7 kg Body mass index is 21.32 kg/m??. PHYSICAL EXAMINATION General: Patient is alert and oriented times three, in no acute distress, good hygiene and is dressed appropriately. Genitalia: The tissues at the introitus is slightly swollen. There is a thick, cottage cheese appearing discharge. Extremities: Within normal limits. Skin: No rashes or suspicious lesions noted on exposed skin. DIAGNOSTICS Vaginitis panel is obtained today with results pending. ASSESSMENT / PLAN #1 Vaginitis PLAN: Vaginitis panel is obtained today and I will notify patient of results. Will treat accordinglyif positive. #2 Allergic Dermatitis Left Upper Eyelid PLAN: Will have her use Patanol eye drops over the next couple of days and she will update me on Monday. Follow up The patient will contact the clinic with any new or worsening symptoms. ADMINISTRATIVE BILLING 15 minutes of this 25 minute visit was spent in face to face counseling and coordination of care. This document serves as a record of services personally performed by Winter Ledesma MD. It was created on their behalf by Laurence Whiteside, a trained medical research tech. The creation of this record is based on the scribe's personal observations and the provider's statements to them. This document has been ch ecked and approved by the attending provider. CRIPTION CLERK documented in this encounter Plan of Treatment Upcoming Encounters Date Type Specialty Care Team Description 08/01/2022 Appointment Neurology Mili Toscano M .D. [address] [place] [phone] (Wo rk) documented as of this encounter Procedures Procedure Name Priority Date/Time Associated Diagnosis Comme nts VAGINITIS PANEL Routine 10/22/2018 12:30 PM Vaginitis Resul ts for this PRESCRIPTION CLERK procedure are i n the results section. documented in this encounter Results (ABNORMAL) Vaginitis Panel - [facility] (10/22/2018 12:30 PM PRESCRIPTION CLERK) [facility] Method Time Signature Polly Positive (A) Negative 10/22/2018 [facility] species, DNA 3:10 PM PRESCRIPTION CLERK [facility] Gardnerella Positive (A) Negative 10/22/2018 [facility] vaginalis, DNA 3:10 PM PRESCRIPTION CLERK [facility] Trichomonas Negative Negative 10/22/2018 [facility] vaginalis, DNA 3:10 PM [facility] Specimen Anatomical Collection Method Collection Time Receive d Time (Source) Location / / Volume Laterality Swab (Vagina) 10/22/2018 12:30 10/22/2018 2:18 PM PRESCRIPTION CLERK PM PRESCRIPTION CLERK Winter Singleton M.D. LAB MICROBIOLOGY - GEN ERAL ORDERABLES Performing Organization Address City/State/ZIP Code Phon e Number [facility] [address] [place] [address] LAB documented in this encounter Visit Diagnoses Diagnosis Vaginitis - Primary Allergic Dermatitis Left Upper Eyelid documented in this encounter Additional Health Concerns Assessment Noted Time PHQ-9 Depression Total Score: 19 07/06/2018 10:33 AM C DT documented as of this encounter Care Teams Curtain Framer Relationship Specialty Start Date End Date Winter Singleton M.D. PCP - General Family Medicine 01/04/18 12/02/20 [address], [place] [phone] documented as of this encounter
--- OUTSIDE RECORDS SUMMARY | 2022-05-31 21:54 | XMS_ITS | Encounter Summary ---
:1980 Author Organization [facility] Address [address] [place] [address] Care Team Providers Name Role Phone Winter Singleton M.D. Primary Care Provider Encounter Details Date Type Department Care Team Description 08/06/2019 Nurse Triage Department of [facility] Usha Carey, R.NRohit Medicine, [place], in [place], [place] [address] [place] [address] Social History Tobacco Use Types Packs/Day Years [...] 05/02/2022 organizations such as advent groups, unions, fraternal or athletic groups, or [...] Mili Toscano M .D. [address] [place], [place] [phone] (Wo rk) documented as of this encounter Visit Diagnoses Not on filedocumented in this encounter Additional Health Concerns Assessment Noted Time PHQ-9 Depression Total Score: 19 07/06/2018 10:33 AM C DT documented as of this encounter Care Teams Middle School Guidance Counselor Relationship Specialty Start Date End Date Winter Singleton M.D. PCP - General Family Medicine 01/04/18 12/02/[address] [place] [phone] documented as of this encounter
--- OUTSIDE RECORDS SUMMARY | 2022-05-31 21:54 | XMS_ITS | Encounter Summary ---
:1980 Author Organization [facility] Address [address] [place] [address] Care Team Providers Name Role Phone Winter Singleton M.D. Primary Care Provider Reason for Visit Reason Comments Triage Encounter Details Date Type Department Care Team Description 02/03/2020 Nurse Triage Department of [facility] Osiris Berg R.N. Triage Medicine, [facility], in [address] [place], [place] [address] [place] [address] [place] [address] [phone] Social History Tobacco Use Types Packs/Day Years [...] Neurology Mili Toscano M .D. [address] [place], [place] [phone] (Wo rk) documented as of this encounter Visit Diagnoses Not on filedocumented in this encounter Additional Health Concerns Assessment Noted Time PHQ-9 Depression Total Score: 19 07/06/2018 10:33 AM C DT documented as of this encounter Care Teams Paper Cutter Relationship Specialty Start Date End Date Winter Singleton M.D. PCP - General Family Medicine 01/04/18 12/02/[address] [place] [address] documented as of this encounter
--- OUTSIDE RECORDS SUMMARY | 2022-05-31 21:54 | XMS_ITS | Encounter Summary ---
:1980 Author Organization [facility] Address [address] [place] [address] Care Team Providers Name Role Phone Winter Singleton M.D. Primary Care Provider Encounter Details Date Type Department Care Team Description 05/13/2019 Nurse Triage Department of [facility] Kirstin Quintanilla, Medicine, [facility] [address], R.N. in [place], [place] [address] [place] [address] Social History Tobacco Use Types Packs/Day Years [...] 1 to 4 times per year 04/22 lutheran services? Do you belong to any clubs [...] Neurology Mili Toscano M .D. [address] [place], [place] [phone] (Wo rk) documented as of this encounter Visit Diagnoses Not on filedocumented in this encounter Additional Health Concerns Assessment Noted Time PHQ-9 Depression Total Score: 19 07/06/2018 10:33 AM C DT documented as of this encounter Care Teams Timber Killer Relationship Specialty Start Date End Date Winter Singleton M.D. PCP - General Family Medicine 01/04/18 12/02/[address] [place] [address] documented as of this encounter
--- OUTSIDE RECORDS SUMMARY | 2022-05-31 21:54 | XMS_ITS | Encounter Summary ---
:1980 Author Organization [facility] Address [address] [place] [address] Care Team Providers Name Role Phone Winter Singleton M.D. Primary Care Provider [phone] Reason for Visit Reason Comments URI possible flu or pneumonia, h as cough body aches ears, head, throat huts when she coughs. 2 our of 4 child levi have strep. Noted since 11/10/18. Appointment Request (Routine) - Closed Specialty Diagnoses / Procedures Referred By Contact Refer red To Contact Family Medicine Referral ID Status Reason Start Date Expiration Date Visits Requ ested Visits Authorized [id number] Closed 11/13/2018 11/13/2019 1 Encounter Details Date Type Department Care Team Description 11/14/2018 Office Visit Department of [facility] Chelsea Fields M.B.B.S., M.D. [address] [place] [address] Infection Upper Medicine, [place] Winter Singleton M.D. [address] [place] [address] Respiratory (Primary Clinic, in [place], ) [place] [address] [place] [address] Social History Tobacco Use Types [...] or relatives? How often do you attend judaism or 1 to 4 times per year 04/22 samaritan services? Do you belong to any clubs or No 05/02/2022 organizations such as judaism groups, unions, fraternal or athletic groups, or [...] Sign Reading Time Taken Comments Blood Pressure 96/62 11/14/2018 9:22 AM POLICEWOMAN Pulse 90 11/14/2018 9:22 AM POLICEWOMAN Temperature 36.4 ??C (97.5 ??F) 11/14/2018 9:22 AM POLICEWOMAN Respiratory Rate 16 11/14/2018 9:22 AM POLICEWOMAN Oxygen Saturation 100% 11/14/2018 9:22 AM POLICEWOMAN Inhaled Oxygen Concentration - - Weight 55.3 kg (122 lb 0.4 oz) 11/14/2018 9:22 AM POLICEWOMAN Height - - Body Mass Index 20.83 10/22/2018 11:57 AM POLICEWOMAN documented in this encounter Progress Notes Winter Singleton M.D. - 11/14/2018 9:30 AM CST SUBJECTIVE CHIEF COMPLAINT / REASON FOR VISIT Katherine Tiwari is a 38 y.o. female who presents for evaluation of URI (possible flu or pneumonia, has cough body aches ears, head, throat huts when she coughs. 2 our of 4 children have strep. Noted since 11/10/18.). HISTORY OF PRESENT ILLNESS Dior is seen with the assistance of pharmacy assistant service. She has had cough with body aches and sore throat over the past 4 days. She has not had fevers. She has multiple sick children at home. To have been diagnosed with strep throat and 1 with possible influenza. OBJECTIVE BP 96/62 (BP Location: Left arm, Patient Position: Sitting, Cuff Size: Small) Pulse 90 Temp 36.4??C (Temporal) Resp 16 Wt 55.3 kg SpO2 100% BMI 20.83 kg/m?? PHYSICAL EXAM GENERAL: Patient is alert and oriented, well groomed and appropriately dressed. HEENT: TMS are both normal. Nasal mucosa is normal without congestion or discharge. Oropharynx is slightly erythematous. NECK: Without adenopathy. HEART: Regular rate and rhythm without murmur. LUNGS: Clear without wheeze crackle or rhonchus. ASSESSMENT / PLAN 1. Upper respiratory tract infection with strep exposure. I will treat presumptively, given the close exposures, with azithromycin. She has tendency to vaginal yeast infection with antibiotics and I sent a prescription for Diflucan. She will not use the Diflucan and the azithromycin concurrently. CEWOMAN documented in this encounter Plan of Treatment Upcoming Encounters Date Type Specialty Care Team Description 08/01/2022 Appointment Neurology Mili Toscano M .D. [address] [place], [place] [phone] (Wo rk) documented as of this encounter Visit Diagnoses Diagnosis Infection Upper Respiratory - Primary documented in this encounter Additional Health Concerns Assessment Noted Time PHQ-9 Depression Total Score: 07/06/2018 10:33 AM C DT documented as of this encounter Care Teams Pressing Machine Tender Relationship Specialty Start Date End Date Winter Singleton M.D. PCP - General Family Medicine 01/04/18 12/02/[address] [address] documented as of this encounter
--- OUTSIDE RECORDS SUMMARY | 2022-05-31 21:54 | XMS_ITS | Encounter Summary ---
:1980 Author Organization [facility] Address [address] [place] [address] Care Team Providers Name Role Phone Winter Singleton M.D. Primary Care Provider [phone] Reason for Visit Reason Comments COVID Nurse Line Encounter Details Date Type Department Care Team Description 02/03/2020 Clinical Communication Central Appointment Line, [facility] Nurse Line Office in [facility] [address] [place] [address] Social History Tobacco Use Types Packs/Day Years [...] this encounter Miscellaneous Notes Telephone Encounter - Sugar Mcneil R.N. - 02/03/2020 9:46 AM CDT COVID-19 Nurse Line Screening ASSESSMENT COVID [...] have no symptoms and no close contact. Migraines started last Monday. She can notify her primary provider about her symptoms via portal, or speak with [facility] primary nurse line about getting a phone or e-visit. Transferred patient to [facility] primary nurse line. PLAN Endpoint recommendation: Screening negative, testing not indicated at this time and Transfer to Primary Care Nurseline for further assessment Care Points provided: Standard precautions for all patients: Wash hands often with soap and water for at least 20 seconds, especially after blowing your nose, coughing, sneezing, or having been in a public place. If soap and water aren't available, use a hand parts delivery driver that contains at least 60% alcohol. Avoid close contact with anyone who may be exhibiting respiratory symptoms such as coughing and sneezing. Avoid touching your eyes, nose and mouth. Clean and disinfect frequently touched surfaces daily. Cover your mouth and nose with a cloth face cover when around others or in public. The cloth face cover is not a substitute for social distancing. Continue to keep about 6 feet between yourself andothers. Stay home as much as possible (only going out for essential items or medical care). Educational Resource: https://www.cdc.gov/coronavirus/2019-ncov/usaqvaq-qgknfsi-jsdc/index.html Education: patient/caregiver Patient/caregiver able to teach back Patient agreeable to plan of care: Yes The following references were used: [facility] novel coronavirus (COVID- 19) resources CDC web site https://www.cdc.gov/coronavirus/2019-ncov/summary.html Nursing judgement documented in this encounter Plan of Treatment Upcoming Encounters Date Type Specialty Care Team Description 08/01/2022 Appointment Neurology Mili Toscano M .D. [address] [place], [place] [phone] (Wo rk) documented as of this encounter Visit Diagnoses Not on filedocumented in this encounter Additional Health Concerns Assessment Noted Time PHQ-9 Depression Total Score: 19 07/06/2018 10:33 AM C DT documented as of this encounter Care Teams Tie Maker Relationship Specialty Start Date End Date Winter Singleton M.D. PCP - General Family Medicine 01/04/18 12/02/20 [address], [place] [phone] documented as of this encounter
--- OUTSIDE RECORDS SUMMARY | 2022-05-31 21:54 | XMS_ITS | Encounter Summary ---
:1980 Author Organization [facility] Address [address] [place] [address] Care Team Providers Name Role Phone Winter Singleton M.D. Primary Care Provider [phone] Reason for Visit Reason Comments Migraine Encounter Details Date Type Department Care Team Description 02/24/2020 Clinical Communication Department of [facility] Dung Person, Migraine Medicine, [place] MEÑO CRohitNZackery [facility], [facility] [address] [place], [place] [address] [address] [place], [place] [phone] [address] (Work) [phone] Social History Tobacco Use Types Packs/Day Years [...] or relatives? How often do you attend jew or 1 to 4 times per year 04/22 zoroastrianism services? Do you belong to any clubs or No 05/02/2022 organizations such as jew groups, unions, fraternal or athletic groups, or [...] this encounter Miscellaneous Notes Telephone Encounter - Marlee Person APRN, C.N.P. - 02/24/2020 10:28 AM CDT FYI patient is deaf. May need to call a couple more times than normal so she can facilitate a way totalk to someone. Telephone Encounter - Bessy Neal - 02/24/2020 10:18 AM CDT Thank you for your order. We have made our first attempt to reach out to this patient so that we may gather additional information for registration and scheduling. We will attempt to contact the patient again in 2 business days. If someone should contact you about the message, please direct that person to call us at [phone]. If you have questions, please call us at [phone] or [phone]. Sincerely, [facility] Online Services for Referring Physicians Appointment Office documented in this encounter Plan of Treatment Upcoming Encounters Date Type Specialty Care Team Description 08/01/2022 Appointment Neurology Mili Toscano M .D. [address] [place], [place] [phone] (Wo rk) documented as of this encounter Visit Diagnoses Not on filedocumented in this encounter Additional Health Concerns Assessment Noted Time PHQ-9 Depression Total Score: 19 07/06/2018 10:33 AM C DT documented as of this encounter Care Teams Chief Solution Architect Relationship Specialty Start Date End Date Winter Singleton M.D. PCP - General Family Medicine 01/04/18 12/02/20 [address] [place] [address] documented as of this encounter
--- OUTSIDE RECORDS SUMMARY | 2022-05-31 21:54 | XMS_ITS | Encounter Summary ---
:1980 Author Organization [facility] Address [address] [place] [address] Care Team Providers Name Role Phone Winter Singleton M.D. Primary Care Provider Encounter Details Date Type Department Care Team Description 11/13/2018 Nurse Triage Department of [facility] Natalie Daniels, Medicine, [facility], R.N. in [place], [place] [address] [place] [address] Social History Tobacco Use Types Packs/Day Years [...] or relatives? How often do you attend buddhist or 1 to 4 times per year 04/22 congregation services? Do you belong to any clubs or No 05/02/2022 organizations such as buddhist groups, unions, fraternal or athletic groups, or [...] or slept in a long-term (including now)? Sex Assigned at Date Recorded Female 02/05/2018 10:11 AM CDT documented as of this encounter Plan of Treatment Upcoming Encounters Date Type Specialty Care Team Description 08/01/2022 Appointment Neurology Mili Toscano M .D. [address] [place], [place] [phone] (Wo rk) documented as of this encounter Visit Diagnoses Not on filedocumented in this encounter Additional Health Concerns Assessment Noted Time PHQ-9 Depression Total Score: 19 07/06/2018 10:33 AM C DT documented as of this encounter Care Teams Director Professional Services Relationship Specialty Start Date End Date Winter Singleton M.D. PCP - General Family Medicine 01/04/18 12/02/20 [address] [place] [address] documented as of this encounter
--- OUTSIDE RECORDS SUMMARY | 2022-05-31 21:54 | XMS_ITS | Encounter Summary ---
:1980 Author Organization [facility] Address [address] [place] [address] Care Team Providers Name Role Phone Winter Singleton M.D. Primary Care Provider Encounter Details Date Type Department Care Team Description 10/29/2018 Office Visit Department of Abran [facility] Ophthalmology in [place] Bilateral (Primary [place], [place] [address] Dx) [address] [place] [phone] Social History Tobacco Use Types Packs/Day Years [...] slept in a long term (including now)? Sex Assigned at Date Recorded Female 02/05/2018 10:11 AM CDT documented as of this encounter Progress Notes Abran Sims M.D. - 10/29/2018 10:45 AM CST Katherine Tiwari was seen today for No chief complaint on file. #1 Punctate Keratitis Bilateral #1 Ciloxan/4 both eyes Pred Forte/4 both eyes X 2 weeks for both meds; wait 5 minutes between drops RTO 10-14 days/prn LER HAND documented in this encounter Plan of Treatment Upcoming Encounters Date Type Specialty Care Team Description 08/01/2022 Appointment Neurology Mili Toscano M .D. [address] [place], [place] [phone] (Wo rk) documented as of this encounter Visit Diagnoses Diagnosis Punctate Keratitis Bilateral - Primary documented in this encounter Additional Health Concerns Assessment Noted Time PHQ-9 Depression Total Score: 19 07/06/2018 10:33 AM C DT documented as of this encounter Care Teams Road Design Engineer Relationship Specialty Start Date End Date Winter Singleton M.D. PCP - General Family Medicine 01/04/18 12/02/20 [address] [phone] documented as of this encounter
--- OUTSIDE RECORDS SUMMARY | 2022-05-31 21:54 | XMS_ITS | Encounter Summary ---
:[address] [facility] Address [address] [place] [address] Care Team Providers Name Role Phone Winter Singleton M.D. Primary Care Provider Encounter Details Date Type Department Care Team Description 03/24/2020 Clinical Department of Raj Mora Otorhinolaryngology in Fabio Meyers [place], [place] [address] [place] [address] [place], [place] [phone] [address] Social History Tobacco Use Types Packs/Day [...] or relatives? How often do you attend hindu or 1 to 4 times per year 04/22 sabianist services? Do you belong to any clubs or No 05/02/2022 organizations such as hindu groups, unions, fraternal or athletic groups, or [...] this encounter Miscellaneous Notes Telephone Encounter - Maritza Griffith - 03/24/2020 4:33 PM CDT Reason for Communication:Patient needs new molds of hearing aids made. She would like to know how togo about that. She use to go to [facility] but wants to come back to [facility]. Please contact via the patient portal. If you use number to call it does go through [employer] for hearing impaired patients. One of her hearing aids is not working right now but wants to see how long it will take for new molds. Current [employer] Service Can Nursing/Provider leave a detailed message: Did the patient refuse triage through Nurse line? (for symptom based concerns): Action Needed: Please advise Name of Medication (if relevant): documented in this encounter Plan of Treatment Upcoming Encounters Date Type Specialty Care Team Description 08/01/2022 Appointment Neurology Mili Toscano M .D. 200 [place], [place] [phone] (Wo rk) documented as of this encounter Visit Diagnoses Not on filedocumented in this encounter Additional Health Concerns Assessment Noted Time PHQ-9 Depression Total Score: 19 07/06/2018 10:33 AM C DT documented as of this encounter Care Teams Bean Picker Machine Operator Relationship Specialty Start Date End Date Winter Singleton M.D. PCP - General Family Medicine 01/04/18 12/02/[address] [phone] documented as of this encounter
--- OUTSIDE RECORDS SUMMARY | 2022-05-31 21:54 | XMS_ITS | Encounter Summary ---
:1980 Author Organization [facility] Address [address] [place] [address] Care Team Providers Name Role Phone Winter Singleton M.D. Primary Care Provider [phone] Reason for Visit Reason Comments Appointment on 02/07/2020 Encounter Details Date Type Department Care Team Description 02/07/2020 Clinical Communication Department of Radha Renee on Family Medicine, [place], 02/07/2020 [facility], PRohitAEver in [address] [address] [place], [place] [phone] [address] (Work) [phone] Social History Tobacco Use Types Packs/Day Years [...] or relatives? How often do you attend scientology or 1 to 4 times per year 04/22 jew services? Do you belong to any clubs or No 05/02/2022 organizations such as scientology groups, unions, fraJubilater Interactive [employer] or athletic groups, or school groups? How [...] or slept in a half-way (including now)? Education Answer Date Recorded What is the highest level of school Associate degree: lisandra russell, 06/07/2019 you have completed or the highest technical, or vocational p jared degree you have received? Sex Assigned at Date Recorded Female 02/05/2018 10:11 AM CDT documented as of this encounter Miscellaneous Notes Telephone Encounter - Catia Benton L.P.N. - 02/07/2020 9:42 AM CDT LVM for patient stating that she will need to call and reschedule her appointment for today. Telephone Encounter - Catia Benton L.P.N. - 02/07/2020 9:32 AM CDT LVM for rooming - this is the 2nd attempt. Will contact patient one more time in 5 minutes. If thereis no answer again we will no show the appointment. Telephone Encounter - Catia Benton L.P.N. - 02/07/2020 9:11 AM CDT LVM for rooming informing patient I would try to reach her again in 15 minutes to get her ready for her 9:30 appointment. documented in this encounter Plan of Treatment Upcoming Encounters Date Type Specialty Care Team Description 08/01/2022 Appointment Neurology Mili Toscano M .D. [address] [place], [place] [phone] (Wo rk) documented as of this encounter Visit Diagnoses Not on filedocumented in this encounter Additional Health Concerns Assessment Noted Time PHQ-9 Depression Total Score: 19 07/06/2018 10:33 AM C DT documented as of this encounter Care Teams Suppression Crew Leader Relationship Specialty Start Date End Date Winter Singleton M.D. PCP - General Family Medicine 01/04/18 12/02/20 [address] [place] [phone] documented as of this encounter
--- OUTSIDE RECORDS SUMMARY | 2022-05-31 21:54 | XMS_ITS | Encounter Summary ---
:1980 Author Organization [facility] Address [address] [place] [address] Care Team Providers Name Role Phone iWnter Singleton M.D. Primary Care Provider Encounter Details Date Type Department Care Team Description 12/21/2018 Orders Only [facility] - Fadumo Singleton, [address] [facility] [address] [place] [address] [address] [phone] [place] [address] (Wo rk) Social History Tobacco Use [...] 1 to 4 times per year 04/22 restoration services? Do you belong to any clubs [...] or slept in a custodial (including now)? Sex Assigned at Date Recorded Female 02/05/2018 10:11 AM CDT documented as of this encounter Plan of Treatment Upcoming Encounters Date Type Specialty Care Team Description 08/01/2022 Appointment Neurology Mili Toscano M .D. [address] [place], [place] [phone] (Wo rk) documented as of this encounter Visit Diagnoses Not on filedocumented in this encounter Additional Health Concerns Assessment Noted Time PHQ-9 Depression Total Score: 19 07/06/2018 10:33 AM C DT documented as of this encounter Care Teams Seed Potato Arranger Relationship Specialty Start Date End Date Winter Singleton M.D. PCP - General Family Medicine 01/04/18 12/02/20 [address] [place] [phone] documented as of this encounter
--- OUTSIDE RECORDS SUMMARY | 2022-05-31 21:54 | XMS_ITS | Encounter Summary ---
:1980 Author Organization [facility] Address [address] [place] [address] Care Team Providers Name Role Phone Winter Singleton M.D. Primary Care Provider [phone] Reason for Visit Reason Comments Final Attempt to reach patient completed LM with phone opperator for hearing impaired Encounter Details Date Type Department Care Team Description 02/26/2020 Clinical Communication Department of Marlee Person Attempt to Family Medicine, L, CHERRY CUTTER, C.N.P. reach patient [facility], [address] completed (LM with in [place], [place] phone opperator for [place] [phone] hearing impaired) [address] [phone] [place], [place] (Work) [phone] Social History Tobacco Use [...] 1 to 4 times per year 04/22 amish services? Do you belong to any clubs [...] this encounter Miscellaneous Notes Telephone Encounter - Aline Yang - 02/26/2020 11:17 AM CDT Thank you for your order. We have made our final attempt to contact this patient so that we may obtain information for registration and scheduling purposes. 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 This order has been cancelled, but may be reopened within 3 months of the order date. If the patient is interested in scheduling an appointment, please have the patient contact us at [phone] and we will reinstate the order at that time. Sincerely, [facility] Online Services for Referring Physicians Appointment Office documented in this encounter Plan of Treatment Upcoming Encounters Date Type Specialty Care Team Description 08/01/2022 Appointment Neurology Mili Toscano M .D. [address] [place], [place] [phone] (Wo rk) documented as of this encounter Visit Diagnoses Not on filedocumented in this encounter Additional Health Concerns Assessment Noted Time PHQ-9 Depression Total Score: 19 07/06/2018 10:33 AM C DT documented as of this encounter Care Teams Youth Pastor Relationship Specialty Start Date End Date Winter Singleton M.D. PCP - General Family Medicine 01/04/18 12/02/[address] [phone] documented as of this encounter
--- OUTSIDE RECORDS SUMMARY | 2022-05-31 21:54 | XMS_ITS | Encounter Summary ---
:1980 Author Organization [facility] Address [address] [place] [address] Care Team Providers Name Role Phone Winter Singleton M.D. Primary Care Provider [phone] Reason for Visit Reason Comments Med Refill Encounter Details Date Type Department Care Team Description 03/29/2019 Refill Department of Family Medicine, Heber Brody [facility], in Winter Wu M.D. [place] [address] [place] [address] [place] [address] [phone] Social History Tobacco Use Types Packs/Day Years [...] or relatives? How often do you attend uatsdin or 1 to 4 times per year 04/22 protestant services? Do you belong to any clubs or No 05/02/2022 organizations such as uatsdin groups, unions, fraternal or athletic groups, or [...] Neurology Mili Toscano M .D. [address] [place], [place] [phone] (Wo rk) documented as of this encounter Visit Diagnoses Not on filedocumented in this encounter Additional Health Concerns Assessment Noted Time PHQ-9 Depression Total Score: 19 07/06/2018 10:33 AM C DT documented as of this encounter Care Teams Telecommunications Sales Representative Relationship Specialty Start Date End Date Winter Singleton M.D. PCP - General Family Medicine 01/04/18 12/02/20 [address] [place] [address] documented as of this encounter
--- OUTSIDE RECORDS SUMMARY | 2022-05-31 21:55 | XMS_ITS | Encounter Summary ---
:1980 Author Organization [facility] Address [address] [place] [address] Care Team Providers Name Role Phone Winter Singleton M.D. Primary Care Provider Reason for Visit Reason Comments Follow-up Emergency Department Follow up Blood in Urine Outpatient (Routine) - Closed Specialty Diagnoses / Procedures Referred By Contact Refer red To Contact Urology Diagnoses Hematuria Chronic JANETH Singleton [facility] [place] [address] [place] [phone] Referral ID Status Reason Start Date Expiration Date Visits Requ ested Visits Authorized [id number] Closed 01/17/2018 07/16/2018 1 1 Encounter Details Date Type Department Care Team Description 02/05/2018 Comprehensive Visit Department of Winter Calderon M.D. [address], [place] [address] [facility] (Primary Dx); Urology in Charisse Mendez APRN, RRohitNRohti [address] [place] [address] Hematuria Chronic [place] [address] [place] [phone] Social History Tobacco Use Types Packs/Day Years Used Date Smoking Tobacco: Every Day Cigarettes Smokeless Tobacco: Never Alcohol Use Standard Drinks/Week [...] or slept in a halfway (including now)? Sex Assigned at Date Recorded Female 02/05/2018 10:11 AM CDT documented as of this encounter Last Filed Vital Signs Vital Sign Reading Time Taken Comments Blood Pressure 112/66 02/05/2018 10:02 AM CDT Pulse - - Temperature 36.9 ??C (98.4 ??F) 02/05/2018 10:02 AM CDT Respiratory Rate 18 02/05/2018 10:02 AM CDT Oxygen Saturation - - Inhaled Oxygen Concentration - - Weight - - Height - - Body Mass Index - - documented in this encounter Patient Instructions AttachmentsThe following attachments cannot be sent through Care Everywhere. Increasing Citrate (Citric Acid) in Your Diet (Bruneian)Nutrition Guidelines for Preventing Kidney Stones (Bruneian)documented in this encounter Consult Notes Charisse Mendez APRN, C.N.P. - 02/05/2018 10:00 AM CDT SUBJECTIVE REQUESTING PROVIDER Winter Singleton M.D. REASON FOR CONSULT Renal Stone HISTORY OF PRESENT ILLNESS Katherine is a pleasant 37 year old female here today for a consultation for renal stones. On Decemberangelo presented to the emergency department with gross hematuria. CT stone protocol was performed and showed a small stone in the urinary bladder as well as a 3 mm stone in the left kidney and two 2 mm stones in the right kidney. She has never had any stones in the past and has many questions about thistoday. Lower Urinary Symptoms Lower Urinary Sx: hematuria (+) difficulty urinating (+) Presence of pelvic pain: abdominal pain (+) Standardized questionnaires AUASS-- /35 REVIEW OF SYSTEMS Constitutional: Positive for fatigue and loss of appetite. Eyes: Positive for visual problems. ENT: Positive for sinus congestion. Respiratory: Positive for dyspnea. Gastrointestinal: Positive for abdominal (belly) pain or cramping, constipation, diarrhea, heartburnand nausea. Genitourinary: Positive for difficulty urinating, pain with urination, hematuria, urgency and frequent urination. Neurological: Positive for light-headedness, numbness or shooting pain in hands, arms, legs, or feet, excessive daytime sleepiness, loss of balance or tendency to fall easily and headaches. Psychiatric/Behavioral: Positive for excessive daytime sleepiness/tiredness, little interest or pleasure in doing things over past two weeks and feeling nervous, anxious, or on edge in past two weeks. The following systems were negative: Skin, CV, Hematologic, Musculoskeletal OBJECTIVE Vitals: 02/05/18 1002 BP: 112/66 Patient Position: Sitting Temp: 36.9 ??C Resp: 18 PHYSICAL EXAM Vitals and nursing note reviewed. General: Well developed, well nourished, well groomed female in no acute distress. Neurological: Alert, cooperative, oriented x3. Appropriate mood and affect. Head: Normal appearance, no abnormalities, normocephalic. Neck: Symmetrical and supple, trachea is midline. Cardiac: regular rate, regular rhythm Respiratory: Respirations are unlabored with normal respiratory rate and normal respiratory movements. Normal chest wall expansion without use of accessory muscles. Abdomen: Soft, non-tender, non-distended Extremities: Warm, without edema or ulcerations. Results for orders placed or performed in visit on 01/17/18 UroVysion for Detection of Bladder Cancer, Urine Result Value Ref Range Result Summary Negative Karyotype No evidence of urothelial carcinoma. Reason for referral Evaluate for urothelial carcinoma. Specimen Varies Source Urine, NOS Released by Praveena Woods M.D. [id number] Interpretation This test result does not rule out the possibility that the patient may have a low-grade (i.e. grade 1 or 2) non-invasive papillary urothelial carcinoma. Some patients with low grade non-invasive papillary urothelial carcinoma do not have abnormalities with this FISH test. Urinalysis with Microscopic if Indicated Result Value Ref Range Source Midstream Clarity Clear Clear Color Yellow Blood Trace (A) Negative Nitrite Negative Negative Leukocyte Esterase Negative Negative Protein Negative mg/dL Glucose Negative Negative mg/dL Ketones, QI(U) Negative Negative mg/dL Bilirubin Negative Negative pH 7.5 5.0 - 8.0 Specific [place] 1.015 1.001 - 1.035 Urobilinogen 0.2 0.2 - 1.0 mg/dL Microscopic Manual Result Value Ref Range White Blood Cells None Seen /hpf Red Blood Cells Occ-2 0 - 2 /hpf Dysmorphic Red Blood Cells <=25 <=25 % Squamous Cells Occ-3 /hpf ASSESSMENT / PLAN #1 Hematuria Chronic #2 [facility]reteral We had an in-depth discussion about her hematuria as well as renal stones. Her urinalysis performed in clinic showed no signs of hematuria. It is likely that the hematuria she experienced was from the stone that she had passed. We discussed that we looked at the actual urine micro for assessment of blood in the urine, not the dipstick test. We discussed that renal stones often cause the patient to have hematuria as the stones can be quite a brace the in the ureter. In regards to the stones that she has in both kidneys, we discussed that she should drink more fluids, up to 100 oz of fluid each day. We discussed that if she does pass the stone and is able to catch it that she should bring it to us so it can be analyzed. We discussed dietary changes that she can make and remaining tobacco free. If she has difficulty passing stones, she should contact us. Otherwise, we will see her again in the Urology Department on an as-needed basis. All of her questions have been answered today and she is in agreement with plan that we have made. Signed by: Charisse Mendez APRN, C.N.P. 02/05/2018 11:12 AM documented in this encounter Plan of Treatment Upcoming Encounters Date Type Specialty Care Team Description 08/01/2022 Appointment Neurology Mili Toscano M .D. [address] [place], [place] [phone] (Wo rk) documented as of this encounter Visit Diagnoses Diagnosis [facility] Ureteral - Primary Hematuria Chronic documented in this encounter Additional Health Concerns Assessment Noted Time PHQ-9 Depression Total Score: 2 01/17/2018 11:18 AM CD T documented as of this encounter Care Teams Travel Sales Consultant Relationship Specialty Start Date End Date Winter Singleton M.D. PCP - General Family Medicine 01/04/18 12/02/20 [address], [place] [address] documented as of this encounter
--- OUTSIDE RECORDS SUMMARY | 2022-05-31 21:55 | XMS_ITS | Encounter Summary ---
:1980 Author Organization [facility] Address [address] [place] [address] Care Team Providers Name Role Phone Winter Singleton M.D. Primary Care Provider Reason for Visit Reason Onset Date Comments Referral for audiology 03/15/2018 Encounter Details Date Type Department Care Team Description 03/15/2018 Clinical Communication Department of Rajinder Ref erral for Family Medicine, sameer[facility] [place], [address] [place] [phone] Social History Tobacco Use Types Packs/Day [...] or relatives? How often do you attend episcopalian or 1 to 4 times per year 04/22 nondenominational services? Do you belong to any clubs or No 05/02/2022 organizations such as episcopalian groups, unions, fraternal or athletic groups, or [...] this encounter Miscellaneous Notes Telephone Encounter - Makenzie Leslie L.PRohitNRohit - 03/15/2018 11:13 AM CDT Patient notified that referral done. Telephone Encounter - Сергей Kendall M.D. - 03/15/2018 10:59 AM CDT I have placed an audiology referral for the patient. Please call the patient and inform her that shewill need to call and schedule an appointment for audiology at [place]. Сергей Kendall MD Telephone Encounter - Makenzie Leslie L.PRohitNRohit - 03/15/2018 10:43 AM CDT Please advise Telephone Encounter - Radha Lopez - 03/15/2018 10:30 AM CDT Patient would like a referral to see an wash and greaser in [place] for a hearing test and to be fit forhearing aides. Patient needs new hearing aides and her insurance expires on 04/21. Please call patient at Patient said she does not need communications marketing intern when calling that number, someone will answer it. documented in this encounter Plan of Treatment Upcoming Encounters Date Type Specialty Care Team Description 08/01/2022 Appointment Neurology Mili Toscano M .D. 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 PCP - General Family Medicine 01/04/18 12/02/20 [address] [place] [address] documented as of this encounter
--- OUTSIDE RECORDS SUMMARY | 2022-05-31 21:55 | XMS_ITS | Encounter Summary ---
:1980 Author Organization [facility] Address [address] [place] [address] Care Team Providers Name Role Phone Unavailable Primary Care Provider Unavailable Encounter Details Date Type Department Care Team Description 01/15/2014 Hospital Encounter HX NO MAPPING Kaveh Bedolla M.D. Social History Tobacco Use Types Packs/Day Years Used Date Smoking Tobacco: Never Assessed Alcohol Habits Answer Date Recorded How often [...] slept in a care home (including now)? Sex Assigned at Date Recorded Female 02/05/2018 10:11 AM CDT documented as of this encounter Plan of Treatment Upcoming Encounters Date Type Specialty Care Team Description 08/01/2022 Appointment Neurology Mili Toscano M .D. [address] [place], [place] [phone] (Wo rk) documented as of this encounter Visit Diagnoses Not on filedocumented in this encounter
--- OUTSIDE RECORDS SUMMARY | 2022-05-31 21:55 | XMS_ITS | Encounter Summary ---
:1980 Author Organization [facility] Address [address] [place] [address] Care Team Providers Name Role Phone Winter Singleton M.D. Primary Care Provider Reason for Referral Outpatient (Routine) - Closed Specialty Diagnoses / Procedures Referred By Contact Refer red To Contact Urology Diagnoses Hematuria Chronic JANETH Singleton [facility] Jose Luis Max M.D. [address] [place] [address] Referral ID Status Reason Start Date Expiration Date Visits Requ ested Visits Authorized [id number] Closed 01/17/2018 07/16/2018 1 1 Reason for Visit Reason Comments Follow-up [facility] er on 12/29/2017 with dx of kidney stones. Appointment Request (Routine) - Closed Specialty Diagnoses / Procedures Referred By Contact Refer red To Contact Family Medicine Referral ID Status Reason Start Date Expiration Date Visits Requ ested Visits Authorized [id number] Closed 01/04/2018 07/03/2018 1 1 Encounter Details Date Type Department Care Team Description 01/17/2018 Office Visit Department of Family Rusty Stevens aturia Chronic (Primary Dx); Medicine, Winter [facility], in [place] [address], [place] [phone] Social History Tobacco Use Types Packs/Day Years [...] or relatives? How often do you attend orthodox or 1 to 4 times per year 04/22 scientology services? Do you belong to any clubs or No 05/02/2022 organizations such as orthodox groups, unions, fraternal or athletic groups, or [...] or slept in a snf (including now)? Sex Assigned at Date Recorded Female 02/05/2018 10:11 AM CDT documented as of this encounter Last Filed Vital Signs Vital Sign Reading Time Taken Comments Blood Pressure 120/60 01/17/2018 11:10 AM CDT Pulse 60 01/17/2018 11:10 AM CDT Temperature 36.5 ??C (97.7 ??F) 01/17/2018 11:10 AM CDT Respiratory Rate 20 01/17/2018 11:10 AM CDT Oxygen Saturation - - Inhaled Oxygen Concentration - - Weight 58.3 kg (128 lb 8.5 oz) 01/17/2018 11:10 AM CDT Height 163 cm (5' 4.17) 01/17/2018 11:10 AM CDT Body Mass Index 21.94 01/17/2018 11:10 AM CDT documented in this encounter Progress Notes Winter Singleton M.D. - 01/17/2018 10:45 AM CDT CHIEF COMPLAINT/ REASON FOR VISIT ER followup for kidney stones. HISTORY OF PRESENT ILLNESS Katherine Tiwari is a 37 y.o. female who presents to the clinic today for ER followup for kidney stones. She is seen today with the assistance of my medical student, Artie Moreno. There is also an medical lab specialist assisting today. She was seen in the ER at [facility] on 12/29 after she noticed blood on the toilet paper after urinating. This concerned Katherine because she has had a hysterectomy. UA came back showing a large amount of occult blood. A CT abdomen/pelvis with stone protocol wasobtained while she was in the ER and it showed the following: Bilateral nonobstructive nephrolithiasis. There is also a punctate stone in the dependent portion of the urinary bladder consistent with recently passed stone. Since being seen in the ER she has not noticed anymore blood. She does not have any pain. She has been straining her urine and has not noticed any stones. Katherine mentions that herlast several urinalysis' were positive for occult blood. It had been recommended that she followup with urology which she never did. Over the last couple months she has noticed that she urinates more frequently and does not feel like she completely empties her bladder. The patient denies any additional questions or concerns at this time. SYSTEMS REVIEW Please see HPI for pertinent positives, otherwise rest of ROS negative. MEDICATIONS Current Outpatient Prescriptions Medication Sig Dispense Refill ??? escitalopram (LEXAPRO) 10 mg tablet Take 1 tablet by mouth daily. ??? frovatriptan (for_FROVA) 2.5 mg tablet Take 2.5 mg by mouth. ??? LORazepam (for_ATIVAN) 0.5 mg tablet Take 0.5 mg by mouth. ??? traZODone (for_DESYREL) 50 mg tablet 50 mg take 1/2 to 1 tab at bedtime as needed for sleep No current facility-administered medications for this visit. ALLERGIES Allergies Allergen Reactions ??? Fentanyl Other (see comments) and Hives [...] ??? EXCISION OF LESION OF OVARY N/A 1999 Laparoscopy, surgical; with fulguration or excision of lesions of the ovary, pelvic viscera, or peritoneal surface by any method.. ??? EXCISION OF LESION OF OVARY N/A 2004 Laparoscopy, surgical; with fulguration or excision of lesions of the ovary, pelvic viscera, or peritoneal surface by any method.. ??? EXCISION OF LESION OF OVARY N/A 2005 Laparoscopy, surgical; with fulguration or excision of lesions of the ovary, pelvic viscera, or peritoneal surface by any method.. ??? EXCISION OF LESION OF OVARY N/A 2010 Laparoscopy, surgical; with fulguration or excision of lesions of the ovary, pelvic viscera, or peritoneal surface by any method.. ??? LEEP PROCEDURE - LOOP ELECTRO EXCISION PROCEDURE 07/2012 ??? TONSILLECTOMY AND ADENOIDECTOMY N/A 1992 Tonsillectomy and adenoidectomy; younger than age 12.. ??? TOTAL ABDOMINAL HYSTERECTOMY W/ BILATERAL SALPINGOOPHORECTOMY 02/2015 ??? VAGINAL DELIVERY N/A 12/29/2002 ??? VAGINAL DELIVERY N/A 04/14/2009 ??? VAGINAL DELIVERY N/A 11/25/2011 ??? VAGINAL DELIVERY 09/04/2013 PREVENTIVE SERVICES Social History Substance Use Topics ??? Smoking status: Current Every Day Smoker Types: Cigarettes ??? Smokeless tobacco: Never Used ??? Alcohol use 3.6 oz/week 1 Glasses of wine, 5 Shots of liquor per week VITAL SIGNS Vitals: 01/17/18 1110 BP: 120/60 Patient Position: Sitting Pulse: 60 Temp: 36.5 ??C Resp: 20 Height: 163 cm Weight: 58.3 kg TempSrc: Temporal PHYSICAL EXAMINATION General: Patient is alert and oriented times three, in no acute distress, good hygiene and is dressed appropriately. HEENT: Tympanic membranes are normal bilaterally. Oropharynx is without erythema or exudate. Nasal mucosa is without injection. Neck is without adenopathy. Heart: Regular rate and rhythm without murmur. Lungs: Clear to auscultation. Abdomen: Suprapubic tenderness. DIAGNOSTICS LABORATORY: UA with urine cytology results: pending. ASSESSMENT / PLAN #1 Microscopic and gross hematuria Urine cytology results are pending. Will refer to urology for further evaluation. Follow up The patient will contact the clinic with any new or worsening symptoms. This document serves as a record of services personally performed by Winter Ledesma MD. It was created on their behalf by Corrina Miller, a trained medical orderly. The creation of this record is based on the scribe's personal observations and the provider's statements to them. This document has been jason cked and approved by the attending provider. documented in this encounter Plan of Treatment Upcoming Encounters Date Type Specialty Care Team Description 08/01/2022 Appointment Neurology Mili Toscano M .D. [address] [place], [place] [phone] (Wo rk) Scheduled Referrals Name Type Priority Associated Diagnoses Order S chedule Urology - General Outpatient Referral Routine Hematuria Chroni c Expected: - lower urinary 01/17/2018 symptoms consult (Approximat e), (clinic) Expires: 01/17/2021 documented as of this encounter Procedures Procedure Name Priority Date/Time Associated Comments Diagnosis URINALYSIS WITH Routine 01/17/2018 12:07 Hematuria Chronic Res ults for this MICROSCOPIC IF PM CDT procedure are in INDICATED, U the results section. UROVYSION (R) FOR Routine 01/17/2018 12:07 Hematuria Chronic R esults for this BLADDER CANCER PM CDT procedure are in the results section. MICROSCOPIC MANUAL Routine 01/17/2018 12:07 Resul ts for this PM CDT procedure are i n the results section. documented in this encounter Results Microscopic Manual (01/17/2018 12:07 PM CDT) Analysis Performed At Patho logist Time Signature White Blood None Seen /hpf 01/17/2018 [facility] Cells 5:[address] [facility] Comment: ----REFERENCE VALUE---- Males: 0-3 Females: 0-10 Unknown: 0-10 Red Blood Cells Occ-2 0 - 2 /hpf 01/17/2018 5:25 PM CDT [facility] Dysmorphic Red Blood <=25 <=25 % 01/17/2018 5:25 PM CDT [facility] Squamous Cells Occ-3 /hpf 01/17/2018 5:25 PM CDT [facility] Specimen Anatomical Collection Method Collection Time Receive d Time (Source) Location / / Volume Laterality Urine 01/17/2018 12:07 01/17/2018 5:19 PM CDT PM CDT Winter Singleton M.D. LAB URINE ORDERABLES Performing Organization Address City/State/ZIP Code Phon e Number [facility]- [address] [place] [address] [place] [facility]- [address] [facility], [place] [address] [place] [facility] (ABNORMAL) Urinalysis with Microscopic if Indicated (01/17/2018 12:07 PM CDT) P athologist Signature Source Midstream 01/17/2018 [facility] 5:[address] [facility] Clarity Clear Clear 01/17/2018 [facility] 5:[address] [facility] Color Yellow 01/17/2018 [facility] 5:19 [facility] [place] [facility] Comment: ----REFERENCE VALUE---- Colorless Yellow Kaylee Blood Trace (A) Negative 01/17/2018 5:19 PM CDT [facility] [place] Nitrite Negative Negative 01/17/2018 5:19 PM CDT [facility] [place] [facility] Leukocyte Esterase Negative Negative 01/17/2018 5:19 PM CD T [facility] Protein Negative mg/dL 01/17/2018 5:19 PM CDT [facility] [place] [facility] Comment: ----REFERENCE VALUE---- Negative Trace Glucose Negative Negative mg/dL 01/17/2018 5:19 PM [facility] [place] [facility] Ketones, QL(U) Negative Negative mg/dL 01/17/2018 5:19 PM [facility] [place] [facility] Bilirubin Negative Negative 01/17/2018 5:19 PM [facility] [place] [facility] pH 7.5 5.0 - 8.0 01/17/2018 5:19 PM [facility] [place] [facility] Specific [place] 1.015 1.001 - 1.035 01/17/2018 5:19 PM [facility] [place] Urobilinogen 0.2 0.2 - 1.0 mg/dL 01/17/2018 5:19 PM [facility] Specimen Anatomical Collection Method Collection Time Receive d Time (Source) Location / / Volume Laterality Urine (Urine, 01/17/2018 12:07 01/17/2018 5:15 Clean Catch) PM CDT PM CDT Winter Singleton M.D. LAB URINE ORDERABLES Performing Organization Address City/State/ZIP Code Phon e Number [facility]- [address] [place], [place] [id number] [place] [address] LAB [facility] [address] [facility] UroVysion for Detection of Bladder Cancer, Urine (01/17/2018 12:07 PM CDT) Component Value Ref Test Analysis Performed At [facility] Range Method Time Signature Result Summary Negative 01/24/2018 [facility] 1:59 PM LABORATORIES - T [facility] Karyotype No evidence of 01/24/2018 [facility] urothelial 1:59 PM LABORATORIES - carcinoma. [facility] Reason for Evaluate for 01/24/2018 [facility] referral urothelial 1:59 PM LABORATORIES - carcinoma. [facility] Specimen Varies 01/24/2018 [facility] 1:59 PM LABORATORIES - [facility] Source Urine, NOS 01/24/2018 [facility] 1:59 PM LABORATORIES - [facility] Released By Praveena Woods, 01/24/2018 [place] EVELYN Meyers M.D. [id number] 1:59 PM LABORATORIES - T [facility] Interpretation This test result does not rule out the possibility t hat the 01/24/2018 [facility] patient may have a low-grade (i.e. grade 1 or 2) 1:59 PM LABORATORIES - non-invasive papillary urothelial carcinoma. Some patients [facility] with low grade non-invasive papillary urothelial carcinoma CAMPUS do not have abnormalities with this FISH test. Comment: Interpreted by: Praveena Woods M.D. [phone], Signed on 01/24/2018 at 13:59 ----ADDITIONAL INFORMATION---- Fluorescence in situ hybridization (FISH ) with centromere probes for chromosomes 3 (D3Z1), 7(D7Z1), 17(D17Z1) , and a locus specific probe for 9p21. This test has been modified from the man kelly's instructions. Its performance characteristics were determi ady by [facility] in a manner consistent with CLIA requirements. This test has not been cleared or approved by the U.S. Food and Drug Administration . Specimen Anatomical Collection Method Collection Time Receive d Time (Source) Location / / Volume Laterality Varies 01/17/2018 12:07 01/18/2018 8:05 PM CDT AM CDT Narrative This result has an attachment that is no t available. Winter Singleton M.D. LAB GENETIC TESTING Performing Organization Address City/State/ZIP Code Phon e Number [facility] LABORATORIES - [address] [place], [place] [address] [facility] documented in this encounter Visit Diagnoses Diagnosis Hematuria Chronic - Primary Stone Kidney documented in this encounter Additional Health Concerns Assessment Noted Time PHQ-9 Depression Total Score: 2 01/17/2018 11:18 AM CD T documented as of this encounter Care Teams Hot Mill Worker Relationship Specialty Start Date End Date Winter Singleton M.D. PCP - General Family Medicine 01/04/18 12/02/[address] [phone] documented as of this encounter
--- OUTSIDE RECORDS SUMMARY | 2022-05-31 21:55 | XMS_ITS | Encounter Summary ---
:1980 Author Organization [facility] Address [address] [place] [address] Care Team Providers Name Role Phone Winter Singleton M.D. Primary Care Provider Reason for Visit Reason Comments Depression patient requesting medicatio n adjustment Appointment Request (Routine) - Closed Specialty Diagnoses / Procedures Referred By Contact Refer red To Contact Family Medicine Referral ID Status Reason Start Date Expiration Date Visits Requ ested Visits Authorized [id number] Closed 07/02/2018 07/02/2019 1 Encounter Details Date Type Department Care Team Description 07/06/2018 Office Visit Department of Family Rusty matos Headache (Primary Dx); Medicine, Winter Elizabeth Depressi on Anxiety; Clinic, in [place] Sexual Dysfunction Female [place] [address] [facility] [place] [phone] Social History Tobacco Use Types Packs/Day Years [...] or relatives? How often do you attend nondenominational or 1 to 4 times per year 04/22 hinduism services? Do you belong to any clubs or No 05/02/2022 organizations such as nondenominational groups, unions, fraAgennix or athletic groups, or school groups? How [...] Sign Reading Time Taken Comments Blood Pressure 102/56 07/06/2018 10:32 AM CDT Pulse 84 07/06/2018 10:32 AM CDT Temperature 36.8 ??C (98.2 ??F) 07/06/2018 10:32 AM CDT Respiratory Rate 20 07/06/2018 10:32 AM CDT Oxygen Saturation - - Inhaled Oxygen Concentration - - Weight 57.5 kg (126 lb 12.2 oz) 07/06/2018 10:32 AM CDT Height 163 cm (5' 4.17) 07/06/2018 10:32 AM CDT Body Mass Index 21.64 07/06/2018 10:32 AM CDT documented in this encounter Patient Instructions Patient InstructionsFrWinter Deal M.D. - 07/06/2018 10:15 AM CDT Start taking the lexapro 1/2 tablet daily for one week then discontinue. You can start taking the Wellbutrin (bupropion) right away. Keep me updated. documented in this encounter Progress Notes Winter Singleton M.D. - 07/06/2018 10:15 AM CDT SUBJECTIVE CHIEF COMPLAINT / REASON FOR VISIT Katherine Tiwari is a 38 y.o. female who presents for evaluation of Depression (patient requesting medication adjustment). HISTORY OF PRESENT ILLNESS Tatyana has been on Lexapro. She has done okay from a depression standpoint. She has found however that she has developed lack of libido and anorgasmia. She has friends who are on Wellbutrin and knowsthat this can sometimes be helpful in this situation. She is wondering if she would be a candidate for this. Her depression is generally well controlled. OBJECTIVE BP 102/56 Pulse 84 Temp 36.8 ??C (Temporal) Resp 20 Ht 163 cm Wt 57.5 kg BMI 21.64 kg/m?? PHYSICAL EXAM GENERAL: Patient is alert and oriented, well groomed and appropriately dressed. ASSESSMENT / PLAN #1 Migraine Headache Rizatriptan is refilled. #2 Depression Anxiety She is instructed to taper off the Lexapro by taking half tablet daily for 1 week and then discontinue. She will start taking bupropion today #3 Sexual Dysfunction Female Discontinuing SS RI and beginning Wellbutrin therapy may be helpful for this. If not we can refer her on to a women sexual health clinic if needed. Other orders - rizatriptan (MAXALT) 10 mg tablet; Take 1 tablet (10 mg total) by mouth every 2 (two) hours as needed for migraine. May repeat in 2 hours if unresolved. Do not exceed 30 mg in 24 hours., Starting Mon07/06/2018, Print - buPROPion XL (WELLBUTRIN XL) 300 mg 24 hr tablet; Take 1 tablet (300 mg total) by mouth every morning., Starting Mon07/06/2018, Until Mon09/04/2018, Normal documented in this encounter Plan of Treatment Upcoming Encounters Date Type Specialty Care Team Description 08/01/2022 Appointment Neurology Mili Toscano M .D. [address] [place], [place] [phone] (Wo rk) documented as of this encounter Visit Diagnoses Diagnosis Migraine Headache - Primary Depression Anxiety Sexual Dysfunction Female documented in this encounter Additional Health Concerns Assessment Noted Time PHQ-9 Depression Total Score: 19 07/06/2018 10:33 AM C DT documented as of this encounter Care Teams Triple Drum Operator Relationship Specialty Start Date End Date Winter Singleton M.D. PCP - General Family Medicine 01/04/18 12/02/[address] [place] [address] documented as of this encounter
--- OUTSIDE RECORDS SUMMARY | 2022-05-31 21:55 | XMS_ITS | Encounter Summary ---
:1980 Author Organization [facility] Address [address] [place] [address] Care Team Providers Name Role Phone Winter Singleton M.D. Primary Care Provider Encounter Details Date Type Department Care Team Description 10/10/2018 Clinical Communication Department of Kaveh Bedolla, Obstetrics and [facility] Gynecology in [address] [phone] Social History Tobacco Use Types Packs/Day Years [...] this encounter Miscellaneous Notes Telephone Encounter - Kaveh Bedolla M.D. - 10/10/2018 1:37 PM CST Katherine Durbin Blood no showed [facility] today. Kaveh Bedolla M.D. LSTERY TECHNICIAN documented in this encounter Plan of Treatment Upcoming Encounters Date Type Specialty Care Team Description 08/01/2022 Appointment Neurology Mili Toscano M .D. [address] [place], [place] [phone] (Wo rk) documented as of this encounter Visit Diagnoses Not on filedocumented in this encounter Additional Health Concerns Assessment Noted Time PHQ-9 Depression Total Score: 19 07/06/2018 10:33 AM C DT documented as of this encounter Care Teams Biophysics Professor Relationship Specialty Start Date End Date Winter Singleton M.D. PCP - General Family Medicine 01/04/18 12/02/20 [address], [place] [address] documented as of this encounter
--- OUTSIDE RECORDS SUMMARY | 2022-05-31 21:55 | XMS_ITS | Encounter Summary ---
:1980 Author Organization [facility] Address [address] [place] [address] Care Team Providers Name Role Phone Unavailable Primary Care Provider Unavailable Encounter Details Date Type Department Care Team Description 01/19/2015 Hospital Encounter [facility]X [facility] Heidi Wong M .D. Social History Tobacco Use Types Packs/Day Years [...] 05/02/2022 organizations such as tenriism groups, unions, fraternal or athletic groups, or [...] or slept in a intermediate (including now)? Sex Assigned at Date Recorded Female 02/05/2018 10:11 AM CDT documented as of this encounter Last Filed Vital Signs Vital Sign Reading Time Taken Comments Blood Pressure 104/72 01/19/2015 10:13 AM CDT Pulse 90 01/19/2015 10:13 AM CDT Temperature - - Respiratory Rate - - Oxygen Saturation - - Inhaled Oxygen Concentration - - Weight 59.2 kg (130 lb 8.2 oz) 01/19/2015 10:13 AM CDT Height - - Body Mass Index - - documented in this encounter Progress Notes Heidi Bedolla M.D. - 01/19/2015 9:59 AM CDT [id number] Ms. Davide samayoa showed her appointment in the [facility] today. Heidi Bedolla M.D./francisco Electronically Signed By: HEIDI BEDOLLA MD On: 02/18/2015 08:40 AM Source: [facility] MHSDOLBEYNONRADSYS Document Id: [id number] documented in this encounter Consult Notes Heidi Bedolla M.D. - 01/19/2015 9:59 AM CDT [id number] CHIEF COMPLAINT/REASON FOR VISIT Heavy menstrual bleeding. 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 She presents for a STUDENT SERVICES ADVISOR consult from Sarah Bhardwaj at [facility] in [place]. She is a 34-year-old, G7, P4-0-3-4 female with LMP of 12/22/2014. The patient presents for consult for menorrhagia and requests hysterectomy. The patient has seen a wood products manufacturer through the [facility] system in [place] and is currently scheduled for a robotic hysterectomy 2014 and the patient would like to have her hysterectomy here at our facility near her home instead of having to go to [place] for hysterectomy. The patient has been having heavy menstrual bleeding and menorrhagia for some time. She had a vaginal delivery on 09/04/2013 and received Depo-Provera on 10/18/2013. The patient became amenorrheic on the Depo-Provera. She then had a tubal ligation on 01/15/2014 and stopped her Depo-Provera. The patient had return of her menses in January. In February and March she had heavier bleeding and developed menorrhagia. The patient was seen in April 2014 and was placed on control pills. She took Ortho-Cyclen control pills for 3 months with some improvement in her menorrhagia symptoms and then she stoppedsince she already had a sterilization procedure performed. The patient was restarted on Depo-Proveraon 09/03/2014 and received her next Depo-Provera injection on 12/03/2014. She reports that she continues to have regular menses once a month that lasts for 7 to 10 days with heavy blood flow and blood clots with soiling of her clothing on her heavy flow days. She must change pads every 30 minutes. This is becoming very bothersome for her and is affecting her ability to work. She reports seeing a wood products manufacturer in [place] and they plan to go forward with hysterectomy in March 2015 but she would like to be seen here and have a hysterectomy at our facility as she lives in [facility] and does not want to travel to [place] and have surgery over an hour away from her home and her family. The patient has previously had a sterilization procedure performed and does not want have any further children. She denies pelvic pain, cramping, tenderness or discomfort, but she does report that overthe last 6 to 7 months she has developed dysmenorrhea with menorrhagia. She has taken xpta-asu-hffbuts pain medications for this. The patient also reports having some menstrual migraine headaches, which are controlled with headache medication. Her menstrual migraine headaches have improved on the Depo-Provera but her dysmenorrhea and her menorrhagia symptoms have not. She denies difficulty urinating.No dysuria, hematuria or flank pain. No change in bowel habits. No vaginal itching, irritation or discharge other than bleeding as mentioned above. ALLERGIES 1. Fentanyl causes hives. 2. Penicillin causes rash. 3. Macrobid causes nausea. MEDICATIONS 1. Depo-Provera last injection on 12/03/2014. 2. Maxalt as needed. 3. Frovatriptan as needed. 4. Ibuprofen as needed. PAST MEDICAL/SURGICAL HISTORY PAST MEDICAL HISTORY: 1. Endometriosis. 2. Tobacco abuse 1/2 pack per day. 3. History of cervical dysplasia JIMMY 3 in 2011. 4. Hearing loss. 5. Anxiety. 6. Menorrhagia. 7. Dysmenorrhea. 8. Fibroid uterus. PAST SURGICAL HISTORY: 1. Laparoscopic tubal ligation 01/15/2014. 2. LEEP procedure 2011. 3. Laparoscopy 2009. 4. Breast augmentation 2006. 5. Laparoscopy 2004. 6. Laparoscopy 2003. 7. Laparoscopy 1998. 8. Tonsils and adenoids 1991. PAST OBSTETRICAL HISTORY: 1. Vaginal delivery 12/29/2002. 2. Vaginal delivery 04/14/2009. 3. Vaginal delivery 11/25/2011. 4. Vaginal delivery 09/04/2013. 5. Miscarriage x2. 6. x1. SOCIAL HISTORY The patient is . She smokes tobacco, 1/2 pack per day. She denies alcohol or drug use. No history of STD or PID. She does have a history of cervical dysplasia in 2011 with normal followup Pap smear. ADULT PREVENTIVE SERVICES Provided by Sarah Bhardwaj at [facility]. These records are not available for my review. She does have a Pap smear in 2013 that was negative for intraepithelial lesion or malignancy. VITAL SIGNS Weight 59.2 kg, pulse is 90, blood pressure 104/72. Respiration 18, temperature 36.8. PHYSICAL EXAMINATION GENERAL: Well-developed, well-nourished female, in no apparent distress. Alert oriented x3. LUNGS: Clear to auscultation bilaterally. Good inspiratory effort. HEART: Regular rate and rhythm without murmur. ABDOMEN: Soft, nontender, nondistended. Positive bowel sounds. No hepatomegaly. No rebound. No guarding. Well-healed laparoscopic incisions. EXTREMITIES: No clubbing, cyanosis, or edema. Nontender bilaterally. SPINE: No CVA tenderness bilaterally. GENITOURINARY EXAM: Normal external female genitalia. Normal BUS. Normal vaginal rugae without lesions. Normal multiparous cervical os without lesions. There is some old vaginal blood in the vaginal vault. No active bleeding noted. No cervical motion tenderness. Uterus is 8 week size, midposition and mobile, nontender. No adnexal masses or tenderness bilaterally. Minimal descent. DIAGNOSTICS Pelvic ultrasound 05/13/2014 shows uterus measuring 7.5 x 8.8 cm with a 1.5 cm lesion in the right fundus consistent with fibroid, endometrium is 6 mm. Right ovary measured 2.3 x 3.2 cm and appears normal. Left ovary measured 2.7 x 3.1 cm and appears normal with several small follicles. Good blood flow to both ovaries. No free fluid. Pelvic ultrasound 01/15/2015 pelvic ultrasound shows uterus measuring 8.5 x 5.5 cm with a 3.1 cm fibroid in the right fundus. Endometrium is 9 mm in thickness. Right ovary measured 2.4 x 3.1 cm and appears normal. Good blood flow. Left ovary is 2.9 x 2.6 cm and appears normal. Good blood flow. No adnexal masses. No free fluid. 12/23/2014: Hemoglobin 12.5, hematocrit 37.7 platelets 191. 01/11/2015: test negative. Urinalysis negative. Chlamydia negative. Gonorrhea negative. Wet prep negative. 01/13/2015: White count 6.3, hemoglobin 13.6, hematocrit 41.3, platelets 192, TSH 0.68. IMPRESSION/REPORT/PLAN 1. Menorrhagia. 2. Dysmenorrhea. 3. Fibroid uterus. 4. Tobacco abuse. 5. History of endometriosis with multiple prior surgeries. PLAN: 1. I discussed the patient's symptoms. I discussed menorrhagia and dysmenorrhea with the patient. I discussed her fibroid uterus. Her uterus has increased in size from her ultrasound in April, to her ultrasound now in December 2014. She has a fibroid on the right intramural wall of the uterus that has doubled in size. 2. I discussed the patient's bleeding symptoms. I reviewed with the patient that some of her bleeding symptoms may be related to her Depo-Provera use. I discussed menorrhagia with the patient. I discussed the risk for endometrial pathology in women in early 30s is very low. I discussed the option of doing an endometrial biopsy to assess endometrial lining, and the patient declines. I feel this is reasonable as she is 34. 3. I discussed management options for fibroid uterus with the patient. I also discussed management options for dysmenorrhea. I reviewed the patient that her hemoglobin and hematocrit are stable. Reassurance is given to the patient. 4. I discussed medical hormone management options including control pills both cyclic and continuous, Depo-Provera, cyclic Provera, Mirena IUD, as well as Depo-Lupron. I reviewed the risks, benefits, alternatives, and indication of each with the patient. 5. I discussed surgical options of hysteroscopy with endometrial ablation. I also discussed the option of hysterectomy. I reviewed the risks, benefits, alternatives, and indication of each with the patient. 6. After discussing options with the patient the patient would like to proceed forward with hysterectomy. She has already been seen by Dr. Lewis, a wood products manufacturer at [facility] in [place] and is currently scheduled for a robotic assisted hysterectomy in March of 2015. The patient would like to proceed forwardwith hysterectomy. She would like to have a hysterectomy performed here in her community instead of over an hour away. 7. I reviewed the hysterectomy acknowledgement form with the patient. The patient is aware that having a hysterectomy will mean that she will have no further children. The patient has previously had a sterilization procedure performed by myself on 01/15/2014 and does not want to have any further childr en. 8. I reviewed the risks, benefits, alternatives, and indication of hysterectomy with the patient. I recommend a salpingectomy at the time of hysterectomy. I discussed the rationale and benefits of doing this. I recommend the patient retain her ovaries unless they appear abnormal at the time of surgery. I discussed the option of vaginal hysterectomy as well as total laparoscopic hysterectomy. After discussing options with the patient she would like to proceed forward with total laparoscopic hysterectomy. 9. We have scheduled the patient for total laparoscopic hysterectomy and salpingectomy later in January 2015 here at [facility]. The patient agrees to this course of action. 10. We will send this off to the business office for preauthorization for surgery. 11. I would like the patient see Sarah Bhardwaj, her primary provider for medical preop clearance with history and physical examination prior to hysterectomy on 02/19/2015. 12. I would like to see the patient back the week prior to surgery to review surgical consents and answer any last minute questions. 13. Bleeding and pain precautions are reviewed with patient. 14. I discussed management options for now until the surgery and the patient would like to continue with the Depo-Provera that she is currently on. She will follow up immediately if her bleeding symptoms worsen before her surgery. 15. All of the patient's questions are answered. 16. Bleeding precautions are reviewed patient. Heidi Bedolla M.D./aos cc: Adriane Bhardwaj CNP Electronically Signed By: HEIDI BEDOLLA MD On: 01/19/2015 03:41 PM Source: [facility] MHSDOLYOSELINYNONRADSYS Document Id: [id number] documented in this encounter Miscellaneous Notes Telephone Encounter - Heidi Bedolla M.D. - 02/09/2015 12:00 AM CDT [id number] Carine Davide yao showed her appointment in the [facility] today. Heidi Bedolla M.D./francisco Electronically Signed By: HEIDI BEDOLLA MD On: 02/09/2015 03:07 PM Source: [facility] MHSDOLBEYNONRADSYS Document Id: [id number] Miscellaneous - Heidi Bedolla M.D. - 01/19/2015 11:50 AM CDT Ambulatory Patient Summary [facility] [address] [place] [id number] Visit Information Name: KATHERINE AUGUSTINE [facility] Number: [id number] Current Date: 01/19/2015 11:50:18 Physicians Attending Provider: HEIDI BEDOLLA MD Primary Care Provider: PCP, KATHERINE REYES has been given the following list of follow-up instructions, medication list, andpatient education materials: Follow-up Instructions Your Medications Here is a list of your medications. It is important to take your medications as directed. Use a pillbox or chart to help remind you to take your medications. Please let your doctor or nurse know if you have problems taking your medications. Medication/Strength How to Take Indications/Special Instructions/Comments/Notes for Patient Medication Changes/Routing Stop Taking the Following Medications: norgestimate-ethinyl estradiol (Ortho-Cyclen 0.25 mg-35 mcg oral tablet) Medication list as of 01-19-15 11:50 Attention: If you have any medications at home that are not on this list, DO NOT take them until youcontact your provider for clarification. Give a copy of your medication list to your primary care provider. Update your medication list any time medications or doses are changed and carry your medication list at all times in case of emergency. Electronically Signed By: HEIDI BEDOLLA MD Signed On:19-JAN-2015 11:50:15 Your Allergies & Intolerances Substance Reaction Symptoms Category Comments penicillins Drug Macrobid Drug fentaNYL Drug Your Problem List Problem Status Onset Comments Encounter for Sterilization Active 12/27/2013 Tobacco Use Disorder Active 12/27/2013 Endometriosis of Pelvic Peritoneum Active 12/27/2013 Abnormal pap with HGSIL Active 2012 Loss Hearing Conductive Rakesh Active 12/27/2013 Menometrorrhagia Active Menorrhagia Active Your Upcoming Appointments Date Time Location Provider 02/09/2015 10:00 [facility] Heidi Bedolla MD Attention: Contact your local Clinic if further appointment detail needed. Your Goals/Additional instructions: Source: [facility] POWER[facility]ART Document Id: [id number] Miscellaneous - Heidi Bedolla M.D. - 01/19/2015 11:50 AM CDT Ambulatory Discharge Medication List [address] [id number] Visit Information Name: DAVIDE KATHERINE EMMA [facility] Number: [id number] Visit Date: 01/19/2015 11:50:17 Attending Provider: HEIDI BEDOLLA MD Primary Care Provider: PCP, ERICK AUGUSTINEKATHERINE has been given the following list of medications: Your Medications It is important to take your medications as directed. Use a pill box or chart to help remind you to take your medications. Please let your doctor or nurse know if you have problems taking your medications. Medication/Strength How to Take Indications/Special Instructions/Comments/Notes for Patient Medication Changes/Routing Stop Taking the Following Medications: norgestimate-ethinyl estradiol (Ortho-Cyclen 0.25 mg-35 mcg oral tablet) Medication list as of 01-19-15 11:50 Attention: If you have any medications at home that are not on this list, DO NOT take them until youcontact your provider for clarification. Give a copy of your medication list to your primary care provider. Update your medication list any time medications or doses are changed and carry your medication list at all times in case of emergency. Electronically Signed By: HEIDI BEDOLLA MD Signed On:19-JAN-2015 11:50:15 Additional Information: Source: [facility] POWER[facility] Document Id: [id number] Miscellaneous - Grace Faria L.PRohitNRohit - 01/19/2015 10:13 AM CDT Adult Option Trader Intake/History Adult Option Trader Intake/History Entered On: 01/19/2015 10:15 CDT Performed On: 01/19/2015 10:13 CDT by GRACE FARIA LPN Intake Chief Complaint : Pelvic pain, bleeding issues Onset of Symptoms : April 2014 Peripheral Pulse Rate : 90 /min Systolic Blood Pressure : 104 mmHg Diastolic Blood Pressure : 72 mmHg NIBP Mean : 83 mmHg BP Location : Right upper extremity Blood Pressure Cuff Size : Regular Actual Weight : 59.2 kg(Converted to: 130 lb 8 oz) Weight Source : Standing scale Dosing Weight Clinic : 59.2 kg GRACE FARIA LPN - 01/19/2015 10:13 CDT General Info Information Given By : Patient Languages : Russian Is Patient Female and 13-50 no hysterectomy : Yes Status : Patient denies Are you ? : No GRACE FARIA LPN - 01/19/2015 10:13 CDT Subjective Pain Symptoms : No GRACE FARIA LPN - 01/19/2015 10:13 CDT Dependent Habits Tobacco Use/Currently Using : Yes Exposure to Tobacco Smoke : Patient smokes Smoking Status : Current every day smoker GRACE FARIA LPN - 01/19/2015 10:13 CDT Tobacco Use Grid Type : Cigarettes Cigarette Use Packs/Day : 0.5 GRACE FARIA LPN - 01/19/2015 10:13 CDT ID Screen Travel Within Last 21 Days : No Contact with someone with Ebola : No GRACE FARIA SUPERVISOR CELL MAINTENANCE - 01/19/2015 10:13 CDT Source: [facility] P[facility] Document Id: [id number] CDT!32 documented in this encounter Plan of Treatment Upcoming Encounters Date Type Specialty Care Team Description 08/01/2022 Appointment Neurology Mili Toscano M .D. [address] [place] [phone] (Wo rk) documented as of this encounter Visit Diagnoses Not on filedocumented in this encounter
--- OUTSIDE RECORDS SUMMARY | 2022-05-31 21:55 | XMS_ITS | Encounter Summary ---
:1980 Author Organization [facility] Address [address] [place] [id number] Care Team Providers Name Role Phone Unavailable Primary Care Provider Unavailable Encounter Details Date Type Department Care Team Description 03/09/2010 Hospital Encounter HX [facility] Renetta Barrera M.D. [address] [place], [place] [phone] (Wo rk) Social History [...] or relatives? How often do you attend holiness or 1 to 4 times per year 04/22 uatsdin services? Do you belong to any clubs or No 05/02/2022 organizations such as holiness groups, unions, fraternal or athletic groups, or [...] documented as of this encounter Progress Notes Leatha Carney M.D. - 03/09/2010 12:00 AM CDT [id number] CHIEF COMPLAINT / REASON FOR VISIT History of endometriosis, pelvic pain. HISTORY OF PRESENT ILLNESS Katherine is a 29-year-old multigravid patient who is new to the clinic. She has a long-standing history of documented endometriosis. She underwent diagnostic laparoscopy with fulguration of endometriosis implants in 1998, 2003, and 2004. Two of the procedures were very successful in alleviating the pelvic pain and she was able to achieve normal pregnancies. She has used oral contraceptive pills on the past with very little to no relief. She has also used Lupron and is unable to tolerate the significant and severe side effects of that. She has performed a urine test and it was negative. She presents for consultation regarding laparoscopic excision of fulguration. She did achieve nearly 5 years of relief with the last laparoscopy. PAST MEDICAL / SURGICAL HISTORY 1) Hearing loss. 2) Prior laparoscopic surgeries, as mentioned above. PHYSICAL EXAM GENERAL: Female of stated age in no acute distress. ABDOMEN: Soft, nondistended, and nontender. Benign. IMPRESSION / REPORT / PLAN 1) A 29-year-old multigravid patient with history of documented endometriosis with relief from laparoscopic fulguration. PLAN: The plan is to proceed with minimally invasive fulguration of the endometriosis. Her plans are to achieve shortly after that. She may want definitive management some time in the near future, but she would like her fertility preserved at this point. Leatha Craney M.D. srw Electronically Signed By:LEATHA CARNEY MD On 03/11/2010 04:56 PM Source: [facility] MHSDOLBEYNONRADSYS Document Id: [id number] documented in this encounter Miscellaneous Notes Miscellaneous - Devon Mancilla L.PRohitNRohit - 03/09/2010 9:25 AM CDT Adult Receiving Distribution Station Operator Intake/History Adult Receiving Distribution Station Operator Intake/History Entered On: 03/09/2010 9:30 CDT Performed On: 03/09/2010 9:25 CDT by DEVON MANCILLA Intake Chief Complaint: endometriosis consult Systolic Blood Pressure: 106mmHg Diastolic Blood Pressure: 58mmHg NIBP Mean: 74mmHg BP Location: Left upper extremity DEVON MANCILLA - 03/09/2010 9:25 CDT Subjective Pain Symptoms: Yes DEVON MANCILLA - 03/09/2010 9:25 CDT Pain Pain Assessment Grid Pain 1 Location: Other: pelvic and lower bacl Laterality: Bilateral Time Pattern: Intermittent Onset: Gradual Quality: Aching, Cramping, Dull, Pressure Pain Radiation: Yes Aggravating Factors: None Alleviating Factors: Rest Associated Symptoms: Nausea Interventions: Heat DEVON MANCILLA - 03/09/2010 9:25 CDT Dependent Habits Tobacco Use/Currently Using: Yes DEVON MANCILLA - 03/09/2010 9:25 CDT Tobacco Use Grid Type: Cigarettes Cigarette Use Packs/Day: 1.0 DEVON MANCILLA - 03/09/2010 9:25 CDT Allergies Source: [facility] POWERCHART Document Id: [id number] CDT!28 documented in this encounter Plan of Treatment Upcoming Encounters Date Type Specialty Care Team Description 08/01/2022 Appointment Neurology Mili Toscano M .D. [address] [place] [address] [phone] (Wo rk) documented as of this encounter Visit Diagnoses Not on filedocumented in this encounter
--- OUTSIDE RECORDS SUMMARY | 2022-05-31 21:55 | XMS_ITS | Encounter Summary ---
:1980 Author Organization [facility] Address [address] [place] [id number] Care Team Providers Name Role Phone Unavailable Primary Care Provider Unavailable Encounter Details Date Type Department Care Team Description 12/05/2017 Abstract Department of Family Medicine, Provider, Historical [facility], in [place], [place] [address] [place] [phone] Social History Tobacco Use Types Packs/Day Years Used Date Smoking Tobacco: Every Day Alcohol Habits Answer Date Recorded How often [...] Appointment Neurology Mili Toscano M .D. [address] [place] [address] [phone] (Wo rk) documented as of this encounter Visit Diagnoses Not on filedocumented in this encounter
--- OUTSIDE RECORDS SUMMARY | 2022-05-31 21:55 | XMS_ITS | Encounter Summary ---
:1980 Author Organization [facility] Address [address] [place] [address] Care Team Providers Name Role Phone Winter Singleton M.D. Primary Care Provider Reason for Visit Reason Comments Suture / Staple Removal R wrist Appointment Request (Routine) - Closed Specialty Diagnoses / Procedures Referred By Contact Refer red To Contact Family Medicine Referral ID Status Reason Start Date Expiration Date Visits Requ ested Visits Authorized [id number] Closed 06/11/2018 06/11/2019 1 1 Encounter Details Date Type Department Care Team Description 06/11/2018 Office Visit Department of Family Kirsten Kendall Encoun ter For Removal MedicineBryce M.D. Of Sutures (Primary Clinic, in [place], [address] [facility]) [place], [place] [address] [address] [place], [place] [phone] [address] (Work) [phone] Social History Tobacco Use Types Packs/Day Years [...] or slept in a penitentiary (including now)? Sex Assigned at Date Recorded Female 02/05/2018 10:11 AM CDT documented as of this encounter Last Filed Vital Signs Vital Sign Reading Time Taken Comments Blood Pressure 104/64 06/11/2018 3:58 PM CDT Pulse 88 06/11/2018 3:58 PM CDT Temperature 36.4 ??C (97.5 ??F) 06/11/2018 3:58 PM CDT Respiratory Rate - - Oxygen Saturation - - Inhaled Oxygen Concentration - - Weight 57 kg (125 lb 10.6 oz) 06/11/2018 3:58 PM CDT Height - - Body Mass Index 21.45 03/13/2018 8:49 AM CDT documented in this encounter Procedure Notes Kirsten Kendall M.D. - 06/11/2018 4:15 PM CDTAssociated Order(s): SUTURE REMOVAL Post-Procedure Diagnose(s): Encounter For Removal Of Sutures Suture Removal Date/Time: 06/11/2018 4:14 PM Performed by: KIRSTEN KENDALL Authorized by: KIRSTEN KENDALL Pre-procedure details: Sutures were placed at [facility] facility: no Indicaton: scheduled suture removal Location: Upper extremity Upper extremity location: Arm Arm location: Right lower arm Procedure details: Wound appearance: Good wound healing Number of sutures removed: 6 Post-procedure details: Procedure completed successfully: yes Complications: no immediate complications documented in this encounter Plan of Treatment Upcoming Encounters Date Type Specialty Care Team Description 08/01/2022 Appointment Neurology Mili Toscano M .D. [address] [place], [place] [phone] (Wo rk) documented as of this encounter Procedures Procedure Name Priority Date/Time Associated Diagnosis Comme nts SUTURE REMOVAL Routine 06/11/2018 4:15 PM Encounter For Remova l Results for this CDT Of Sutures procedure are i n the results section . documented in this encounter Results SUTURE REMOVAL (06/11/2018 4:15 PM CDT) Narrative MMODAL - 06/11/2018 4:15 PM CDT Kirsten Kendall M.D. ? 06/11/2018 ??4:16 PM Suture Removal Date/Time: 06/11/2018 4:14 PM Performed by: KIRSTEN KENDALL Authorized by: KIRSTEN KENDALL Pre-procedure details: ??Sutures were placed at [facility]: no ?Indicaton: scheduled suture removal ?Location: ??Upper extremity ??Upper extremity location: ??Arm ??Arm location: ??Right lower arm Procedure details: ??Wound appearance: ??Good wound healin g ??Number of sutures removed: ??6 Post-procedure details: ??Procedure completed successfully: yes ?Complications: no immediate complicat ions ?? Kirsten Kendall M.D. PROCEDURE/MINOR SURGICAL ORD ERABLES Performing Organization Address City/State/ZIP Code Phon e Number MMODAL MMODAL NA documented in this encounter Visit Diagnoses Diagnosis Encounter For Removal Of Sutures - Prima ry documented in this encounter Additional Health Concerns Assessment Noted Time PHQ-9 Depression Total Score: 6 03/13/2018 9:20 AM CDT documented as of this encounter Care Teams Straightedge Man Relationship Specialty Start Date End Date Winter Singleton M.D. PCP - General Family Medicine 01/04/18 12/02/20 [address] [place] [address] (work) documented as of this encounter
--- OUTSIDE RECORDS SUMMARY | 2022-05-31 21:55 | XMS_ITS | Encounter Summary ---
:1980 Author Organization [facility] Address [address] [place] [address] Care Team Providers Name Role Phone Unavailable Primary Care Provider Unavailable Encounter Details Date Type Department Care Team Description 03/16/2010 Hospital Encounter HX NO MAPPING Vahid Carney M.D. [address], [place] [phone] (Wo rk) Social History [...] or relatives? How often do you attend anglican or 1 to 4 times per year 04/22 restoration services? Do you belong to any clubs or No 05/02/2022 organizations such as anglican groups, unions, fraternal or athletic groups, or [...] or slept in a fdc (including now)? Sex Assigned at Date Recorded Female 02/05/2018 10:11 AM CDT documented as of this encounter Plan of Treatment Upcoming Encounters Date Type Specialty Care Team Description 08/01/2022 Appointment Neurology Mili Toscano M .D. [address] [place] [phone] (Wo rk) documented as of this encounter Visit Diagnoses Not on filedocumented in this encounter
--- OUTSIDE RECORDS SUMMARY | 2022-05-31 21:55 | XMS_ITS | Encounter Summary ---
:1980 Author Organization [facility] Address [address] [place] [address] Care Team Providers Name Role Phone Winter Singleton M.D. Primary Care Provider Reason for Visit Reason Comments Communication Encounter Details Date Type Department Care Team Description 01/17/2018 Clinical Communication Department of Family Callie Murillo MedicineBryce Judy, Clinic, in [place] [address] [phone] Social History Tobacco Use Types Packs/Day Years [...] Neurology Mili Toscano M .D. 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 PCP - General Family Medicine 01/04/18 12/02/[address] [place] [address] documented as of this encounter
--- OUTSIDE RECORDS SUMMARY | 2022-05-31 21:55 | XMS_ITS | Encounter Summary ---
:1980 Author Organization [facility] Address [address] [place] [address] Care Team Providers Name Role Phone Unavailable Primary Care Provider Unavailable Encounter Details Date Type Department Care Team Description 02/18/2015 Hospital Encounter HX [facility] Heidi Wong [...] or relatives? How often do you attend oriental orthodox or 1 to 4 times per year 04/22 mandaeism services? Do you belong to any clubs or No 05/02/2022 organizations such as oriental orthodox groups, unions, fraternal or athletic groups, [...] Sign Reading Time Taken Comments Blood Pressure 102/72 02/18/2015 11:32 AM CDT Pulse 86 02/18/2015 11:32 AM CDT Temperature - - Respiratory Rate - - Oxygen Saturation - - Inhaled Oxygen Concentration - - Weight 56.8 kg (125 lb 3.5 oz) 02/18/2015 11:32 AM CDT Height - - Body Mass Index - - documented in this encounter Medications at Time of Discharge Medication Sig Dispensed Refills Start Date End Date escitalopram (LEXAPRO) 10 Take 1 tablet by 0 01/2203/13/2018 mg tablet mouth daily. documented as of this encounter Progress Notes Heidi Bedolla M.D. - 02/18/2015 11:27 AM CDT [id number] CHIEF COMPLAINT/REASON FOR VISIT Review surgical consents. 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 She is a 34-year-old G7, P4-0-3-4 female with LMP of 01/25/2015. The patient presents to review surgical consents. She is scheduled for total laparoscopic hysterectomy, salpingectomy, possible laparotomy and indicated procedures on 02/26/2015 at [facility]. The patient has menorrhagia, dysmenorrhea and fibroid uterus and multiple prior surgeries. The patient has had a prior elective sterilization. The patient would like to proceed forward with hysterectomy for her symptoms. The patient is doing well. She does complain of regular menses once a month with heavy blood flow and menorrhagia. She also has dysmenorrhea. She has chronic pelvic pain as well. She denies pelvic painat other times than with her dysmenorrhea. She denies dyspareunia or postcoital spotting. She denies difficulty urinating. No change in bowel habits. No headaches or vision changes. She does report migraine headaches, which are controlled with qwzq-rdc-duipamg medication. The patient has been treated with control pills in the past with some improvement in her menorrhagia symptoms but she stopped after she had a sterilization procedure performed. The patient was treated with Depo-Provera, which did not improve her menorrhagia or cramping symptoms. ALLERGIES 1. Fentanyl causes hives. 2. Penicillin causes rash. 3. Macrobid causes nausea. MEDICATIONS 1. Maxalt as needed. 2. Lexapro. PAST MEDICAL/SURGICAL HISTORY PAST MEDICAL HISTORY: 1. Depression and anxiety. 2. Endometriosis. 3. Tobacco abuse, 1/2 pack per day. 4. History of cervical dysplasia JIMMY 3 in 2011. 5. Hearing loss. 6. Menorrhagia. 7. Dysmenorrhea. 8. Fibroid uterus. [...] No history of STD or PID. She has a history of cervical dysplasia in 2011 with a LEEP procedure and normal followup Pap smears. ADULT PREVENTIVE SERVICES Provided by Dr. Sarah Bhardwaj at [facility]. These records are not available for my review. The patient reports a normal Pap smear in 2013. VITAL SIGNS Weight 56.8 kg, pulse 86, blood pressure 102/72, respiration 18, temperature 36.8. PHYSICAL EXAMINATION GENERAL: Well-developed, well-nourished female, in no apparent distress. Alert and oriented x3. ABDOMEN: Soft, nontender, nondistended. Positive bowel sounds. No hepatomegaly. No rebound. No guarding. Well-healed laparoscopic incisions. EXTREMITIES: No clubbing, cyanosis, or edema. Nontender bilaterally. GENITALIA: Declined by patient. Prior examination shows normal vaginal rugae without lesions, normalmultiparous cervical os without lesions. No cervical motion tenderness. Uterus is 6 to 8 week size, midposition, mobile, and nontender. No adnexal masses or tenderness bilaterally. Minimal descent. DIAGNOSTICS RADIOLOGY: On 12/26/2014, pelvic ultrasound shows uterus measuring 8.5 x 5.5 x 5 cm with a 3.1 cm fibroid in the right fundus. Endometrium is 9 mm in thickness. Right ovary measured 2.4 x 3.1 cm and appears normal with good blood flow. Left ovary is 2.9 x 2.6 cm and appears normal with good blood flow. No adnexal masses or free fluid. LABORATORY: On 01/11/2015, test negative. Urinalysis negative. Chlamydia negative. Gonorrhea negative. Wet prep negative. On 01/13/2015, hemoglobin 13.6, hematocrit 41.3, platelets 192. TSH 0.68. IMPRESSION/REPORT/PLAN 1. Fibroid uterus. 2. Menorrhagia. 3. Dysmenorrhea. 4. Tobacco abuse. 5. Depression, stable on medication. 6. Multiple medical problems, stable and asymptomatic. PLAN: 1. I discussed the patient's menorrhagia and dysmenorrhea symptoms. I discussed her fibroid uterus. I discussed the patient's bleeding symptoms. I discussed menorrhagia with the patient. 2. I discussed the small possibility of endometrial pathology contributing to her bleeding symptoms.I discussed the option of doing an endometrial biopsy to assess for endometrial hyperplasia, atypia,endometrial polyps or even endometrial carcinoma. The patient declines. I feel this is reasonable asshe is age 34 and I reviewed with the patient there is a very low risk for endometrial pathology in women under the age of 35. 3. I discussed management options again with the patient. I discussed medical hormone management options including control pills, both cyclic and continuous, Depo-Provera, cyclic Provera, Mirena IUD and Depot Lupron. The patient declines medical management. She would like to proceed forward with surgery. The patient has previously had a sterilization procedure performed. She does not want to have any further children. 4. The patient's hemoglobin and hematocrit are stable. 5. I discussed hysteroscopy, endometrial ablation, and hysterectomy. I reviewed the risks, benefits,alternatives, indication of each with the patient. The patient declines endometrial ablation and would like to proceed forward with hysterectomy. 6. The patient is scheduled for total laparoscopic hysterectomy, salpingectomy, possible laparotomy and indicated procedures on 02/26/2015. I reviewed the risks, benefits, alternatives, and indication of this procedure with the patient. I discussed the risk of infection, bleeding, need for blood transf usion, injury to organs with need for repair, anesthesia risk, deep venous thrombosis risk, cardiovascular risk, unexpected findings, diagnosis of cancer with need for further therapy, failure to relieve symptoms, recurrence of symptoms and rarely . Patient verbalizes understanding and desires to proceed. She is aware of the risk of possible need for laparotomy. She is aware of the risk for pelvic adhesive disease and the possibility of injury to internal organs. The patient verbalizes understanding and desires to proceed. Surgical consent form was signed. 7. The patient will be nothing by mouth for at least 8 hours prior to surgery. 8. Patient will stop aspirin and nonsteroidal antiinflammatory drug products from now until after surgical procedure. 9. The patient is seeing Sarah Bhardwaj, her primary provider, for medical preoperative clearance andhistory and physical examination prior to her hysterectomy. 10. Bleeding and pain precautions are reviewed with the patient. 11. All the patient's questions are answered. 12. I spent 25 minutes yumq-ec-xoam time with the patient with over 50% of that time spent in counseling. Heidi Bedolla M.D./francisco Electronically Signed By: HEIDI BEDOLLA MD On: 02/18/2015 01:38 PM Source: [facility] MHSDOLBEYNONRADSYS Document Id: [id number] documented in this encounter Miscellaneous Notes Telephone Encounter - Conversion, Historical Provider Ser - 03/03/2015 10:45 AM CDT *Phone Message/Dr. Bedolla (Dr. Sheikh health promotion officer) Document Contains Addenda Addendum by HEIDI BEDOLLA MD on 04 Mar 2015 08:25:17 CDT From: HEIDI BEDOLLA MD To: NICHOLAS SHEIKH MD; GRACE GOYAL LPN; Sent: 03/04/2015 08:25:17 CDT Subject: RE: *Phone Message/Dr. Bedolla (Dr. Sheikh health promotion officer) I was unable to reach the patient. I left a message through the [employer] language answering service. Addendum by NICHOLAS SHEIKH MD on 03 Mar 2015 18:17:48 CDT From: NICHOLAS SHEIKH MD To: HEIDI BEDOLLA MD; Sent: 03/03/2015 18:17:48 CDT Subject: FW: *Phone Message/Dr. Bedolla (Dr. Sheikh health promotion officer) I called the patient back, but was unable to reach her. I left a message through the relay. She was advised to come in to the ER this evening if she still has concerns. She was also advised that she can call the clinic number to reach me, the health promotion officer RETURN TO VENDOR over night. Otherwise, I let her know that Iwould be passing along this message to Dr. Bedolla, her surgeon, who will call her tomorow when he is back in clinic. Addendum by GRACE GOYAL LPN on 03 Mar 2015 11:21:19 CDT From: GRACE GOYAL LPN ( Obstetrics/Gynecology Nurse) To: NICHOLAS SHEIKH MD; Sent: 03/03/2015 11:21:19 CDT Subject: FW: *Phone Message/Dr. Bedolla (Dr. Sheikh health promotion officer) Emailed patient to see if she had any bleeding or oozing from her incisions. Also advised to supplement with ice, tylenol or ibuprofen. Patient responded: I have tried Tylenol and ibuprofen for pain but that does not work at all. It's all in my lower abdomen feels like horrible cramping usually I can manage it but it's very painful. Mostly more on my right side. Only way pain goes away is if I take the pain pills. I will wake up exactly 4 and half hours after taking the meds. I try to wait til 6 hours or try to take one. No bleeding. From: GUANAKO DAMON ( [place] [employer] Sales Representative) To: Obstetrics/Gynecology Nurse; Sent: 03/03/2015 10:45:49 CDT Subject: *Phone Message/Dr. Bedolla (Dr. Sheikh health promotion officer) Caller is: ( x ) Patient ( ) Mother ( ) Father ( ) Spouse ( ) Daughter ( ) Son ( ) Pharmacy ( ) Other: Physician: Dr. Bedolla/Dr. Sheikh (health promotion officer) Patient MRN #: Reason for Call: Message: S Patient states that she was given pain pills after her surgery and only has 7 left. She is worried about running out. She has tried cutting back on the amount and using ice and Tylenol but nothing else helps. B She is aware that Dr. Bedolla is out today, but would like the health promotion officer doctor to contact her. A R Please call patient at [phone] through Relay, or email her at to advise. Advice/Action: Source used: ( ) Verbalizes understanding of instructions ( ) Instructed to call back if symptoms worsen or do not resolve ( ) Refused to see provider ( ) Appointment Scheduled ( ) OK to leave message on voice mail ( ) Patient told to expect return call: ( ) today ( ) tomorrow ( ) next work day ( ) Patient's email ( ) Patient told physician out of office, will call upon return call on ( ) ( ) Patient told physician out of office, routed to other physician ( ) Other ( ) Call back telephone number ( ) Call back cell phone number ( ) Source: [facility] POWERCHART Document Id: [id number] Miscellaneous - Heidi Bedolla M.D. - 02/18/2015 11:53 AM CDT Ambulatory Patient Summary [address] [id number] Visit Information Name: DAVIDE KATHERINE CARTER [facility] Number: [id number] Current Date: 02/18/2015 11:53:22 Physicians Attending Provider: HEIDI BEDOLLA MD Primary Care Provider: PCP, ERICK TWIARI KATHERINEROSENDA MERCEDESE has been given the following list of [...] Take Indications/Special Instructions/Comments/Notes for Patient Medication Changes/Routing escitalopram (Lexapro 10 mg oral tablet) 1 Tablet(s), Oral, once a day Stop Taking the Following Medications: Medication list as of 02-18-15 11:53 Attention: If you have any medications at [...] Electronically Signed By: HEIDI BEDOLLA MD Signed On:18-FEB-2015 11:53:18 Your Allergies & Intolerances Substance Reaction Symptoms Category Comments penicillins Drug Macrobid Drug fentaNYL Drug Your Problem List Problem Status Onset Comments Encounter for Sterilization Active 12/27/2013 Tobacco Use Disorder Active 12/27/2013 Endometriosis of Pelvic Peritoneum Active 12/27/2013 Abnormal pap with HGSIL Active 2012 Loss Hearing Conductive Rakesh Active 12/27/2013 Menometrorrhagia Active Menorrhagia Active Fibroid Uterus Intramural Active Your Upcoming Appointments Date Time Location Provider 03/09/2015 11:00 [facility] RETURN TO VENDOR Heidi Bedolla MD Attention: Contact your local Clinic if further appointment detail needed. Your Goals/Additional instructions: Source: [facility] POWERCHART Document Id: [id number] Miscellaneous - Heidi Bedolla M.D. - 02/18/2015 11:53 AM CDT Ambulatory Discharge Medication List [address] [id number] Visit Information Name: DAVIDE KATHERINEROSENDA CARTER [facility] Number: [id number] Visit Date: 02/18/2015 11:53:21 Attending Provider: HEIDI BEDOLLA MD Primary Care Provider: PCP, ELSEWHERE DAVIDE KATHERINEROSENDA MERCEDESE has been given the following list of medications: Your Medications It is important to take your medications as directed. Use a pill box or chart to help remind you to take your medications. Please let your doctor or nurse know if you have problems taking your medications. Medication/Strength How to Take Indications/Special Instructions/Comments/Notes for Patient Medication Changes/Routing escitalopram (Lexapro 10 mg oral tablet) 1 Tablet(s), Oral, once a day Stop Taking the Following Medications: Medication list as of 02-18-15 11:53 Attention: If you have any medications at [...] Electronically Signed By: HEIDI BEDOLLA MD Signed On:18-FEB-2015 11:53:18 Additional Information: Source: [facility] POWERCHART Document Id: [id number] Miscellaneous - Grace Goyal, L.P.N. 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 Intake/History Entered On: 02/18/2015 11:34 CDT Performed On: 02/18/2015 11:32 CDT by GRACE GOYAL LPN Intake Chief Complaint : Surg consents Peripheral Pulse Rate : 86 /min Systolic Blood Pressure : 102 mmHg Diastolic Blood Pressure : 72 mmHg NIBP Mean : 82 mmHg BP Location : Right upper extremity Blood Pressure Cuff Size : Regular Actual Weight : 56.8 kg(Converted to: 125 lb 4 oz) Weight Source : Standing scale Dosing Weight Clinic : 56.8 kg GRACE GOYAL LPN - 02/18/2015 11:32 CDT General Info Information Given By : Patient Languages : British Is Patient Female and 13-50 no hysterectomy : Yes Status : Patient denies Are you ? : No GRACE GOYAL LPN - 02/18/2015 11:32 CDT Subjective Pain Symptoms : No GRACE GOYAL LPN - 02/18/2015 11:32 CDT Dependent Habits Tobacco Use/Currently Using : Yes Exposure to Tobacco Smoke : Patient smokes Smoking Status : Current every day smoker GRACE GOYAL LPN - 02/18/2015 11:32 CDT Tobacco Use Grid Type : Cigarettes Cigarette Use Packs/Day : 0.5 JAY JAYGRACE Chelsea [facility] - 02/18/2015 11:32 CDT ID Screen Travel Within Last 21 Days : No Contact with someone with Ebola : No GRACE GOYAL [facility] - 02/18/2015 11:32 CDT Source: [facility] POWERCHART Document Id: [id number] CDT!31 documented in this encounter Plan of Treatment Upcoming Encounters Date Type Specialty Care Team Description 08/01/2022 Appointment Neurology Mili Toscano M .D. [address] [place] [phone] (Wo rk) documented as of this encounter Procedures Procedure Name Priority Date/Time Associated Diagnosis Comme nts SURGICAL PATHOLOGY Routine 02/26/2015 12:00 AM Re sults for this CDT procedure are i n the results section. SURGICAL PATHOLOGY Routine 02/26/2015 12:00 AM Re sults for this CDT procedure are i n the results section. documented in this encounter Results Pathology Surgical Pathology (02/26/2015 12:00 AM CDT) Specimen (Source) Anatomical Location Collection Method / Collectio n Time Received Time / Laterality Volume 02/26/2015 Narrative [facility] - 03/02/20 15 12:28 PM CDT Historical Provider LAB SURG PATH ORDERABLES Performing Organization Address City/State/ZIP Code Phon e Number [facility] Pathology Surgical Pathology (02/26/2015 12:00 AM CDT) Specimen (Source) Anatomical Location Collection Method / Collectio n Time Received Time / Laterality Volume 02/26/2015 Narrative [facility] - 03/02/20 15 12:28 PM CDT PATIENT IMAGES Choose the Image button to view related documents. Historical Provider LAB SURG PATH ORDERABLES Performing Organization Address City/State/ZIP Code Phon e Number [facility] documented in this encounter Visit Diagnoses Not on filedocumented in this encounter
--- OUTSIDE RECORDS SUMMARY | 2022-05-31 21:55 | XMS_ITS | Encounter Summary ---
:1980 Author Organization [facility] Address [address] [place] [address] Care Team Providers Name Role Phone Winter Singleton M.D. Primary Care Provider Encounter Details Date Type Department Care Team Description 10/01/2018 Orders Only Department of [facility] Rusty khan (Primary Dx) Medicine, [facility], Clinic, in [place] [address] [phone] Social History Tobacco Use Types Packs/Day Years [...] or slept in a detention (including now)? Sex Assigned at Date Recorded Female 02/05/2018 10:11 AM CDT documented as of this encounter Plan of Treatment Upcoming Encounters Date Type Specialty Care Team Description 08/01/2022 Appointment Neurology Mili Toscano M .D. [address] [place], [place] [phone] (Wo rk) documented as of this encounter Visit Diagnoses Diagnosis Vaginitis - Primary documented in this encounter Additional Health Concerns Assessment Noted Time PHQ-9 Depression Total Score: 19 07/06/2018 10:33 AM C DT documented as of this encounter Care Teams Medical Reimbursement Manager Relationship Specialty Start Date End Date Winter Singleton M.D. PCP - General Family Medicine 01/04/18 12/02/20 [address] [place] [address] documented as of this encounter
--- OUTSIDE RECORDS SUMMARY | 2022-05-31 21:55 | XMS_ITS | Encounter Summary ---
:1980 Author Organization [facility] Address [address] [place] [address] Care Team Providers Name Role Phone Winter Singleton M.D. Primary Care Provider Encounter Details Date Type Department Care Team Description 10/08/2018 Orders Only Department of [facility] Ny herman Butts [facility], [facility], [address] [place] [phone] [place] [address] [place] [address] Social History Tobacco Use Types [...] or slept in a retirement (including now)? Sex Assigned at Date Recorded Female 02/05/2018 10:11 AM CDT documented as of this encounter Plan of Treatment Upcoming Encounters Date Type Specialty Care Team Description 08/01/2022 Appointment Neurology Mili Toscano M .D. [address] [place], [place] [phone] (Wo rk) documented as of this encounter Visit Diagnoses Not on filedocumented in this encounter Additional Health Concerns Assessment Noted Time PHQ-9 Depression Total Score: 19 07/06/2018 10:33 AM C DT documented as of this encounter Care Teams Photoengraver Apprentice Relationship Specialty Start Date End Date Winter Singleton M.D. PCP - General Family Medicine 01/04/18 12/02/20 [address] [place] [address] documented as of this encounter
--- OUTSIDE RECORDS SUMMARY | 2022-05-31 21:55 | XMS_ITS | Encounter Summary ---
:1980 Author Organization [facility] Address [address] [place] [address] Care Team Providers Name Role Phone Unavailable Primary Care Provider Unavailable Encounter Details Date Type Department Care Team Description 12/27/2013 Hospital Encounter HX [facility] Heidi Wong [...] place to sleep or slept in a assisted (including now)? Sex Assigned at Date Recorded Female 02/05/2018 10:11 AM CDT documented as of this encounter Last Filed Vital Signs Vital Sign Reading Time Taken Comments Blood Pressure 106/60 12/27/2013 8:34 AM CATARACT LENS GENERATOR Pulse 78 12/27/2013 8:34 AM CATARACT LENS GENERATOR Temperature - - Respiratory Rate 16 12/27/2013 8:34 AM CATARACT LENS GENERATOR Oxygen Saturation - - Inhaled Oxygen Concentration - - Weight 60.5 kg (133 lb 6.1 oz) 12/27/2013 8:34 AM CATARACT LENS GENERATOR Height - - Body Mass Index - - documented in this encounter Consult Notes Heidi Bedolla M.D. - 12/27/2013 8:26 AM CST [id number] CHIEF COMPLAINT/REASON FOR VISIT Requests elective sterilization. HISTORY OF PRESENT ILLNESS This patient presents for NUMERICAL CONTROL OPERATOR consult from Dr. Reyes at [facility]. This is her first visit [facility]. She is a 33-year-old G6, P4-0-2-4 female, who is amenorrheic. The patient had a vaginal delivery 09/04/2013 and received Depo-Provera on 10/18/2013. The patient is bottle feeding. The patient would like elective sterilization. She does not want to have any further children. She has 4 healthy children and would like no more. The patient has previously reviewed and signed the [place] sterilization consent form on 10/18/2013. She is aware that this procedure is permanent and not reversible. The patient has no complaints. No nausea, vomiting, diarrhea. No change in bowel habits. No difficulty urinating. No headaches, vision changes. No depression symptoms. ALLERGIES 1. Fentanyl caused hives. 2. Penicillin caused rash. 2. Macrobid caused nausea. MEDICATIONS Depo-Provera given on 10/18/2013. PAST MEDICAL/SURGICAL HISTORY PAST MEDICAL HISTORY: 1. Endometriosis. 2. Tobacco abuse, 1/2 pack per day. 3. History of cervical dysplasia JIMMY-III in 2011. 4. Hearing loss. PAST SURGICAL HISTORY: 1. LEEP procedure 2011. 2. Breast augmentation 2006. 3. Tonsils & adenoids 1991. 4. Laparoscopy 1998. 5. Laparoscopy 2003. 6. Laparoscopy 2004. 7. Laparoscopy 2009. PAST OBSTETRICAL HISTORY: 1. Vaginal delivery 12/29/2002. 2. Vaginal delivery 04/14/2009. 3. Vaginal delivery 11/25/2011. 4. Vaginal delivery 09/04/2013. Preventive services provided by Dr. Reyes at [facility]. These records are not available for my review. Pap smear 10/18/2013 negative for intraepithelial lesion or malignancy. SOCIAL HISTORY Patient is . She smokes tobacco 1/2 pack per day. No alcohol, drug use. No history of STD or PID. She has history of cervical dysplasia as mentioned above. No history of abuse. VITAL SIGNS WEIGHT: 60.5kg TEMPERATURE: 36.9 PULSE: 78 RESPIRATIONS: 16 BLOOD PRESSURE: 106/60 PHYSICAL EXAMINATION GENERAL: Well-developed, well-nourished female in no apparent distress. Alert and oriented times 3. Formal examination deferred. IMPRESSION/REPORT/PLAN Requests elective sterilization. Plan 1. I discussed contraception options available to the patient. 2. I discussed elective sterilization. I reviewed the risks, benefits and alternatives and indication of laparoscopic tubal fulguration as well as Essure tubal occlusion. I gave the patient literature to review. 3. After discussing options with the patient, patient would like to proceed forth with laparoscopic tubal fulguration. She would like surgery at the end of December. 4. I contacted [facility] and scheduled the patient for laparoscopic tubal ligation on 01/15/2014. 5. Patient will see Dr. Reyes, primary provider, for medical preop clearance and history of the examination prior to surgery. 6. I recommend patient remain abstinent. 7. Will check urine test prior to surgery. 8. The patient will be nothing by mouth for at least 6 hours prior to surgery. 9. Patient will stop aspirin and NSAID products for at least 7 days prior to surgery. 10. I discussed risks, benefits, alternatives and indications for laparoscopic tubal fulguration with the patient including risk of infection, bleeding, need for blood transfusion, injury to organs andneed for repair, need for laparotomy, anesthesia risk, DVT risk, cardiovascular risk, unexpected findings and rarely . I discussed sterilization failure rate of less than 1%. I discussed risk for ectopic . I discussed the increased risk of post sterilization depression and the patient verbalizes understanding and desires to proceed. ADMINISTRATIVE BILLING I spent 30 minutes in qvuh-ss-crvl time with patient. Heidi Bedolla M.D./sue cc: [facility] Mabel Reyes M.D. Electronically Signed By: HEIDI BEDOLLA MD On: 12/30/2013 11:36 AM Source: [facility] MHSDOLBEYNONRADSYS Document Id: [id number] documented in this encounter Miscellaneous Notes Telephone Encounter - Madelyn Oliveros L.P.N. - 01/22/2014 8:32 AM CDT Phone Message Document Contains Addenda Addendum by HEIDI BEDOLLA MD on 22 January 2014 08:45:28 CDT From: HEIDI BEDOLLA MD To: Obstetrics/Gynecology Nurse; Sent: 01/22/2014 08:45:28 CDT Subject: RE: Phone Message e-mail reply with post-op instrctions and precautions given Addendum by HEIDI BEDOLLA MD on 22 January 2014 08:38:21 CDT From: EHIDI BEDOLLA MD To: Obstetrics/Gynecology Nurse; Sent: 01/22/2014 08:38:21 CDT Subject: RE: Phone Message message left through commercial green building designer From: MADELYN OLIVEROS ( Obstetrics/Gynecology Nurse) To: HEIDI BEDOLLA MD; Sent: 01/22/2014 08:32:29 CDT Subject: Phone Message Caller is: ( X ) Patient ( ) Mother ( ) Father ( ) Spouse ( ) Daughter ( ) Son ( ) Pharmacy ( ) Other: Physician: Patient MRN #: Reason for Call: Patient e-mailed and stated that she is feeling well after surgery except for severe pain in her right chest/ shoulder area. She stated that is hurts more when she lays down, it started shortly after surgery on 3-26-14. Patient wants to know if this is normal and what she should do tohelp the pain. Patient can be reached via e-mail. Message: Advice/Action: Source used: ( ) Verbalizes understanding [...] back cell phone number ( ) Source: [facility] POWERCHART Document Id: [id number] Electronically signed by Anais [facility] Mercury Cracking Tester [id number] at 03/21/2017 6:03 AM CDT Miscellaneous - Heidi Bedolla M.D. - 12/27/2013 2:47 PM CST Ambulatory Patient Summary [address] [id number] Visit Information Name: KATHERINE AUGUSTINE [facility] Number: [id number] Current Date: 12/27/2013 14:47:23 Physicians Attending Provider: HEIDI BEDOLLA MD Primary Care Provider: MABEL REYES MD KATHERINE EMMA has been given the following list of [...] Take Indications/Special Instructions/Comments/Notes for Patient Medication Changes/Routing medroxyPROGESTERone (Depo-Provera 400 mg/mL intramuscular suspension) Intramuscular, once a month Stop Taking the Following Medications: Medication list as of 12-27-13 14:47 Attention: If you have any medications at home that are not on this list, DO NOT take them until youcontact your provider for clarification. Give a copy of your medication list to your primary care provider. Update your medication list any time medications or doses are changed and carry your medication list at all times in case of emergency. Your Allergies & Intolerances Substance Reaction Symptoms Category Comments penicillins Drug Macrobid Drug fentaNYL Drug Your Problem List Problem Status Onset Comments Premature Labor Threatened Antepartum Active 03/11/2009 Encounter for Sterilization Active 12/27/2013 Tobacco Use Disorder Active 12/27/2013 Endometriosis of Pelvic Peritoneum Active 12/27/2013 Abnormal pap with HGSIL Active 2012 Loss Hearing Conductive Rakesh Active 12/27/2013 Your Upcoming Appointments Date Time Location Reason Provider No Appointments found Attention: Contact your local Clinic if further appointment detail needed. Your Goals/Additional instructions: Source: [employer] Document Id: [id number] RACT LENS GENERATOR Miscellaneous - Heidi Bedolla M.D. - 12/27/2013 2:47 PM CST Ambulatory Discharge Medication List [address] [id number] Visit Information Name: KATHERINE AUGUSTINE [facility] Number: [id number] Visit Date: 12/27/2013 14:47:22 Attending Provider: HEIDI BEDOLLA MD Primary Care Provider: MABEL REYES MD, KRISTA MAE has been given the following list of medications: Your Medications It is important to take your medications as directed. Use a pill box or chart to help remind you to take your medications. Please let your doctor or nurse know if you have problems taking your medications. Medication/Strength How to Take Indications/Special Instructions/Comments/Notes for Patient Medication Changes/Routing medroxyPROGESTERone (Depo-Provera 400 mg/mL intramuscular suspension) Intramuscular, once a month Stop Taking the Following Medications: Medication list as of 12-27-13 14:47 Attention: If you have any medications at home that are not on this list, DO NOT take them until youcontact your provider for clarification. Give a copy of your medication list to your primary care provider. Update your medication list any time medications or doses are changed and carry your medication list at all times in case of emergency. Additional Information: Source: [facility] POWERCHART Document Id: [id number] RACT LENS GENERATOR Telephone Encounter - Madelyn Oliveros, L.P.N. - 12/27/2013 11:31 AM CATARACT LENS GENERATOR Phone Message Document Contains Addenda Addendum by MADELYN OLIVEROS on 30 December 2013 10:33:23 CDT Patient notified. Addendum by HEIDI BEDOLLA MD on 30 December 2013 10:04:02 CDT From: HEIDI BEDOLLA MD To: MADELYN OLIVEROS; Sent: 12/30/2013 10:04:02 CDT Subject: RE: Phone Message I will be happy to see her in clinic to evaluate for urinary incontinence and discuss possible surgical corrections. But we will not be able to complete that evaluation prior to her tubal ligation surgery on 01/15. Addendum by MADELYN OLIVEROS on 30 December 2013 08:19:46 CDT From: MADELYN OLIVEROS To: HEIDI BEDOLLA MD; Sent: 12/30/2013 08:19:46 CDT Subject: FW: Phone Message Hi- one more question that I completely forgot to ask. Not sure if you can help. Who do I talk to about wanting to get a bladder lift?? If that is what it's called, after 4 kids I'm very sensitive and kegel exercises don't work. Was wanting to see if this is something could do. If possible atthe same time as my scheduled tubal surgery. Thanks. Katherine Blood Addendum by MADELYN OLIVEROS on 27 December 2013 16:13:58 CATARACT LENS GENERATOR From: MADELYN OLIVEROS ( Obstetrics/Gynecology Nurse) To: MADELYN OLIVEROS; Sent: 12/27/2013 16:13:58 CATARACT LENS GENERATOR Subject: FW: Phone Message Addendum by MAEDLYN OLIVEROS on 27 December 2013 16:13:49 CATARACT LENS GENERATOR Patient notified. All paperwork faxed. Addendum by HEIDI BEDOLLA MD on 27 December 2013 14:31:21 CATARACT LENS GENERATOR From: HEIDI BEDOLLA MD To: Obstetrics/Gynecology Nurse; Sent: 12/27/2013 14:31:21 CATARACT LENS GENERATOR Subject: RE: Phone Message We can do it 01/15/14 at 1200. She will come to [facility] at 1100. She will need to see Dr. Reyes for pre-op clearance before the surgery. From: MADELYN OLIVEROS ( Obstetrics/Gynecology Nurse) To: HEIDI BEDOLLA MD; Sent: 12/27/2013 11:31:26 CATARACT LENS GENERATOR Subject: Phone Message Caller is: ( ) Patient ( ) Mother ( ) Father ( ) Spouse ( ) Daughter ( ) Son ( ) Pharmacy ( X ) Other: Can Closing Machine Tender Physician: Patient MRN #: Reason for Call: Patient called and stated that she would like to go ahead with the Tubal surgery. Pt. stated that Monday01-15-14 works well for her if it does for you. I can contact patient via email to get this set up. Message: Advice/Action: Source used: ( ) Verbalizes understanding [...] back cell phone number ( ) Source: [facility] POWERCHART Document Id: [id number] Electronically signed by Anais, [facility] Mercury Cracking Tester [id number] at 03/21/2017 6:03 AM CDT Miscellaneous - Madelyn Oliveros, L.P.N. - 12/27/2013 8:34 AM CST Adult Prison Teacher Intake/History Adult Prison Teacher Intake/History Entered On: 12/27/2013 8:36 CATARACT LENS GENERATOR Performed On: 12/27/2013 8:34 CATARACT LENS GENERATOR by MADELYN OLIVEROS Intake Chief Complaint : consult- tubal Temperature Core : 36.9 DegC(Converted to: 98.4 DegF) Peripheral Pulse Rate : 78 /min Respiratory Rate : 16 /min Heart Rhythm : Regular Systolic Blood Pressure : 106 mmHg Diastolic Blood Pressure : 60 mmHg NIBP Mean : 75 mmHg BP Location : Right upper extremity Blood Pressure Cuff Size : Regular Actual Weight : 60.5 kg(Converted to: 133 lb 6 oz) Weight Source : Standing scale Dosing Weight Clinic : 60.5 kg MADELYN OLIVEROS - 12/27/2013 8:34 CATARACT LENS GENERATOR General Info Languages : French MADELYN OLIVEROS 12/27/2013 8:34 CATARACT LENS GENERATOR Subjective Pain Symptoms : No MADELYN OLIVEROS 12/27/2013 8:34 CATARACT LENS GENERATOR Dependent Habits Tobacco Use/Currently Using : Yes Exposure to Tobacco Smoke : Patient smokes Smoking Status : Current every day smoker MADELYN OLIVEROS 12/27/2013 8:34 CATARACT LENS GENERATOR Tobacco Use Grid Type : Cigarettes Cigarette Use Packs/Day : 0.5 MADELYN OLIVEROS 12/27/2013 8:34 CATARACT LENS GENERATOR Source: [facility] POWERCHART Document Id: [id number] CATARACT LENS GENERATOR!27 RACT LENS GENERATOR documented in this encounter Plan of Treatment Upcoming Encounters Date Type Specialty Care Team Description 08/01/2022 Appointment Neurology Mili Toscano M .D. [address] [place] [phone] (Wo rk) documented as of this encounter Visit Diagnoses Not on filedocumented in this encounter
--- OUTSIDE RECORDS SUMMARY | 2022-05-31 21:55 | XMS_ITS | Encounter Summary ---
:1980 Author Organization [facility] Address [address] [place] [address] Care Team Providers Name Role Phone Winter Singleton M.D. Primary Care Provider Encounter Details Date Type Department Care Team Description 04/05/2018 Orders Only Department of [facility] Rusty pina Vascular Medicine, [facility], Disease Screening Clinic, in [place] (Primary Dx) [place] [address] [place] [phone] Social History Tobacco Use Types Packs/Day Years [...] or relatives? How often do you attend restoration or 1 to 4 times per year 04/22 mormon services? Do you belong to any clubs or No 05/02/2022 organizations such as restoration groups, unions, fraternal or athletic groups, or [...] or slept in a prison (including now)? Sex Assigned at Date Recorded Female 02/05/2018 10:11 AM CDT documented as of this encounter Plan of Treatment Upcoming Encounters Date Type Specialty Care Team Description 08/01/2022 Appointment Neurology Mili Toscano M .D. [address] [place], [place] [phone] (Wo rk) documented as of this encounter Visit Diagnoses Diagnosis Cardiac Vascular Disease Screening - Leslie morrell documented in this encounter Additional Health Concerns Assessment Noted Time PHQ-9 Depression Total Score: 6 03/13/2018 9:20 AM CDT documented as of this encounter Care Teams Cloth Picker Relationship Specialty Start Date End Date Winter Singleton M.D. PCP - General Family Medicine 01/04/18 12/02/20 [address] [place] [phone] documented as of this encounter
--- OUTSIDE RECORDS SUMMARY | 2022-05-31 21:55 | XMS_ITS | Encounter Summary ---
:1980 Author Organization [facility] Address [address] [place] [address] Care Team Providers Name Role Phone Winter Singleton M.D. Primary Care Provider [phone] Reason for Visit Reason Comments Recurrent Sinusitis Has been on-going for 3 week s. Has improved or worsened. Patient has tried over the counter m edications. Appointment Request (Routine) - Closed Specialty Diagnoses / Procedures Referred By Contact Refer red To Contact Family Medicine Referral ID Status Reason Start Date Expiration Date Visits Requ ested Visits Authorized [id number] Closed 09/19/2018 09/19/2019 1 Encounter Details Date Type Department Care Team Description 09/20/2018 Office Visit Department of Family Rusty heredia Pelvic Female (Primary Dx); Medicine, Winter Elizabeth, Sinusiti s; Clinic, in [place] Vaginitis [place] [address] [place] [phone] Social History Tobacco Use Types Packs/Day Years [...] 05/02/2022 organizations such as mandaen groups, unions, fraWOO Sports or athletic groups, or school groups? How [...] Sign Reading Time Taken Comments Blood Pressure 100/74 09/20/2018 10:00 AM HAUL DRIVER Pulse 100 09/20/2018 9:56 AM HAUL DRIVER Temperature 37.5 ??C (99.5 ??F) 09/20/2018 9:56 AM HAUL DRIVER Respiratory Rate 20 09/20/2018 9:56 AM HAUL DRIVER Oxygen Saturation - - Inhaled Oxygen Concentration - - Weight 57 kg (125 lb 10.6 oz) 09/20/2018 9:56 AM HAUL DRIVER Height 163 cm (5' 4.17) 09/20/2018 9:56 AM HAUL DRIVER Body Mass Index 21.45 09/20/2018 9:56 AM HAUL DRIVER documented in this encounter Progress Notes Winter Singleton M.D. - 09/20/2018 10:00 AM CST SUBJECTIVE CHIEF COMPLAINT / REASON FOR VISIT Katherine Tiwari is a 38 y.o. female who presents for evaluation of Recurrent Sinusitis (Has been on-going for 3 weeks. Has improved or worsened. Patient has tried over the counter medications. ). HISTORY OF PRESENT ILLNESS Katherine has had several weeks of facial pain and pressure without fever. She seems to have difficulty with her sense of smell. She has not been feeling well. She also has had frequent yeast infections.She claims to had 6 or 7 in the past 12 months. She will treat these with a Monistat 1 day preparation. She has recently developed pain in her lower abdomen. She also has a constant back pain over the past 4 weeks or so. She feels like she does not empty her bladder well. She feels like she needs to push to urinate. She has had a hysterectomy in 2014 but her ovaries are preserved. OBJECTIVE BP 100/74 Pulse 100 Temp 37.5 ??C (Temporal) Resp 20 Ht 163 cm Wt 57 kg BMI 21.45 kg/m?? PHYSICAL EXAM GENERAL: Patient is alert and oriented, well groomed and appropriately dressed. HEENT: TMS are both normal. Nasal mucosa is normal without congestion or discharge. Oropharynx is without erythema or exudate. NECK: Without adenopathy, thyromegaly or carotid bruits. HEART: Regular rate and rhythm without murmur. LUNGS: Clear without wheeze crackle or rhonchus. ABDOMEN: Normal bowel sounds. No mass or tenderness. GENITALIA: External genitalia is without lesion. Cervix is surgically absent. Sample is taken for vaginitis panel. On bimanual exam she has bilateral adnexal tenderness without obvious mass. EXTREMITIES: Normal without edema. SKIN: No rashes or unusual lesions on exposed skin. ASSESSMENT / PLAN #1 Pain Pelvic Female Pelvic ultrasound is ordered to evaluate pelvic organs including ovaries. - US Pelvis Transvaginal and Transabdominal; Future; Expected date: 09/20/2018 #2 Sinusitis Prescription is given for azithromycin. Other symptomatic measures. - azithromycin (ZITHROMAX) 250 mg tablet; Take 500 mg (2 tablets) by mouth the first day then 250 mg(1 tablet) by mouth for 4 more days., Normal #3 Vaginitis Diflucan will be available, if needed, in the setting of current antibiotic use. The panel is pending. - fluconazole (DIFLUCAN) 150 mg tablet; Take 1 tablet (150 mg total) by mouth once for 1 dose., Starting Kelly 09/20/2018, Normal - Vaginitis Panel - [facility] DRIVER documented in this encounter Plan of Treatment Upcoming Encounters Date Type Specialty Care Team Description 08/01/2022 Appointment Neurology Mili Toscano M .D. [address] [place], [place] [phone] (Wo rk) documented as of this encounter Procedures Procedure Name Priority Date/Time Associated Diagnosis Comme nts VAGINITIS PANEL Routine 09/20/2018 10:54 AM Vaginitis Resul ts for this HAUL DRIVER procedure are i n the results section. documented in this encounter Results (ABNORMAL) Vaginitis Panel - [facility] (09/20/2018 10:54 AM HAUL DRIVER) [facility] Method Time Signature Polly Negative Negative 09/20/2018 [facility] species, DNA 12:06 PM HAUL DRIVER [facility] Gardnerella Positive (A) Negative 09/20/2018 [facility] vaginalis, DNA 12:06 PM HAUL DRIVER [facility] Trichomonas Negative Negative 09/20/2018 [facility] vaginalis, DNA 12:06 PM [facility] Specimen Anatomical Collection Method Collection Time Receive d Time (Source) Location / / Volume Laterality Swab (Vagina) 09/20/2018 10:54 09/20/2018 AM HAUL DRIVER 11:14 AM HAUL DRIVER Winter Singleton M.D. LAB MICROBIOLOGY - GEN ERAL ORDERABLES Performing Organization Address City/State/ZIP Code Phon e Number [id number] [address] [place] [address] LAB documented in this encounter Visit Diagnoses Diagnosis Pain Pelvic Female - Primary Sinusitis Vaginitis documented in this encounter Additional Health Concerns Assessment Noted Time PHQ-9 Depression Total Score: 19 07/06/2018 10:33 AM C DT documented as of this encounter Care Teams Book Publisher Relationship Specialty Start Date End Date Winter Singleton M.D. PCP - General Family Medicine 01/04/18 12/02/20 [address] [place] [address] documented as of this encounter
--- OUTSIDE RECORDS SUMMARY | 2022-05-31 21:55 | XMS_ITS | Encounter Summary ---
:1980 Author Organization [facility] Address [address] [place] [address] Care Team Providers Name Role Phone Winter Singleton M.D. Primary Care Provider [phone] Encounter Details Date Type Department Care Team Description 09/20/2018 Orders Only Department of [facility] Kushal , [facility] dexter [address] [phone] (Wo rk) Social History Tobacco Use Types [...] Neurology Mili Toscano M .D. [address] [place], [place] [phone] (Wo rk) documented as of this encounter Visit Diagnoses Not on filedocumented in this encounter Additional Health Concerns Assessment Noted Time PHQ-9 Depression Total Score: 19 07/06/2018 10:33 AM C DT documented as of this encounter Care Teams Surface Grinding Machine Hand Relationship Specialty Start Date End Date Winter Singleton M.D. PCP - General Family Medicine 01/04/18 12/02/20 [address] [place] [phone] documented as of this encounter
--- OUTSIDE RECORDS SUMMARY | 2022-05-31 21:55 | XMS_ITS | Encounter Summary ---
:1980 Author Organization [facility] Address [address] [place] [address] Care Team Providers Name Role Phone Winter Singleton M.D. Primary Care Provider [phone] Reason for Visit Reason Comments Sinus Problem X 1 week Appointment Request (Routine) - Closed Specialty Diagnoses / Procedures Referred By Contact Refer red To Contact Family Medicine Referral ID Status Reason Start Date Expiration Date Visits Requ ested Visits Authorized [id number] Closed 03/21/2018 03/21/2019 1 Encounter Details Date Type Department Care Team Description 03/22/2018 Office Visit Department of Family Rusty Sin usitis Acute Medicine, Winter Elizabeth, (Primary Dx) Clinic, in [place] [address] [place] [phone] Social History Tobacco Use Types Packs/Day [...] slept in a nursing home (including now)? Sex Assigned at Date Recorded Female 02/05/2018 10:11 AM CDT documented as of this encounter Last Filed Vital Signs Vital Sign Reading Time Taken Comments Blood Pressure 104/64 03/22/2018 8:25 AM CDT Pulse 88 03/22/2018 8:25 AM CDT Temperature 36.8 ??C (98.2 ??F) 03/22/2018 8:25 AM CDT Respiratory Rate - - Oxygen Saturation 98% 03/22/2018 8:25 AM CDT Inhaled Oxygen Concentration - - Weight 58 kg (127 lb 13.9 oz) 03/22/2018 8:25 AM CDT Height - - Body Mass Index 21.83 03/13/2018 8:49 AM CDT documented in this encounter Progress Winter Bello M.D. - 03/22/2018 8:30 AM CDT CHIEF COMPLAINT/ REASON FOR VISIT Facial pain and pressure with nasal congestion. HISTORY OF PRESENT ILLNESS Katherine Tiwari is a 37 y.o. female who presents to the clinic today for facial pain and pressure with nasal congestion. Since , 03/15 she has had facial pressure and pain, nasal stuffiness anddrainage. No fevers. Katherine started to cough a couple days ago. The patient denies any additional questions or concerns at this time. SYSTEMS REVIEW Please see HPI for pertinent positives, otherwise rest of ROS negative. MEDICATIONS Current Outpatient Prescriptions Medication Sig Dispense Refill ??? escitalopram (LEXAPRO) 10 mg tablet Take 1 tablet (10 mg total) by mouth daily. 30 tablet 11 ??? rizatriptan (MAXALT) 5 mg tablet Take 1 tablet (5 mg total) by mouth every 2 (two) hours as needed for migraine. May repeat in 2 hours if unresolved. Do not exceed 30 mg in 24 hours. 9 tablet 11 ??? levoFLOXacin (LEVAQUIN) 500 mg tablet Take 1 tablet (500 mg total) by mouth daily for 10 days. 10 tablet 0 No current facility-administered medications for this visit. [...] of liquor per week VITAL SIGNS Vitals: 03/22/18 0825 BP: 104/64 Patient Position: Sitting Pulse: 88 Temp: 36.8 ??C Weight: 58 kg SpO2: 98% Body mass index is 21.83 kg/m??. PHYSICAL EXAMINATION General: Patient is alert and oriented times three, in no acute distress, good hygiene and is dressed appropriately. ENT: Tympanic membranes are normal bilaterally. Oropharynx is without erythema or exudate. Intense erythema of the nasal mucosa. Tenderness over bilateral maxillary sinuses. Neck: Is without lymphadenopathy. Heart: Regular rate and rhythm without murmur. Lungs: Clear to auscultation. ASSESSMENT / PLAN #1 Acute sinusitis Will treat with Levaquin 500 mg daily for 10 days. I also recommended starting a daily antihistaminesuch as Claritin. Follow up The patient will contact the clinic with any new or worsening symptoms. This document serves as a record of services personally performed by Winter Ledesma MD. It was created on their behalf by Corrina Miller, a trained certified medical coding specialist. The creation of this record is based on the scribe's personal observations and the provider's statements to them. This document has been jason cked and approved by the attending provider. documented in this encounter Plan of Treatment Upcoming Encounters Date Type Specialty Care Team Description 08/01/2022 Appointment Neurology Mili Toscano M .D. [address] [place] [phone] (Wo rk) documented as of this encounter Visit Diagnoses Diagnosis Sinusitis Acute - Primary documented in this encounter Additional Health Concerns Assessment Noted Time PHQ-9 Depression Total Score: 6 03/13/2018 9:20 AM CDT documented as of this encounter Care Teams Marker Delivery Relationship Specialty Start Date End Date Winter Singleton M.D. PCP - General Family Medicine 01/04/18 12/02/[address] [phone] documented as of this encounter
--- OUTSIDE RECORDS SUMMARY | 2022-05-31 21:55 | XMS_ITS | Encounter Summary ---
:1980 Author Organization [facility] Address [address] [place] [address] Care Team Providers Name Role Phone Winter Singleton M.D. Primary Care Provider [phone] Reason for Visit Reason Comments Eye Pain states woke up this am with pain in right eye, states the pain is behind the eye when she blinks. Also st ates she does not feel right, states she feels weak, light headed and at th e same time states she feels like she is 300 lbs holding her down. Appointment Request (Routine) - Closed Specialty Diagnoses / Procedures Referred By Contact Refer red To Contact Family Medicine Referral ID Status Reason Start Date Expiration Date Visits Requ ested Visits Authorized [id number] Closed 07/18/2018 07/18/2019 1 Encounter Details Date Type Department Care Team Description 07/18/2018 Office Visit Department of Family Eddie Fields Headache Medicine, Crys TorreBRohitSRohit, (Primar y Dx) Clinic, in [place] [address] [facility] 300 [facility] [place], [place] [phone] Social History Tobacco Use Types Packs/Day Years [...] Sign Reading Time Taken Comments Blood Pressure 98/54 07/18/2018 10:44 AM CDT Pulse 88 07/18/2018 10:44 AM CDT Temperature 37.3 ??C (99.1 ??F) 07/18/2018 10:44 AM CDT Respiratory Rate 16 07/18/2018 10:44 AM CDT Oxygen Saturation 100% 07/18/2018 10:44 AM CDT Inhaled Oxygen Concentration - - Weight 56.4 kg (124 lb 3.7 oz) 07/18/2018 10:44 AM CDT Height - - Body Mass Index 21.21 07/06/2018 10:32 AM CDT documented in this encounter H&P Notes Eddie Fields M.B.B.S., M.D. - 07/18/2018 10:45 AM CDT SUBJECTIVE CHIEF COMPLAINT / REASON FOR VISIT Katherine Tiwari is a 38 y.o. female who presents for evaluation of Eye Pain (states woke up this amwith pain in right eye, states the pain is behind the eye when she blinks. Also states she does not feel right, states she feels weak, light headed and at the same time states she feels like she is 300lbs holding her down.). HISTORY OF PRESENT ILLNESS Patient with a history of migraines is here with pain behind her right eye. Patient reports a migraine episode yesterday. It began with an aura - blurry vision. She had no focal weakness or dizziness. She denies any tearing. She took Maxalt and went to bed. She woke up this morning with heaviness on her right eye. She denies any blurred vision or loss of vision. She reports aright-sided mild throbbing headache mostly behind the right eye with fatigue. Patient denies any nasal congestion, nasal drainage, fever or chills. The following portions of the patient's history were reviewed and updated as appropriate: allergies,current medications, family history, medical history, social history, surgical history and problem list. REVIEW OF SYSTEMS Pertinent items are noted in HPI. OBJECTIVE BP (!) 98/54 (BP Location: Left arm, Patient Position: Sitting, Cuff Size: Small) Pulse 88 Temp 37.3 ??C (Temporal) Resp 16 Wt 56.4 kg SpO2 100% BMI 21.21 kg/m?? PHYSICAL EXAM General Appearance: healthy, alert, no distress, cooperative. Head: normocephalic, no masses, lesions, tenderness or abnormalities. Eyes: Anicteric sclera. Pupils are equally round and reactive to light. Extraocular movements are intact. , there is light sensitivity but 20/20 vision. Ears: external ears normal, canals clear, TM's normal. Neck: Supple, no adenopathy; thyroid symmetric, normal size, no bruits. Lungs: clear to auscultation, no wheezing or rhonchi. Heart: RRR without murmur, gallop, or rubs. No ectopy. Musculoskeletal: Range of motion normal in hips, knees, shoulders, and spine, No joint swelling, deformity, or tenderness. Neurologic: Gait normal. Reflexes normal and symmetric. Sensation grossly intact., Negative findings: cranial nerves 2-12 intact, muscle strength normal. ASSESSMENT / PLAN #1 Migraine Headache Patient has no focal neurological symptoms. Will manage with ibuprofen and her regular migraine medication. Patient may return if symptoms do not improve. documented in this encounter Plan of Treatment Upcoming Encounters Date Type Specialty Care Team Description 08/01/2022 Appointment Neurology Mili Toscano M .D. [address] [place], [place] [phone] (Wo rk) documented as of this encounter Visit Diagnoses Diagnosis Migraine Headache - Primary documented in this encounter Additional Health Concerns Assessment Noted Time PHQ-9 Depression Total Score: 19 07/06/2018 10:33 AM C DT documented as of this encounter Care Teams Medical Billing And Coding Specialist Relationship Specialty Start Date End Date Winter Singleton M.D. PCP - General Family Medicine 01/04/18 12/02/20 [address] [place] [address] documented as of this encounter
--- OUTSIDE RECORDS SUMMARY | 2022-05-31 21:55 | XMS_ITS | Encounter Summary ---
:1980 Author Organization [facility] Address [address] [place] [address] Care Team Providers Name Role Phone Unavailable Primary Care Provider Unavailable Encounter Details Date Type Department Care Team Description 08/06/2001 Hospital Encounter HX [facility] PRA Ancelmo Arias M.D. Social History Tobacco Use Types Packs/Day [...] 1 to 4 times per year 04/22 mosque services? Do you belong to any clubs [...] Neurology Mili Toscano M .D. [address] [place], [place] [phone] (Wo rk) documented as of this encounter Visit Diagnoses Not on filedocumented in this encounter
--- OUTSIDE RECORDS SUMMARY | 2022-05-31 21:55 | XMS_ITS | Encounter Summary ---
:1980 Author Organization [facility] Address [address] [place] [address] Care Team Providers Name Role Phone Unavailable Primary Care Provider Unavailable Encounter Details Date Type Department Care Team Description 08/17/2004 Hospital Encounter HX NO MAPPING Liseth Casanova Au. D. Social History Tobacco Use Types Packs/Day Years [...] or slept in a residential (including now)? Sex Assigned at Date Recorded Female 02/05/2018 10:11 AM CDT documented as of this encounter Plan of Treatment Upcoming Encounters Date Type Specialty Care Team Description 08/01/2022 Appointment Neurology Mili Toscano M .D. [address] [place], [place] [phone] (Wo rk) documented as of this encounter Visit Diagnoses Not on filedocumented in this encounter
--- OUTSIDE RECORDS SUMMARY | 2022-05-31 21:55 | XMS_ITS | Encounter Summary ---
:1980 Author Organization [facility] Address [address] [place] [address] Care Team Providers Name Role Phone Unavailable Primary Care Provider Unavailable Encounter Details Date Type Department Care Team Description 03/30/2010 Hospital Encounter HX [facility] Renetta Barrera M.D. [address] [place], [place] [phone] (Wo rk) Social History [...] encounter Progress Notes Leatha Carney M.D. - 03/30/2010 12:00 AM CDT [id number] CHIEF COMPLAINT / REASON FOR VISIT Two week postop follow up. HISTORY OF PRESENT ILLNESS Katherine returns 2 weeks after laparoscopic fulguration of endometriosis which was found on the surface of the ovaries (no chocolate cysts), and in the cul-de-sac of Alex. She has done well in the postoperative period without difficulty. Normal bowel and bladder function. No fever, chills, nausea, or vomiting. PHYSICAL EXAM GENERAL: Female stated age in no acute distress. ABDOMEN: Soft, nondistended and nontender, benign incisions clean, dry and intact. IMPRESSION / REPORT / PLAN 1) Two-week postoperative check, surgically dismissed. The photographs from her surgery were reviewed with her and her mother. The appropriate anatomy was pointed out and the areas of endometriosis were identified. She is free to continue to all normal activities. I believe she and her will begin attempts at conception, and this would be an ideal time to do so. Of note, the fallopian tubes were patent and delicate; therefore, with the endometriosis gone at this time, this would give her an excellent chance to achieve . If she is not attempting to conceive, she should be maintained on the control pill to increase the time interval between recurrences. Katherine states that she has had some trouble with facial acne, and to help with this, I have called in a prescription for Differin cream and clindamycin gel to the [facility] pharmacy in [place]. Leatha Carney M.D. sweetie Electronically Signed By:LEATHA CARNEY MD On 04/01/2010 11:41 AM Source: [facility] MHSDOLBEYNBERTHA Document Id: [id number] documented in this encounter Nursing Notes Conversion, Historical Provider Ser - 04/28/2010 4:58 PM CDT Pt had laporoscopy in February. Pt has been having abnormal bleeding, clotting, severe cramping since except for 1 wk. Appt scheduled. Electronically Signed By:MITRA YIP On 04/28/2010 05:00 pm [facility] Document Id: [id number] documented in this encounter Miscellaneous Notes Miscellaneous - Devon Mancilla LRohitP.N. - 03/30/2010 9:39 AM CDT Adult Discovery Guide Intake/History Adult Discovery Guide Intake/History Entered On: 03/30/2010 9:44 CDT Performed On: 03/30/2010 9:39 CDT by DEVON MANCILLA Intake Chief Complaint: 2 week post op Laparoscopy LMP Date: 03-16-2010 Systolic Blood Pressure: 100mmHg Diastolic Blood Pressure: 52mmHg NIBP Mean: 68mmHg BP Location: Left upper extremity DEVON MANCILLA - 03/30/2010 9:39 CDT Subjective Pain Symptoms: No DEVON MANCILLA - 03/30/2010 9:39 CDT Dependent Habits Tobacco Use/Currently Using: Yes DEVON MANCILLA - 03/30/2010 9:39 CDT Tobacco Use Grid Type: Cigarettes Cigarette Use Packs/Day: 1.0 DEVON MANCILLA - 03/30/2010 9:39 CDT Allergies Source: [facility] [employer] Document Id: [id number]!16 documented in this encounter Plan of Treatment Upcoming Encounters Date Type Specialty Care Team Description 08/01/2022 Appointment Neurology Mili Toscano M .D. [address] [place] [phone] (Wo rk) documented as of this encounter Visit Diagnoses Not on filedocumented in this encounter
--- OUTSIDE RECORDS SUMMARY | 2022-05-31 21:55 | XMS_ITS | Encounter Summary ---
:1980 Author Organization [facility] Address [address] [place] [address] Care Team Providers Name Role Phone Unavailable Primary Care Provider Unavailable Encounter Details Date Type Department Care Team Description 01/05/2009 - Hospital Encounter HX RST LABOR&DELIVERY John Urias olyn 01/12/2009 NURS D, R.N. [address] [place] [address] Social History Tobacco Use Types Packs/Day Years [...] or relatives? How often do you attend sabianism or 1 to 4 times per year 04/22 shinto services? Do you belong to any clubs or No 05/02/2022 organizations such as sabianism groups, unions, fraternal or athletic groups, or [...] slept in a senior care (including now)? Sex Assigned at Date Recorded Female 02/05/2018 10:11 AM CDT documented as of this encounter Plan of Treatment Upcoming Encounters Date Type Specialty Care Team Description 08/01/2022 Appointment Neurology Mili Toscano M .D. [address] [place] [phone] (Wo rk) documented as of this encounter Visit Diagnoses Not on filedocumented in this encounter
--- OUTSIDE RECORDS SUMMARY | 2022-05-31 21:55 | XMS_ITS | Encounter Summary ---
:1980 Author Organization [facility] Address [address] [place] [address] Care Team Providers Name Role Phone Winter Singleton M.D. Primary Care Provider [phone] Reason for Visit Reason Comments Med Refill medication review with refil ls Appointment Request (Routine) - Closed Specialty Diagnoses / Procedures Referred By Contact Refer red To Contact Family Medicine Referral ID Status Reason Start Date Expiration Date Visits Requ ested Visits Authorized [id number] Closed 03/12/2018 09/08/2018 1 Encounter Details Date Type Department Care Team Description 03/13/2018 Office Visit Department of [facility] Rusty Dep ression Anxiety (Primary Dx); Medicine, Winter Elizabeth, Migraine Headache; Clinic, in [facility] [address] [place] [phone] Social History Tobacco Use Types Packs/Day Years [...] 05/02/2022 organizations such as jewish groups, unions, fraPanono or athletic groups, or school groups? How [...] or slept in a chcf (including now)? Sex Assigned at Date Recorded Female 02/05/2018 10:11 AM CDT documented as of this encounter Last Filed Vital Signs Vital Sign Reading Time Taken Comments Blood Pressure 110/60 03/13/2018 8:49 AM CDT Pulse 88 03/13/2018 8:49 AM CDT Temperature 36.2 ??C (97.2 ??F) 03/13/2018 8:49 AM CDT Respiratory Rate 20 03/13/2018 8:49 AM CDT Oxygen Saturation - - Inhaled Oxygen Concentration - - Weight 58.8 kg (129 lb 11.9 oz) 03/13/2018 8:49 AM CDT Height 163 cm (5' 4.17) 03/13/2018 8:49 AM CDT Body Mass Index 22.15 03/13/2018 8:49 AM CDT documented in this encounter Progress Notes Winter Singleton M.D. - 03/13/2018 9:00 AM CDT CHIEF COMPLAINT/ REASON FOR VISIT Medication review. HISTORY OF PRESENT ILLNESS Katherine Tiwari is a 37 y.o. female who presents to the clinic today for medication review. I did see her recently for a kidney stone. She did see urology and she was placed on tamsulosin for a few days, but she notes that this made her very sick and she does not Katherine has not needed trazodone for the last year and a half. She also has a history of migraines and has noticed if she has anything with mushrooms, she will get a severe headache. She takes Maxalt asan abortive therapy. She previously used Frova, but this was not working for her. She is also curious about a new injectable medication for migraines, Aimovig. She gets a migraine about once a week, but these usually resolve with the Maxalt. Katherine also has a history of depression, for which she takes Lexapro. She has taken this on and off and she recently did a trial off of them. She found that she was more anxious and on edge as well as less motivated. These symptoms have greatly improved since restarting the medication. Katherine also notes that she will get some swelling in her face and legs. She brings in pictures on her phone for my review. She discussed this with Charisse Mendez, but Charisse told her to discuss thiswith me. She has noticed there are certain days when she gets very swollen. She has not found any food that would cause it. No chest symptoms. It does not get itchy. It seems to last for a couple of hours. She cannot even tell it is swollen. The patient denies any additional questions or [...] mg in 24 hours. 9 tablet 11 No current facility-administered medications for this visit. [...] EXCISION OF LESION OF OVARY N/A 1999 ??? EXCISION OF LESION OF OVARY N/A 2004 ??? EXCISION OF LESION OF OVARY N/A 2005 ??? EXCISION OF LESION OF OVARY N/A 2010 ??? LEEP PROCEDURE - LOOP ELECTRO EXCISION [...] of liquor per week VITAL SIGNS Vitals: 03/13/18 0849 BP: 110/60 Pulse: 88 Temp: 36.2 ??C Resp: 20 Height: 163 cm Weight: 58.8 kg TempSrc: Temporal Body mass index is 22.15 kg/m??. PHYSICAL EXAMINATION General: Patient is alert and oriented times three, in no acute distress, good hygiene and is dressed appropriately. Extremities: Within normal limits. Skin: No rashes or suspicious lesions noted on exposed skin. DIAGNOSTICS SHAGGY-7 Total Score (max 21): 8 (03/13/18 0921) PHQ-9 Total Score (max 27): 6 (03/13/18 0920) ASSESSMENT / PLAN #1 Depression Anxiety She will continue with Lexapro 10 mg daily. She has attempted to go off of this but has recurrence of her symptoms. This is renewed today. #2 Migraine Headache She will continue with Maxalt as an abortive therapy. This is renewed today. I will discuss Aimovig with Dr. Ramirez, our neurologist, about the mechanism behind this medication. Follow up The patient will contact the clinic with any new or worsening symptoms. This document serves as a record of services personally performed by Winter Ledesma MD. It was created on their behalf by Laurence Whiteside, a trained medical records tech. The creation of this record is based on the scribe's personal observations and the provider's statements to them. This document has been ch ecked and approved by the attending provider. documented in this encounter Plan of Treatment Upcoming Encounters Date Type Specialty Care Team Description 08/01/2022 Appointment Neurology Mili Toscano M .D. [address] [place], [place] [phone] (Wo rk) documented as of this encounter Visit Diagnoses Diagnosis Depression Anxiety - Primary Migraine Headache Insomnia documented in this encounter Additional Health Concerns Assessment Noted Time PHQ-9 Depression Total Score: 6 03/13/2018 9:20 AM CDT documented as of this encounter Care Teams Ruby On Rails Consultant Relationship Specialty Start Date End Date Winter Singleton M.D. PCP - General Family Medicine 01/04/18 12/02/20 [address] [place] [address] documented as of this encounter
--- OUTSIDE RECORDS SUMMARY | 2022-05-31 21:55 | XMS_ITS | Encounter Summary ---
:1980 Author Organization [facility] Address [address] [place] [address] Care Team Providers Name Role Phone Unavailable Primary Care Provider Unavailable Encounter Details Date Type Department Care Team Description 02/26/2015 Hospital Encounter HX NO MAPPING Heidi Bedolla M.D. Social History Tobacco Use Types [...] or relatives? How often do you attend zoroastrianism or 1 to 4 times per year 04/22 nondenominational services? Do you belong to any clubs or No 05/02/2022 organizations such as zoroastrianism groups, unions, fraternal or athletic groups, or [...] encounter Progress Notes Heidi Bedolla M.D. - 02/26/2015 11:50 AM CDT [id number] Ms. Tiwari no-showed her appointment in the [facility] today. This is her second no-show appointment since her surgery. Heidi Bedolla M.D./francisco cc: Sarah Bhardwaj [phone] [place] [address] Electronically Signed By: HEIDI BEDOLLA MD On: 03/12/2015 04:36 PM Source: [facility] MHSDOLBEYNONRADSYS Document Id: [id number] documented in this encounter Plan of Treatment Upcoming Encounters Date Type Specialty Care Team Description 08/01/2022 Appointment Neurology Mili Toscano M .D. [address] [place], [place] [phone] (Wo rk) documented as of this encounter Visit Diagnoses Not on filedocumented in this encounter
--- OUTSIDE RECORDS SUMMARY | 2022-05-31 21:55 | XMS_ITS | Encounter Summary ---
:1980 Author Organization [facility] Address [address] [place] [address] Care Team Providers Name Role Phone Unavailable Primary Care Provider Unavailable Encounter Details Date Type Department Care Team Description 03/11/2009 - Hospital Encounter HX [facility] LABOR&DELIVERY John Crockett, 03/18/2009 NURS R.N. [address] [place] [address] Social History Tobacco Use Types Packs/Day Years [...] or relatives? How often do you attend muslim or 1 to 4 times per year 04/22 protestant services? Do you belong to any clubs or No 05/02/2022 organizations such as muslim groups, unions, fraternal or athletic groups, or [...] 08/01/2022 Appointment Neurology Mili Toscano M .D. [address] [place] [phone] (Wo rk) documented as of this encounter Visit Diagnoses Not on filedocumented in this encounter
--- OUTSIDE RECORDS SUMMARY | 2022-05-31 21:55 | XMS_ITS | Encounter Summary ---
:1980 Author Organization [facility] Address [address] [place] [address] Care Team Providers Name Role Phone Unavailable Primary Care Provider Unavailable Encounter Details Date Type Department Care Team Description 05/15/2014 Hospital Encounter HX [facility] Heidi Wong [...] 1 to 4 times per year 04/22 sikh services? Do you belong to any clubs [...] or slept in a correction (including now)? Sex Assigned at Date Recorded Female 02/05/2018 10:11 AM CDT documented as of this encounter Last Filed Vital Signs Vital Sign Reading Time Taken Comments Blood Pressure 106/58 05/15/2014 2:37 PM CDT Pulse 78 05/15/2014 2:37 PM CDT Temperature - - Respiratory Rate 16 05/15/2014 2:37 PM CDT Oxygen Saturation - - Inhaled Oxygen Concentration - - Weight 57.1 kg (125 lb 14.1 oz) 05/15/2014 2:37 PM CDT Height - - Body Mass Index - - documented in this encounter Consult Notes Heidi Bedolla M.D. - 05/15/2014 2:32 PM CDT [id number] CHIEF COMPLAINT/REASON FOR VISIT Heavy menstrual bleeding. 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 Graham at [facility]. She is a 34-year-old G6, P4-0-2-4 female with LMP of 04/26/2014. The patient hada vaginal delivery on 09/04/2013 and received Depo-Provera on 10/18/2013. The patient became amenorrheic with Depo-Provera. The patient then had a laparoscopic tubal ligation on 01/15/2014 and stopped receiving her Depo-Provera. The patient reports restarting her menses in January. In February she had heavier menstrual bleeding, and her menstrual bleeding got heavier in March with clots and heavy bleeding, and now in April she has had menorrhagia with heavy blood flow and blood clots and changing pads every 30 minutes. She reports that over the last few months her menses have become more frequent, every 22 to 30 days, and they last up to 10 days at a time. She reports soiling of her clothing on her heavy flow days. She denies difficulty urinating. No change in bowel habits. No vaginal itching, irritation or discharge. The patient was started on Provera 10 mg daily by her primary provider. She was startedon 05/12/2014, and she reports that since she started the Provera, her bleeding has stopped. The patient would like to talk about management options and would like to discuss possible endometrial ablation. ALLERGIES 1. Fentanyl causes hives. 2. Penicillin causes a rash. 3. Macrobid causes nausea. MEDICATIONS 1. Provera 10 mg by mouth daily x10 days, started 05/12/2014. 2. Ortho Cyclen, new prescription given today. 3. Maxalt as needed. 4. Frovatriptan as needed. 5. [place] as needed. 6. Ibuprofen as needed. 7. Ativan as needed. PAST MEDICAL/SURGICAL HISTORY PAST MEDICAL HISTORY: 1. Endometriosis. 2. Tobacco abuse, 1/2 pack per day. 3. History of cervical dysplasia, JIMMY 3, in 2011. 4. Hearing loss. 5. Anxiety. 6. Menometrorrhagia. PAST SURGICAL HISTORY: 1. Laparoscopic tubal ligation, 01/15/2014. 2. LEEP procedure, 2011. 3. Laparoscopy 2009. 4. Breast augmentation, 2006. 5. Laparoscopy, 2004. 6. Laparoscopy, 2003. 7. Laparoscopy, 1998. 8. Tonsils and adenoids, 1991. PAST OBSTETRICAL HISTORY: Vaginal delivery x4. ADULT PREVENTIVE SERVICES Provided by Dr. Graham at [facility]. These records are not available for my review. Pap smear on 10/25/2013 is negative for intraepithelial lesion or malignancy. SOCIAL HISTORY The patient is . She smokes tobacco, 1/2 pack per day. She denies alcohol or drug use. No history of STD or PID. She has a history of cervical dysplasia in 2011, with a normal followup Pap smear. PHYSICAL EXAMINATION VITAL SIGNS: Weight 57.1 kg, pulse 78, respirations 16, blood pressure 106/58. GENERAL: Well-developed, well-nourished female in no apparent distress. Alert and oriented x3. ABDOMEN: Soft, nontender, nondistended. Positive bowel sounds. No hepatomegaly. No rebound. No guarding. GENITALIA: Exam declined. EXTREMITIES: No clubbing, cyanosis, or edema. Nontender bilaterally. DIAGNOSTICS RADIOLOGY: 05/13/2014: Pelvic ultrasound shows uterus measuring 5.7 x 8.8 cm with a 1.5 cm hypoechoic lesion in the right fundus consistent with a fibroid. Endometrium is 6 mm. Right ovary measured 2.3x 3.2 cm and appears normal. The left ovary measured 2.7 x 3.1 cm and appears normal with several small follicles. Good blood flow to both ovaries. No free fluid. LABORATORY: 05/12/2014: Hemoglobin 12.1, hematocrit 36.4, platelets 174. test negative. IMPRESSION/REPORT/PLAN 1. Menometrorrhagia. 2. Tobacco abuse. 3. History of endometriosis with multiple surgeries. PLAN: 1. I discussed the patient's symptoms. I discussed menometrorrhagia with the patient. I reviewed with the patient that her bleeding symptoms are most likely hormonal. I reviewed with the patient the risk for endometrial pathology in a woman in her early 30s is very small. I discussed the option to do an endometrial biopsy to assess the endometrial lining. I reviewed with the patient we do not necessarily need to do this, as she is under the age of 35, and the patient declines. 2. I discussed with the patient that I suspect her bleeding symptoms are secondary to be on Depo-Provera, and then after stopping the Depo-Provera, her ovaries have rebounded and are now causing her menometrorrhagia symptoms. Her hemoglobin and hematocrit are both stable. Reassurance is given to the patient. Her ultrasound shows normal-sized uterus with a small fibroid and a normal endometrial thickness. 3. I discussed management options. I discussed hormone management options with control pills, plus cyclic and continuous Depo-Provera, cyclic Provera, and Mirena IUD. I also discussed surgical options of hysteroscopy, fractional dilation and curettage, and even endometrial ablation. I discussed risks, benefits, alternatives, and indication of each with the patient. 4. I recommend a trial of medical hormone management, as I suspect that she will just need to do this for several months, and this will help regulate her menstrual cycles. The patient has been on Mirena IUD in the past, which she was very happy with and amenorrheic. I discussed the possibility of replacing a Mirena IUD to help create an amenorrheic state and control her menstrual bleeding. Obviously the patient has tubal ligation, so this would not be for contraception. The patient will consider a Mirena IUD in the near future, but declines that today. 5. After discussing options with the patient, she would like to try a trial of control pills. I discussed risks, benefits, alternatives, and indication of control pills with the patient. I encouraged tobacco cessation. I reviewed with the patient the risks of smoking in women over the age of 35. At the age of 34, I discussed the use of control pills. She verbalizes an understanding and desires to proceed. I recommend the patient use the Provera as prescribed, and then start the control pills, 1 by mouth daily. I discussed this with the patient. She agrees with this course ofaction. 6. I recommend the patient use control pills for at least 2 or 3 cycles and then we can stop the control pills to see what her menstrual cycles are doing. 7. I gave the patient a prescription for Ortho-Cyclen 1 by mouth daily, #3 packs, with refills. 8. Bleeding precautions reviewed with the patient. 9. I would like the patient to follow up with Dr. Graham, her primary provider, for adult preventive services and as needed. 10. I will be happy to see the patient back in several months if her bleeding symptoms do not improve or if they worsen. I spent 30 minutes [id number] time with the patient. Heidi Bedolla M.D./francisco cc: Adriane Graham Electronically Signed By: HEIDI BEDOLLA MD On: 05/28/2014 07:44 AM Source: [facility] MHSDOLBEYNONRADSYS Document Id: [id number] documented in this encounter Miscellaneous Notes Miscellaneous - Heidi Bedolla M.D. - 05/15/2014 3:25 PM CDT Ambulatory Patient Summary [facility] [address] [place] [phone] Visit Information Name: DAVIDE KATHERINE CARTER [facility] Number: [id number] Current Date: 05/15/2014 15:25:11 Physicians Attending Provider: HEIDI BEDOLLA MD Primary Care Provider: PCP, ERICK KATHERINE AUGUSTINE has been given the following list of [...] Take Indications/Special Instructions/Comments/Notes for Patient Medication Changes/Routing norgestimate-ethinyl estradiol (Ortho-Cyclen 0.25 mg-35 mcg oral tablet) 1 Tablet(s), Oral, once a day New Routed to [facility] [address] [place] [address] Stop Taking the Following Medications: medroxyPROGESTERone (Depo-Provera 400 mg/mL intramuscular suspension) Medication list as of 05-15-14 15:25 Attention: If you have any medications at [...] Electronically Signed By: HEIDI BEDOLLA MD Signed On:15-MAY-2014 15:25:06 Your Allergies & Intolerances Substance Reaction Symptoms Category Comments penicillins Drug Macrobid Drug fentaNYL Drug Your Problem List Problem Status Onset Comments Encounter for Sterilization Active 12/27/2013 Tobacco Use Disorder Active 12/27/2013 Endometriosis of Pelvic Peritoneum Active 12/27/2013 Abnormal pap with HGSIL Active 2012 Loss Hearing Conductive Rakesh Active 12/27/2013 Menometrorrhagia Active Your Upcoming Appointments Date Time Location Reason Provider No Appointments found Attention: Contact your local Clinic if further appointment detail needed. Your Goals/Additional instructions: Source: [facility] POWERCHART Document Id: [id number] Miscellaneous - Heidi Bedolla M.D. - 05/15/2014 3:25 PM CDT Ambulatory Discharge Medication List [facility] [address] [place], [place] [phone] Visit Information Name: KATHERINE AUGUSTINE [facility] Number: [id number] Visit Date: 05/15/2014 15:25:09 Attending Provider: HEIDI BEDOLLA MD Primary Care [...] Take Indications/Special Instructions/Comments/Notes for Patient Medication Changes/Routing norgestimate-ethinyl estradiol (Ortho-Cyclen 0.25 mg-35 mcg oral tablet) 1 Tablet(s), Oral, once a day New Routed to [address] [address] Stop Taking the Following Medications: medroxyPROGESTERone (Depo-Provera 400 mg/mL intramuscular suspension) Medication list as of 05-15-14 15:25 Attention: If you have any medications at [...] Electronically Signed By: HEIDI BEDOLLA MD Signed On:15-MAY-2014 15:25:06 Additional Information: Source: [facility] POWERCHART Document Id: [id number] Miscellaneous - Madelyn Oliveros, L.P.N. - 05/15/2014 2:37 PM CDT Adult Rotary Soil Stabilizer Intake/History Adult Rotary Soil Stabilizer Intake/History Entered On: 05/15/2014 14:39 CDT Performed On: 05/15/2014 14:37 CDT by MADELYN OLIVEROS Intake Chief Complaint : discuss ablation Peripheral Pulse Rate : 78 /min Respiratory Rate : 16 /min Heart Rhythm : Regular Systolic Blood Pressure : 106 mmHg Diastolic Blood Pressure : 58 mmHg NIBP Mean : 74 mmHg BP Location : Left upper extremity Blood Pressure Cuff Size : Regular Actual Weight : 57.1 kg(Converted to: 125 lb 14 oz) Weight Source : Standing scale Dosing Weight Clinic : 57.1 kg MADELYN OLIVEROS - 05/15/2014 14:37 CDT General Info Languages : Nepali MADELYN OLIVEROS - 05/15/2014 14:37 CDT Subjective Pain Symptoms : No MADELYN OLIVEROS - 05/15/2014 14:37 CDT Dependent Habits Tobacco Use/Currently Using : Yes Exposure to Tobacco Smoke : Patient smokes Smoking Status : Current every day smoker MADELYN OLIVEROS - 05/15/2014 14:37 CDT Tobacco Use Grid Type : Cigarettes Cigarette Use Packs/Day : 0.5 MADELYN OLIVEROS - 05/15/2014 14:37 CDT Source: [employer] Document Id: [id number]!26 documented in this encounter Plan of Treatment Upcoming Encounters Date Type Specialty Care Team Description 08/01/2022 Appointment Neurology Mili Toscano M .D. [address] [place] [phone] (Wo rk) documented as of this encounter Visit Diagnoses Not on filedocumented in this encounter
== END 2022-05-24 11:39 | disposition home or self-care (01) ==
LOC: OP CLINIC 11:39
PROVIDERS: PCP Family Medicine; Visit Provider Surgery
DX: R19.8 Other specified symptoms and signs involving the digestive system and abdomen (principal)
CPT/HCPCS: 43239; 731; 88305; J2704

== ENCOUNTER 2024-07-30 15:06 | Outpatient (CLI) | payer MEDICARE, SELFPAY ==
--- OUTSIDE RECORDS SUMMARY | 2024-07-30 15:10 | XMS_ITS | Clinical Summary ---
Author Organization [facility] Address [address] [place] [address] Care Team Providers Care Fire Prevention Chief Name Role Phone China Topete D.O. Primary Care Provider Source Comments Patient records contain information from all sites at [facility]. For routine questions regarding patient records, call [phone] during business hours, M-F 8:00 AM - 5:00 PM Central Time. Record requests for emergency care only can be directed to [phone] at any time.[facility] Allergies Active Allergy Reactions Criticality Noted Date Comments Blood-Group Specific Substance Other (see comments) 05/02/2011 Patient has anti-D. Blood product orders may be delayed. Please draw one red top and two purple top tubes for all Type and Screen/Type and Crossmatch orders. Fentanyl Hives only, no other systemic symptoms Medium 03/16/2010 Nitrofurantoin Nausea And Vomiting Low 07/17/2008 Nitrofurantoin Monohyd/M-Cryst Other (see comments) 11/07/2013 Penicillin G Benzathin,Procain Rash Low 07/19/2007 OK on Amoxicillin Penicillins Other (see comments) 11/07/2013 Sumatriptan Headache 04/12/2016 Pt states that the [place] imitrex made her headache much worse Medications Medication Sig Dispensed Refills Start Date End Date Status traZODone (DESYREL) 50 mg tablet 1/2 to one tab at bedtime if needed for insomnia 90 tablet 3 01/28/2020 Active baclofen (LIORESAL) 10 mg tablet Take 1 tablet (10 mg total) by mouth 2 (two) times a day as needed for muscle spasms. 60 tablet 3 02/21/2020 Active ondansetron (ZOFRAN) 4 mg tablet Take 1 tablet (4 mg total) by mouth every 8 (eight) hours as needed for nausea or vomiting. 20 tablet 05/08/2020 Active estradioL (VIVELLE-DOT) 0.1 mg/24 hr patch APPLY ONE PATCH TRANSDERMAL TWICE WEEKLY 11/08/2020 Active fluticasone propionate (FLONASE) 50 mcg/actuation nasal spray ADMINISTER ONE SPRAY INTO EACH NOSTRIL DAILY 16 g 11 03/18/2021 Active naproxen (NAPROSYN) 500 mg tablet Take one tablet (500 mg) by mouth at onset of headache, may repeat in 8 hours, no more than 2 per day or 5 per week. 20 tablet 5 05/03/2021 Active rizatriptan (MAXALT) 10 mg tablet Take 1 tablet (10 mg total) by mouth every 2 (two) hours as needed for migraine. May repeat in 2 hours if unresolved. Do not exceed 30 mg in 24 hours. 9 tablet 11 05/02/2022 Active amphetamine-dextro amphetamine (ADDERALL XR) 5 mg 24 hr capsule Take 5 mg by mouth every morning. Active Emgality Pen 120 mg/mL injection Inject 120 mg under the skin every 30 (thirty) days. Active ibuprofen (MOTRIN) 600 mg tablet as needed for pain. 09/08/2020 Ac tive omeprazole (PriLOSEC) [address] capsule Take 20 mg by mouth every morning before breakfast. 11/30/2021 Active tamsulosin (FLOMAX) 0.4 mg 24 hr capsule Take 1 capsule (0.4 mg total) by mouth daily. 30 capsule 04/02/2024 Active Active Problems Problem Noted Date Diagnosed Date Migraine Headache 02/05/2018 Anxiety 03/14/2017 Overview (02/05/2018): Overview: Stopped depression medication lexapro because she felt that it was giving her more headaches. Has been on wellbutrin but had troubles sleeping on it. Has been on Prozac and does not remember having troubles with it. HAs been on zoloft and did not like it but does not remember why. 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 Augustine, Kathleen A, APRN, C.N.P., M.S. Chronic Migraine Discharge Disposition: Home or Self Care 05/03/2024 Clinical Communication Department of Family Medicine, [address] [address] Rey Guevara A, D.O. 04/30/2024 Orders Only Department of Family Medicine, [address] [address] Rey Guevara, D.O. from Last 3 Months Immunizations Name Administration Dates Next Due DTaP (Daptacel) 05/05/1988 HepB Pediatric/Adolescent 08/18/1998,05/22/1998 Influenza, Unspecified 07/29/2013 MMR 10/23/1995,12/20/1994 Polio, Unspecified 05/05/1988 Td, (Adult) Unspecified 10/23/1994 Tdap 11/02/2012,07/19/2012 influenza trivalent vaccine (6 months and older) (PF) 07/25/2011 Social History Tobacco Use Types Packs/Day Years Used Date Smoking Tobacco: Every Day Cigarettes 0 Smokeless Tobacco: Never Tobacco Cessation:Ready to Q uit: Not Asked; Counseling Given: Not Answered Alcohol Use Standard Drinks/Week Comments Yes 6 (1 standard drink = 0.6 oz pur e alcohol) [facility] Utilities Answer Date Recorded In the past 12 months has e Advis[employer], V[employer], oil, or water Eventful threatened to shut off services in your home? Yes 04/05/2024 Humiliation, Afraid, Rape, and Kick questionnair e Answer Date Recorded Within the last year, have y ou been afraid of your partner or ex-partner? No 05/02/2022 Within the last year, have y ou been humiliated or emotionally abused in other ways by your partner or ex-partner? No Within the last year, have y ou been kicked, hit, slapped, or otherwise physically hurt by your partner or ex-partner? No 05/02/2022 Within the last year, have y ou been raped or forced to have any kind of sexual activity by your partner or ex-partner? No 05/02/2022 Social Connection and Isolat ion Panel [NHANES] Answer Date Recorded In a typical week, how many times do you talk on the phone with family, friends, or neighbors? More than three times a week 05/02/2022 How often do you get togethe r with friends or relatives? Once a week 05/02/2022 How often [facility] you attend [facility] services? 1 to 4 times per year 05/02/2022 Do you belong to any clubs o r organizations such as protestant groups, unions, fraternal or athletic groups, or school groups? No 05/02/2022 How often do you attend meet ings of the clubs or organizations you belong to? Never 05/02/2022 Are you , , di vorced, , never , or living with a partner? 05/02/2022 AUDIT-C Answer Date Recorded Q1: How often do you have a drink containing alc ohol? Never 05/02/2022 Average Number of Drinks Not on file 022 Frequency of Binge Drinking Not on file 04/22 Overall Financial Resource Strain (CARDIA) Answe r Date Recorded How hard is it for you to pa y for the very basics like food, housing, medical care, and heating? Very hard 05/02/2022 PHQ-2 Answer Date Recorded PHQ-2 Score 0 04/02/2024 [facility] - Occupational Stress Questionnaire Answer Date Recorded Do you feel stress - tense, restless, nervous, or anxious, or unable to sleep at night because your mind is troubled all the time - these days? Very much 05/02/2022 Exercise Vital Sign Answer Date Recorde d On average, how many days pe r week do you engage in moderate to strenuous exercise (like a brisk walk)? 7 days 04/05/2024 On average, how many minutes do you engage in exercise at this level? 150+ min 04/05/2024 Hunger Vital Sign Answer Date Recorded Within the past 12 months, y ou worried that your food would run out before you got the money to buy more. Sometimes true Within the past 12 months, t he food you bought just didn't last and you didn't have money to get more. Sometimes true PRAPARE - Transportation Answer Date Re corded In the past 12 months, has l ack of transportation kept you from medical appointments or from getting medications? No 03/23 In the past 12 months, has l ack of transportation kept you from meetings, work, or from getting things needed for daily living? No 04/05/2024 Depression Answer Date Recor ded PHQ-9 Total Score (max 27) 14 05/02 Nutrition Answer Date Recorded On average, how many serving s of fruits and vegetables do you eat per day (serving size is equal to 1 cup or approximately the size of a tennis ball)? 5 or more 04/05/2024 Dental Answer Date Recorded Dental: Regular Dentist No 04/05/20 24 Employment Answer Date Recorded Employment status Unemployed/not in th e paid workforce but seeking employment 04/05/2024 Housing Stability Answer Date Recorded What is your living situation today? [facility] to live 04/05/2024 Education Answer Date Recorded What is the highest level of school you have completed or the highest degree you have received? 12th grade 05/08/2020 Sex and Gender Information Value Date Recorded Sex Assigned at Female 02/05/2018 10:11 AM CDT Gender Identity Female 02/05/2018 10:11 AM CDT Sexual Orientation Straight 02/05/2018 10 :11 AM CDT Last Filed Vital Signs Vital Sign Reading Time Taken Comments Blood Pressure 109/72 04/02/2024 3:17 PM CDT Pulse 83 04/02/2024 3:17 PM CDT regul ar Temperature 36.7 ??C (98.1 ??F) 04/02/2024 3:17 PM CD T Respiratory Rate 16 01/04/2021 12:56 PM CDT Oxygen Saturation 99% 08/28/2019 2:42 PM KARATE BLACK BELT room air Inhaled Oxygen Concentration - - Weight 49.5 kg (109 lb 2 oz) 04/02/2024 3:17 PM CDT Height 164 cm (5' 4.57) 04/02/2024 3:17 PM CDT Body Mass Index 18.4 04/02/2024 3:17 PM CDT Plan of Treatment Upcoming Encounters Date Type Department Care Team (Late st Contact Info) Description 10/10/2024 1:00 PM KARATE BLACK BELT Appointment Department of Neurology in [place], [place] [address] [place] [address] Hai Love M.D. [address] [place] [address] Discharge Disposition: Home or Self Care Health Maintenance Due Date Last Done Comments HIV Screening 1982 Hepatitis C Screening 1982 Mammogram 1982 Visit: Medicare Annual Wellness 1982 Pneumococcal vaccine (0-64 years) (1 of 2 - PCV) 1988 Hepatitis B Vaccines (3 of 3 - 3-dose series) 10/13/1998 08/18/1998, 05/22/1998 Tobacco Cessation counseling 01/04/2022 01/04/2021 DTaP,Tdap,and Td Vaccines (5 - Td or Tdap) 11/02/2022 11/02/2012, 07/19/2012, 10/23/1994, Additional history exists COVID-19 Vaccine ( season) 2024 Influenza Vaccine (#1) 2024 07/29/2013, 2010 Lipid (Cholesterol) Screening 04/22/2025 04/22/2020, 06/26/2013 (Performed elsewhere) Depression Screening (Annual PHQ-2) Completed 04/02/2024, 04/02/2024 HPV Vaccines Aged Out No longer eligi ble based on patient's age to complete this topic Procedures Procedure Name Priority Date/Time Associated Diagnosis Comments TX CHEMODENERV FACIAL TRIGEM JEANNE Routine 07/17/2024 1:30 PM CDT Chronic Migraine LIPID PANEL, S Routine 04/22/2020 2:22 PM CDT Screening Lipid from Last 3 Months or Most Recently Relevant to Health Maintenance Results * TX CHEMODENERV FACIAL TRIGEM JEANNE (07/17/2024 1:30 PM CDT) Narrative MMODAL - 07/17/2024 1:30 PM CDT Jennifer Hummel APRN, C.N.P., M.S. ? 07/17/2024 ??3:56 PM Botox for Chronic Migraine Performed by: Jennifer Hummel APRN, C.N.P., M.S. Authorized by: Hai Love M.D. ?? Care team members present 1. Joe Monroe L.P.N. PROCEDURE DETAILS ?? MODIFIED PROTOCOL Pre-procedure pain score: 0/10 Injection of: ??100 Units onabotulinumtoxinA 100 unit 50 Units onabotulinumtoxinA 50 unit Needle gauge: 30 Needle length: 0.5 in Injection site details Box Sorter / Procerus muscle(s): 5 units into the left director new product muscle, 5 units into the right director new product muscle ??and 5 units into the procerus muscle ??(15 units total). Superior Frontalis muscle(s): 5 units into the left superior frontalis muscle and 5 units into the right superior frontalis muscle ?(2 injection sites per muscle) (10 units total). Temporalis muscle(s): 12.5 units into the left temporalis muscle and 12.5 units into the right temporalis muscle ?(2 injection sites per muscle) ?? (25 units total). Splenius Capitis muscle(s): 12.5 units into the left splenius capitis muscle and 12.5 units into the right splenius capitis muscle ?(2 injection sites per muscle) ??(25 units total). Occipitalis muscle(s): 12.5 units into the left occipitalis muscle and 12.5 units into the right occipitalis muscle ?? (2 injection sites per muscle) ??(25 units total). Trapezius muscle(s): 25 units into the left trapezius muscle and 25 units into the right trapezius muscle ?? (3 injection sites per muscle) ??(50 units total). Total units wasted: 0 Total units injected: 150 CONSENT Consent obtained: written (Risks, benefits and alternatives were discussed and a written Informed Consent was obtained. Please see Informed Consent form for further details.) UNIVERSAL PROTOCOL All relevant documentation and testing were reviewed and available. All required blood products, implants, devices and or special equipment were made available as applicable. Pre-procedure verification was conducted and the correct site was marked if required. A fire risk and smoke assessment were done as applicable. The procedural time-out to [...] ?? Prior to treatment with Botox, the frequency of headaches was greater than 20 days per month and with significant impairment in the quality of life. ?? Please see the initial Botox injection note and Headache consultation note regarding specific details of the headache history prior to the start of treatment. Daily migraine prophylactic treatments: emgality. Headache frequency when Botox is most effective (middle month in between rounds). Current headache days per month: 0 days Current severe headache days per month: 0 days Wearing off phenomenon prior to this round of Botox: yes Duration: 2 weeks Patient finds Botox treatment helpful and wants to repeat the treatment? yes Patient had migraine headache frequency reduction by at least 30 days per month compared to pretreatment level. ?? Midas Scorin (07/10/2024 10:53 PM) POST-PROCEDURE DETAILS ?? Procedure completed successfully: yes ?? Complications: no apparent complications Comments Medications tried prior to Botox treatment: Topiramate, valproic acid (Depakote), propranolol and metoprolol. MODIFIED 150 UNIT PROTOCOL: superior frontalis injections higher and more medial Prior to Botox how many days per month did you miss work/school due to migraines? 5. Prior to Botox how many days per month did you miss out on family functions or home activities due to migraines? 10. Prior to Botox did severe migraines cause symptoms that impacted your quality of life and ability to care for yourself? If yes, what symptoms? Yes, Nausea, Vomiting, dizziness, inability to communicate, sensitivity to light, sounds and smells and ??throbbing head pain. With Botox how many days per month do you miss work/school due to migraines? 2. With Botox how many days per month do you miss out on family functions or home activities due to migraines? 2. How has Botox impacted your quality of life; are you able to do more at work/school or home? Patient is able to function and migraines are manageable. What migraine symptoms have you noted an improvement on since starting Botox? ??Nausea, Vomiting, dizziness, sensitivity to light, sounds and smells and ??throbbing head pain. Hai Love M.D. NEUROLOGY ORDERABLES MMODAL NA * Lipid Panel (04/22/2020 2:22 PM CDT) [facility] Cholesterol, Total 160 mg/dL 2019 5:05 PM CDT OWAT Comment: ----REFERENCE VALUE---- Desirable: < 200 Borderline high: 200 - 239 High: > or = 240 Triglycerides 67 mg/dL 04/22/2020 5:05 PM CDT OWAT Comment: ----REFERENCE VALUE---- Normal: <150 Borderline high: 150-199 High: 200-499 Very high: > or =500 Cholesterol, HDL 56 >=50 mg/dL 04/22/20 20 5:05 PM CDT OWAT Calculated LDL 91 mg/dL 04/22/2020 5:05 PM CDT OWAT Comment: ----REFERENCE VALUE---- Desirable: <100 Above Desirable: 100-129 Borderline high: 130-159 High: 160-189 Very high: > or =190 Cholesterol, Non-HDL, Calculated 104 mg/dL 04/22/2020 5:05 PM CDT OWAT Comment: ----REFERENCE VALUE---- Desirable: <130 Above Desirable: 130-159 Borderline high: 160-189 High: 190-219 Very high: > or =220 Blood (Blood, Venous) 04/22/2020 2:22 PM CDT 04/22/2020 3:45 PM CDT Winter Singleton M.D. LAB BLOO D ADD-ON [facility] [address] [place] [address], [facility] OWAT [facility] [place] [address] [place] [address] from Last 3 Months or Most Recently Relevant to Health Maintenance Care Teams Fire Prevention Chief Relationship Specialty Start Date End Date China Topete D.O. [address] [facility] [place] [address] PCP - General Family Medicine 04/02/24
--- OUTSIDE RECORDS SUMMARY | 2024-07-30 15:10 | XMS_ITS | Referral Summary ---
Author Organization [facility] Address [address] [place] [address] Care Team Providers Care Home Service Director Name Role Phone China Topete D.O. Primary Care Provider Source Comments Patient records contain information from all sites at [facility]. For routine questions regarding patient records, call [phone] during business hours, M-F 8:00 AM - 5:00 PM Central Time. Record requests for emergency care only can be directed to [phone] at any time.[facility] Encounters Date Type Department Care Team Description 07/17/2024 1:03 PM CDT - 07/17/2024 3:56 PM CDT Hospital Encounter Department of Neurology in [place], [place] [address] [place] [address] Hai Love M.D. Augustine, Kathleen A, APRN, C.N.P., M.S. Chronic Migraine Discharge Disposition: Home or Self Care 05/03/2024 Clinical Communication Department of Family Medicine, [place], [place] [address] [place] [phone] Rey Guevara, D.O. 04/30/2024 Orders Only Department of Family Medicine, [place], [place] [address] [place] [phone] Rey Guevara DZabrina. from Last 3 Months Allergies Active Allergy Reactions Criticality Noted Date [...] due to history of HGSIL Sarah Bhardwaj, STRAPPER 09/22/2015 12:07 PM Immunizations Name Administration Dates Next Due DTaP [...] drink = 0.6 oz pur e alcohol) [facility] Utilities Answer Date Recorded In the past 12 months has e [employer], [employer], oil, or water [employer] threatened to shut off services in your [...] week 05/02/2022 How often do you attend [facility] or gnosticism services? 1 to 4 times per year 05/02/2022 Do you belong to any clubs o r organizations such as tenriism groups, unions, fraternal [...] Answer Date Recorded PHQ-2 Score 0 04/02/2024 [facility] [place] [facility] - Occupational Stress Questionnaire Answer Date [...] your living situation today? [facility] 04/05/2024 Education Answer Date [...] CDT Oxygen Saturation 99% 08/28/2019 2:42 PM DEVELOPMENT VICE PRESIDENT room air Inhaled Oxygen Concentration - - Weight 49.5 kg (109 lb 2 oz) 04/02/2024 3:17 PM CDT Height 164 cm (5' 4.57) 04/02/2024 3:17 PM CDT Body Mass Index 18.4 04/02/2024 3:17 PM CDT Plan of Treatment Upcoming Encounters Date Type Department Care Team (Late st Contact Info) Description 10/10/2024 1:00 PM DEVELOPMENT VICE PRESIDENT Appointment Department of Neurology in [place], [place] [address] [place] [address] Hai Love M.D. [address] [place] [address] Discharge Disposition: Home or Self Care Procedures Procedure Name Priority Date/Time Associated Diagnosis Comments IN CHEMODENERV FACIAL TRIGEM JEANNE Routine 07/17/2024 1:30 PM CDT Chronic Migraine LIPID PANEL, S Routine 04/22/2020 2:22 PM CDT Screening Lipid from Last 3 Months or Most Recently Relevant to Health Maintenance Results * IN CHEMODENERV FACIAL TRIGEM JEANNE (07/17/2024 1:30 PM [...] Needle length: 0.5 in Injection site details Art Therapist / Procerus muscle(s): 5 units into the left fiscal agent muscle, 5 units into the right fiscal agent muscle ??and 5 units into the procerus [...] head pain. Hai Love M.D. NEUROLOGY ORDERABLES Performing Organization Address [facility] Co de Phone Number MMODAL NA * Lipid Panel (04/22/2020 2:22 PM CDT) [facility] Cholesterol, Total 160 mg/dL 2019 5:05 PM CDT OWAT Comment: ----REFERENCE VALUE---- Desirable: < 200 Borderline high: 200 - 239 High: > or = 240 Triglycerides 67 mg/dL 04/22/2020 5:05 PM CDT OWAT Comment: ----REFERENCE VALUE---- Normal: <150 Borderline high: 150-199 High: 200-499 Very high: > or =500 Cholesterol, HDL 56 >=50 mg/dL 04/22/20 5:05 PM CDT OWAT Calculated LDL 91 [...] Winter Singleton M.D. LAB BLOO D ADD-ON Performing Organization Address City/[facility]/ZIP Co de Phone Number [facility] [address] [place] [address], [facility] OWAT [facility] [place] [address] [place] [address] from Last 3 Months or Most Recently Relevant to Health Maintenance Care Teams Home Service Director Relationship Specialty Start Date End Date China Topete D.O. [address] [place] [address] PCP - General Family Medicine 04/02/24
--- OUTSIDE RECORDS SUMMARY | 2024-07-30 15:10 | XMS_ITS | Clinical Summary ---
Author Organization [facility] Address [address] [place] [address] Care Team Providers Care Medical Concierge Name Role Phone No Ref-Primary, Physician Primary Care Provider Allergies Active Allergy Reactions Criticality Noted Date Comments Fentanyl Hives 05/04/2022 Penicillins 05/04/2022 Medications No known medications Social History Tobacco Use Types Packs/Day Years Used Date Smoking Tobacco: Never Assessed Adolescent Education Answer Date Record ed Getting School Help Needed Not on file 07/29 Sex and Gender Information Value Date Recorded Sex Assigned at Not on file Gender Identity Not on file Sexual Orientation Not on file Last Filed Vital Signs Vital Sign Reading Time Taken Comments Blood Pressure 103/72 05/04/2022 6:30 PM CDT Pulse 105 05/04/2022 4:22 PM CDT Temperature 36.8 ??C (98.2 ??F) 05/04/2022 4:22 PM CD T Respiratory Rate 14 05/04/2022 4:22 PM CDT [...] 1982 ANNUAL REVIEW OF HM ORDERS 1982 MAMMO SCREENING 1982 HIV SCREENING 1997 HEPATITIS C SCREENING 2000 MEDICARE ANNUAL WELLNESS VISIT 2000 HEPATITIS B IMMUNIZATION (1 of 3 - 19+ 3-dose series) 2001 PAP 2003 DTAP/TDAP/TD IMMUNIZATION (1 - Tdap) 2007 LIPID 2022 PHQ-2 (once per calendar year) 2023 COVID-19 Vaccine (1 - 2023-2 5 season) 2024 INFLUENZA VACCINE (#1) 2024 GLUCOSE 05/04/2025 05/04/2022 RSV VACCINE (1 - 1-dose 75+ series) 2057 HPV IMMUNIZATION Aged Out No longer e ligible based on patient's age to complete this topic MENINGITIS IMMUNIZATION Aged Out No l onger eligible based on patient's age to complete this topic Pneumococcal Vaccine: Pediat rics (0 to 5 Years) and At-Risk Patients (6 to 64 Years) Aged Out No longer eligi ble based on patient's age to complete this topic RSV MONOCLONAL ANTIBODY Aged Out No l onger eligible based on patient's age to complete this topic Procedures Procedure Name Priority Date/Time Associated Diagnosis Comments COMPREHENSIVE METABOLIC PANEL STAT 05/04/2022 5:03 PM CDT from Last 3 Months or Most Recently Relevant to Health Maintenance Results * (ABNORMAL) Comprehensive metabolic panel (05/04/2022 5:03 PM CDT) Sodium 139 134 - 144 mmol/L 05/04/2022 5:39 PM CDT LABORATORY Potassium 3.7 3.5 - 5.1 mmol/L 05/04/2022 5:39 PM CDT LABORATORY Chloride 104 98 - 107 mmol/L 05/04/2022 5:39 PM CDT LABORATORY Carbon Dioxide (CO2) 29 21 - 31 mmol/L 05/04/2022 5:39 PM CDT LABORATORY Anion Gap 6 3 - 14 mmol/L 05/04/2022 5:39 PM CDT LABORATORY Urea Nitrogen 15 7 - 25 mg/dL 05/04/2022 5:39 PM CDT LABORATORY Creatinine 0.81 0.60 - 1.20 mg/dL 05/04/2022 5:39 PM CDT LABORATORY Calcium 9.5 8.6 - 10.3 mg/dL 05/04/2022 5:39 PM CDT LABORATORY Glucose 107(H) 70 - 105 mg/dL 05/04/2022 5:39 PM CDT [facility] Alkaline Phosphatase 64 34 - 104 U/L 05/04/2022 5:39 PM CDT [facility] AST 11(L) 13 - 39 U/L 05/04/2022 5:39 PM CDT [facility] ALT 5(L) 7 - 52 U/L 05/04/2022 5:39 PM CDT [facility] Protein Total 6.4 6.4 - 8.9 g/dL 05/04/2022 5:39 PM CDT [facility] Albumin 4.2 3.5 - 5.7 g/dL 05/04/2022 5:39 PM CDT [facility] Bilirubin Total 0.4 0.3 - 1.0 mg/dL 05/04/2022 5:39 PM CDT [facility] GFR Estimate >90 >60 mL/min/1.7 3m2 05/04/2022 5:39 PM CDT [facility] Comment:Effective September 232020 eGFRcr in adults is calculated using the 2020 CKD-EPI creatinine equation which includes age and gender (Lopez et al., NEJM, DOI: 10.1056/BFPTon7399654) Blood STRUCTURE OF LEFT UPPER LIMB / Unknown Venipuncture / Unknown 05/04/2022 5:03 PM CDT 05/04/2022 5:16 PM CDT Hai Cantu PA-C LAB - BLOOD ORDERA BLES [facility]ORAT[facility] [address] [place] [address], [facility] [place] [phone] from Last 3 Months or Most Recently Relevant to Health Maintenance Care Teams Medical Concierge Relationship Specialty Start Date End Date No Ref-Primary, Physician PCP - General 05/04/22
--- OUTSIDE RECORDS SUMMARY | 2024-07-30 15:10 | XMS_ITS | Referral Summary ---
Author Organization [facility] Address [address] [place] [address] Care Team Providers Care Senior Mechanical Design Engineer Name Role Phone No Ref-Primary, Physician Primary [...] 05/04/2022 4:22 PM CDT Plan of Treatment Not on file Procedures Procedure Name Priority Date/Time Associated Diagnosis Comments COMPREHENSIVE METABOLIC PANEL STAT 05/04/2022 5:03 PM CDT from Last 3 Months or Most Recently Relevant to Health Maintenance Results * (ABNORMAL) Comprehensive metabolic panel (05/04/2022 5:03 PM CDT) Sodium 139 134 - 144 mmol/L 05/04/2022 5:39 PM [facility] Potassium 3.7 3.5 - 5.1 mmol/L 05/04/2022 5:39 PM [facility] Chloride 104 98 - 107 mmol/L 05/04/2022 5:39 PM [facility] Carbon Dioxide (CO2) 29 21 - 31 mmol/L 05/04/2022 5:39 PM [facility] Anion Gap 6 3 - 14 mmol/L 05/04/2022 5:39 PM [facility] Urea Nitrogen 15 7 - 25 mg/dL 05/04/2022 5:39 PM [facility] Creatinine 0.81 0.60 - 1.20 mg/dL 05/04/2022 5:39 PM [facility] Calcium 9.5 8.6 - 10.3 mg/dL 05/04/2022 5:39 PM [facility] Glucose 107(H) 70 - 105 mg/dL 05/04/2022 5:39 PM [facility] Alkaline Phosphatase 64 34 - 104 U/L 05/04/2022 5:39 PM [facility] AST 11(L) 13 - 39 U/L 05/04/2022 5:39 PM [facility] ALT 5(L) 7 - 52 U/L 05/04/2022 5:39 PM [facility] Protein Total 6.4 6.4 - 8.9 g/dL 05/04/2022 5:39 PM [facility] Albumin 4.2 3.5 - 5.7 g/dL 05/04/2022 5:39 PM [facility] Bilirubin Total 0.4 0.3 - 1.0 mg/dL 05/04/2022 5:39 PM [facility] GFR Estimate >90 >60 mL/min/1.7 3m2 05/04/2022 5:39 PM [facility] Comment:Effective September 232020 eGFRcr in adults is calculated using the 2020 CKD-EPI creatinine equation which includes age and gender (Lopez et al., NEJM, DOI: 10.1056/KNIRer6314998) Blood STRUCTURE OF LEFT UPPER LIMB / Unknown Venipuncture / Unknown 05/04/2022 5:03 PM CDT 05/04/2022 5:16 PM CDT Hai Cantu PA-C LAB - BLOOD ORDERA BLES [facility] [address] [place] [address], [facility] [phone] from Last 3 Months or Most Recently Relevant to Health Maintenance Care Teams Senior Mechanical Design Engineer Relationship Specialty Start Date End Date No Ref-Primary, Physician PCP - General 05/04/22
--- OUTSIDE RECORDS SUMMARY | 2024-07-30 15:10 | XMS_ITS ---
Author Organization [facility] Address [address] [place] [address] Care Team Providers Care Scientific Investigator Name Role Phone Unavailable Unavailable Unavailable Surgery Details Not on file Complications Check Surgery Details section. Procedure Estimated Blood Loss Check Surgery Details section. Procedure Findings Check Surgery Details section. Procedure Specimens Taken Check Surgery Details section.
--- OUTSIDE RECORDS SUMMARY | 2024-07-30 15:11 | XMS_ITS | Encounter Summary ---
Author Organization [facility] Address [address] [place] [address] Care Team Providers Care Oceanographer Physical Name Role Phone China Topete D.O. Primary Care Provider Encounter Details Date Type Department Care Team (Late st Contact Info) Description 04/11/2024 Clinical Communication Department of Family Medicine, [place], [place] [address] [place] [phone] China Topete D.O. [address] [place] [phone] Social History Tobacco Use Types Packs/Day Years Used Date Smoking Tobacco: Every Day Cigarettes 0 Smokeless Tobacco: Never Alcohol Use Standard Drinks/Week Comments Yes 6 (1 standard drink = 0.6 oz pur e alcohol) [facility] Utilities Answer Date Recorded In the past 12 months has [employer], gas, oil, or water [employer] threatened to shut off services in your [...] week 05/02/2022 How often do you attend chur ch or jehovah's witness services? 1 to 4 times per year 05/02/2022 Do you belong to any clubs o r organizations such as caodaism groups, unions, fraternal [...] Answer Date Recorded PHQ-2 Score 0 04/02/2024 [facility] - Occupational Stress Questionnaire Answer Date Recorded [...] Answer Date Recorded Employment status Unemployed/not in e paid workforce but seeking employment 04/05/2024 Housing Stability Answer Date Recorded What is your living situation today? I have a [facility] place to live 04/05/2024 Education Answer Date Recorded What is the highest level of school you have completed or the highest degree you have received? 12th grade 05/08/2020 Sex and Gender Information Value Date Recorded Sex Assigned at Female 02/05/2018 10:11 AM CDT Gender Identity Female 02/05/2018 10:11 AM CDT Sexual Orientation Straight 02/05/2018 10 :11 AM CDT documented as of this encounter Miscellaneous Notes * Telephone Encounter - Max Causey - 04/11/2024 2:14 PM CDT Radiology is looking at trying to move up the CT to be done sooner. They are now questioning if both of the scheduled CTs are needed? Please review and advise. Thanks documented in this encounter Plan of Treatment Upcoming Encounters Date Type Department Care Team (Late st Contact Info) Description 10/10/2024 1:00 PM COFFEE SHOP MANAGER Appointment Department of Neurology in [place], [place] [address] [place] [address] Hai Love M.D. [address] [place] [address] Discharge Disposition: Home or Self Care documented as of this encounter Visit Diagnoses Not on filedocumented in this encounter Additional Health Concerns Assessment Noted Time PHQ-9 Depression Total Score: 14 022 10:14 AM CDT documented as of this encounter Care Teams Oceanographer Physical Relationship Specialty Start Date End Date China Topete D.O. [address] [place] [address] PCP - General Family Medicine 04/02/24 documented as of this encounter
--- OUTSIDE RECORDS SUMMARY | 2024-07-30 15:11 | XMS_ITS | Encounter Summary ---
Author Organization [facility] Address [address] [place] [address] Care Team Providers Care Licensed Physical Therapy Assistant Name Role Phone China Topete D.O. Primary Care Provider Reason for Referral * Outpatient (Routine) - Authorized Specialty Diagnoses / Procedures Referred By Gustavo olivares Referred To Contact Diagnoses Chronic Migraine Procedures Botox for Chronic Migraine MI INJECTION,ONABOTULINUMTOXINA MI CHEMODENERV FACIAL TRIGEM JEANNE Hai Love M.D. [address] [place] [address] [facility] Referral ID Status Reason Start Date Expiration Date V isits Requested Visits Authorized [id number] Authorized 01/20/2023 10/22/2024 12 7 Reason for Visit * Outpatient (Routine) - Authorized Specialty Diagnoses / Procedures Referred By Gustavo olivares Referred To Contact Diagnoses Chronic Migraine Procedures Botox for Chronic Migraine MI INJECTION,ONABOTULINUMTOXINA MI CHEMODENERV FACIAL TRIGEM Hai Brown M.D. [address] [place] [address] [facility] Referral ID Status Reason Start Date Expiration Date V isits Requested Visits Authorized [id number] Authorized 01/20/2023 10/22/2024 12 7 Encounter Details Date Type Department Care Team (Latest Contact Info) Description 07/17/2024 1:03 PM CDT - 07/17/2024 3:56 PM CDT Hospital Encounter Department of Neurology in [place], [place] [address] [place] [phone] Hai Love M.D. [address] [place] [phone] Jennifer Hummel APRN, C.N.P., M.S. [address] [place] [phone] Chronic Migraine Discharge Disposition: Home or Self Care Social History Tobacco Use Types Packs/Day Years Used Date Smoking Tobacco: Every Day Cigarettes 0 Smokeless Tobacco: Never Alcohol Use Standard Drinks/Week Comments Yes 6 (1 standard drink = 0.6 oz pur e alcohol) [facility] [employer] Answer Date Recorded In the past 12 months has [facility], gas, oil, or water [employer] threatened to shut off services in your [...] week 05/02/2022 How often do you attend [facility] or mu-ism services? 1 to 4 times per year 05/02/2022 Do you belong to any clubs o r organizations such as mandaen groups, unions, fraternal [...] Answer Date Recorded PHQ-2 Score 0 04/02/2024 [facility] Occupat ional Health - Occupational Stress [...] your living situation today? I have a [facility] place to live 04/05/2024 Education Answer Date [...] Sig Dispensed Refills Start Date End Date amphetamine-dextroamph etamine (ADDERALL XR) 5 mg 24 hr capsule Take 5 mg by mouth every morning. Emgality Pen 120 mg/mL injection Inject 120 mg under the skin every 30 (thirty) days. estradioL (VIVELLE-DOT) 0.1 mg/24 hr patch APPLY ONE PATCH TRANSDERMAL TWICE WEEKLY 11/08/2020 fluticasone propionate (FLONASE) 50 mcg/actuation nasal spray ADMINISTER ONE SPRAY INTO EACH NOSTRIL DAILY 16 g 11 03/18/2021 ibuprofen (MOTRIN) 600 mg tablet as needed for pain. 09/08/2020 naproxen (NAPROSYN) 500 mg tablet Take one tablet (500 mg) by mouth at onset of headache, may repeat in 8 hours, no more than 2 per day or 5 per week. 20 tablet 5 05/03/2021 omeprazole (PriLOSEC) [address] capsule Take 20 mg by mouth every morning before breakfast. 11/30/2021 ondansetron (ZOFRAN) 4 mg tablet Take 1 tablet (4 mg total) by mouth every 8 (eight) hours as needed for nausea or vomiting. 20 tablet 05/08/2020 rizatriptan (MAXALT) 10 mg tablet Take 1 tablet (10 mg total) by mouth every 2 (two) hours as needed for migraine. May repeat in 2 hours if unresolved. Do not exceed 30 mg in 24 hours. 9 tablet 11 05/02/2022 tamsulosin (FLOMAX) 0.4 mg 24 hr capsule Take 1 capsule (0.4 mg total) by mouth daily. 30 capsule 04/02/2024 traZODone (DESYREL) 50 mg tablet 1/2 to one tab at bedtime if needed for insomnia 90 tablet 3 01/28/2020 documented as of this encounter Procedure Notes * Jennifer Hummel APRN, C.N.P., M.S. - 07/17/2024 1:30 PM CDTAssociated Order(s): Botox for Chronic Migraine Pre-Procedure Diagnose(s): Chronic Migraine Post-Procedure Diagnose(s): Chronic Migraine Botox for Chronic Migraine Performed by: Jennifer Hummel APRN, C.N.P., M.S. Authorized by: Hai Love M.D. Care team members present 1. Joe Monroe L.P.N. PROCEDURE DETAILS MODIFIED PROTOCOL Pre-procedure pain score: 0/10 Injection of: 100 Units onabotulinumtoxinA 100 unit 50 Units onabotulinumtoxinA 50 unit Needle gauge: 30 Needle length: 0.5 in Injection site details Metal Miner / Procerus muscle(s): 5 units into the left pocket assembler muscle, 5 units into the right pocket assembler muscle and 5 units into the procerus [...] units into the right splenius capitis muscle (2 injection sites per [...] days per month compared to pretreatment level. Midas Scorin (07/10/2024 10:53 PM) POST-PROCEDURE DETAILS Procedure completed successfully: yes Complications: no apparent complications Comments Medications tried [...] sensitivity to light, sounds and smells and throbbing head pain. With Botox how many days [...] noted an improvement on since starting Botox? Nausea, Vomiting, dizziness, sensitivity to light, sounds and smells and throbbing head pain. documented in this encounter Plan of Treatment Upcoming Encounters Date Type Department Care Team (Late st Contact Info) Description 10/10/2024 1:00 PM BINDERY MACHINE FEEDER OFFBEARER Appointment Department of Neurology in [place], [place] [address] [place] [phone] Hai Love M.D. [address] [place] [address] Discharge Disposition: Home or Self Care documented as of this encounter Procedures Procedure Name Priority Date/Time Associated Diagnosis Comments MI CHEMODENERV FACIAL TRIGEM JEANNE Routine 07/17/2024 1:30 PM CDT Chronic Migraine documented in this encounter Results * MI CHEMODENERV FACIAL TRIGEM JEANNE (07/17/2024 1:30 PM [...] Needle length: 0.5 in Injection site details Metal Miner / Procerus muscle(s): 5 units into the left pocket assembler muscle, 5 units into the right pocket assembler muscle ??and 5 units into the procerus [...] Hai Love M.D. NEUROLOGY ORDERABLES MMODAL NA documented in this encounter Visit Diagnoses Diagnosis Chronic Migraine documented in this encounter Administered Medications Inactive Administered Medications - up to 3 most recent administrations Medication Order MAR Action Action Date Dose Rate Site onabotulinumtoxinA injection 100 Units (Botox) 100 Units, injection, One-Time Injection, Starting on Mon07/17/24 at 1330, For 1 dose Given 07/17/2024 1:30 PM CDT 100 Units Other onabotulinumtoxinA injection 50 Units (Botox Cosmetic) 50 Units, injection, One-Time Injection, Starting on Mon07/17/24 at 1330, For 1 dose Given 07/17/2024 1:30 PM CDT 50 Units Other documented in this encounter Additional Health Concerns Assessment Noted Time PHQ-9 Depression Total Score: 14 022 10:14 AM CDT documented as of this encounter Care Teams Licensed Physical Therapy Assistant Relationship Specialty Start Date End Date China Topete D.O. [facility] [phone] PCP - General Family Medicine 04/02/24 documented as of this encounter
--- OUTSIDE RECORDS SUMMARY | 2024-07-30 15:11 | XMS_ITS | Encounter Summary ---
Author Organization [facility] Address [address] [place] [address] Care Team Providers Care Numerical Control Programmer Name Role Phone China Topete D.O. Primary Care Provider Encounter Details Date Type Department Care Team (Late st Contact Info) Description 05/03/2024 Clinical Communication Department of Family Medicine, [place], [place] [address] [place] [address] Rey Guevara D.O. [address] [place] [phone] Social History Tobacco Use Types Packs/Day Years Used Date Smoking Tobacco: Every Day Cigarettes 0 Smokeless Tobacco: Never Alcohol Use Standard Drinks/Week Comments Yes 6 (1 standard drink = 0.6 oz pur e alcohol) [facility] Utilities Answer Date Recorded In the past 12 months has [employer], oil, or water [employer] threatened to shut off services in your [...] 05/02/2022 How often do you attend chur or cheondoism services? 1 to 4 times per year 05/02/2022 Do you belong to any clubs o r organizations such as sabianism groups, unions, fraternal [...] Answer Date Recorded PHQ-2 Score 0 04/02/2024 [facility] Questionnaire Answer Date [...] your living situation today? I have a [facility] place to live 04/05/2024 Education Answer Date [...] encounter Miscellaneous Notes * Telephone Encounter - Rey Guevara D.O. - 05/03/2024 11:57 AM CDT Left a message on her answering machine to check how her flank pain is doing. I did ask her to callor come in if she continues to have any problems. documented in this encounter Plan of Treatment Upcoming Encounters Date Type Department Care Team (Late st Contact Info) Description 10/10/2024 1:00 PM FISH SALTER Appointment Department of Neurology in [place], [place] [address] [place] [address] Hai Love M.D. [address] [place] [address] Discharge Disposition: Home or Self Care documented as of this encounter Visit Diagnoses Not on filedocumented in this encounter Additional Health Concerns Assessment Noted Time PHQ-9 Depression Total Score: 14 022 10:14 AM CDT documented as of this encounter Care Teams Numerical Control Programmer Relationship Specialty Start Date End Date China Topete D.O. [address] [place] [address] PCP - General Family Medicine 04/02/24 documented as of this encounter
--- OUTSIDE RECORDS SUMMARY | 2024-07-30 15:11 | XMS_ITS | Encounter Summary ---
Author Organization [facility] Address [address] [place] [address] Care Team Providers Care Graduate Teaching Assistant Name Role Phone China Topete D.O. Primary Care Provider Encounter Details Date Type Department Care Team (Late st Contact Info) Description 04/30/2024 Orders Only Department of Family Medicine, [facility], [place], [place] [address] [place] [address] Rey Guevara D.O. [address] [place] [phone] Social History Tobacco Use Types Packs/Day Years Used Date Smoking Tobacco: Every Day Cigarettes 0 Smokeless Tobacco: Never Alcohol Use Standard Drinks/Week Comments Yes 6 (1 standard drink = 0.6 oz pur e alcohol) [facility] Utilities Answer Date Recorded In the past 12 months has [employer], oil, or water [employer] threatened to shut off services in your [...] How often do you attend chur or baptist services? 1 to 4 times per year 05/02/2022 Do you belong to any clubs o r organizations such as holiness groups, unions, fraternal [...] [facility] Questionnaire Answer Date [...] your living situation today? I have a [facility] place to live 04/05/2024 Education Answer [...] st Contact Info) Description 10/10/2024 1:00 PM SAFE AND VAULT INSTALLER Appointment Department of Neurology in [place], [place] [address] [place] [address] Hai Love M.D. [address] [place] [address] Discharge Disposition: Home or Self Care documented as of this encounter Visit Diagnoses Not on filedocumented in this encounter Additional Health Concerns Assessment Noted Time PHQ-9 Depression Total Score: 14 022 10:14 AM CDT documented as of this encounter Care Teams Graduate Teaching Assistant Relationship Specialty Start Date End Date Efrem, China J, D.O. [address] [place] [phone] PCP - General Family Medicine 04/02/24 documented as of this encounter
--- OUTSIDE RECORDS SUMMARY | 2024-07-30 15:11 | XMS_ITS | Encounter Summary ---
Author Organization [facility] Address [address] [place] [id number] Care Team Providers Care Brake Lining Finisher Name Role Phone China Topete D.O. Primary Care Provider [phone] Reason for Referral * Outpatient (Routine) - Authorized Specialty Diagnoses / Procedures Referred By Gustavo t Referred To Contact Family Medicine Rey Guevara D.O. [address] [place] [phone] [facility] Referral ID Status Reason Start Date Expiration Date V isits Requested Visits Authorized [id number] Authorized 04/26/2024 10/26/2025 1 1 Encounter Details Date Type Department Care Team (Late st Contact Info) Description 04/26/2024 Orders Only Department of Family Medicine, [place], [place] [address] [place] [address] Rey Guevara D.O. [address] [place] [phone] Social History Tobacco Use Types Packs/Day Years Used Date Smoking Tobacco: Every Day Cigarettes 0 Smokeless Tobacco: Never Alcohol Use Standard Drinks/Week Comments Yes 6 (1 standard drink = 0.6 oz pur e alcohol) [facility] Utilities Answer Date Recorded In the past 12 months has [employer], or [employer] threatened to shut off services in your [...] How often do you attend chur or anglican services? 1 to 4 times per year 05/02/2022 Do you belong to any clubs o r organizations such as jainism groups, unions, fraternal [...] Answer Date Recorded PHQ-2 Score 0 04/02/2024 [facility] Occupat ional Health - Occupational Stress [...] your living situation today? I have a [facility] to live 04/05/2024 Education Answer Date [...] st Contact Info) Description 10/10/2024 1:00 PM SUPERVISOR LANDSCAPE Appointment Department of Neurology in [place], [place] [address] [place] [address] Hai Love M.D. [address] [place] [address] Discharge Disposition: Home or Self Care Scheduled Referrals Name Type Priority Associated Diagnoses Orde r Schedule Family Medicine office visit (clinic) Outpatient Referral Routine Expected: 04/30/2024, Expires: 07/27/2025 documented as of this encounter Visit Diagnoses Not on filedocumented in this encounter Additional Health Concerns Assessment Noted Time PHQ-9 Depression Total Score: 14 022 10:14 AM CDT documented as of this encounter Care Teams Brake Lining Finisher Relationship Specialty Start Date End Date China Topete D.O. [address] [place] [phone] PCP - General Family Medicine 04/02/24 documented as of this encounter
--- OUTSIDE RECORDS SUMMARY | 2024-07-30 15:11 | XMS_ITS | Encounter Summary ---
Author Organization [facility] Address [address] [place] [address] Care Team Providers Care Community Program Assistant Name Role Phone China Topete D.O. Primary Care Provider Reason for Referral * Outpatient (Routine) - Authorized Specialty Diagnoses / Procedures Referred By Gustavo olivares Referred To Contact Diagnoses Chronic Migraine Procedures Botox for Chronic Migraine DE INJECTION,ONABOTULINUMTOXINA DE CHEMODENERV FACIAL TRIGEM JEANNE Hai Love M.D. [address] [place] [address] [facility] Referral ID Status Reason Start Date Expiration Date V isits Requested Visits Authorized [id number] Authorized 01/20/2023 10/22/2024 12 7 Reason for Visit * Outpatient (Routine) - Authorized Specialty Diagnoses / Procedures Referred By Gustavo olivares Referred To Contact Diagnoses Chronic Migraine Procedures Botox for Chronic Migraine DE INJECTION,ONABOTULINUMTOXINA DE CHEMODENERV FACIAL TRIGEM Hai Brown M.D. [address] [place] [address] [facility] Referral ID Status Reason Start Date Expiration Date V isits Requested Visits Authorized [id number] Authorized 01/20/2023 10/22/2024 12 7 Encounter Details Date Type Department Care Team (Latest Contact Info) Description 2024 1:04 PM CDT - 2024 1:17 PM CDT Hospital Encounter Department of Neurology in [place], [place] [address] [place] [phone] Hai Love M.D. [address] [place] [phone] Huyen Hernandez P.A.-C., M.S. [address] [place] [phone] Chronic Migraine Discharge Disposition: Home or Self Care Social History Tobacco Use Types Packs/Day Years Used Date Smoking Tobacco: Every Day Cigarettes 0 Smokeless Tobacco: Never Alcohol Use Standard Drinks/Week Comments Yes 6 (1 standard drink = 0.6 oz pur e alcohol) [facility] [employer] Answer Date Recorded In the past 12 months has [facility], gas, oil, or water [email or web address] threatened to shut off services in your [...] week 05/02/2022 How often do you attend [facility] or faith services? 1 to 4 times per year 05/02/2022 Do you belong to any clubs o r organizations such as confucianist groups, unions, fraternal [...] Answer Date Recorded PHQ-2 Score 0 04/02/2024 [facility] - Occupational Stress Questionnaire Answer Date Recorded [...] your living situation today? I have a [facility] place to live 04/05/2024 Education Answer [...] as of this encounter Procedure Notes * Huyen Hernandez P.A.-C., M.S. - 2024 1:15 PM CDTAssociated Order(s): Botox for Chronic Migraine Pre-Procedure Diagnose(s): Chronic Migraine Post-Procedure Diagnose(s): Chronic Migraine Botox for Chronic Migraine Performed by: Huyen Hernandez P.A.-C., M.S. Authorized by: Hai Love M.D. Care team members present 1. 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 POST-PROCEDURE DETAILS Procedure completed successfully: yes Complications: no apparent complications Comments Medications tried prior to Botox treatment: Topiramate, valproic acid (Depakote), propranolol and metoprolol. Prior to Botox how many days per month did you miss work/school due to migraines? 5. Prior to Botox how many days per month did you miss out on family functions or home activities due to migraines? 10 Prior to Botox did severe migraines cause symptoms that impacted your quality of life and ability to care for yourself? If yes, what symptoms? Yes, Nausea, Vomiting, dizziness, inability to communicate, sensitivity to light, sounds and smells and throbbing head pain. With Botox how many days per month do you miss work/school due to migraines? 0 With Botox how many days per month do you miss out on family functions or home activities due to migraines? 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 [address] [place] [address] Discharge Disposition: Home or Self Care documented as of this encounter Procedures Procedure Name Priority Date/Time Associated Diagnosis Comments DE CHEMODENERV FACIAL TRIGEM JEANNE Routine 2024 1:15 PM CDT Chronic Migraine documented in this encounter Results * DE CHEMODENERV FACIAL TRIGEM JEANNE (2024 1:15 PM CDT) Narrative [facility] - 2024 1:15 PM CDT Huyen Hernandez P.A.-C., M.S. ? 2024 ??1:17 PM Botox for Chronic Migraine Performed by: Huyen Hernandez P.A.-C., M.S. Authorized by: Hai Love M.D. ?? Care team members present 1. Tatianna Whitehead L.P.N. PROCEDURE DETAILS ?? Pre-procedure pain score: 9/10 Injection of: ??100 Units onabotulinumtoxinA 100 unit 50 Units onabotulinumtoxinA 50 unit Needle gauge: 30 Needle length: 0.5 in Injection site details Automobile Mechanic Radiator / Procerus muscle(s): 5 units into the left film numberer muscle, 5 units into the right film numberer muscle ??and 5 units into the procerus [...] migraine headache frequency reduction by at least 20 days per month compared to pretreatment level. ?? POST-PROCEDURE DETAILS ?? Procedure completed successfully: yes ?? Complications: no apparent complications Comments Medications tried prior to Botox treatment: Topiramate, valproic acid (Depakote), propranolol and metoprolol. Prior to Botox how many days per month did you miss work/school due to migraines? 5. Prior to Botox how many days per month did you miss out on family functions or home activities due to migraines? 10 Prior to Botox did severe migraines cause symptoms that impacted your quality of life and ability to care for yourself? If yes, what symptoms? Yes, Nausea, Vomiting, dizziness, inability to communicate, sensitivity to light, sounds and smells and ??throbbing head pain. With Botox how many days per month do you miss work/school due to migraines? 0 With Botox how many days per month do you miss out on family functions or home activities due to migraines? 0 How has Botox impacted your quality of [...] 100 Units, injection, One-Time Injection, Starting on Mon04/23/24 at 1315, For 1 dose Given 2024 1:15 PM CDT 100 Units onabotulinumtoxinA injection 50 Units (Botox Cosmetic) 50 Units, injection, One-Time Injection, Starting on Mon04/23/24 at 1315, For 1 dose Given 2024 1:15 PM CDT 50 Units documented in this encounter Additional Health Concerns Assessment Noted Time PHQ-9 Depression Total Score: 14 022 10:14 AM CDT documented as of this encounter Care Teams Community Program Assistant Relationship Specialty Start Date End Date China Topete D.O. [address] [place] [phone] PCP - General Family Medicine 04/02/24 documented as of this encounter
== END 2024-07-30 15:07 | disposition home or self-care (01) ==
PROVIDERS: PCP Family Medicine; Visit Provider Family Medicine
DX: R53.83 Other fatigue (principal); J32.9 Chronic sinusitis, unspecified
CPT/HCPCS: 80048; 80076; 83735; 84443; 85025